=== PATIENT | male | born 1975 | race Two or more races ===

== ENCOUNTER 2020-09-14 17:07 | Emergency (ER) | payer MEDICAID, SELFPAY ==
[2020-09-14 17:33] VITALS: BP 128/78; PULSE 101; RESP 18; TEMP 36.1; O2SAT 98; BMI 23.5
--- NOTE | 2020-09-14 17:44 | ED.MEDCLEAR ---
HPI - Medical Clearance General Chief complaint: Medical Clearance Stated complaint: hyperglycemia Time Seen by Provider: 09/14/20 17:44 Source: patient Mode of arrival: ambulatory Limitations: no limitations History of Present Illness HPI Narrative: 45-year-old male with history of substance abuse in the past and insulin-dependent diabetes physical today ambulatory via triage from [facility] where he reports had dinner afterwards checked his sugar her sugar was 450 he administer his sliding scale Humalog 14 units however facility as protocol to send patients to the emergency room for evaluation of their sugar is above a certain point and he was told to come to emergency room. States he tried to reason with the program that his sugar will correct after he took the insulin however they had a procedure that the follow in centimetre. He denies any complaints. He states he is at his usual health has been eating drinking okay. No poly's. no recent illness, chest pain, shortness of breath or URI symptoms. On arrival his POC is 160. complaint: medical clearance requested Onset (ago): hour(s) Traumatic Symptoms: denies traumatic injury Treatments Prior to Arrival: none Related Information Allergies Allergy/AdvReac Type Severity Reaction Status Date / Time fish Allergy Unknown Anaphylaxis Uncoded 09/14/20 17:37 shellfish Allergy Unknown Anaphylaxis Uncoded 09/14/20 17:37 Review of Systems Review of Systems: Constitutional: No Weight loss, No Fever, No Chills, No Night Sweats, No Fatigue, No Malaise ENT/Mouth: No Hearing loss, No Ear Pain, No Nasal Congestion, No Sinus Pain, No Hoarseness, No sore throat, No Rhinorrhea, No Swallowing Difficulty Eyes: No Eye Pain, No Swelling, No Redness, No Foreign Body, No Discharge, No Vision Changes Cardiovascular: No Chest Pain, No SOB, No Dyspnea on Exertion, No Orthopnea, No Edema, No Palpitations Respiratory: No Cough, No Sputum, No Wheezing, No Smoke Exposure, No Dyspnea Gastrointestinal: No Nausea, No Vomiting, No Diarrhea, No Constipation, No abdominal Pain, No Hematochezia, No Melena Genitourinary: no irregular bleeding, No Dysuria, No Urinary Frequency, No Hematuria, No Urinary Incontinence, No Urgency, No Flank Pain, No Urinary Flow Changes, No Hesitancy Musculoskeletal: No joint pain, No Myalgias, No Joint Swelling Skin: No Skin Lesions, No rash Neuro: No Weakness, No Numbness, No Paresthesias, No Loss of Consciousness, No Dizziness, No Headache Psych: No Anxiety/Panic, No Depression, No SI/HI/AH/VH, No Social Issues Heme/Lymph: No Bruising, No Bleeding,No Lymphadenopathy Endocrine: No Polyuria, No Polydipsia, No Temperature Intolerance Yes all other systems are reviewed and are negative [facility] Past Medical History Attestation statement: The following information was validated with the patient. Medical History (Updated 09/14/20 @ 17:56 by Hussein Crawford NP) Diabetes Diabetes Social History Social History Advance Directives: No Advance Directives Information Provided: No Physical Exam Vital Signs: Vital Signs: Vital Signs Temp Pulse Resp BP Pulse Ox 09/14/20 17:33 97.0 F 101 H 18 128/78 98 Body Mass Index 23.5 Reviewed Const: General: cooperative and healthy appearing; No acute distress or intoxicated appearing Nutritional Appearance: average body habitus Orientation/consciousness: patient oriented x3 HENMT: Head: Yes normal to inspection Ears: hearing grossly normal bilaterally Eyes: General: appearance normal, both eyes and all related structures Visual Crain: normal visual crain by confrontation Neck: Neck: Yes normal visual inspection and No tender Thyroid: Thyroid normal Chest: Chest palpation & inspection: normal inspection of the chest Resp: Effort & Inspection: normal respiratory effort Cardio: Jugular venous distension: no JVD GI: Inspection: Yes normal to inspection Percussion: Yes normal to percussion Auscultation: normal bowel sounds : General: Yes no CVA tenderness Back/Spine/Pelvis: Back: no CVA tenderness Skin: General skin exam: no rashes or lesions noted Neuro: General: patient oriented x3 Extrem: General: Yes normal to inspection Course Course Course Narrative: offers no medical complaints. He is actually quite upset that he was sent here knowing that he is diabetic and his sugar with improved after taking his sliding insulin. His POC on arrival is 160 he wants to return back to the sober house. At this time no further indication for lab work or evidence of DKA based on the presentation. Patient will be clear back for long term with continued monitoring his sugar and his meds as prescribed. Discharge Plan Discharge Clinical Impression: Diabetes, Encounter for medical screening examination Patient Disposition: Home, Self-Care Instructions: Type 2 Diabetes Management for Adults (ED), Diabetes and Exercise (ED) Additional Instructions: Continue monitor sugar as you have done so Take medication prescribed Return if any concerns or worsening symptoms Thank you Referrals: Kirsty / SATURNINO,MD Kimberly [Primary Care Provider] - 1 week
[2020-09-14 17:48] LABS: Glucose, Whole Blood 160 mg/dL (60-115)
== END 2020-09-14 18:13 | disposition home or self-care (01) ==
PROVIDERS: Emergency Provider Emergency Medicine; PCP Family Medicine
DX: E11.65 Type 2 diabetes mellitus with hyperglycemia (principal); Z79.4 Long term (current) use of insulin; Z79.899 Other long term (current) drug therapy
CPT/HCPCS: 82947; 99283

== ENCOUNTER 2021-01-06 10:29 | Outpatient (REF) | payer MEDICAID, SELFPAY ==
--- NOTE | ~2021-01-06 | US_ITS ---
EXAMINATION: US COMPLETE ABDOMEN WITH LIVER ELASTOGRAPHY CLINICAL INFORMATION: Chronic viral hepatitis C COMPARISON: CT scan 01/20/2014 TECHNIQUE: Real-time imaging of the abdominal viscera. Noninvasive ultrasound liver fibrosis assessment is performed using Ryan ElastPQ point quantification shear wave elastography (pSWE) with a C5-2 MHz transducer. Multiple elastography samples are obtained. FINDINGS: PANCREAS: Normal. The visualized pancreatic head and body are normal in appearance. The remainder of the pancreas is obscured from visualization by the overlying bowel gas. ABDOMINAL AORTA: The proximal, middle, and distal aortic segments are normal in caliber. INFERIOR VENA CAVA: Visualized portions are normal. LIVER: Normal. The liver demonstrates normal size, contour and echogenicity. No focal lesion or intrahepatic biliary duct dilatation. The right lobe measures 14.2 cm in length. The left lobe measures 10.1 cm in length. Portal flow is hepatopetal. Shear wave liver elastography median stiffness is 2.01 m/s (reference: normal median stiffness is 1.3 m/s or less). IQR/median stiffness to assess sampling precision is 0.12 (reference: good quality data set is IQR/median stiffness of 0.15 or less). GALLBLADDER: Normal. The gallbladder is physiologically distended without evidence of stones, sludge, polyps, wall thickening or pericholecystic fluid. COMMON BILE DUCT: Normal in caliber measuring 0.4 cm in diameter. RIGHT KIDNEY: No hydronephrosis or focal parenchymal lesions seen. There are 2 punctate echogenic foci, a 2 mm focus in the upper pole and a 1 mm focus in the right mid kidney, suggesting tiny calculi. The kidney measures 11.1 cm in maximum dimension. LEFT KIDNEY: Normal. No hydronephrosis. No renal calculi or focal parenchymal lesions. The kidney measures 10.8 cm in maximum dimension. SPLEEN: Normal. The spleen measures 10.6 cm in maximum dimension. FREE FLUID: None. US/US abdomen comp w elastography IMPRESSION: 1. Suspect tiny 1-2 mm nonobstructing right renal calculi. No focal liver lesion. 2. Liver elastography: Measurements are suggestive of compensated advanced chronic liver disease but need further test for confirmation. REFERENCE: Society of Radiologists in Ultrasound Liver Stiffness Thresholds (2020): LIVER STIFFNESS THRESHOLDS: *Liver Stiffness equal or less than 1.3 m/s: High probability of being normal. *Liver Stiffness less than 1.7 m/s: In the absence of other known clinical signs, rules out compensated advanced chronic liver disease. *Liver Stiffness 1.7-2.1 m/s: Suggestive of compensated advanced chronic liver disease but need further test for confirmation. *Liver Stiffness over 2.1 m/s: Rules in compensated advanced chronic liver disease. *Liver Stiffness over 2.4 m/s: Suggestive of clinically significant portal hypertension. QUALITY OF DATA SET: *IQR/Median value equal or less than 0.15 implies a quality data set. *IQR/Median value over 0.15 implies a poor quality data set. SIGNIFICANT CHANGE FROM PRIOR EXAM: Significant change if liver stiffness measurement is 10% or greater from prior exam. OTHER CONSIDERATIONS: The stage of liver fibrosis may be overestimated in the setting of acute hepatitis, liver inflammation, elevated liver function tests, hepatic vascular congestion, obstructive cholestasis, non-fasting state, and infiltrative diseases such as amyloidosis and lymphoma. In some patients with NAFLD, the liver stiffness thresholds for compensated advanced chronic liver disease may be lower. In causes other than viral hepatitis and NAFLD, liver stiffness thresholds are not well established.
== END 2021-01-06 10:30 | disposition home or self-care (01) ==
LOC: HO.US 10:29
PROVIDERS: Visit Provider Family Medicine
DX: B18.2 Chronic viral hepatitis C (principal)
CPT/HCPCS: 76705; 76981

== ENCOUNTER 2021-05-20 07:44 | Emergency (ER) | payer MEDICAID, SELFPAY ==
[2021-05-20 07:49] VITALS: BP 128/79; PULSE 109; RESP 17; TEMP 36.8; O2SAT 99; BMI 18.8
--- NOTE | 2021-05-20 08:05 | PC.NURSE ---
Dr Bales to bedside discussing plan for ABX as pt declines drainage of abscess at this time. Pt aware/agreeable to return to ED for unresolved sx after two days.
--- NOTE | 2021-05-20 08:10 | ED_ITS ---
HPI - Skin/Abscess/Foreign Bdy General Chief complaint: Skin/Abscess/Foreign Body Stated complaint: abscess Time Seen by Provider: 05/20/21 08:09 Source: patient Mode of arrival: ambulatory Limitations: no limitations History of Present Illness HPI narrative: 46-year-old male came in for evaluation of right arm abscesses. This is a 46 years domain with history of IV drug abuse, patient injected to the right AC area 4 days ago, patient stated that his been draining pus from the area and having redness of the skin, with area of fluctuation and draining pus, patient was able to drain pus from the area, no fever, no chills, patient declined there is no broken needle in the area. physical exam showed some fluctuation in the AC area, I recommended to the patient to do I and D in the emergency department but patient adamantly refused it in stated that there is no pus in there because he drained everything, I explained to the patient that because the proximity to the elbow joint 1 of the biggest complication that we concern about is septic arthritis patient is still refusing the I and D but just will take antibiotic prescription. Related Data Previous Rx's Medication Instructions Recorded doxycycline hyclate 100 mg PO BID #20 tab 05/20/21 Allergies Allergy/AdvReac Type Severity Reaction Status Date / Time fish Allergy Unknown Anaphylaxis Uncoded 09/14/20 17:37 shellfish Allergy Unknown Anaphylaxis Uncoded 09/14/20 17:37 Review of Systems Review of Systems: All other systems are reviewed and are negative Constitutional: Reports as per HPI and Reports no additional constitutional complaints Eyes: Reports as per HPI and Reports no additional eye complaints Reports system reviewed and no additional complaints, except as documented Cardiovascular: Reports as per HPI and Reports no additional cardiovascular complaints Respiratory: Reports as per HPI and Reports no additional respiratory complaints Gastrointestinal: Reports as per HPI and Reports no additional gastrointestinal complaints Genitourinary: Reports no additional female genitourinary complaints Musculoskeletal: Reports no additional musculoskeletal complaints Skin/Breast: Reports system reviewed and no additional complaints, except as docu Psychiatric: Reports no additional psychiatric complaints Endocrine: Reports no additional endocrine complaints Hematologic/Lymphatic: Reports no additional hematologic/lymphatic complaints Allergic/Immunologic: Reports no additional allergic/immunologic complaints Reports system reviewed and no additional complaints, except as documented and Reports Abnormal speech present [facility] Past Medical History Medical History Diabetes Diabetes Social History Social History Advance Directives: No Advance Directives Information Provided: No Physical Exam Vital Signs: Vital Signs: Last Vital Signs Temp 98.2 F 05/20/21 07:49 Pulse 109 H 05/20/21 07:49 Resp 17 05/20/21 07:49 BP 128/79 05/20/21 07:49 Pulse Ox 99 05/20/21 07:49 Body Mass Index 18.8 vital signs have been reviewed as appeared to be correct. Blood pressure normal. Heart rate Elevated. Respiration rate normal. Temperature normal. Oxygen saturation normal. Appearance: Alert. Oriented X3. No acute distress. Head: Normal external exam. Normocephalic. Atraumatic. No Ibrahim signs noted. No raccoon eyes noted Eyes: PERRLA. EOMI. Conjunctiva and sclera normal. Eyelids normal. ENT: TM's Normal. Pharynx normal. Uvula midline. Moist mucous membranes. No trismus noted. No drooling noted. No muffled voice noted. Neck: Normal inspection. Neck supple. FROM. No adenopathy. Thyroid Normal. No meningeal signs. No neck mass noted. CVS: Normal heart rate and rhythm. Heart sound normal. No murmurs noted. Pulses normal throughout. Respiratory: No respiratory distress. Painless inspiration. Breath sounds normal. No wheezes/rales/rhonchi noted. Chest nontender. No accessory muscle usage noted or decreased air movement noted. Abdomen: Soft and nontender. Bowel sounds normal in all 4 quadrants. No distention noted. No organomegaly noted. No visible injury noted. Back: No CVA tenderness. Full range of motion noted. Skin: Skin warm and dry. Normal skin color. Normal skin turgor. No rashes/lesions/lacerations noted. Extremities: right arm area of 2 x 2 cm redness, mild fluctuation, no drainage, full range of the right elbow joint with no hotness or redness above the joint. Neuro: Oriented X 3. No motor deficit. No sensory deficit. Reflexes normal. Course Course Course Narrative: assessment and plan. Right arm cellulitis with small abscess, patient mostly did I and D on his own, but patient adamantly refuse that I do I&D in the emergency department, at this point since there is no elbow involvement but patient was advised that this is a potential complication, patient was instructed to return to the ED for recheck on the infection In 2 days, will start the patient on doxycycline. Discharge Plan Discharge Clinical Impression: Cellulitis Qualifiers: Site of cellulitis of extremity: upper extremity Laterality: right Patient Disposition: Home, Self-Care Instructions: Cellulitis (ED) Prescriptions: New doxycycline hyclate 100 mg tablet 100 mg PO BID Qty: 20 RF: 0 Referrals: Kirsty / Kimberly MATAMOROS MD [Primary Care Provider] - 2 days
--- NOTE | 2021-05-20 08:16 | PC.NURSE ---
Stvien from CARE team at bedside speaking with pt at this time
--- NOTE | 2021-05-20 08:35 | MHC.RECOVSUP ---
Recovery Support note: Patient is a 46 year old Kinyarwanda speaking male who presented to [facility] ED due to multiple abscesses. Patient reports that he injects heroin. This writer editor met with patient to discuss his substance use and treatment options. Patient asked if [facility] still had detox services. This writer editor educated patient on [facility] and local treatment facilities. Patient reports he is interested in going to detox tomorrow. This writer editor provided patient with information on ATS facilities. Patient's mother was present and she reported that she cannot drive patient far for treatment. This writer editor discussed [facility] and provided patient with information regarding their transportation service and recovery coaching. Patient reports he is on 20mg of methadone through [facility]. Patient states I can't keep living like this, I need to get into treatment. Discussed harm reduction with patient. Patient reports he has a meeting with someone at [facility]. Patient provided with the contact information for this writer editor in the event that he has additional questions later on. This writer editor contacted [facility] ATS facilities and placed patient on waiting list at patient's request.
== END 2021-05-20 08:37 | disposition home or self-care (01) ==
PROVIDERS: Emergency Provider Emergency Medicine; PCP Family Medicine
DX: L03.113 Cellulitis of right upper limb (principal); E11.9 Type 2 diabetes mellitus without complications
CPT/HCPCS: 99283

== ENCOUNTER 2021-06-06 17:21 | Emergency (ER) | payer MEDICAID, SELFPAY | END 2021-06-06 18:56 | disposition left against medical advice (07) | PROVIDERS: Emergency Provider Emergency Medicine; PCP Family Medicine | DX: L02.91 Cutaneous abscess, unspecified (principal) ==

== ENCOUNTER 2021-06-22 20:30 | Inpatient (IN) | payer MEDICAID, SELFPAY ==
--- NOTE | ~2021-06-22 | CT_ITS ---
EXAMINATION: CT HUMERUS WITHOUT CONTRAST, RIGHT CLINICAL INFORMATION: compartment syndrome right arm status post surgery COMPARISON: None TECHNIQUE: Axial images obtained through the right upper shoulder through elbow. Coronal and sagittal reformatted images are performed at CT scanner This CT examination was performed using dose optimization techniques as appropriate, variously including the following: *Automated exposure control *Adjustment of mA and/or kV according to patient size (this includes techniques or standardized protocols for targeted exams where dose is matched to indication/reason for exam; i.e. extremities or head) *Use of iterative reconstruction technique DLP: 181 mGy-cm FINDINGS: There is subcutaneous edema at the volar side of the distal upper arm. . There is a small hyperdense focus in the subcutaneous tissue at the antecubital fossa, axial image 101/124 series 8. There is a second hyperdense focus of similar size on image 93/124 series 8 at the volar side of the arm just superior to the antecubital fossa. These are probably related to surgery There is subcutaneous edema which extends along the medial side of the upper arm to about the level the axilla. No air seen within the soft tissues. No focal abscess. No swelling of the musculature. There is no osseous abnormality. The glenohumeral joint and the elbow joint are normal. CT/CT humerus RT wo con IMPRESSION: Subcutaneous tissue at the antecubital fossa extending along the medial side of the arm into the region of the axilla. No air collections or abscess however. There are 2 small hyperdense foci in the antecubital fossa subcutaneous tissue probably related to recent surgery. The upper arm is otherwise unremarkable.
[2021-06-22 20:32] VITALS: BP 146/84; PULSE 82; RESP 16; TEMP 36.8; O2SAT 99; BMI 21.9
[2021-06-22 21:32] LABS: Hematocrit 21.6 % (42-52); Mean Corpuscular HGB Conc 31.9 g/dl (31.0-36.0); Mean Corpuscular Hemoglobin 30.4 pg (27.0-33.0); Mean Corpuscular Volume 95.2 fL (80-98); Mean Platelet Volume 9.3 fL (9.4-12.4); Platelet Count 421 X10*3/uL (160-400); Red Blood Count 2.27 X10*6/uL (4.60-5.80); Red Cell Distribution Width 14.4 % (11.0-16.0); White Blood Count 7.7 X10*3/uL (4.8-10.8)
[2021-06-22 21:34] LABS: Hemoglobin 6.9 g/dl (14.0-18.0)
--- NOTE | 2021-06-22 21:39 | ED.SKABFB ---
HPI - Skin/Abscess/Foreign Bdy General Chief complaint: Skin/Abscess/Foreign Body Stated complaint: Abscess Time Seen by Provider: 06/22/21 21:39 Source: patient Mode of arrival: ambulatory Limitations: no limitations History of Present Illness HPI narrative: Patient 46 years old IV drug user was admitted at [facility] last month for compartment syndrome right arm after injecting IVDA right antecubital area patient went to surgery on 06/08 was there till 8/ left AMA not taking any antibiotics comes here for fever chills and increased swelling of the antecubital area patient also got blood transfusion there. Patient denies any vomiting no black stools no abdominal pain Related Data Home Medications Medication Instructions Recorded Confirmed insulin glargine 100 unit/mL (3 55 unit SUBCUT QPM 06/22/21 06/22/21 mL) subcutaneous pen (Lantus Solostar U-100 Insulin) abacavir 600 mg-dolutegravir 50 1 tab PO DAILY 06/23/21 06/23/21 mg-lamivudine 300 mg tablet (Triumeq) gabapentin 300 mg capsule 1 cap PO BID 06/23/21 06/23/21 insulin lispro 100 unit/mL See Rx Instructions .ROUTE .COMPLEX 06/23/21 06/23/21 subcutaneous pen (Humalog KwikPen (U-100) Insulin) quetiapine 50 mg tablet 1 tab PO BEDTIME 06/23/21 06/23/21 Allergies Allergy/AdvReac Type Severity Reaction Status Date / Time fish Allergy Unknown Anaphylaxis Uncoded 06/22/21 20:41 shellfish Allergy Unknown Anaphylaxis Uncoded 06/22/21 20:41 Review of Systems Review of Systems: Constitutional : No Weight loss, No Fever, No Chills ENT/Mouth : No sore throat, No Rhinorrhea Eyes: No Eye Pain, No Swelling Cardiovascular : No Chest Pain, no palpitations Respiratory : No Cough, No Sputum, no shortness of breath Gastrointestinal : no Nausea, No Vomiting, No Diarrhea, No abdominal Pain, no black stools Genitourinary : No Dysuria, No Urinary Frequency Musculoskeletal : No joint pain, No Myalgias, No Joint Swelling Skin : No Skin Lesions, No rash Neuro : No Weakness, No Numbness, No Dizziness, No Headache Psych : No Anxiety/Panic, No Depression Heme/Lymph: No Bruising, No Lymphadenopathy Endocrine : No Polyuria, No Polydipsia All other systems reviewed and are negative [facility] Past Medical History Medical History Diabetes Diabetes Substance abuse Social History Social History Alcohol intake: never Patient Tobacco Use Status: Current everyday Tobacco user Use of substances other than those prescribed or required for medical reasons: No Advance Directives: No Advance Directives Information Provided: No Physical Exam Vital Signs: Vital Signs: Last Vital Signs Temp 98.4 F 06/23/21 02:04 Pulse 53 06/23/21 02:04 Resp 15 06/23/21 02:04 BP 154/86 H 06/23/21 02:04 Pulse Ox 98 06/23/21 00:22 Body Mass Index 21.9 Const: General: comfortable and no acute distress Nutritional Appearance: thin and other (Pallor++) Orientation/consciousness: patient oriented x3 HENMT: Head: Yes normocephalic and Yes atraumatic Face and sinus: Yes normal facial exam Mouth: Normal oral and palatal mucosa present Eyes: Sclerae: sclerae normal Pupils: Equal, round and reactive pupils present Neck: Neck: Yes normal visual inspection and Yes full ROM Resp: Effort & Inspection: normal respiratory effort Auscultation: clear to auscultation bilaterally, no crackles, no rales and no rhonchi Cardio: Palpation: normal PMI Rate: regular rate Rhythm: regular rhythm Heart sounds: S1 normal heart sound present and S2 normal heart sound present Peripheral pulses: Peripheral pulses 2+ throughout GI: Inspection: Yes normal to inspection Palpation (GI): Soft to palpation and nontender Auscultation: normal bowel sounds : General: Yes Bimanual renal exam normal bilaterally and Yes no CVA tenderness Back/Spine/Pelvis: Back: no CVA tenderness Skin: General skin exam: no rashes or lesions noted Neuro: General: patient oriented x3 and no focal motor deficits Cranial nerves: Yes Equal, round and reactive pupils present Extrem: Elbow/forearm/wrist images: 1. hard tender swelling in anticubital area, surgical scar in arm , no pus discharge neurovascular intact good range of movement no signs of compartment syndrome MDM - Skin/Abscess/Foreign Bdy MDM Narrative Medical decision making narrative: Patient with history of recent compartment syndrome after IVDA with? MRSA bacteremia awaiting further records from [facility] comes here with fever chills and recurrence of the swelling of the right arm area CT scan negative for any abscess which showed hyperdensity area in the antecubital fossa. Will admit patient for be history of bacteremia and abscess?. IV vancomycin Zosyn started. Also patient noticed to have severe anemia already got 2 units of blood at [facility] which give him another unit blood he denies any rectal bleeding etiology of anemia is not very clear according to patient was postop. Also has elevated creatinine level likely CKD. From diabetes Lab Data Attestation: I reviewed the patient's lab results. Result diagrams: 06/22/21 21:06/22/21 21:22 Labs: Lab Results 06/22/21 06/22/21 06/22/21 Range/Units 21:21 21: 21:22 WBC 7.7 (4.8-10.8) X10*3/uL RBC 2.27 L (4.60-5.80) X10*6/uL Hgb 6.9 L* (14.0-18.0) g/dl Hct 21.6 L (42-52) % MCV 95.2 (80-98) fL MCH 30.4 (27.0-33.0) pg MCHC 31.9 (31.0-36.0) g/dl RDW 14.4 (11.0-16.0) % Plt Count 421 H (160-400) X10*3/uL MPV 9.3 L (9.4-12.4) fL Absolute Nucleated RBC 0.000 (0.0-0.012) X10*3/uL Nucleated RBC % (auto) 0.0 (0.0-0.2) /100WBC Sodium 142 (135-145) mmol/L Potassium 3.5 (3.3-5.1) mmol/L Chloride 103 (96-108) mmol/L Carbon Dioxide 29 (22-29) mmol/L Anion Gap 14 (12-20) BUN 14 (9-16) mg/dL Creatinine 2.07 H (0.5-1.4) mg/dL Estim Creat Clear Calc 40.9 Estimated GFR 35 Random Glucose 244 H (60-115) mg/dL Lactic Acid 2.6 H* (0.5-2.0) mmol/L Calcium 8.1 L (8.4-10.2) mg/dL Iron 31 L (45-160) mcg/dL TIBC 257 (228-428) mcg/dL % Saturation 12 L (15-50) % Unsat Iron Binding 226 ug/dL Ferritin 341 H (20-250) ng/mL Total Bilirubin 0.2 (0.0-1.0) mg/dL AST 17 (5-37) U/L ALT 12 (0-40) U/L Alkaline Phosphatase 56 (39-117) U/L Total Protein 6.8 (6.5-8.0) g/dL Albumin 3.2 L (3.5-5.0) g/dL Specimen Comment Coronavirus (PCR) (Negative) Influenza Type A (PCR) (Negative) Influenza Type B (PCR) (Negative) RSV RNA Qual (PCR) (Negative) Blood Type Antibody Screen Crossmatch 06/22/21 06/22/21 06/22/21 Range/Units 22:32 23:30 23:47 WBC (4.8-10.8) X10*3/uL RBC (4.60-5.80) X10*6/uL Hgb (14.0-18.0) g/dl Hct (42-52) % MCV (80-98) fL MCH (27.0-33.0) pg MCHC (31.0-36.0) g/dl RDW (11.0-16.0) % Plt Count (160-400) X10*3/uL MPV (9.4-12.4) fL Absolute Nucleated RBC (0.0-0.012) X10*3/uL Nucleated RBC % (auto) (0.0-0.2) /100WBC Sodium (135-145) mmol/L Potassium (3.3-5.1) mmol/L Chloride (96-108) mmol/L Carbon Dioxide (22-29) mmol/L Anion Gap (12-20) BUN (9-16) mg/dL Creatinine (0.5-1.4) mg/dL Estim Creat Clear Calc Estimated GFR Random Glucose (60-115) mg/dL Lactic Acid (0.5-2.0) mmol/L Calcium (8.4-10.2) mg/dL Iron (45-160) mcg/dL TIBC (228-428) mcg/dL % Saturation (15-50) % Unsat Iron Binding ug/dL Ferritin (20-250) ng/mL Total Bilirubin (0.0-1.0) mg/dL AST (5-37) U/L ALT (0-40) U/L Alkaline Phosphatase (39-117) U/L Total Protein (6.5-8.0) g/dL Albumin (3.5-5.0) g/dL Specimen Comment DELAY Coronavirus (PCR) NEGATIVE (Negative) Influenza Type A (PCR) NEGATIVE (Negative) Influenza Type B (PCR) NEGATIVE (Negative) RSV RNA Qual (PCR) NEGATIVE (Negative) Blood Type O Negative Antibody Screen NEGATIVE Crossmatch See Detail Discharge Plan Discharge Clinical Impression: Severe anemia, Active substance abuse Abscess of skin or subcutaneous tissue Qualifiers: Site of cutaneous abscess: extremity Site of cutaneous abscess of extremity: upper extremity Laterality: right Qualified Code(s): L02.413 - Cutaneous abscess of right upper limb Patient Disposition: Admitted As Inpatient
[2021-06-22 21:52] LABS: Lactic Acid 2.6 mmol/L (0.5-2.0)
[2021-06-22 21:54] LABS: Alanine Aminotransferase 12 U/L (0-40); Albumin Level 3.2 g/dL (3.5-5.0); Alkaline Phosphatase 56 U/L (39-117); Anion Gap 14 (12-20); Aspartate Amino Transferase 17 U/L (5-37); Bilirubin Total 0.2 mg/dL (0.0-1.0); Blood Urea Nitrogen 14 mg/dL (9-16); Calcium 8.1 mg/dL (8.4-10.2); Carbon Dioxide 29 mmol/L (22-29); Chloride 103 mmol/L (96-108); Creatinine Clr Calc Pharmacy 40.9; Estimated Glomerular Filt Rate 35; Glucose Random 244 mg/dL (60-115); Potassium 3.5 mmol/L (3.3-5.1); Sodium 142 mmol/L (135-145); Total Protein 6.8 g/dL (6.5-8.0)
[2021-06-22 22:01] VITALS: BP 153/86; PULSE 70; RESP 16; TEMP 37.2; O2SAT 97
[2021-06-22] MEDS: 0.9 % Sodium Chloride 1,000 ML 999 ML IVCONT (22:17)
[2021-06-22] MEDS: vancomycin HCL 1,000 MG in 0.9 % Sodium Chloride 250 ML 270 MG IV (22:58)
[2021-06-22] MEDS: Piperacillin Sodium/Tazobactam 3.375 GM in 0.9 % Sodium Chloride 50 ML IV (22:59)
[2021-06-22 23:28] LABS: Reflex Lactate? Lactic Acid Added
[2021-06-22 23:47] LABS: Delay - Chemistry DELAY
[2021-06-23] VITALS (12 sets, daily range): BP systolic 114–167; BP diastolic 69–91; PULSE 51–78; RESP 13–17; TEMP 36.3–36.9; O2SAT 98–100
--- NOTE | 2021-06-23 00:33 | PM.IMHP ---
History of Present Illness Date of Service: 06/23/21 Chief Complaint: Fever This is a 46-year-old male with past medical history of IV drug use, type 2 diabetes on insulin, most recent right arm abscess, compartment syndrome, status post fasciotomy who presents to the hospital with complaints of fever, increased pain and swelling at the fasciotomy site. Patient reports that he was at [facility] for abscess of his right arm in May, underwent right arm fasciotomy for compartment syndrome of that same location on 06/08, patient also reports that he received blood transfusion due to blood loss during the surgical intervention. He was at [facility] up until 3 days ago and was on antibiotics and was supposed to be on IV antibiotics for 3-4 weeks but was not pleased with the way he was treated and therefore left AMA. He reports that over the next 3 days he developed fever, weakness, nausea, no vomiting, no abdominal pain, no urinary symptoms and no lower extremity edema. He denied chest pain or shortness of breath. He reports that he noticed that there is also swelling at the surgical site with increased drainage. The drainage is clear. He did not notice any increased redness. He has no difficulty with moving his elbow. He reports he had a fever of 102 at home. On arrival to the ED patient's vitals were significant for temp of 97.0?, heart rate of 101, respiratory rate of 18, blood pressure of 128/78, satting 98% on room air For WBC count of 7.7, hemoglobin of 6.9, hematocrit 21.6, creatinine of 2.7 with a baseline of around 1.19, iron level of 31, COVID-[address] noncontrast shows subcutaneous tissue at the antecubital fossa extending along the medial side of the arm into the region of the axilla, no air collection or abscess however there are 2 small hyperdense foci in the enter cubital fossa subcutaneous tissue probably related to recent surgery. Patient will be admitted for further management. At the time of the interview we were still waiting for records from [facility]. Review of Systems Review of Systems: Yes all other systems are reviewed and are negative [facility] Medical History (Updated 06/23/21 @ 06:56 by Ben Vergara MD) Compartment syndrome Diabetes Diabetes Substance abuse Surgical History (Updated 06/23/21 @ 06:54 by Ben Vergara MD) H/O fasciotomy Social History Alcohol intake: never Patient Tobacco Use Status: Current everyday Tobacco user Use of substances other than those prescribed or required for medical reasons: No Advance Directives: No Advance Directives Information Provided: No Meds Allergies Allergy/AdvReac Type Severity Reaction Status Date / Time fish Allergy Unknown Anaphylaxis Uncoded 06/22/21 20:41 shellfish Allergy Unknown Anaphylaxis Uncoded 06/22/21 20:41 Active Medications: Current Medications Generic Name Dose Route Start Last Admin Trade Name Freq PRN Reason Stop Dose Admin Acetaminophen 650 mg 06/23/21 00:22 Acetaminophen 325 Mg Tablet PO Q6H PRN Pain, Mild (Pain Scale 1-3) Dextrose 25 gm 06/23/21 00:22 Dextrose 50 % 25 Gm/50 Ml Vial IVPUSH Q15M PRN per Hypoglycemia Standing Ord. Protocol Docusate Sodium 100 mg 06/23/21 00:22 Docusate Sodium 100 Mg Capsule PO DAILY PRN Constipation Glucose 15 gm 06/23/21 00:22 Glucose Gel 15 Gm Gel..Gram. PO Q15M PRN per Hypoglycemia Standing Ord. Protocol Heparin Sodium (Porcine) 5,000 unit 06/23/21 00:22 06/23/21 00:27 Heparin Sodium,Porcine 5,000 Unit/Ml Vial SUBCUT Not Given Q12H [facility] Vancomycin HCl 1,000 mg/ 270 mls @ 270 mls/hr 06/23/21 00:22 Sodium Chloride IV Q24H [facility] Cefepime HCl 1 gm/ Sodium 50 mls @ 100 mls/hr 06/23/21 00:22 Chloride IV Q12H [facility] Lactated Ringer's 1,000 mls @ 100 mls/hr 06/23/21 00:22 06/23/21 00:26 Lr IVCONT Not Given .Q10H [facility] Insulin Glargine 55 unit 06/23/21 00:22 Insulin Glargine,Hum.Rec.Anlog 100 Unit/Ml 10 Ml Vial SUBCUT QPM [facility] Insulin Human Lispro 0 unit 06/23/21 07:30 Insulin Lispro 100 Unit/Ml 3 Ml Vial SUBCUT QIDACHS [facility] Protocol Ondansetron HCl 4 mg 06/23/21 00:22 Ondansetron Hcl 4 Mg/2 Ml Vial IVPUSH Q8H PRN Nausea and Vomiting Pharmacy Consult 1 each 06/23/21 00:22 Consult Rx Vancomycin Dosing MISCELLANE DAILY PRN Consult order Sodium Chloride 3 ml 06/23/21 08:00 0.9 % Sodium Chloride Flush 3 Ml Syringe IVFLU QSTHE [facility] Home Medications Medication Instructions Recorded Confirmed Last Taken Type insulin glargine 100 unit/mL (3 55 unit SUBCUT QPM 06/22/21 06/22/21 Unknown History mL) subcutaneous pen (Lantus Solostar U-100 Insulin) abacavir 600 mg-dolutegravir 50 1 tab PO DAILY 06/23/21 06/23/21 Unknown History mg-lamivudine 300 mg tablet (Triumeq) gabapentin 300 mg capsule 1 cap PO BID 06/23/21 06/23/21 Unknown History insulin lispro 100 unit/mL See Rx Instructions .ROUTE .COMPLEX 06/23/21 06/23/21 Unknown History subcutaneous pen (Humalog KwikPen (U-100) Insulin) quetiapine 50 mg tablet 1 tab PO BEDTIME 06/23/21 06/23/21 Unknown History Physical Exam Vital Signs and Narrative: Vital Signs: Last Vital Signs Temp 97.5 F 06/23/21 00:22 Pulse 78 06/23/21 00:22 Resp 15 06/23/21 00:22 BP 134/78 06/23/21 00:22 Pulse Ox 98 06/23/21 00:22 Body Mass Index 21.9 Const: General: cooperative and no acute distress Orientation/consciousness: patient oriented x3 Eyes: General: appearance normal, both eyes and all related structures Resp: Effort & Inspection: normal respiratory effort and able to speak in complete sentences Cardio: Rate: regular rate Rhythm: regular rhythm GI: Palpation (GI): Soft to palpation Auscultation: normal bowel sounds Skin: General skin exam: no rashes or lesions noted Neuro: General: patient oriented x3 Cognition (Neuro): normal cognition Extrem: General: Yes normal to inspection and Yes no pedal edema Results Labs CBC and Chem 7: 06/22/21 21:21 06/22/21 21:22 Labs: Laboratory Results - last 24 hr 06/22/21 06/22/21 06/22/21 21:21 21:21 21:22 MCV 95.2 MCH 30.4 MCHC 31.9 RDW 14.4 Plt Count 421 H MPV 9.3 L Absolute Nucleated RBC 0.000 Nucleated RBC % (auto) 0.0 Anion Gap 14 Estim Creat Clear Calc 40.9 Estimated GFR 35 Random Glucose 244 H Lactic Acid 2.6 H* Calcium 8.1 L Total Bilirubin 0.2 AST 17 ALT 12 Alkaline Phosphatase 56 Total Protein 6.8 Albumin 3.2 L Specimen Comment Blood Type Antibody Screen Crossmatch 06/22/21 06/22/21 22:32 23:47 MCV MCH MCHC RDW Plt Count MPV Absolute Nucleated RBC Nucleated RBC % (auto) Anion Gap Estim Creat Clear Calc Estimated GFR Random Glucose Lactic Acid Calcium Total Bilirubin AST ALT Alkaline Phosphatase Total Protein Albumin Specimen Comment DELAY Blood Type O Negative Antibody Screen NEGATIVE Crossmatch See Detail Imaging Radiologist's Impressions: Impressions Humerus CT 06/22/21 21:47 IMPRESSION: Subcutaneous tissue at the antecubital fossa extending along the medial side of the arm into the region of the axilla. No air collections or abscess however. There are 2 small hyperdense foci in the antecubital fossa subcutaneous tissue probably related to recent surgery. The upper arm is otherwise unremarkable. 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 He reports that he was being treated with IV antibiotics and was supposed to be on antibiotics for 3-4 more weeks but left AMA due to his displeasure. Returns today with fever # abscess of subcutaneous tissue - status post I&D and fasciotomy due to compartment syndrome at [facility] - still waiting for result - patient reports that he was supposed to be on IV antibiotics for 3-4 more weeks - will start him on broad-spectrum antibiotic - pending records from [facility] - infectious disease consult - surgical consult # status post fasciotomy - this site has minimal swelling, no erythema, no limited range of motion at the elbow - general surgery consult # diabetes - diabetic diet - low-dose sliding scale insulin - continue home insulin # TOMMY - most likely prerenal - the sermon IV fluids - follow BMP [place] DVT prophylaxis: Heparin subQ Quality Stroke Does the patient have a stroke diagnosis?: No VTE Prior VTE?: No VTE Risk Level:: Medical - moderate - high VTE Device Contraindication: Treatment Not Indicated VTE Drug Contraindication: N/A - Med Ordered
[2021-06-23 00:40] LABS: Iron 31 mcg/dL (45-160); Percent Iron Saturation 12 % (15-50); Total Iron Binding Capacity 257 mcg/dL (228-428); Unsaturated Iron Binding 226 ug/dL
[2021-06-23 00:49] LABS: Influenza A PCR NEGATIVE (Negative); Influenza B PCR NEGATIVE (Negative); Resp Syncy Virus RNA Qual PCR NEGATIVE (Negative); SARS COV2 PCR INHOUSE NEGATIVE (Negative)
[2021-06-23 01:01] LABS: Ferritin 341 ng/mL (20-250)
[2021-06-23 02:30] LABS: Glucose, Whole Blood 123 mg/dL (60-115)
[2021-06-23] MEDS: ondansetron HCL 4 MG/2 ML VIAL IVPUSH (02:57)
[2021-06-23] MEDS: cefEPime HCl 1 GM in 0.9 % Sodium Chloride 50 ML IV ×2 (02:58→13:26)
[2021-06-23 03:51] LABS: ~Lactic Acid-LAB USE ONLY 1.4 mmol/L (0.5-2.0)
[2021-06-23 05:50] LABS: Glucose, Whole Blood 49 mg/dL (60-115)
[2021-06-23 07:07] LABS: Glucose, Whole Blood 60 mg/dL (60-115)
--- NOTE | 2021-06-23 07:32 | PC.NURSE ---
Patient sitting up on side of bed eating breakfast. Pt is alert and oriented. IV site within normal limits.
--- NOTE | 2021-06-23 08:11 | PHA.MEDREC ---
Pharmacy Consult ? Medication Reconciliation Pharmacy has completed the medication reconciliation. Pateint reports suppose to be taking vit B12 and iron but no sure of the dose. Luz Maria Whitaker, PharmD
--- NOTE | 2021-06-23 08:31 | PC.NURSE ---
Report called to MILAGROS Kline. Pt is alert and oriented. Pt will be going to room 377
--- NOTE | 2021-06-23 08:34 | MHC.CM.PN ---
CM ATTEMPTED TO SEE PT WHO IS NOT YET ON THE UNIT CM TO REVISIT
[2021-06-23] MEDS: Lactated Ringers 1,000 ML 100 ML IVCONT (09:18)
[2021-06-23] MEDS: 0.9 % Sodium Chloride Flush 3 ML SYRINGE IVFLUSH (09:24)
[2021-06-23 11:26] LABS: Glucose, Whole Blood 116 mg/dL (60-115)
--- NOTE | 2021-06-23 13:12 | MHC.CM.PN ---
EMR REVIEWED, PT ADMITTED 3 DAYS AFTER LEAVING [facility],PT REPORTS D/T [place] WHILE THERE, PER PT HE LIVES ALONE IN [place], IS INDEPENDENT W/ALL CARE AND NO DME, PT REPORTS HE USES [facility] ON [address] ON [address], PT HAS COUNSELOR THERE HOWEVER DENIES ANY MENTAL HEALTH TX OR MEDS AT THIS TIME, PER PT HIS LAST INPT PSYCH STAY WAS OVER 2YRS AGO, PT PT WOULD LIKE TO SEE SOMEONE FROM [facility], PT IS NOT ENDORSING ANY SI OR SIB AT THIS TIME. CM DID REVIEW POTENTIAL PLAN IF IN FACT PT DOES NEED [facility] ABX, PT AWARE LOCAL OPTIONS OF [facility] OR [facility] AND PT REPORTS HE WILL LOOK THEM UP AND OF NOW HIS PREFERENCE IS [facility], PT OK W/REFERRALS TO BOTH FACILITIES. D/C PLAN: HOME SELF-CARE VS STR FOR IV ABX, TRANSPORT TBD COVID VACCINE: MODERNA 2ND SHOT MARCH/2021 PCP:CARLOS ENRIQUE SHARIF
--- NOTE | 2021-06-23 13:38 | P.CONGS_ITS ---
History of Present Illness Consult details Consult date: 06/23/21 Narrative: 46-year-old male, with long history of IV drug abuse, admitted early this morning because of fever. He actually had undergone what appeared to be a fasciotomy on the right upper arm for an abscess complicated by a compartment syndrome in [facility] last June 08. He has a long incision on the right upper arm. He had against medical advice with 3 days ago. He was supposed to be on IV antibiotics for total of 4 weeks. He came to the ER last night because of fever. He does describe pain on the incision on the right upper arm. He denies any pus but says that he feels that part of the incision is swollen. Review of Systems Constitutional: Constitutional: Denies chills and Reports fever(s) Cardiovascular: Cardiovascular: Denies chest pain, Denies dyspnea and Denies dyspnea on exertion Respiratory: Respiratory: Denies cough, Denies dyspnea and Denies dyspnea on exertion Gastrointestinal: Gastrointestinal: Denies hematochezia and Denies change in bowel habits Genitourinary: Genitourinary: Denies hematuria and Denies difficulty urinating Musculoskeletal: Musculoskeletal: Denies back pain and Denies limited range of motion Neurologic: Denies focal weakness and Denies convulsions Psychiatric: Psychiatric: Denies depression and Denies mood swings PMFSH Past Medical History Medical History (Updated 06/24/21 @ 16:08 by Indira Barnes MD) Compartment syndrome Diabetes Diabetes HIV (human immunodeficiency virus infection) Substance abuse Surgical History Surgical History (Updated 06/25/21 @ 11:07 by Gabe Castillo MD) H/O fasciotomy History of fasciotomy Social History Social History Household Members Other:: self Housing: Apartment Do you presently have visiting nurse or other home services: No Alcohol intake: never Patient Tobacco Use Status: Current everyday Tobacco user Tobacco use type: Cigarette Cigarette Packs Per Day: 1 Cigarettes Per Day: 20.0 Substance Use Type: Heroin service: No Current occupational status: unemployed Meds Allergies Allergy/AdvReac Type Severity Reaction Status Date / Time fish Allergy Unknown Anaphylaxis Uncoded 06/22/21 20:41 shellfish Allergy Unknown Anaphylaxis Uncoded 06/22/21 20:41 Active Medications: Current Medications Generic Name Dose Route Start Last Admin Trade Name Freq PRN Reason Stop Dose Admin Abacavir Sulfate 600 mg 06/23/21 13:14 Abacavir Sulfate 300 Mg Tablet PO DAILY [facility] Acetaminophen 650 mg 06/23/21 00:22 Acetaminophen 325 Mg Tablet PO Q6H PRN Pain, Mild (Pain Scale 1-3) Cyanocobalamin 100 mcg 06/24/21 09:00 Cyanocobalamin (Vitamin B-12) 100 Mcg Tablet PO DAILY [facility] Dextrose 25 gm 06/23/21 00:22 Dextrose 50 % 25 Gm/50 Ml Vial IVPUSH Q15M PRN per Hypoglycemia Standing Ord. Protocol Docusate Sodium 100 mg 06/23/21 00:22 Docusate Sodium 100 Mg Capsule PO DAILY PRN Constipation Dolutegravir Sodium 50 mg 06/23/21 13:14 Dolutegravir Sodium 50 Mg Tablet PO DAILY [facility] Gabapentin 300 mg 06/23/21 21:00 Gabapentin 300 Mg Capsule PO BID [facility] Glucose 15 gm 06/23/21 00:22 Glucose Gel 15 Gm Gel..Gram. PO Q15M PRN per Hypoglycemia Standing Ord. Protocol Heparin Sodium (Porcine) 5,000 unit 06/23/21 01:15 06/23/21 09:26 Heparin Sodium,Porcine 5,000 Unit/Ml Vial SUBCUT Not Given BID [facility] Cefepime HCl 1 gm/ Sodium 50 mls @ 100 mls/hr 06/23/21 02:00 06/23/21 13:26 Chloride IV 100 mls/hr Q12H NIA Administration Lactated Ringer's 1,000 mls @ 100 mls/hr 06/23/21 00:22 06/23/21 09:18 Lr IVCONT 100 mls/hr .Q10H NIA Administration Insulin Glargine 55 unit 06/23/21 00:22 06/23/21 02:57 Insulin Glargine,Hum.Rec.Anlog 100 Unit/Ml 10 Ml Vial SUBCUT Not Given BEDTIME [facility] Insulin Human Lispro 0 unit 06/23/21 07:30 06/23/21 11:38 Insulin Lispro 100 Unit/Ml 3 Ml Vial SUBCUT Not Given QIDACHS [facility] Protocol Lamivudine 300 mg 06/23/21 13:15 Lamivudine 150 Mg Tablet PO DAILY [facility] Methadone HCl 20 mg 06/23/21 10:30 06/23/21 11:37 Methadone Hcl 1 Mg/0.1 Ml Oral.Conc PO 20 mg DAILY NIA Administration Ondansetron HCl 4 mg 06/23/21 00:22 06/23/21 02:57 Ondansetron Hcl 4 Mg/2 Ml Vial IVPUSH 4 mg Q8H PRN Administration Nausea and Vomiting Pharmacy Consult 1 each 06/23/21 00:22 Consult Rx Vancomycin Dosing MISCELLANE DAILY PRN Consult order Pharmacy Consult 1 each 06/23/21 08:07 Consult Rx Perform Med Rec MISCELLANE ONCE PRN Consult order Quetiapine Fumarate 50 mg 06/23/21 21:00 Quetiapine Fumarate 50 Mg Tablet PO BEDTIME NIA Sodium Chloride 3 ml 06/23/21 08:00 06/23/21 09:24 0.9 % Sodium Chloride Flush 3 Ml Syringe IVFLUSH 3 ml QSHIFT NIA Administration Home Medications Medication Instructions Recorded Confirmed Last Taken Type abacavir 600 mg-dolutegravir 50 1 tab PO DAILY 06/23/21 06/23/21 Unknown History mg-lamivudine 300 mg tablet (Triumeq) cyanocobalamin (vitamin B-12) 100 100 mcg PO DAILY 06/23/21 06/23/21 Unknown History mcg tablet ferrous sulfate 324 mg (65 mg 324 mg PO DAILY 06/23/21 06/23/21 Unknown History iron) tablet,delayed release gabapentin 300 mg capsule 1 cap PO BID 06/23/21 06/23/21 Unknown History insulin lispro 100 unit/mL See Rx Instructions .ROUTE .COMPLEX 06/23/21 06/23/21 Unknown History subcutaneous pen (Humalog KwikPen (U-100) Insulin) methadone 5 mg/5 mL oral solution 20 mg PO DAILY 06/23/21 06/23/21 Unknown History quetiapine 50 mg tablet 1 tab PO BEDTIME 06/23/21 06/23/21 Unknown History Physical Exam Vital Signs: Vital Signs: Last Vital Signs Temp 97.3 F 06/23/21 11:11 Pulse 54 06/23/21 11:11 Resp 16 06/23/21 11:11 BP 145/91 H 06/23/21 11:11 Pulse Ox 100 06/23/21 11:11 Body Mass Index 21.9 Const: General: comfortable and no acute distress Orienta tion/consciousness: patient oriented x3 Neck: Neck: Yes no lymphadenopathy Resp: Auscultation: clear to auscultation bilaterally Cardio: Rhythm: regular rhythm GI: Palpation (GI): Soft to palpation, nontender and no guarding Neuro: General: patient oriented x3 Extrem: Other: Long incision upper arm, extending from just distal to the axilla all the way to near the antecubital fossa, sutures intact, no fluctuance, no pus, some induration on the distal aspect of the incision, no surrounding cellulitis Results Labs Result diagrams: 06/24/21 06:02 06/26/21 05:46 Labs: Abnormal lab results 06/22/21 06/22/21 06/22/21 Range/Units 21:21 21:21 21:22 RBC 2.27 L (4.60-5.80) X10*6/uL Hgb 6.9 L* (14.0-18.0) g/dl Hct 21.6 L (42-52) % Plt Count 421 H (160-400) X10*3/uL MPV 9.3 L (9.4-12.4) fL Creatinine 2.07 H (0.5-1.4) mg/dL POC Glucose (60-115) mg/dL Random Glucose 244 H (60-115) mg/dL Lactic Acid 2.6 H* (0.5-2.0) mmol/L Calcium 8.1 L (8.4-10.2) mg/dL Iron 31 L (45-160) mcg/dL % Saturation 12 L (15-50) % Ferritin 341 H (20-250) ng/mL Albumin 3.2 L (3.5-5.0) g/dL Crossmatch 06/22/21 06/23/21 06/23/21 Range/Units 22:32 02:26 05:45 RBC (4.60-5.80) X10*6/uL Hgb (14.0-18.0) g/dl Hct (42-52) % Plt Count (160-400) X10*3/uL MPV (9.4-12.4) fL Creatinine (0.5-1.4) mg/dL POC Glucose 123 H 49 L* (60-115) mg/dL Random Glucose (60-115) mg/dL Lactic Acid (0.5-2.0) mmol/L Calcium (8.4-10.2) mg/dL Iron (45-160) mcg/dL % Saturation (15-50) % Ferritin (20-250) ng/mL Albumin (3.5-5.0) g/dL Crossmatch See Detail 06/23/21 Range/Units 11:12 RBC (4.60-5.80) X10*6/uL Hgb (14.0-18.0) g/dl Hct (42-52) % Plt Count (160-400) X10*3/uL MPV (9.4-12.4) fL Creatinine (0.5-1.4) mg/dL POC Glucose 116 H (60-115) mg/dL Random Glucose (60-115) mg/dL Lactic Acid (0.5-2.0) mmol/L Calcium (8.4-10.2) mg/dL Iron (45-160) mcg/dL % Saturation (15-50) % Ferritin (20-250) ng/mL Albumin (3.5-5.0) g/dL Crossmatch Short CBC 06/22/21 Range/Units 21:21 WBC 7.7 (4.8-10.8) X10*3/uL Hgb 6.9 L* (14.0-18.0) g/dl Hct 21.6 L (42-52) % Plt Count 421 H (160-400) X10*3/uL BMP 06/22/21 21:22 Sodium 142 Potassium 3.5 Chloride 103 Carbon Dioxide 29 BUN 14 Creatinine 2.07 H Calcium 8.1 L Liver Function 06/22/21 Range/Units 21:22 Total Bilirubin 0.2 (0.0-1.0) mg/dL AST 17 (5-37) U/L ALT 12 (0-40) U/L Alkaline Phosphatase 56 (39-117) U/L Albumin 3.2 L (3.5-5.0) g/dL All other labs normal. Assessment and Plan (1) Abscess of skin or subcutaneous tissue: Qualifiers: Laterality: right Site of cutaneous abscess: extremity Site of cutaneous abscess of extremity: upper extremity Qualified Code(s): L02.413 - Cutaneous abscess of right upper limb Status: Acute He had a long incision on the right upper arm for a fasciotomy because of an abscess last June 08. This done in [facility]. He had signed out against medical advice and came last night because of a fever. His incision actually looks like this is healing well. There is some induration on the distal aspect of the incision but there is no fluctuance. There is no drainage as well. I told him that at this time he does not seem to require I&D. He has been started on IV antibiotics. He does not have any fever nor leukocytosis. I will follow along closely while he is here in the hospital. Procedures Date of Service Date of Service: 06/23/21
[2021-06-23 13:59] LABS: Hematocrit 24.6 % (42-52)
[2021-06-23] MEDS: lamiVUDine 150 MG TABLET 300 MG PO (14:07)
[2021-06-23] MEDS: Dolutegravir Sodium 50 MG TABLET PO (14:08)
--- NOTE | 2021-06-23 14:15 | MHC.CLN ---
Addendum entered by Keeley Fermin RD 06/23/21 14:17: DIABETIC 2000 KCAL PROVIDES 31.5 KCAL/KG. Original Note: NUTRITION/DIET DIET CHANGED TO DIABETIC 1800 KCAL TO DIABETIC 200 KCAL. PROVIDES 31.5 KCAL/KG. POC REVIEWED AND RANGE 06/23=49-123.
[2021-06-23 16:17] LABS: Glucose, Whole Blood 181 mg/dL (60-115)
--- NOTE | 2021-06-23 16:34 | W.PM.IDCN ---
History of Present Illness Data of Consult Service Date: 06/23/21 Requesting physician: Indira Barnes Primary Care Provider: Kimberly Lofton MD HPI Reason for consult: right upper extremity abscess He presents with RUE pain for last 3 days He has had fasciotomy/surgical intervention on arm end May and was seen at [facility] He also had lactobacillus acidophilus bacteremia which cleared He had negative TTE and was supposed to complete four weeks Ceftriaxone therapy July 07 He had renal insufficiency He left AMA and returned to using IV drugs in right arm June 20 he returned to [facility] for arm pain and surgery was consulted He had arm abscesses and no positive blood cultures to date No surgical intervention necessary at that time for abscesses He left [facility] AMA on June 23 because he said rooms were too small and needed more pain meds He presents here with arm pain and swelling again on right arm and declines more prolonged IV therapy He has HIV and C4 count preserved and viral load undetectable last month Review of Systems Review of Systems: Yes all other systems are reviewed and are negative PMFSH Past Medical History Medical History (Updated 07/16/21 @ 00:02 by Background Dadion) Active substance abuse Compartment syndrome Diabetes Diabetes Hep C w/o coma, chronic HIV (human immunodeficiency virus infection) HIV (human immunodeficiency virus infection) Opioid use disorder Substance abuse Family History Family history: reviewed and not pertinent Surgical History Surgical History (Updated 07/16/21 @ 00:02 by Background Dadion) H/O fasciotomy History of fasciotomy Social History Social History Household Members: Family Household Members Other:: self Housing: House Do you presently have visiting nurse or other home services: No Unable to assess alcohol history related to: Unknown Alcohol intake: never Patient Tobacco Use Status: Current everyday Tobacco user Tobacco use type: Cigarette Cigarette Packs Per Day: 1 Cigarettes Per Day: 20.0 Substance Use Type: Heroin service: No Current occupational status: unemployed Meds Allergies Allergy/AdvReac Type Severity Reaction Status Date / Time fish Allergy Unknown Anaphylaxis Uncoded 06/22/21 20:41 shellfish Allergy Unknown Anaphylaxis Uncoded 06/22/21 20:41 Active Medications: Current Medications Generic Name Dose Route Start Last Admin Trade Name Freq PRN Reason Stop Dose Admin Abacavir Sulfate 600 mg 06/23/21 13:14 06/23/21 14:08 Abacavir Sulfate 300 Mg Tablet PO 600 mg DAILY NIA Administration Acetaminophen 650 mg 06/23/21 00:22 Acetaminophen 325 Mg Tablet PO Q6H PRN Pain, Mild (Pain Scale 1-3) Cyanocobalamin 100 mcg 06/24/21 09:00 Cyanocobalamin (Vitamin B-12) 100 Mcg Tablet PO DAILY NIA Dextrose 25 gm 06/23/21 00:22 Dextrose 50 % 25 Gm/50 Ml Vial IVPUSH Q15M PRN per Hypoglycemia Standing Ord. Protocol Docusate Sodium 100 mg 06/23/21 00:22 Docusate Sodium 100 Mg Capsule PO DAILY PRN Constipation Dolutegravir Sodium 50 mg 06/23/21 13:14 06/23/21 14:08 Dolutegravir Sodium 50 Mg Tablet PO 50 mg DAILY [facility] Administration Gabapentin 300 mg 06/23/21 21:00 Gabapentin 300 Mg Capsule PO BID NIA Glucose 15 gm 06/23/21 00:22 Glucose Gel 15 Gm Gel..Gram. PO Q15M PRN per Hypoglycemia Standing Ord. Protocol Heparin Sodium (Porcine) 5,000 unit 06/23/21 01:15 06/23/21 09:26 Heparin Sodium,Porcine 5,000 Unit/Ml Vial SUBCUT Not Given BID [facility] Cefepime HCl 1 gm/ Sodium 50 mls @ 100 mls/hr 06/23/21 02:00 06/23/21 14:17 Chloride IV Infused Q12H [facility] Infusion Lactated Ringer's 1,000 mls @ 100 mls/hr 06/23/21 00:22 06/23/21 09:18 Lr IVCONT 100 mls/hr .Q10H [facility] Administration Insulin Glargine 55 unit 06/23/21 00:22 06/23/21 02:57 Insulin Glargine,Hum.Rec.Anlog 100 Unit/Ml 10 Ml Vial SUBCUT Not Given BEDTIME [facility] Insulin Human Lispro 0 unit 06/23/21 07:30 06/23/21 11:38 Insulin Lispro 100 Unit/Ml 3 Ml Vial SUBCUT Not Given QIDACHS [facility] Protocol Lamivudine 300 mg 06/23/21 13:15 06/23/21 14:07 Lamivudine 150 Mg Tablet PO 300 mg DAILY NIA Administration Methadone HCl 20 mg 06/23/21 10:30 06/23/21 11:37 Methadone Hcl 1 Mg/0.1 Ml Oral.Conc PO 20 mg DAILY NIA Administration Ondansetron HCl 4 mg 06/23/21 00:22 06/23/21 02:57 Ondansetron Hcl 4 Mg/2 Ml Vial IVPUSH 4 mg Q8H PRN Administration Nausea and Vomiting Pharmacy Consult 1 each 06/23/21 00:22 Consult Rx Vancomycin Dosing MISCELLANE DAILY PRN Consult order Pharmacy Consult 1 each 06/23/21 08:07 Consult Rx Perform Med Rec MISCELLANE ONCE PRN Consult order Quetiapine Fumarate 50 mg 06/23/21 21:00 Quetiapine Fumarate 50 Mg Tablet PO BEDTIME NIA Sodium Chloride 3 ml 06/23/21 08:00 06/23/21 15:42 0.9 % Sodium Chloride Flush 3 Ml Syringe IVFLUSH Not Given QSHIFT [facility] Home Medications Medication Instructions Recorded Confirmed Last Taken Type abacavir 600 mg-dolutegravir 50 1 tab PO DAILY 06/23/21 07/07/21 Unknown History mg-lamivudine 300 mg tablet (Triumeq) cyanocobalamin (vitamin B-12) 100 100 mcg PO DAILY 06/23/21 06/23/21 Unknown History mcg tablet ferrous sulfate 324 mg (65 mg 324 mg PO DAILY 06/23/21 06/23/21 Unknown History iron) tablet,delayed release gabapentin 300 mg capsule 1 cap PO BID 06/23/21 07/07/21 Unknown History insulin lispro 100 unit/mL See Rx Instructions .ROUTE .COMPLEX 06/23/21 07/07/21 Unknown History subcutaneous pen (Humalog KwikPen (U-100) Insulin) methadone 5 mg/5 mL oral solution 20 mg PO DAILY 06/23/21 06/23/21 Unknown History quetiapine 50 mg tablet 1 tab PO BEDTIME 06/23/21 07/07/21 Unknown History Physical Exam Vital Signs: Vital Signs: Last Vital Signs Temp 97.6 F 06/23/21 15:25 Pulse 53 06/23/21 15:25 Resp 14 06/23/21 15:25 BP 167/85 H 06/23/21 15:25 Pulse Ox 99 06/23/21 15:25 Body Mass Index 21.9 Const: General: cooperative HENMT: Head: Yes normal to inspection Mouth: Normal oral and palatal mucosa present Resp: Effort & Inspection: normal respiratory effort Cardio: Rate: regular rate Rhythm: regular rhythm GI: Palpation (GI): Soft to palpation and nontender Extrem: Other: right arm wrapped,some bleeding Results Labs CBC & Chem 7: 06/24/21 06:02 06/26/21 05:46 Labs: Short CBC 06/22/21 06/23/21 Range/Units 21:21 13:51 WBC 7.7 (4.8-10.8) X10*3/uL Hgb 6.9 L* 8.0 L (14.0-18.0) g/dl Hct 21.6 L 24.6 L (42-52) % Plt Count 421 H (160-400) X10*3/uL BMP 06/22/21 21:22 Sodium 142 Potassium 3.5 Chloride 103 Carbon Dioxide 29 BUN 14 Creatinine 2.07 H Calcium 8.1 L Liver Function 06/22/21 Range/Units 21:22 Total Bilirubin 0.2 (0.0-1.0) mg/dL AST 17 (5-37) U/L ALT 12 (0-40) U/L Alkaline Phosphatase 56 (39-117) U/L Albumin 3.2 L (3.5-5.0) g/dL Assessment and Plan (1) Abscess of skin or subcutaneous tissue: Qualifiers: Laterality: right Site of cutaneous abscess: extremity Site of cutaneous abscess of extremity: upper extremity Qualified Code(s): L02.413 - Cutaneous abscess of right upper limb Status: Resolved There is likely no bacteremia He has had lactobacillus in past There is no sepsis HIV controlled Continue Zosyn for 2-3 days unless bacteremic Po Augmentin for a week if goes AMA (2) Active substance abuse: Status: Inactive
[2021-06-23] MEDS: Insulin Lispro 100 UNIT/ML 3 ML VIAL SUBCUT (16:41)
[2021-06-23 20:22] LABS: Glucose, Whole Blood 119 mg/dL (60-115)
[2021-06-23] MEDS: QUEtiapine Fumarate 50 MG TABLET PO (20:42)
[2021-06-23] MEDS: Gabapentin 300 MG CAPSULE PO (20:42)
[2021-06-23] MEDS: Insulin Glargine,Hum.rec.anlog 100 UNIT/ML 10 ML VIAL 55 UNIT SUBCUT (20:43)
[2021-06-24] MEDS: 0.9 % Sodium Chloride Flush 3 ML SYRINGE IVFLUSH ×2 (01:11→07:49)
[2021-06-24] MEDS: cefEPime HCl 1 GM in 0.9 % Sodium Chloride 50 ML IV ×2 (02:42→13:52)
[2021-06-24 03:34] VITALS: PULSE 54; RESP 16; TEMP 36.3; O2SAT 98
[2021-06-24 06:27] LABS: MANUAL DIFF FLAG NO
[2021-06-24 06:54] LABS: Basophils Absolute Auto 0.1 X10*3/uL (0.0-0.2); Basophils Percent Auto 0.8 % (0-2); Eosinophils Absolute Auto 0.4 X10*3/uL (0.0-0.4); Eosinophils Percent Auto 5.7 % (0-4); Hematocrit 25.7 % (42-52); Hemoglobin 8.2 g/dl (14.0-18.0); Imm Gran Abs Auto 0.02 X10*3/uL (0.00-0.03); Imm Gran Pct Auto 0.3 % (0.0-0.4); Lymphocytes Absolute Auto 3.1 X10*3/uL (1.2-4.9); Lymphocytes Percent Auto 42.7 % (20-40); Mean Corpuscular HGB Conc 31.9 g/dl (31.0-36.0); Mean Corpuscular Hemoglobin 29.5 pg (27.0-33.0); Mean Corpuscular Volume 92.4 fL (80-98); Mean Platelet Volume 9.5 fL (9.4-12.4); Monocytes Absolute Auto 0.6 X10*3/uL (0.1-1.2); Monocytes Percent Auto 7.8 % (2-11); Neutrophils Absolute Auto 3.1 X10*3/uL (2.0-8.3); Neutrophils Percent Auto 42.7 % (45-73); Platelet Count 426 X10*3/uL (160-400); Red Blood Count 2.78 X10*6/uL (4.60-5.80); Red Cell Distribution Width 15.5 % (11.0-16.0); White Blood Count 7.2 X10*3/uL (4.8-10.8)
[2021-06-24 07:25] VITALS: BP 136/75; PULSE 67; RESP 17; TEMP 36.7; O2SAT 97
--- NOTE | 2021-06-24 07:27 | PC.NURSE ---
0720 glucose 40 by lab. Had crackers and juice. POC at 0735 was 100.
[2021-06-24 07:32] LABS: Anion Gap 12 (12-20); Blood Urea Nitrogen 16 mg/dL (9-16); Carbon Dioxide 31 mmol/L (22-29); Chloride 107 mmol/L (96-108); Creatinine Clr Calc Pharmacy 47.8; Estimated Glomerular Filt Rate 42; Glucose Random 40 mg/dL (60-115); Potassium 3.8 mmol/L (3.3-5.1); Sodium 146 mmol/L (135-145)
[2021-06-24 07:44] LABS: Glucose, Whole Blood 100 mg/dL (60-115)
[2021-06-24] MEDS: Gabapentin 300 MG CAPSULE PO ×2 (07:48→20:28)
[2021-06-24] MEDS: Cyanocobalamin (Vitamin B-12) 100 MCG TABLET PO (07:48)
[2021-06-24] MEDS: Dolutegravir Sodium 50 MG TABLET PO (07:49)
[2021-06-24] MEDS: lamiVUDine 150 MG TABLET 300 MG PO (07:49)
[2021-06-24 11:19] VITALS: BP 139/82; PULSE 64; RESP 18; TEMP 36.3; O2SAT 99
--- NOTE | 2021-06-24 11:20 | MHC.CM.PN ---
PER MULTIDISCIPLINARY ROUNDS PT READY FOR D/C TODAY, ASKING FOR VNA, PER [facility] CLIENTS DO NOT NEED TO BE HOMEBOUND, HOWEVER THEIR POLICY IS THEY DO, REFERRALS SENT TO VNA'S UNDER PT'S INSURANCE, PT HAS NO PREFERENCE TO WHICH VNA. CM HAS SPOKEN TO NURSE REGARDING THE NEED FOR EDUCATION AND NEED FOR PT TO BE DISCHARGED W/DRESSING SUPPLIES, CM [employer]PERATOR LOOKING UP LAST PCP VISIT AND WILL MAKE PT AN APPT. PLAN FOR D/C TODAY HOME VS. HOME W/VNA, PT TO ARRANGE TRANSPORT.
[2021-06-24 11:29] LABS: Estimated Average Glucose 258 mg/dL; Hemoglobin A1c % 10.6 %
[2021-06-24 11:58] LABS: Glucose, Whole Blood 59 mg/dL (60-115)
[2021-06-24 11:58] LABS: Glucose, Whole Blood 69 mg/dL (60-115)
--- NOTE | 2021-06-24 13:23 | MHC.CM.PN ---
PER HOSPITALIST PT NOT READY FRO D/C TODAY, CM RECEIVED CALL FROM [facility] [phone] AND THEY ARE WILLING TO ACCEPT PT, MIGUELANGEL IS AWARE PT WILL NOT D/C TODAY HOWEVER ANTICIAPTE D/C TOMORROW 06/25/21.
[2021-06-24] MEDS: Acetaminophen 325 MG TABLET 650 MG PO ×2 (13:52→20:29)
[2021-06-24 15:33] VITALS: BP 147/83; PULSE 60; RESP 16; TEMP 36.3; O2SAT 99
--- NOTE | 2021-06-24 16:00 | HO.PM.IMPN ---
Subjective Subjective Date of Service: 06/24/21 Interval History: Complaining of right arm pain, noted to have low blood sugars, no other acute issues, no nausea no vomiting, no diarrhea. Review of Systems General no headache ,no dizziness, no fever chills. CVS no chest pain, no palpitation. Respiratory no cough, no sob. Gastrointestinal no nausea no vomiting, no abdominal pain Physical Exam Vital Signs: Vital Signs: Last Vital Signs Temp 97.4 F 06/24/21 15:33 Pulse 60 06/24/21 15:33 Resp 16 06/24/21 15:33 BP 147/83 H 06/24/21 15:33 Pulse Ox 99 06/24/21 15:33 Body Mass Index 21.9 General resting comfortably in no acute distress. Neck supple no JVD. CVS regular rate rhythm, Respiratory lungs clear to auscultation, no respiratory distress, no wheeze, no rhonchi. Gastrointestinal abdomen soft, nontender, bowel sounds audible Extremities right upper extremity, well-healed incision, sutures in place, minimal drainage, mild in duration at site of incision, no fluctuation Neuro nonfocal Skin no rash Objective Data Current Medications Generic Name Dose Route Start Last Admin Trade Name Freq PRN Reason Stop Dose Admin Abacavir Sulfate 600 mg 06/23/21 13:14 06/24/21 07:48 Abacavir Sulfate 300 Mg Tablet PO 600 mg DAILY NIA Administration Acetaminophen 650 mg 06/23/21 00:22 06/24/21 13:52 Acetaminophen 325 Mg Tablet PO 650 mg Q6H PRN Administration Pain, Mild (Pain Scale 1-3) Cyanocobalamin 100 mcg 06/24/21 09:00 06/24/21 07:48 Cyanocobalamin (Vitamin B-12) 100 Mcg Tablet PO 100 mcg DAILY NIA Administration Dextrose 25 gm 06/23/21 00:22 Dextrose 50 % 25 Gm/50 Ml Vial IVPUSH Q15M PRN per Hypoglycemia Standing Ord. Protocol Docusate Sodium 100 mg 06/23/21 00:22 Docusate Sodium 100 Mg Capsule PO DAILY PRN Constipation Dolutegravir Sodium 50 mg 06/23/21 13:14 06/24/21 07:49 Dolutegravir Sodium 50 Mg Tablet PO 50 mg DAILY NIA Administration Gabapentin 300 mg 06/23/21 21:00 06/24/21 07:48 Gabapentin 300 Mg Capsule PO 300 mg BID NIA Administration Glucose 15 gm 06/23/21 00:22 Glucose Gel 15 Gm Gel..Gram. PO Q15M PRN per Hypoglycemia Standing Ord. Protocol Heparin Sodium (Porcine) 5,000 unit 06/23/21 01:15 06/24/21 07:55 Heparin Sodium,Porcine 5,000 Unit/Ml Vial SUBCUT Not Given BID [facility] Cefepime HCl 1 gm/ Sodium 50 mls @ 100 mls/hr 06/23/21 02:00 06/24/21 15:04 Chloride IV Infused Q12H NIA Infusion Lactated Ringer's 1,000 mls @ 100 mls/hr 06/23/21 00:22 06/24/21 07:56 Lr IVCONT Not Given .Q10H [facility] Insulin Human Lispro 0 unit 06/23/21 07:30 06/24/21 11:45 Insulin Lispro 100 Unit/Ml 3 Ml Vial SUBCUT Not Given QIDACHS [facility] Protocol Lamivudine 300 mg 06/23/21 13:15 06/24/21 07:49 Lamivudine 150 Mg Tablet PO 300 mg DAILY NIA Administration Methadone HCl 20 mg 06/23/21 10:30 06/24/21 07:48 Methadone Hcl 1 Mg/0.1 Ml Oral.Conc PO 20 mg DAILY NIA Administration Ondansetron HCl 4 mg 06/23/21 00:22 06/23/21 02:57 Ondansetron Hcl 4 Mg/2 Ml Vial IVPUSH 4 mg Q8H PRN Administration Nausea and Vomiting Pharmacy Consult 1 each 06/23/21 00:22 Consult Rx Vancomycin Dosing MISCELLANE DAILY PRN Consult order Pharmacy Consult 1 each 06/23/21 08:07 Consult Rx Perform Med Rec MISCELLANE ONCE PRN Consult order Quetiapine Fumarate 50 mg 06/23/21 21:00 06/23/21 20:42 Quetiapine Fumarate 50 Mg Tablet PO 50 mg BEDTIME NIA Administration Sodium Chloride 3 ml 06/23/21 08:00 06/24/21 07:49 0.9 % Sodium Chloride Flush 3 Ml Syringe IVFLUSH 3 ml QSHIFT NIA Administration Labs CBC & Chem 7: 06/24/21 06:02 06/24/21 06:02 Labs: Laboratory Results - last 24 hr 06/23/21 06/23/21 06/24/21 16:14 20:19 06:02 MCV 92.4 MCH 29.5 MCHC 31.9 RDW 15.5 Plt Count 426 H MPV 9.5 Immature Gran % (Auto) 0.3 Neut % (Auto) 42.7 L Lymph % (Auto) 42.7 H [place] % (Auto) 7.8 Eos % (Auto) 5.7 H Baso % (Auto) 0.8 Lymph # (Auto) 3.1 [place] # (Auto) 0.6 Eos # (Auto) 0.4 Baso # (Auto) 0.1 Abs Immat Gran (auto) 0.02 Absolute Neuts (auto) 3.1 Absolute Nucleated RBC 0.000 Nucleated RBC % (auto) 0.0 Anion Gap Estim Creat Clear Calc Estimated GFR POC Glucose 181 H 119 H Random Glucose Estimat Average Glucose Hemoglobin A1c % Calcium 06/24/21 06/24/21 06/24/21 06:02 06:02 07:22 MCV MCH MCHC RDW Plt Count MPV Immature Gran % (Auto) Neut % (Auto) Lymph % (Auto) [place] % (Auto) Eos % (Auto) Baso % (Auto) Lymph # (Auto) [place] # (Auto) Eos # (Auto) Baso # (Auto) Abs Immat Gran (auto) Absolute Neuts (auto) Absolute Nucleated RBC Nucleated RBC % (auto) Anion Gap 12 Estim Creat Clear Calc 47.8 Estimated GFR 42 POC Glucose 100 Random Glucose 40 L* Estimat Average Glucose 258 Hemoglobin A1c % 10.6 Calcium 8.0 L 06/24/21 06/24/21 11:21 11:42 MCV MCH MCHC RDW Plt Count MPV Immature Gran % (Auto) Neut % (Auto) Lymph % (Auto) [place] % (Auto) Eos % (Auto) Baso % (Auto) Lymph # (Auto) [place] # (Auto) Eos # (Auto) Baso # (Auto) Abs Immat Gran (auto) Absolute Neuts (auto) Absolute Nucleated RBC Nucleated RBC % (auto) Anion Gap Estim Creat Clear Calc Estimated GFR POC Glucose 59 L* 69 Random Glucose Estimat Average Glucose Hemoglobin A1c % Calcium Microbiology Microbiology Results: Microbiology 06/22/21 21:20 Blood Culture - Preliminary Blood - Venous No growth after 24 hours. 06/22/21 21:20 Blood Culture - Preliminary Blood - Venous No growth after 24 hours. Assessment and Plan (1) Severe anemia: Status: Acute (2) Active substance abuse: Status: Acute (3) TOMMY (acute kidney injury): Status: Acute (4) Diabetes: Status: Acute (5) Hypoglycemia: Status: Acute Assessment and Plan: 46-year-old male with history of IV drug use who was recently treated for an abscess as well as compartment syndrome a in May at [facility] patient was at [facility] up until 3 days ago when he left AMA.? He reports that he was being treated with IV antibiotics and was supposed to be on antibiotics for 3-4 more weeks but left AMA due to his displeasure.? Returns today with fever # Fever/chills and right arm swelling and pain - status post I&D and fasciotomy due to compartment syndrome at [facility] 06/08 was recommended 3-4 weeks of IV antibiotic but patient left AMA No further bout of fever chills, patient seen by General surgery, incision well healed does not require drainage Patient seen by ID she recommend it IV antibiotics for 2-3 weeks and discharged on by mouth antibiotics blood cultures x2 negative Continue IV cefepime # diabetes with hypoglycemia - will discontinue Lantus, continue insulin sliding scale and diabetic diet, encourage by mouth intake, Will check hemoglobin A1c # TOMMY - most likely prerenal, continue IV fluids follow renal function and BMP # mild hypernatremia likely due to IV normal saline will change fluid to D5 half normal and follow BMP # HIV continue home medication # history of polysubstance abuse continue methadone DVT prophylaxis:? Heparin subQ Quality Stroke Does the patient have a stroke diagnosis?: No VTE Prior VTE?: No VTE Risk Level:: Medical - moderate - high VTE Device Contraindication: Treatment Not Indicated VTE Drug Contraindication: N/A - Med Ordered
[2021-06-24 16:18] LABS: Glucose, Whole Blood 166 mg/dL (60-115)
--- NOTE | 2021-06-24 17:08 | PM.EVENT ---
Event Note Date of Service: 06/24/21 Event Note: Says he feels much better Dressings had already been changed earlier says he did not want me to take down his dressings again Continue IV antibiotics He seems to be doing well
[2021-06-24] MEDS: Dextrose 5 % and 0.45 % NaCl 1,000 ML 125 ML IVCONT (18:10)
[2021-06-24 19:20] VITALS: BP 156/89; PULSE 64; RESP 14; TEMP 36.6; O2SAT 98
[2021-06-24 20:17] LABS: Glucose, Whole Blood 324 mg/dL (60-115)
[2021-06-24] MEDS: QUEtiapine Fumarate 50 MG TABLET PO (20:28)
[2021-06-24] MEDS: Insulin Lispro 100 UNIT/ML 3 ML VIAL SUBCUT (20:28)
[2021-06-25] MEDS: cefEPime HCl 1 GM in 0.9 % Sodium Chloride 50 ML IV ×2 (02:18→15:10)
[2021-06-25] MEDS: Dextrose 5 % and 0.45 % NaCl 1,000 ML 125 ML IVCONT ×2 (02:50→11:54)
[2021-06-25 04:00] VITALS: BP 136/87; PULSE 65; RESP 18; TEMP 36.7; O2SAT 97
[2021-06-25 06:46] LABS: Anion Gap 11 (12-20); Blood Urea Nitrogen 17 mg/dL (9-16); Calcium 8.1 mg/dL (8.4-10.2); Carbon Dioxide 31 mmol/L (22-29); Chloride 104 mmol/L (96-108); Creatinine Clr Calc Pharmacy 53.2; Estimated Glomerular Filt Rate 48; Glucose Random 128 mg/dL (60-115); Potassium 3.9 mmol/L (3.3-5.1); Sodium 142 mmol/L (135-145)
[2021-06-25 07:31] LABS: Glucose, Whole Blood 138 mg/dL (60-115)
[2021-06-25 08:00] VITALS: BP 131/75; PULSE 59; RESP 19; TEMP 36.8; O2SAT 99
[2021-06-25] MEDS: Gabapentin 300 MG CAPSULE PO ×2 (09:11→20:30)
[2021-06-25] MEDS: Cyanocobalamin (Vitamin B-12) 100 MCG TABLET PO (09:11)
[2021-06-25] MEDS: 0.9 % Sodium Chloride Flush 3 ML SYRINGE IVFLUSH ×2 (09:12→20:34)
[2021-06-25] MEDS: Dolutegravir Sodium 50 MG TABLET PO (09:12)
[2021-06-25] MEDS: lamiVUDine 150 MG TABLET PO (09:12)
[2021-06-25] MEDS: Acetaminophen 325 MG TABLET 650 MG PO (09:12)
--- NOTE | 2021-06-25 11:06 | P.PNGS_ITS ---
Subjective Subjective Date of Service: 06/25/21 Interval history: Says he feels much better Less pain States he thinks he is ready to go home Physical Exam Vital Signs: Vital Signs: Last Vital Signs Temp 98.2 F 06/25/21 08:00 Pulse 59 06/25/21 08:00 Resp 19 06/25/21 08:00 BP 131/75 06/25/21 08:00 Pulse Ox 99 06/25/21 08:00 Body Mass Index 21.9 Const: General: comfortable and no acute distress Cardio: Rate: regular rate GI: Palpation (GI): Soft to palpation and nontender Extrem: Other: Right upper arm incision dry, sutures intact, healing well, no fluctuance, no cellulitis Procedures Date of Service Date of Service: 06/25/21 Progress Note: A&P Assessment and plan (1) History of fasciotomy: Status: Acute Assessment and Plan: Incision is healing well No need for further surgical intervention at this time Dressings changed - arm wrapped in Angy roll Sutures may be ready to be removed next week Okay to [place] home today Fall Risk Details Current Medications: Current Medications Generic Name Dose Route Start Last Admin Trade Name Freq PRN Reason Stop Dose Admin Abacavir Sulfate 600 mg 06/23/21 13:14 06/25/21 09:12 Abacavir Sulfate 300 Mg Tablet PO 600 mg DAILY NIA Administration Acetaminophen 650 mg 06/23/21 00:22 06/25/21 09:12 Acetaminophen 325 Mg Tablet PO 650 mg Q6H PRN Administration Pain, Mild (Pain Scale 1-3) Cyanocobalamin 100 mcg 06/24/21 09:00 06/25/21 09:11 Cyanocobalamin (Vitamin B-12) 100 Mcg Tablet PO 100 mcg DAILY NIA Administration Dextrose 25 gm 06/23/21 00:22 Dextrose 50 % 25 Gm/50 Ml Vial IVPUSH Q15M PRN per Hypoglycemia Standing Ord. Protocol Docusate Sodium 100 mg 06/23/21 00:22 Docusate Sodium 100 Mg Capsule PO DAILY PRN Constipation Dolutegravir Sodium 50 mg 06/23/21 13:14 06/25/21 09:12 Dolutegravir Sodium 50 Mg Tablet PO 50 mg DAILY NIA Administration Gabapentin 300 mg 06/23/21 21:00 06/25/21 09:11 Gabapentin 300 Mg Capsule PO 300 mg BID NIA Administration Glucose 15 gm 06/23/21 00:22 Glucose Gel 15 Gm Gel..Gram. PO Q15M PRN per Hypoglycemia Standing Ord. Protocol Heparin Sodium (Porcine) 5,000 unit 06/23/21 01:15 06/25/21 09:13 Heparin Sodium,Porcine 5,000 Unit/Ml Vial SUBCUT Not Given BID NIA Cefepime HCl 1 gm/ Sodium 50 mls @ 100 mls/hr 06/23/21 02:00 06/25/21 02:48 Chloride IV Infused Q12H NIA Infusion Dextrose/Sodium Chloride 1,000 mls @ 125 mls/hr 06/24/21 16:15 06/25/21 10:52 D51/2ns IVCONT Infused .Q8H NIA Infusion Insulin Human Lispro 0 unit 06/23/21 07:30 06/25/21 08:32 Insulin Lispro 100 Unit/Ml 3 Ml Vial SUBCUT Not Given QIDACHS [facility] Protocol Lamivudine 150 mg 06/25/21 09:00 06/25/21 09:12 Lamivudine 150 Mg Tablet PO 150 mg DAILY NIA Administration Methadone HCl 20 mg 06/23/21 10:30 06/25/21 09:11 Methadone Hcl 1 Mg/0.1 Ml Oral.Conc PO 20 mg DAILY NIA Administration Ondansetron HCl 4 mg 06/23/21 00:22 06/23/21 02:57 Ondansetron Hcl 4 Mg/2 Ml Vial IVPUSH 4 mg Q8H PRN Administration Nausea and Vomiting Pharmacy Consult 1 each 06/23/21 00:22 Consult Rx Vancomycin Dosing MISCELLANE DAILY PRN Consult order Pharmacy Consult 1 each 06/23/21 08:07 Consult Rx Perform Med Rec MISCELLANE ONCE PRN Consult order Quetiapine Fumarate 50 mg 06/23/21 21:00 06/24/21 20:28 Quetiapine Fumarate 50 Mg Tablet PO 50 mg BEDTIME NIA Administration Sodium Chloride 3 ml 06/23/21 08:00 06/25/21 09:12 0.9 % Sodium Chloride Flush 3 Ml Syringe IVFLUSH 3 ml QSHIFT NIA Administration Time Spent With Patient Time: Total time spent is greater than 50% in coordination of care (as docume nted) at patient's floor/unit and/or counseling patient: Time with patient: 15 - 24 minutes Quality Stroke Does the patient have a stroke diagnosis?: No VTE Prior VTE?: No VTE Risk Level:: Medical - moderate - high VTE Device Contraindication: Treatment Not Indicated VTE Drug Contraindication: N/A - Med Ordered
[2021-06-25] MEDS: Insulin Lispro 100 UNIT/ML 3 ML VIAL SUBCUT ×3 (11:54→20:32)
[2021-06-25 12:00] VITALS: BP 122/77; PULSE 71; RESP 18; TEMP 37.2; O2SAT 98
[2021-06-25 12:07] LABS: Glucose, Whole Blood 194 mg/dL (60-115)
--- NOTE | 2021-06-25 12:47 | MHC.RECOVRN ---
T/w met with pt in 377 to offer support for substance use. Pt reports using heroin, IV, 1 bundle daily as well as cocaine. Last use 2 weeks ago. Pt reports being in and out of hospitals due to abscess since last use. Pt currently on methadone, 20 mg daily x 8 months at [facility]. Pt reports methadone stays in his system too long and after 2 days I feel like I have taken 40 mg, after 3 days I feel like I've taken 60. Pt reports going to the [facility] for a couple days in a row and then not going a day or two. Pt has [facility] set up for transportation. Pt engaged in discussion regarding recovery. Pt is interested in linking to a assistant women's basketball coach. Pt given t/w contact information if he would like to discuss recovery options further. Referral for assistant women's basketball coach completed. Case discussed with Stella Haywood APRN.
--- NOTE | 2021-06-25 15:45 | HO.PM.IMPN ---
Subjective Subjective Date of Service: 06/25/21 Interval History: Wants to stop using illicit drugs, and requesting for care team eval, still feel weak and has right arm discomfort, no fever chills no acute issues overnight. Review of Systems General no headache ,no dizziness, no fever chills.? CVS no chest pain, no palpitation.? Respiratory no cough, no sob.? Gastrointestinal no nausea no vomiting, no abdominal pain Physical Exam Vital Signs: Vital Signs: Last Vital Signs Temp 99.0 F 06/25/21 12:00 Pulse 71 06/25/21 12:00 Resp 18 06/25/21 12:00 BP 122/77 06/25/21 12:00 Pulse Ox 98 06/25/21 12:00 Body Mass Index 21.9 General? resting comfortably,no acute distress.? Neck? supple no JVD. CVS? regular rate rhythm, Respiratory lungs clear to auscultation, no respiratory distress, no wheeze, no rhonchi. Gastrointestinal abdomen soft, nontender, bowel sounds audible Extremities right upper extremity, well-healed incision, sutures in place, no drainage, no fluctuation Neuro nonfocal Skin no rash Objective Data Current Medications Generic Name Dose Route Start Last Admin Trade Name Freq PRN Reason Stop Dose Admin Abacavir Sulfate 600 mg 06/23/21 13:14 06/25/21 09:12 Abacavir Sulfate 300 Mg Tablet PO 600 mg DAILY NIA Administration Acetaminophen 650 mg 06/23/21 00:22 06/25/21 09:12 Acetaminophen 325 Mg Tablet PO 650 mg Q6H PRN Administration Pain, Mild (Pain Scale 1-3) Cyanocobalamin 100 mcg 06/24/21 09:00 06/25/21 09:11 Cyanocobalamin (Vitamin B-12) 100 Mcg Tablet PO 100 mcg DAILY NIA Administration Dextrose 25 gm 06/23/21 00:22 Dextrose 50 % 25 Gm/50 Ml Vial IVPUSH Q15M PRN per Hypoglycemia Standing Ord. Protocol Docusate Sodium 100 mg 06/23/21 00:22 Docusate Sodium 100 Mg Capsule PO DAILY PRN Constipation Dolutegravir Sodium 50 mg 06/23/21 13:14 06/25/21 09:12 Dolutegravir Sodium 50 Mg Tablet PO 50 mg DAILY NIA Administration Gabapentin 300 mg 06/23/21 21:00 06/25/21 09:11 Gabapentin 300 Mg Capsule PO 300 mg BID NIA Administration Glucose 15 gm 06/23/21 00:22 Glucose Gel 15 Gm Gel..Gram. PO Q15M PRN per Hypoglycemia Standing Ord. Protocol Heparin Sodium (Porcine) 5,000 unit 06/23/21 01:15 06/25/21 09:13 Heparin Sodium,Porcine 5,000 Unit/Ml Vial SUBCUT Not Given BID NIA Cefepime HCl 1 gm/ Sodium 50 mls @ 100 mls/hr 06/23/21 02:00 06/25/21 15:10 Chloride IV 100 mls/hr Q12H NIA Administration Dextrose/Sodium Chloride 1,000 mls @ 125 mls/hr 06/24/21 16:15 06/25/21 11:54 D51/2ns IVCONT 125 mls/hr .Q8H NIA Administration Insulin Human Lispro 0 unit 06/23/21 07:30 06/25/21 11:54 Insulin Lispro 100 Unit/Ml 3 Ml Vial SUBCUT 2 unit QIDACHS NIA Administration Protocol Lamivudine 150 mg 06/25/21 09:00 06/25/21 09:12 Lamivudine 150 Mg Tablet PO 150 mg DAILY NIA Administration Methadone HCl 20 mg 06/23/21 10:30 06/25/21 09:11 Methadone Hcl 1 Mg/0.1 Ml Oral.Conc PO 20 mg DAILY NIA Administration Ondansetron HCl 4 mg 06/23/21 00:22 06/23/21 02:57 Ondansetron Hcl 4 Mg/2 Ml Vial IVPUSH 4 mg Q8H PRN Administration Nausea and Vomiting Pharmacy Consult 1 each 06/23/21 00:22 Consult Rx Vancomycin Dosing MISCELLANE DAILY PRN Consult order Pharmacy Consult 1 each 06/23/21 08:07 Consult Rx Perform Med Rec MISCELLANE ONCE PRN Consult order Quetiapine Fumarate 50 mg 06/23/21 21:00 06/24/21 20:28 Quetiapine Fumarate 50 Mg Tablet PO 50 mg BEDTIME NIA Administration Sodium Chloride 3 ml 06/23/21 08:00 06/25/21 15:10 0.9 % Sodium Chloride Flush 3 Ml Syringe IVFLUSH Not Given QSHIFT [facility] Labs CBC & Chem 7: 06/24/21 06:02 06/25/21 05:53 Labs: Laboratory Results - last 24 hr 06/24/21 06/24/2121 16:14 20:14 05:53 Anion Gap 11 L Estim Creat Clear Calc 53.2 Estimated GFR 48 POC Glucose 166 H 324 H Random Glucose 128 H D Calcium 8.1 L 06/25/21 06/25/21 07:27 11:50 Anion Gap Estim Creat Clear Calc Estimated GFR POC Glucose 138 H 194 H Random Glucose Calcium Microbiology Microbiology Results: Microbiology 06/22/21 21:20 Blood Culture - Preliminary Blood - Venous No growth after 48 hours. 06/22/21 21:20 Blood Culture - Preliminary Blood - Venous No growth after 48 hours. Assessment and Plan (1) History of fasciotomy: Status: Acute (2) Hypoglycemia: Status: Acute (3) TOMMY (acute kidney injury): Status: Acute (4) Active substance abuse: Status: Acute (5) Severe anemia: Status: Acute (6) Diabetes: Status: Acute Assessment and Plan: 46-year-old male with history of IV drug use who was recently treated for an abscess as well as compartment syndrome a in May at [facility] patient was at [facility] up until 3 days ago when he left AMA.? He reports that he was being treated with IV antibiotics and was supposed to be on antibiotics for 3-4 more weeks but left AMA due to his displeasure.? Returns today with fever # Fever/chills and right arm swelling and pain - status post I&D and fasciotomy due to compartment syndrome at [facility] 06/08 was recommended 3-4 weeks of IV antibiotic but patient left AMA ? No further bout of fever chills, patient seen by General surgery, incision well healed does not require drainage ? Patient seen by ID she recommend IV antibiotics for 2-3 days and discharged on by mouth antibiotics x total 10 days, blood cultures x2 negative ? dc IV cefepime and switched to by mouth Ceftin 500mg bid # diabetes with hypoglycemia - noted to have low blood sugars at a.m., hemoglobin A1c greater than 10, will place on Lantus 10 units at a.m., continue insulin sliding scale and diabetic diet # TOMMY - most likely prerenal, creatinine trending down from 2 to 1.6, DC IV fluid, encourage by mouth fluids, follow BMP # mild hypernatremia likely due to IV normal saline , resolved with IV D5W # HIV continue home medication # history of polysubstance abuse continue methadone , seen by care team outpatient referrals given. DVT prophylaxis:? Heparin subQ Quality Stroke Does the patient have a stroke diagnosis?: No VTE Prior VTE?: No VTE Risk Level:: Medical - moderate - high VTE Device Contraindication: Treatment Not Indicated VTE Drug Contraindication: N/A - Med Ordered
[2021-06-25 16:00] VITALS: BP 163/95; PULSE 58; RESP 18; TEMP 36.8; O2SAT 99
[2021-06-25 16:27] LABS: Glucose, Whole Blood 240 mg/dL (60-115)
[2021-06-25 20:00] VITALS: BP 124/73; PULSE 75; RESP 18; TEMP 37.1; O2SAT 100
[2021-06-25 20:20] LABS: Glucose, Whole Blood 182 mg/dL (60-115)
[2021-06-25] MEDS: QUEtiapine Fumarate 50 MG TABLET PO (20:30)
[2021-06-26] VITALS: BP 131/71; PULSE 69; RESP 16; TEMP 36.6; O2SAT 99
[2021-06-26 07:15] LABS: Anion Gap 12 (12-20); Blood Urea Nitrogen 24 mg/dL (9-16); Calcium 8.6 mg/dL (8.4-10.2); Carbon Dioxide 29 mmol/L (22-29); Chloride 101 mmol/L (96-108); Creatinine Clr Calc Pharmacy 51.3; Estimated Glomerular Filt Rate 46; Glucose Random 436 mg/dL (60-115); Potassium 4.8 mmol/L (3.3-5.1); Sodium 137 mmol/L (135-145)
[2021-06-26 07:26] VITALS: BP 123/69; PULSE 67; RESP 18; TEMP 36.4; O2SAT 98
[2021-06-26 07:39] LABS: Glucose, Whole Blood 428 mg/dL (60-115)
[2021-06-26] MEDS: Insulin Lispro 100 UNIT/ML 3 ML VIAL SUBCUT (07:45)
[2021-06-26] MEDS: 0.9 % Sodium Chloride Flush 3 ML SYRINGE IVFLUSH (07:46)
[2021-06-26] MEDS: Gabapentin 300 MG CAPSULE PO (08:16)
[2021-06-26] MEDS: Cyanocobalamin (Vitamin B-12) 100 MCG TABLET PO (08:16)
[2021-06-26] MEDS: Dolutegravir Sodium 50 MG TABLET PO (08:16)
[2021-06-26] MEDS: Insulin Glargine,Hum.rec.anlog 100 UNIT/ML 10 ML VIAL 10 UNIT SUBCUT (08:16)
[2021-06-26] MEDS: lamiVUDine 150 MG TABLET PO (08:17)
--- NOTE | 2021-06-26 10:55 | PM.DS ---
DS: Providers Provider Date of Service: 06/26/21 Date of admission: 06/23/21 00:14 Primary care physician: Kimberly Lofton MD Consults: 06/23/21 00:22 Consult to General Surgery Routine Consulting Provider: Gabe Castillo Reason for consultation: s/p fasciotomy for compartment syndrome-has new swelling/pain Has provider been notified: No Consult to Infectious Diseases Routine Consulting Provider: Sunshine Rodriguez Reason for consultation: IVDU, Abscess on abx, lkeft AMA from [facility] 06/25/21 11:06 Consult to Care Team Routine Comment: Reason for consultation: illicit drug use Has provider been notified: No DS: Diagnosis Discharge Diagnosis (1) History of fasciotomy: Status: Acute (2) Hypoglycemia: Status: Acute (3) TOMMY (acute kidney injury): Status: Acute (4) Active substance abuse: Status: Acute (5) Severe anemia: Status: Acute (6) Diabetes: Status: Acute DS: Medications Discharge Medications Home Medications: Home Medications Medication Instructions Recorded Confirmed abacavir 600 mg-dolutegravir 50 1 tab PO DAILY 06/23/21 06/23/21 mg-lamivudine 300 mg tablet (Triumeq) cyanocobalamin (vitamin B-12) 100 100 mcg PO DAILY 06/23/21 06/23/21 mcg tablet ferrous sulfate 324 mg (65 mg 324 mg PO DAILY 06/23/21 06/23/21 iron) tablet,delayed release gabapentin 300 mg capsule 1 cap PO BID 06/23/21 06/23/21 insulin lispro 100 unit/mL See Rx Instructions .ROUTE .COMPLEX 06/23/21 06/23/21 subcutaneous pen (Humalog KwikPen (U-100) Insulin) methadone 5 mg/5 mL oral solution 20 mg PO DAILY 06/23/21 06/23/21 quetiapine 50 mg tablet 1 tab PO BEDTIME 06/23/21 06/23/21 Previous Rx's Medication Instructions Recorded cefuroxime axetil 500 mg tablet 500 mg PO Q12H #14 tab 06/25/21 insulin glargine 100 unit/mL (3 30 unit SUBCUT QAM #0 ml 06/26/21 mL) subcutaneous pen (Lantus Solostar U-100 Insulin) DS: Summary Hospital Course Hospital Course: History of presenting illness Chief Complaint: Fever This is a 46-year-old male with past medical history of IV drug use, type 2 diabetes on insulin, most recent right arm abscess, compartment syndrome, status post fasciotomy who presents to the hospital with complaints of fever, increased pain and swelling at the fasciotomy site.? Patient reports that he was at [facility] for abscess of his right arm in May, underwent right arm fasciotomy for compartment syndrome of that same location on 06/08, patient also reports that he received blood transfusion due to blood loss during the surgical intervention.? He was at [facility] up until 3 days ago and was on antibiotics and was supposed to be on IV antibiotics for 3-4 weeks but was not pleased with the way he was treated and therefore left AMA.? He reports that over the next 3 days he developed fever, weakness, nausea, no vomiting, no abdominal pain, no urinary symptoms and no lower extremity edema.? He denied chest pain or shortness of breath.? He reports that he noticed that there is also swelling at the surgical site with increased drainage.? The drainage is clear.? He did not notice any increased redness.? He has no difficulty with moving his elbow. He reports he had a fever of 102 at home. On arrival to the ED patient's vitals were significant for temp of 97.0?, heart rate of 101, respiratory rate of 18, blood pressure of 128/78, satting 98% on room air For WBC count of 7.7, hemoglobin of 6.9, hematocrit 21.6, creatinine of 2.7 with a baseline of around 1.19, iron level of 31, COVID-[address] noncontrast shows subcutaneous tissue at the antecubital fossa extending along the medial side of the arm into the region of the axilla, no air collection or abscess however there are 2 small hyperdense foci in the enter cubital fossa subcutaneous tissue probably related to recent surgery. Patient will be admitted for further management. Hospital course 46-year-old male with history of IV drug use who was recently treated for an abscess as well as compartment syndrome a in May at [facility] patient was at [facility] up until 3 days ago when he left AMA.? He reports that he was being treated with IV antibiotics and was supposed to be on antibiotics for 3-4 more weeks but left AMA due to his displeasure.? # patient admitted with Fever/chills,right arm swelling, and pain, status post I&D and fasciotomy due to compartment syndrome at [facility] 06/08 was recommended 3-4 weeks of IV antibiotic but patient left AMA, patient admitted to medical floor he had no further bout of fever chills, initially placed on IV cefepime, blood cultures x2 came back negative patient seen by Dr. Castillo was noted to have well-healed incision did not require any drainage patient also evaluated by Dr. Rodriguez she recommend Ceftin 500 mg by mouth twice daily for total 10 days, patient need stitches removed in 1 week therefore recommended to have outpatient follow-up with primary care physician and [facility] for removal of sutures , is being discharged home with VNA services for daily dry dressings. # diabetes with hypoglycemia noted to have low blood sugars mostly at a.m., according to patient was eating less,hemoglobin A1c greater than 10, prior to discharge blood sugars improved in a range of 400 therefore recommend Lantus 25 units at a.m., home dose of Lantus is 55, recommend to gradually increase dose of Lantus if noted to have blood sugars above 150 # TOMMY /hypernatremia resolved was mostly pre renal # HIV continue home medication. # history of polysubstance abuse continue methadone , seen by care team outpatient referrals given. Time Spent with Patient Time attestation: Total time spent providing and/or coordinating discharge services: Discharge coordination time: Greater than 30 minutes Quality: Stroke Does the patient have a stroke diagnosis?: No Physical Exam Vital Signs: Vital Signs: Last Vital Signs Temp 97.5 F 06/26/21 07:26 Pulse 67 06/26/21 07:26 Resp 18 06/26/21 07:26 BP 123/69 06/26/21 07:26 Pulse Ox 98 06/26/21 07:26 Body Mass Index 21.9 General? resting comfortably,no acute distress.? Neck? supple no JVD. Mild dry hyperemic area at angle of mouth CVS? regular rate rhythm, Respiratory lungs clear to auscultation, no respiratory distress, no wheeze, no rhonchi. Gastrointestinal abdomen soft, nontender, bowel sounds audible Extremities right upper extremity, well-healed incision, sutures in place, no drainage, no fluctuation Neuro nonfocal Skin no rash DS: Data Data Completed and Pending Labs on day of discharge: Laboratory Results - last 24 hr 06/25/21 06/25/21 06/25/21 11:50 16:10 20:15 Sodium Potassium Chloride Carbon Dioxide Anion Gap BUN Creatinine Estim Creat Clear Calc Estimated GFR POC Glucose 194 H 240 H 182 H Random Glucose Calcium 06/26/21 06/26/21 05:46 07:25 Sodium 137 Potassium 4.8 D Chloride 101 Carbon Dioxide 29 Anion Gap 12 BUN 24 H Creatinine 1.65 H Estim Creat Clear Calc 51.3 Estimated GFR 46 POC Glucose 428 H* Random Glucose 436 H* Calcium 8.6 D Preliminary micro results at discharge 06/22/21 21:20 Blood Culture - Preliminary Blood - Venous No growth after 48 hours. 06/22/21 21:20 Blood Culture - Preliminary Blood - Venous No growth after 48 hours. Discharge Plan Discharge Patient Disposition: Home Health Service Discharge Diagnosis: Acute renal failure Hypoglycemia Mild hypernatremia Right arm infection Polysubstance abuse Referrals: [facility] [Other] - 1 Day (PLEASE CALL [facility] TO ARRANGE TIME FOR FIRST VISIT. ) Kimberly Lofton MD [Primary Care Provider] - 07/08/21 9:00 am (You have a primary care follow up appointment on , July 08 at 9:00 am. Please call your doctor's office if you need to reschedule. ) Discharge Medications: New cefuroxime axetil 500 mg tablet 500 mg PO Q12H Qty: 14 RF: 0 Continued Lantus Solostar U-100 Insulin 100 unit/mL (3 mL) insulin pen 55 unit subcut QPM RF: 0 gabapentin 300 mg capsule 1 cap PO BID RF: 0 insulin lispro [Humalog KwikPen Insulin] 100 unit/mL insulin pen See Rx Instructions .ROUTE .COMPLEX RF: 0 quetiapine 50 mg tablet 1 tab PO BEDTIME RF: 0 Triumeq 600-50-300 mg tablet 1 tab PO DAILY RF: 0 cyanocobalamin (vitamin B-12) 100 mcg Tablet 100 mcg PO DAILY RF: 0 ferrous sulfate 324 mg (65 mg iron) Tablet,Delayed Release (Dr/Ec) 324 mg PO DAILY RF: 0 methadone 5 mg/5 mL Solution 20 mg PO DAILY RF: 0 Changed Lantus Solostar U-100 Insulin 100 unit/mL (3 mL) insulin pen 30 unit subcut QAM Qty: 0 RF: 0 Discharge Orders: Discharge Order (Routine); Ordered 06/26/21 Ordered By: Indira Barnes Diet: diabetic diet Activity on Discharge: As tolerated Stand Alone Forms: Patient Portal Discharge page Care Plan Goals: Right arms abscess status post facial are to be take antibiotics for 7 more days continue daily dressing with VNA services Health Concerns: Diabetes mellitus, substance abuse take all medications as prescribed follow blood sugars and diabetic diet, increase dose of Lantus to home dose if noted to have blood sugars above 150 Plan of Treatment: Outpatient follow-up with primary care physician in 7-10 days, stitches from right arm to be removed in 1 week call for appointment Assessment: as above
--- NOTE | 2021-06-26 11:29 | MHC.CM.PN ---
Addendum entered by Alina Elizondo 06/26/21 11:40: PT WILL DC WITH [facility] FOR SN/METHADONE DELIVERY Original Note: PT CLEARED TO DC HOME TODAY. PTS MOTHER WILL TRANSPORT
--- NOTE | 2021-06-26 12:03 | P.F2F_ITS ---
Service Date Service Date: 06/26/21 Encounter Date of encounter: 06/26/21 Encounter: Right arm facsciotomy, sutures in place, need daily dry Kerlix dressing, intermittent episode of hypoglycemia need close blood sugar monitoring. Reasons for Services Reason for care home: wound care and diabetic teaching MD Overseeing Care: Sunshine Rodriguez Homebound: Leaving the home is medically contraindicated at this time without the asist of a device and/or another person due th the listed conditions above and below. Homebound supporting statement: Weakness due to a recent hospitalization, fluctuating blood sugars and right arm incision. Certification: Based on the above findings, I certify that this patient is confined to the home and needs intermittent care home care, physical therapy and/or speech therapy, or continues to need occupational therapy. The patient is under my care, and I have initiated the establishment of the plan of care. The patient will be followed by a physician who will periodically review the plan of care.
== END 2021-06-26 12:50 | disposition home health service (06) | DRG 383 ==
LOC: HO.ED 23:28 → HO.EDOVER 06-23 00:40 → HO.S3 06-23 06:28
PROVIDERS: Admitting Provider Internal Medicine; Emergency Provider Internal Medicine; PCP Family Medicine; Visit Provider Hospitalist
DX: L02.413 Cutaneous abscess of right upper limb (principal); N17.9 Acute kidney failure, unspecified; E11.22 Type 2 diabetes mellitus with diabetic chronic kidney disease; F11.20 Opioid dependence, uncomplicated; E87.0 Hyperosmolality and hypernatremia; E11.649 Type 2 diabetes mellitus with hypoglycemia without coma; F17.210 Nicotine dependence, cigarettes, uncomplicated; D63.1 Anemia in chronic kidney disease; N18.9 Chronic kidney disease, unspecified; Z20.822 Contact with and (suspected) exposure to COVID-19; Z21 Asymptomatic human immunodeficiency virus [HIV] infection status; Z71.6 Tobacco abuse counseling; Z79.4 Long term (current) use of insulin; Z79.899 Other long term (current) drug therapy
CPT/HCPCS: 0241U; 36415; 36430; 73200; 80048; 80053; 82728; 82947; 83036; 83540; 83605; 85014; 85018; 85025; 85027; 86850; 86900; 86901; 86923; 87040; 96361; 96365; 96375; 99218; 99285; J0692; J2405; J2543; J3370; P9016

== ENCOUNTER 2021-07-04 15:17 | Inpatient (IN) | payer MEDICAID, SELFPAY ==
[2021-07-04] VITALS (9 sets, daily range): BP systolic 112–157; BP diastolic 66–92; PULSE 117–154; RESP 16–37; TEMP 38.2–38.8; O2SAT 96–100; BMI 16.5
--- NOTE | 2021-07-04 | ECG_ITS ---
Test Reason : DKA Blood Pressure : / mmHG Vent. Rate : 146 BPM Atrial Rate : 146 BPM P-R Int : 096 ms QRS Dur : 078 ms QT Int : 332 ms P-R-T Axes : 000 -37 078 degrees QTc Int : 517 ms Sinus tachycardia with short RI Left axis deviation Septal infarct , age undetermined Abnormal ECG No previous ECGs available Referred By: Mahogany Hernandez Electronically Signed By:STEF CRAFT
--- NOTE | ~2021-07-04 | XR_ITS ---
EXAMINATION: XR CHEST CLINICAL INFORMATION: Diabetic ketoacidosis COMPARISON: None TECHNIQUE: Frontal view of the chest was obtained. FINDINGS: No significant abnormality is noted involving the heart, lungs, mediastinum, bony thorax or soft tissues. An endotracheal tube has been placed, terminating at the thoracic inlet. XR/XR chest 1V IMPRESSION: Status post endotracheal intubation. No evidence of active cardiopulmonary disease. Report
--- NOTE | ~2021-07-04 | XR_ITS ---
EXAMINATION: XR chest 1V, XR chest 1V CLINICAL INFORMATION: Chest tube placement COMPARISON: None TECHNIQUE: XR chest 1V, XR chest 1V, 2 chest x-ray one month for 40 7:00 PM, the other is 5:47 PM. Tubes and lines: Endotracheal tube tip properly positioned approximately 4 cm above joseph. There is a central line catheter tip projecting over the SVC/RA junction. Lungs and pleura: Both lungs remain inflated. The chest x-ray acquired after placement of central line has excluded the upper portion of the lungs. No gastric tube found. Heart and mediastinum: The mediastinum is within normal limits.. Bones/soft tissue: Skeletal structures included are normal for patient's age. XR/XR chest 1V IMPRESSION: Endotracheal tube properly positioned with its tip approximately 4 cm from joseph. Central line catheter on the x-ray acquired at 5:47 PM show the tip projecting over the SVC/RA junction properly positioned however the upper part of the lung not included on this chest x-ray to rule out pneumothorax. May consider correlation with follow-up.
--- NOTE | ~2021-07-04 | XR_ITS ---
EXAMINATION: XR chest 1V, XR chest 1V CLINICAL INFORMATION: Chest tube placement COMPARISON: None TECHNIQUE: XR chest 1V, XR chest 1V, 2 chest x-ray one month for 40 7:00 PM, the other is 5:47 PM. Tubes and lines: Endotracheal tube tip properly positioned approximately 4 cm above joseph. There is a central line catheter tip projecting over the SVC/RA junction. Lungs and pleura: Both lungs remain inflated. The chest x-ray acquired after placement of central line has excluded the upper portion of the lungs. No gastric tube found. Heart and mediastinum: The mediastinum is within normal limits.. Bones/soft tissue: Skeletal structures included are normal for patient's age. XR/XR chest 1V IMPRESSION: Endotracheal tube properly positioned with its tip approximately 4 cm from joseph. Central line catheter on the x-ray acquired at 5:47 PM show the tip projecting over the SVC/RA junction properly positioned however the upper part of the lung not included on this chest x-ray to rule out pneumothorax. May consider correlation with follow-up.
[2021-07-04 15:42] LABS: Glucose, Whole Blood > 600 mg/dL (60-115)
--- NOTE | 2021-07-04 15:53 | ED_ITS ---
HPI - General Adult General Chief complaint: General Medical Stated complaint: hyperglycemia Time Seen by Provider: 07/04/21 15:35 Source: EMS Mode of arrival: EMS Limitations: altered mental status History of Present Illness HPI narrative: 46-year-old male was found by family at home presents with what appears to be DKA. Patient has Kussmaul breathing, is tachycardic in the 130s to 140s, is febrile, increased respiration rate, altered mental status. Past medical history IV drug abuser with resulting compartment syndrome with fasciotomy last month, insulin-dependent diabetes, HIV. Related Data Home Medications Medication Instructions Recorded Confirmed abacavir 600 mg-dolutegravir 50 1 tab PO DAILY 06/23/21 06/23/21 mg-lamivudine 300 mg tablet (Triumeq) cyanocobalamin (vitamin B-12) 100 100 mcg PO DAILY 06/23/21 06/23/21 mcg tablet ferrous sulfate 324 mg (65 mg 324 mg PO DAILY 06/23/21 06/23/21 iron) tablet,delayed release gabapentin 300 mg capsule 1 cap PO BID 06/23/21 06/23/21 insulin lispro 100 unit/mL See Rx Instructions .ROUTE .COMPLEX 06/23/21 06/23/21 subcutaneous pen (Humalog KwikPen (U-100) Insulin) methadone 5 mg/5 mL oral solution 20 mg PO DAILY 06/23/21 06/23/21 quetiapine 50 mg tablet 1 tab PO BEDTIME 06/23/21 06/23/21 Previous Rx's Medication Instructions Recorded cefuroxime axetil 500 mg tablet 500 mg PO Q12H #14 tab 06/25/21 insulin glargine 100 unit/mL (3 30 unit SUBCUT QAM #0 ml 06/26/21 mL) subcutaneous pen (Lantus Solostar U-100 Insulin) Allergies Allergy/AdvReac Type Severity Reaction Status Date / Time fish Allergy Unknown Anaphylaxis Uncoded 06/22/21 20:41 shellfish Allergy Unknown Anaphylaxis Uncoded 06/22/21 20:41 Review of Systems Review of Systems: Unable to obtain, patient is unresponsive [facility] Past Medical History Medical History (Updated 07/04/21 @ 18:34 by Vandana Matos MD) Compartment syndrome Diabetes Diabetes HIV (human immunodeficiency virus infection) HIV (human immunodeficiency virus infection) Substance abuse Surgical History H/O fasciotomy History of fasciotomy Social History Social History Household Members Other:: self Housing: Apartment Do you presently have visiting nurse or other home services: No Alcohol intake: never Patient Tobacco Use Status: Current everyday Tobacco user Tobacco use type: Cigarette Cigarette Packs Per Day: 1 Cigarettes Per Day: 20.0 Substance Use Type: Heroin Advance Directives: No Advance Directives Information Provided: No service: No Current occupational status: unemployed Physical Exam Vital Signs: Vital Signs: Last Vital Signs Temp 101.5 F H 07/04/21 19:57 Pulse 142 H 07/04/21 19:57 Resp 20 07/04/21 19:57 BP 119/66 07/04/21 19:57 Pulse Ox 100 07/04/21 19:57 Body Mass Index 16.5 Const: General: acute distress severe and patient obtunded; No alert or awake Nutritional Appearance: cachectic Orientation/consciousness: patient obtunded Limitations: altered mental status HENMT: Head: Yes normal to inspection and Yes normocephalic Eyes: Sclerae: sclerae normal Corneas: corneas normal Pupils: Equal, round and reactive pupils present Neck: Neck: Yes normal visual inspection and Yes trachea midline Resp: Effort & Inspection: abnormal respiratory pattern Kussmaul breathing, labored, respiratory distress, retractions intercostal and supraclavicular, tachypneic, uses accessory muscles and symmetric chest movement Auscultation: clear to auscultation bilaterally, no crackles, no rales, no rhonchi and no wheezes Cardio: Rate: tachycardic Rhythm: regular rhythm Heart sounds: S1 normal heart sound present and S2 normal heart sound present GI: Inspection: Yes normal to inspection Palpation (GI): Soft to palpation, nontender, no guarding and not rigid Skin: Other: Healing incision along right medial aspect of upper arm past antecubital area into proximal forearm There is no redness swelling or warmth, however, sutures are still in place despite patient having surgery on 06/08 Neuro: Other: Unable to obtain neuro exam due to patient altered mental status, patient is obtunded General: patient obtunded Cranial nerves: Yes Equal, round and reactive pupils present Extrem: Other: Patient has pushing away, nausea control, and intact upper extremity and lower extremity pulses Psych: Appearance: disheveled Course Course Course Narrative: 46-year-old insulin-dependent diabetic IV drug abuser presents to the ED with Kussmaul breathing, blood sugar of greater than 600 on fingerstick, obtunded, sinus tachycardia, febrile No history of present illness able to be obtained due to patient's mental status. Patient had fasciotomy for right upper extremity compartment syndrome on June 08. Pt is HIV positive. White blood cell count 15.5, VBG 7.08. Hi S tone, lactate 7.0, Matos COVID negative Patient is agitated and thrashing, decision to intubate so that we can do his workup, Dr. Matos, legal recruiter, will intubate and put in a central line This has him 6.6, patient got an insulin bolus and is now pending an insulin drip. Bicarb less than 5, this is respiratory acidosis with metabolic alkalosis. Creatinine 3.51. Blood glucose 743, lactate 7.2, magnesium 3.0, acetone high. I spoke to patient's mother, who stated patient lost the antibiotics for his cellulitis. Reports he fell asleep last night and did not take his insulin. Drug screen is positive for final benzodiazepines. Medical Decision Making Lab Data Result diagrams: 07/04/21 15:59 07/04/21 15:58 Labs: Lab Results 07/04/21 07/04/21 07/04/21 Range/Units 15:26 15:58 15:58 WBC (4.8-10.8) X10*3/uL RBC (4.60-5.80) X10*6/uL Hgb (14.0-18.0) g/dl Hct (42-52) % MCV (80-98) fL MCH (27.0-33.0) pg MCHC (31.0-36.0) g/dl RDW (11.0-16.0) % Plt Count (160-400) X10*3/uL MPV (9.4-12.4) fL Immature Gran % (Auto) (0.0-0.4) % Neut % (Auto) (45-73) % Lymph % (Auto) (20-40) % [place] % (Auto) (2-11) % Eos % (Auto) (0-4) % Baso % (Auto) (0-2) % Lymph # (Auto) (1.2-4.9) X10*3/uL [place] # (Auto) (0.1-1.2) X10*3/uL Eos # (Auto) (0.0-0.4) X10*3/uL Baso # (Auto) (0.0-0.2) X10*3/uL Abs Immat Gran (auto) (0.00-0.03) X10*3/uL Absolute Neuts (auto) (2.0-8.3) X10*3/uL Absolute Nucleated RBC (0.0-0.012) X10*3/uL Nucleated RBC % (auto) (0.0-0.2) /100WBC VBG pH (7.32-7.43) VBG pCO2 mmHg VBG pO2 mmHg VBG HCO3 (22-26) mmol/L VBG O2 Saturation % VBG Base Excess mmol/L Sodium 134 L (135-145) mmol/L Potassium 6.6 H* D (3.3-5.1) mmol/L Chloride 90 L (96-108) mmol/L Carbon Dioxide < 5 L* D (22-29) mmol/L Anion Gap TNP BUN 54 H D (9-16) mg/dL Creatinine 3.51 H (0.5-1.4) mg/dL Estim Creat Clear Calc 19.9 Estimated GFR 19 POC Glucose > 600 H* (60-115) mg/dL Random Glucose 743 H* (60-115) mg/dL Lactic Acid (0.5-2.0) mmol/L Calcium 10.5 H D (8.4-10.2) mg/dL Magnesium (1.6-2.6) mg/dL Total Bilirubin 0.7 (0.0-1.0) mg/dL AST 34 D (5-37) U/L ALT 33 (0-40) U/L Alkaline Phosphatase 129 H D (39-117) U/L Total Protein 9.6 H D (6.5-8.0) g/dL Albumin 4.8 D (3.5-5.0) g/dL Acetone, Qual Moderate H (Negative) COVID-19 (REY) Negative (Negative) COVID-19 Clin Com See Note 07/04/21 07/04/21 07/04/21 Range/Units 15:58 15:59 15:59 WBC 15.5 H (4.8-10.8) X10*3/uL RBC 3.84 L D (4.60-5.80) X10*6/uL Hgb 11.7 L D (14.0-18.0) g/dl Hct 36.2 L D (42-52) % MCV 94.3 (80-98) fL MCH 30.5 (27.0-33.0) pg MCHC 32.3 (31.0-36.0) g/dl RDW 15.8 (11.0-16.0) % Plt Count 412 H (160-400) X10*3/uL MPV 11.7 (9.4-12.4) fL Immature Gran % (Auto) 1.2 H (0.0-0.4) % Neut % (Auto) 80.9 H (45-73) % Lymph % (Auto) 14.4 L (20-40) % [place] % (Auto) 2.6 (2-11) % Eos % (Auto) 0.1 (0-4) % Baso % (Auto) 0.8 (0-2) % Lymph # (Auto) 2.2 (1.2-4.9) X10*3/uL [place] # (Auto) 0.4 (0.1-1.2) X10*3/uL Eos # (Auto) 0.0 (0.0-0.4) X10*3/uL Baso # (Auto) 0.1 (0.0-0.2) X10*3/uL Abs Immat Gran (auto) 0.19 H (0.00-0.03) X10*3/uL Absolute Neuts (auto) 12.6 H (2.0-8.3) X10*3/uL Absolute Nucleated RBC 0.000 (0.0-0.012) X10*3/uL Nucleated RBC % (auto) 0.0 (0.0-0.2) /100WBC VBG pH (7.32-7.43) VBG pCO2 mmHg VBG pO2 mmHg VBG HCO3 (22-26) mmol/L VBG O2 Saturation % VBG Base Excess mmol/L Sodium (135-145) mmol/L Potassium (3.3-5.1) mmol/L Chloride (96-108) mmol/L Carbon Dioxide (22-29) mmol/L Anion Gap BUN (9-16) mg/dL Creatinine (0.5-1.4) mg/dL Estim Creat Clear Calc Estimated GFR POC Glucose (60-115) mg/dL Random Glucose (60-115) mg/dL Lactic Acid 7.2 H* (0.5-2.0) mmol/L Calcium (8.4-10.2) mg/dL Magnesium 3.0 H (1.6-2.6) mg/dL Total Bilirubin (0.0-1.0) mg/dL AST (5-37) U/L ALT (0-40) U/L Alkaline Phosphatase (39-117) U/L Total Protein (6.5-8.0) g/dL Albumin (3.5-5.0) g/dL Acetone, Qual (Negative) COVID-19 (REY) (Negative) COVID-19 Clin Com 07/04/21 Range/Units 16:04 WBC (4.8-10.8) X10*3/uL RBC (4.60-5.80) X10*6/uL Hgb (14.0-18.0) g/dl Hct (42-52) % MCV (80-98) fL MCH (27.0-33.0) pg MCHC (31.0-36.0) g/dl RDW (11.0-16.0) % Plt Count (160-400) X10*3/uL MPV (9.4-12.4) fL Immature Gran % (Auto) (0.0-0.4) % Neut % (Auto) (45-73) % Lymph % (Auto) (20-40) % [place] % (Auto) (2-11) % Eos % (Auto) (0-4) % Baso % (Auto) (0-2) % Lymph # (Auto) (1.2-4.9) X10*3/uL [place] # (Auto) (0.1-1.2) X10*3/uL Eos # (Auto) (0.0-0.4) X10*3/uL Baso # (Auto) (0.0-0.2) X10*3/uL Abs Immat Gran (auto) (0.00-0.03) X10*3/uL Absolute Neuts (auto) (2.0-8.3) X10*3/uL Absolute Nucleated RBC (0.0-0.012) X10*3/uL Nucleated RBC % (auto) (0.0-0.2) /100WBC VBG pH 7.08 L* (7.32-7.43) VBG pCO2 13 mmHg VBG pO2 54 mmHg VBG HCO3 4 L (22-26) mmol/L VBG O2 Saturation 69.0 % VBG Base Excess -23.1 mmol/L Sodium (135-145) mmol/L Potassium (3.3-5.1) mmol/L Chloride (96-108) mmol/L Carbon Dioxide (22-29) mmol/L Anion Gap BUN (9-16) mg/dL Creatinine (0.5-1.4) mg/dL Estim Creat Clear Calc Estimated GFR POC Glucose (60-115) mg/dL Random Glucose (60-115) mg/dL Lactic Acid (0.5-2.0) mmol/L Calcium (8.4-10.2) mg/dL Magnesium (1.6-2.6) mg/dL Total Bilirubin (0.0-1.0) mg/dL AST (5-37) U/L ALT (0-40) U/L Alkaline Phosphatase (39-117) U/L Total Protein (6.5-8.0) g/dL Albumin (3.5-5.0) g/dL Acetone, Qual (Negative) COVID-19 (REY) (Negative) COVID-19 Clin Com Critical Care Time Critical Care Time Critical Care Time: Yes Total Critical Care Time: 2 (hours) Attestation: Assisted legal recruiter an intubation and central line placement. Patient was severely volume depleted, central line placement was difficult but ultimately successful. Patient had a collapsible IVC on bedside echo. Patient is becoming agitated, colds legal recruiter, who wanted 3 mg Versed, and 40 on propofol drip. Discharge Plan Discharge Clinical Impression: TOMMY (acute kidney injury) DKA (diabetic ketoacidosis) Qualifiers: Diabetes mellitus type: due to underlying condition Diabetes mellitus complication detail: with coma Qualified Code(s): E08.11 - Diabetes mellitus due to underlying condition with ketoacidosis with coma Respiratory failure Qualifiers: Chronicity: acute Respiratory failure complication: unspecified whether with hypoxia or hypercapnia Qualified Code(s): J96.00 - Acute respiratory failure, unspecified whether with hypoxia or hypercapnia Patient Disposition: Admitted As Inpatient
[2021-07-04 16:05] LABS: MANUAL DIFF FLAG NO
[2021-07-04 16:06] LABS: Basophils Absolute Auto 0.1 X10*3/uL (0.0-0.2); Basophils Percent Auto 0.8 % (0-2); Eosinophils Percent Auto 0.1 % (0-4); Hematocrit 36.2 % (42-52); Hemoglobin 11.7 g/dl (14.0-18.0); Imm Gran Abs Auto 0.19 X10*3/uL (0.00-0.03); Imm Gran Pct Auto 1.2 % (0.0-0.4); Lymphocytes Absolute Auto 2.2 X10*3/uL (1.2-4.9); Lymphocytes Percent Auto 14.4 % (20-40); Mean Corpuscular HGB Conc 32.3 g/dl (31.0-36.0); Mean Corpuscular Hemoglobin 30.5 pg (27.0-33.0); Mean Corpuscular Volume 94.3 fL (80-98); Mean Platelet Volume 11.7 fL (9.4-12.4); Monocytes Absolute Auto 0.4 X10*3/uL (0.1-1.2); Monocytes Percent Auto 2.6 % (2-11); Neutrophils Absolute Auto 12.6 X10*3/uL (2.0-8.3); Neutrophils Percent Auto 80.9 % (45-73); Platelet Count 412 X10*3/uL (160-400); Red Blood Count 3.84 X10*6/uL (4.60-5.80); Red Cell Distribution Width 15.8 % (11.0-16.0); White Blood Count 15.5 X10*3/uL (4.8-10.8)
[2021-07-04 16:09] LABS: Venous Blood Gas Refer to POC result
[2021-07-04 16:10] LABS: VBG Base Excess -23.1 mmol/L; VBG HCO3 4 mmol/L (22-26); VBG pCO2 13 mmHg; VBG pH 7.08 (7.32-7.43); VBG pO2 54 mmHg
[2021-07-04 16:21] LABS: COVID-19 Test Negative (Negative)
[2021-07-04 16:32] LABS: Lactic Acid 7.2 mmol/L (0.5-2.0)
[2021-07-04 16:34] LABS: Acetone, serum QL Moderate (Negative)
[2021-07-04 16:58] LABS: Alanine Aminotransferase 33 U/L (0-40); Albumin Level 4.8 g/dL (3.5-5.0); Alkaline Phosphatase 129 U/L (39-117); Aspartate Amino Transferase 34 U/L (5-37); Bilirubin Total 0.7 mg/dL (0.0-1.0); Blood Urea Nitrogen 54 mg/dL (9-16); Calcium 10.5 mg/dL (8.4-10.2); Carbon Dioxide < 5 mmol/L (22-29); Chloride 90 mmol/L (96-108); Creatinine Clr Calc Pharmacy 19.9; Estimated Glomerular Filt Rate 19; Glucose Random 743 mg/dL (60-115); Potassium 6.6 mmol/L (3.3-5.1); Sodium 134 mmol/L (135-145); Total Protein 9.6 g/dL (6.5-8.0)
[2021-07-04 18:04] LABS: Reflex Lactate? Lactic Acid Added
[2021-07-04] MEDS: Acetaminophen Supp 650 MG SUPP.RECT PR (18:04)
[2021-07-04] MEDS: Midazolam HCl/PF 2 MG/2 ML VIAL 4 MG IM (18:04)
[2021-07-04] MEDS: Midazolam HCl/PF 2 MG/2 ML VIAL 4 MG IVPUSH ×2 (18:05→19:49)
[2021-07-04] MEDS: 0.9 % Sodium Chloride 1,000 ML 999 ML IV ×3 (18:06→18:10)
[2021-07-04] MEDS: cefTRIAXone sodium 2 GM in 0.9 % Sodium Chloride 50 ML IV (18:10)
[2021-07-04] MEDS: Insulin Regular, Human 100 UNIT/ML 3 ML VIAL 10 UNIT IVPUSH (18:16)
[2021-07-04 18:26] LABS: ABG Refer to POC result
--- NOTE | 2021-07-04 18:28 | P.HPCC_ITS ---
History of Present Illness Date of Service: 07/04/21 Chief Complaint: Altered mental status 46-year-old IV drug abuser status post recent right upper extremity fasciotomy but did not take antibiotics afterwards and this was caused by an abscess with compartment syndrome from his drug abuse looks to be cachectic known to be HIV positive supposed to be on anti-retroviral therapy but nobody knows if he is taking it reliably he did not take his antibiotics did not take his insulin and he has a type 1 diabetic with apparent diabetic ketoacidosis profound metabolic acidosis and highly agitated delirium Uncontrolled behavior with severe hyper been E a and use of accessory muscles including diaphragmatic expiratory effort requiring IM sedation with midazolam immediate intubation and hyperventilating on the vent and placement of a left- sided internal jugular central venous pressure triple-lumen catheter so we could rapidly administer his IV normal saline and start is insulin drip he was also markedly hyperkalemic with acute on chronic stage IV renal failure Review of Systems Review of Systems: Yes Unobtainable due to mental status PMFSH Past Medical History Medical History (Updated 07/04/21 @ 18:34 by Vandana Matos MD) Compartment syndrome Diabetes Diabetes HIV (human immunodeficiency virus infection) HIV (human immunodeficiency virus infection) Substance abuse Surgical History Surgical History H/O fasciotomy History of fasciotomy Social History Social History Household Members Other:: self Housing: Apartment Do you presently have visiting nurse or other home services: No Alcohol intake: never Patient Tobacco Use Status: Current everyday Tobacco user Tobacco use type: Cigarette Cigarette Packs Per Day: 1 Cigarettes Per Day: 20.0 Substance Use Type: Heroin Advance Directives: No Advance Directives Information Provided: No service: No Current occupational status: unemployed Meds Allergies Allergy/AdvReac Type Severity Reaction Status Date / Time fish Allergy Unknown Anaphylaxis Uncoded 06/22/21 20:41 shellfish Allergy Unknown Anaphylaxis Uncoded 06/22/21 20:41 Active Medications: Current Medications Generic Name Dose Route Start Last Admin Trade Name Freq PRN Reason Stop Dose Admin Insulin Human Regular 100 unit in 100 mls @ 5 mls/hr 07/04/21 18:00 Myxredlin IVCONT .Q20H NIA Protocol 5 UNIT/HR Sodium Chloride 1,000 mls @ 150 mls/hr 07/04/21 18:15 Ns IVCONT .Q6H40M [facility] Propofol 1,000 mg in 100 mls @ 0 mls/hr 07/04/21 18:15 Diprivan IVCONT .Q0M [facility] Protocol Per Protocol Trimethoprim/Sulfamethoxazole 505 mls @ 225 mls/hr 07/04/21 18:24 80 mg/ Dextrose IV 07/04/21 20:38 ONCE ONE Pharmacy Consult 1 each 07/04/21 15:46 Consult Rx Vancomycin Dosing MISCELLANE DAILY PRN Consult order Sodium Chloride 3 ml 07/05/21 00:00 0.9 % Sodium Chloride Flush 3 Ml Syringe IVFLUSH QSHIFT [facility] Home Medications Medication Instructions Recorded Confirmed Last Taken Type abacavir 600 mg-dolutegravir 50 1 tab PO DAILY 06/23/21 06/23/21 Unknown History mg-lamivudine 300 mg tablet (Triumeq) cyanocobalamin (vitamin B-12) 100 100 mcg PO DAILY 06/23/21 06/23/21 Unknown History mcg tablet ferrous sulfate 324 mg (65 mg 324 mg PO DAILY 06/23/21 06/23/21 Unknown History iron) tablet,delayed release gabapentin 300 mg capsule 1 cap PO BID 06/23/21 06/23/21 Unknown History insulin lispro 100 unit/mL See Rx Instructions .ROUTE .COMPLEX 06/23/21 06/23/21 Unknown History subcutaneous pen (Humalog KwikPen (U-100) Insulin) methadone 5 mg/5 mL oral solution 20 mg PO DAILY 06/23/21 06/23/21 Unknown History quetiapine 50 mg tablet 1 tab PO BEDTIME 06/23/21 06/23/21 Unknown History Physical Exam Vital Signs: Vital Signs: Last Vital Signs Temp 101.9 F H 07/04/21 15:26 Pulse 154 H 07/04/21 15:26 Resp 37 H 07/04/21 15:26 BP 157/92 H 07/04/21 15:26 Pulse Ox 98 07/04/21 15:26 Body Mass Index 16.5 Severe agitated delirium but moving all 4 extremities now sedated intubated Bedside echo shows hyperdynamic left ventricle with is 70-80% ejection fraction all chambers look normal no primary valve or pericardial disease that was apparent Diminished bilateral breath sounds of his lungs but he appears to have underlying COPD with good placement of the endotracheal tube and good placement of the triple-lumen catheter in the superior vena cava with no pneumothorax Abdomen is no palpable organomegaly Results Labs CBC and Chem 7: 07/04/21 15:59 07/04/21 15:58 Labs: Laboratory Results - last 24 hr 07/04/21 07/04/21 07/04/21 15:26 15:58 15:58 MCV MCH MCHC RDW Plt Count MPV Immature Gran % (Auto) Neut % (Auto) Lymph % (Auto) [place] % (Auto) Eos % (Auto) Baso % (Auto) Lymph # (Auto) [place] # (Auto) Eos # (Auto) Baso # (Auto) Abs Immat Gran (auto) Absolute Neuts (auto) Absolute Nucleated RBC Nucleated RBC % (auto) VBG pH VBG pCO2 VBG pO2 VBG HCO3 VBG O2 Saturation VBG Base Excess Anion Gap TNP Estim Creat Clear Calc 19.9 Estimated GFR 19 POC Glucose > 600 H* Random Glucose 743 H* Lactic Acid Calcium 10.5 H D Magnesium Total Bilirubin 0.7 AST 34 D ALT 33 Alkaline Phosphatase 129 H D Total Protein 9.6 H D Albumin 4.8 D Acetone, Qual Moderate H COVID-19 (REY) Negative COVID-19 Clin Com See Note 07/04/21 07/04/21 07/04/21 15:58 15:59 15:59 MCV 94.3 MCH 30.5 MCHC 32.3 RDW 15.8 Plt Count 412 H MPV 11.7 Immature Gran % (Auto) 1.2 H Neut % (Auto) 80.9 H Lymph % (Auto) 14.4 L [place] % (Auto) 2.6 Eos % (Auto) 0.1 Baso % (Auto) 0.8 Lymph # (Auto) 2.2 [place] # (Auto) 0.4 Eos # (Auto) 0.0 Baso # (Auto) 0.1 Abs Immat Gran (auto) 0.19 H Absolute Neuts (auto) 12.6 H Absolute Nucleated RBC 0.000 Nucleated RBC % (auto) 0.0 VBG pH VBG pCO2 VBG pO2 VBG HCO3 VBG O2 Saturation VBG Base Excess Anion Gap Estim Creat Clear Calc Estimated GFR POC Glucose Random Glucose Lactic Acid 7.2 H* Calcium Magnesium 3.0 H Total Bilirubin AST ALT Alkaline Phosphatase Total Protein Albumin Acetone, Qual COVID-19 (REY) COVID-19 Clin Com 07/04/21 16:04 MCV MCH MCHC RDW Plt Count MPV Immature Gran % (Auto) Neut % (Auto) Lymph % (Auto) [place] % (Auto) Eos % (Auto) Baso % (Auto) Lymph # (Auto) [place] # (Auto) Eos # (Auto) Baso # (Auto) Abs Immat Gran (auto) Absolute Neuts (auto) Absolute Nucleated RBC Nucleated RBC % (auto) VBG pH 7.08 L* VBG pCO2 13 VBG pO2 54 VBG HCO3 4 L VBG O2 Saturation 69.0 VBG Base Excess -23.1 Anion Gap Estim Creat Clear Calc Estimated GFR POC Glucose Random Glucose Lactic Acid Calcium Magnesium Total Bilirubin AST ALT Alkaline Phosphatase Total Protein Albumin Acetone, Qual COVID-19 (REY) COVID-19 Clin Com Imaging Radiologist's Impressions: Impressions Chest X-Ray 07/04/21 17:45 IMPRESSION: Endotracheal tube properly positioned with its tip approximately 4 cm from joseph. Central line catheter on the x-ray acquired at 5:47 PM show the tip projecting over the SVC/RA junction properly positioned however the upper part of the lung not included on this chest x-ray to rule out pneumothorax. May consider correlation with follow-up. Chest X-Ray 07/04/21 18:02 IMPRESSION: Endotracheal tube properly positioned with its tip approximately 4 cm from joseph. Central line catheter on the x-ray acquired at 5:47 PM show the tip projecting over the SVC/RA junction properly positioned however the upper part of the lung not included on this chest x-ray to rule out pneumothorax. May consider correlation with follow-up. Assessment and Plan (1) DKA (diabetic ketoacidosis): Qualifiers: Diabetes mellitus complication detail: with coma Diabetes mellitus type: due to underlying condition Qualified Code(s): E08.11 - Diabetes mellitus due to underlying condition with ketoacidosis with coma Status: Acute (2) Respiratory failure: Qualifiers: Chronicity: acute Respiratory failure complication: unspecified whether with hypoxia or hypercapnia Qualified Code(s): J96.00 - Acute respiratory failure, unspecified whether with hypoxia or hypercapnia Status: Acute (3) History of fasciotomy: Status: Acute (4) Active substance abuse: Status: Acute (5) TOMMY (acute kidney injury): Status: Acute (6) Sepsis: Status: Acute (7) Encephalopathy acute: Status: Acute (8) HIV (human immunodeficiency virus infection): Status: Acute So we will aggressively replace IV normal saline and frequently recheck potassium and his pH level starting insulin drip as well and he has been completely cultured and the CD4 T lymphocyte counts are pending as well as the HIV viral load and until then 1 dose of vancomycin 1 dose of ceftriaxone and 1 dose of IV Bactrim will be given pending those results and we are also awaiting a urine toxicology screen
[2021-07-04 18:30] LABS: ABG Base Excess -24.7 mmol/L; ABG HCO3 2 mmol/L (22-26); ABG pCO2 7 mmHg (32-45); ABG pCO2 TC 8 mmHg (32-45); ABG pH 7.08 (7.35-7.45); ABG pH TC 7.07 (7.35-7.45); ABG pO2 179 mmHg (83-108); ABG pO2 TC 186 (83-108)
[2021-07-04] MEDS: Midazolam HCl/PF 2 MG/2 ML VIAL 3 MG IVPUSH (18:30)
[2021-07-04] MEDS: 0.9 % Sodium Chloride 1,000 ML 150 ML IVCONT (18:31)
[2021-07-04] MEDS: Insulin Regular/NS 100 UNIT/100 ML PLAST..BAG IVCONT (18:31)
--- NOTE | 2021-07-04 18:36 | W.PM.CCHP ---
Procedures Date of Service Date of Service: 07/04/21 Central Line Placement Left IJ: Central Line Comments: After sterile preparation and draping and using ultrasound guidance and mostly because we had no IV access a triple-lumen central venous pressure catheter was placed without complication Gained entry to the left internal jugular vein easily passing retrograde with Seldinger technique a J tipped guidewire over which triple-lumen 20 cm length catheter was placed with confirmed tip in the superior vena cava by chest x-ray without any complication and that was sterilely sewn and dressed Consent for Procedure: Emergent-no informed consent obtained Time out performed: Yes Sterile Technique Used: Yes Patient placed on monitor/pulse ox: Yes prep: mask, gown and gloves Central line prep: Chlorhexidine scrub Local anesthesia used: lidocaine 1% Ultrasound used for placement: Yes Central line lumen inserted: triple Post procedure: sutured in place, good blood return, all ports aspirated, flushed, capped and sterile dressing applied Post procedure x-ray: tip of catheter in good position and no pneumothorax seen Patient tolerated procedure: well and no complications Complications: none
--- NOTE | 2021-07-04 18:39 | W.PM.CCHP ---
Procedures Date of Service Date of Service: 07/04/21 Intubation Intubation Comments: Patient was severe agitated delirium and respiratory distress impossible to treat the patient needed to be sedated which in return required intubation performed utilizing a 7. Endotracheal tube with glide scope guidance easy visualization of vocal cords excellent end-tidal CO2 response good bilateral breath sounds and chest x-ray corroboration of to the tip at 25 cm extending it at least down below the clavicle but well above the joseph Consent for Procedure: Emergent-no informed consent obtained Time out performed: Yes Sedative: propofol Laryngoscope: fiber optic video scope ET tube size: 7 ET tube uncuffed: No Tube secured location: lips Tube placement confirmation: visualized tube passing through cords, equal breath sounds bilaterally, no breath sounds over epigastrium and confirmation by capnometry Patient tolerated procedure: well and no complications Intubation complications: none
[2021-07-04 18:56] LABS: Glucose Urine UA >=1000 MG/DL (NEG); Leukocyte Esterase Urine NEG (NEG); Nitrite Urine NEG (NEG); Urine Blood 2+ (NEG); Urine Ketones >=80 MG/DL (NEG); Urine Protein TRACE MG/DL (NEG-TRACE)
[2021-07-04 19:04] LABS: Appearance Urine CLEAR; Color Urine YELLOW
[2021-07-04 19:09] LABS: Amphetamine Screen Urine Not Detected (Not Detect); Barbiturates, Urine Not Detected (Not Detect); Benzodiazepines Screen Urine POSITIVE (Not Detect); Cannabinoid Screen Urine Not Detected (Not Detect); Cocaine Screen Urine Not Detected (Not Detect); Fentanyl, urine POSITIVE (Not Detect); Opiate Screen Urine Not Detected (Not Detect); Phencyclidine Screen Urine Not Detected (Not Detect)
[2021-07-04 19:10] LABS: Bacteria Urine TRACE /LPF; Mucus Urine TRACE /LPF; Squamous Epithelial Cell Urine TRACE /LPF; WBC Urine 0-2 /HPF (0-4)
[2021-07-04] MEDS: fentaNYL citrate/PF 100 MCG/2 ML VIAL 50 MCG IVPUSH (19:24)
--- NOTE | 2021-07-04 19:45 | PC.NURSE ---
ASSUMED CARE OF PTLiane MOLINA UP AND RUNNING ON PUMP PREVIOUSLY HUNG BY NURSING. FENTANYL INCREASED BY PA TO 100MCG/HR.
[2021-07-04] MEDS: Piperacillin Sodium/Tazobactam 2.25 GM in 0.9 % Sodium Chloride 50 ML IV (19:51)
--- NOTE | 2021-07-04 19:59 | PC.NURSE ---
FENTANYL DRIP INCREASED TO 125MCG/HR PER AMAURI DEL VALLE.
[2021-07-04 20:00] LABS: Amphetamine Screen Urine Not Detected (Not Detect); Barbiturates, Urine Not Detected (Not Detect); Benzodiazepines Screen Urine POSITIVE (Not Detect); Cannabinoid Screen Urine Not Detected (Not Detect); Cocaine Screen Urine Not Detected (Not Detect); Fentanyl, urine POSITIVE (Not Detect); Opiate Screen Urine Not Detected (Not Detect); Phencyclidine Screen Urine Not Detected (Not Detect)
[2021-07-04] MEDS: fentaNYL citrate/NS 1,000 MCG/100 ML PLAST..BAG 20 MCG IVCONT (20:00)
[2021-07-04] MEDS: Midazolam HCl/NS 50 MG/50 ML PLAST..BAG IVCONT (20:00)
[2021-07-04] MEDS: vancomycin HCL 750 MG in 0.9 % Sodium Chloride 250 ML 265 MG IV (20:02)
--- NOTE | 2021-07-04 20:04 | PC.NURSE ---
AWAITING TO TRANSPORT PT TO ICU. PA AND RESPIRATORY IN ROOM AWAITING TRANSFTER. PT MEDICATED PER EMAR. VANCO UP AND RUNNING ON PUMP AFTER ZOSYN INFUSED. PT REMAINS ON MONITOR WITH HR 140, SCHULER DRAINING CLEAR YELLOW URINE IN SCHULER BAG. SOFT RESTRAINTS IN PLACE.
--- NOTE | 2021-07-04 20:13 | PC.NURSE ---
FENTANYL INCREASED TO 200 MCG/HR.
[2021-07-04 20:15] LABS: ~Lactic Acid-LAB USE ONLY 2.5 mmol/L (0.5-2.0)
--- NOTE | 2021-07-04 20:33 | PC.NURSE ---
STEPHANIEG DRAWN TO LAB.
[2021-07-04 20:45] LABS: VBG HCO3 4 mmol/L (22-26); VBG pCO2 12 mmHg; VBG pH 7.14 (7.32-7.43); VBG pO2 71 mmHg
[2021-07-04 20:49] LABS: Venous Blood Gas Refer to POC result
[2021-07-04 20:56] LABS: Basophils Absolute Auto 0.1 X10*3/uL (0.0-0.2); Basophils Percent Auto 0.3 % (0-2); Hematocrit 31.8 % (42-52); Hemoglobin 10.4 g/dl (14.0-18.0); Imm Gran Abs Auto 0.46 X10*3/uL (0.00-0.03); Imm Gran Pct Auto 1.6 % (0.0-0.4); Lymphocytes Absolute Auto 1.9 X10*3/uL (1.2-4.9); Lymphocytes Percent Auto 6.6 % (20-40); MANUAL DIFF FLAG SCAN; Mean Corpuscular HGB Conc 32.7 g/dl (31.0-36.0); Mean Corpuscular Hemoglobin 30.5 pg (27.0-33.0); Mean Corpuscular Volume 93.3 fL (80-98); Mean Platelet Volume 11.6 fL (9.4-12.4); Monocytes Absolute Auto 2.3 X10*3/uL (0.1-1.2); Monocytes Percent Auto 8.2 % (2-11); Neutrophils Absolute Auto 23.3 X10*3/uL (2.0-8.3); Neutrophils Percent Auto 83.3 % (45-73); Platelet Count 294 X10*3/uL (160-400); Red Blood Count 3.41 X10*6/uL (4.60-5.80); Red Cell Distribution Width 15.7 % (11.0-16.0); SCAN SMEAR FLAG 1; White Blood Count 28.1 X10*3/uL (4.8-10.8)
[2021-07-04] MEDS: propofoL 1,000 MG/100 ML VIAL 15.72 MG IVCONT (21:00)
[2021-07-04] MEDS: Sodium Bicarbonate 8.4% 50 MEQ/50 ML VIAL IVPUSH (21:14)
[2021-07-04 21:24] LABS: SLIDE REVIEW VERIFIED
[2021-07-04 21:26] LABS: Glucose, Whole Blood 542 mg/dL (60-115)
[2021-07-04] MEDS: SULFAMETHOXAZOLE IV (21:29)
[2021-07-04] MEDS: DEXTROSE 5% IV (21:29)
[2021-07-04] MEDS: TRIMETHOPRIM IV (21:29)
[2021-07-04 21:37] LABS: Reflex Lactate? 2 Y
[2021-07-04 21:55] LABS: Alanine Aminotransferase 28 U/L (0-40); Albumin Level 3.9 g/dL (3.5-5.0); Alkaline Phosphatase 102 U/L (39-117); Anion Gap 37 (12-20); Aspartate Amino Transferase 31 U/L (5-37); Bilirubin Total 0.2 mg/dL (0.0-1.0); Blood Urea Nitrogen 61 mg/dL (9-16); Calcium 8.2 mg/dL (8.4-10.2); Carbon Dioxide 5 mmol/L (22-29); Chloride 102 mmol/L (96-108); Creatinine Clr Calc Pharmacy 18.6; Estimated Glomerular Filt Rate 18; Glucose Random 686 mg/dL (60-115); Potassium 6.4 mmol/L (3.3-5.1); Sodium 138 mmol/L (135-145); Total Protein 7.8 g/dL (6.5-8.0)
[2021-07-04 22:10] LABS: Glucose, Whole Blood 539 mg/dL (60-115)
[2021-07-04 22:10] LABS: ~Lactic Acid-LAB USE ONLY 1.8 mmol/L (0.5-2.0)
[2021-07-04 23:03] LABS: Glucose, Whole Blood 513 mg/dL (60-115)
[2021-07-04 23:03] LABS: Glucose, Whole Blood 490 mg/dL (60-115)
[2021-07-05] VITALS (22 sets, daily range): BP systolic 108–159; BP diastolic 67–98; PULSE 87–112; RESP 11–24; TEMP 37.5–38.4; O2SAT 98–100; BMI 17.6
--- NOTE | 2021-07-05 | ECG_ITS ---
Test Reason : QT Blood Pressure : / mmHG Vent. Rate : 096 BPM Atrial Rate : 096 BPM P-R Int : 142 ms QRS Dur : 080 ms QT Int : 336 ms P-R-T Axes : 077 053 078 degrees QTc Int : 424 ms Normal sinus rhythm Nonspecific T wave abnormality Abnormal ECG When compared with ECG of 04-JUL-2021 19:29, Nonspecific T wave abnormality is now Present Heart rate has decreased Referred By: Mahogany Hernandez Electronically Signed By:STEF CRAFT
[2021-07-05 00:26] LABS: MANUAL DIFF FLAG NO
[2021-07-05 00:28] LABS: Basophils Percent Auto 0.2 % (0-2); Hematocrit 25.5 % (42-52); Hemoglobin 8.5 g/dl (14.0-18.0); Imm Gran Abs Auto 0.25 X10*3/uL (0.00-0.03); Imm Gran Pct Auto 1.1 % (0.0-0.4); Lymphocytes Absolute Auto 2.1 X10*3/uL (1.2-4.9); Lymphocytes Percent Auto 9.3 % (20-40); Mean Corpuscular HGB Conc 33.3 g/dl (31.0-36.0); Mean Corpuscular Volume 90.1 fL (80-98); Mean Platelet Volume 10.8 fL (9.4-12.4); Monocytes Absolute Auto 1.2 X10*3/uL (0.1-1.2); Monocytes Percent Auto 5.2 % (2-11); Neutrophils Absolute Auto 18.8 X10*3/uL (2.0-8.3); Neutrophils Percent Auto 84.2 % (45-73); Platelet Count 247 X10*3/uL (160-400); Red Blood Count 2.83 X10*6/uL (4.60-5.80); Red Cell Distribution Width 15.7 % (11.0-16.0); White Blood Count 22.3 X10*3/uL (4.8-10.8)
[2021-07-05] MEDS: Sodium Bicarbonate 8.4% 50 MEQ/50 ML VIAL IVPUSH (00:29)
[2021-07-05] MEDS: 0.9 % Sodium Chloride 1,000 ML 999 ML IVCONT (00:30)
[2021-07-05 00:32] LABS: Venous Blood Gas Refer to POC result
[2021-07-05 00:33] LABS: VBG Base Excess -11.8 mmol/L; VBG HCO3 12 mmol/L (22-26); VBG pCO2 23 mmHg; VBG pH 7.32 (7.32-7.43); VBG pO2 68 mmHg
[2021-07-05 00:47] LABS: Glucose, Whole Blood 401 mg/dL (60-115)
[2021-07-05] MEDS: fentaNYL citrate/NS 1,000 MCG/100 ML PLAST..BAG 12.5 MCG IVCONT ×2 (01:03→07:34)
[2021-07-05 01:10] LABS: Alanine Aminotransferase 24 U/L (0-40); Albumin Level 3.4 g/dL (3.5-5.0); Alkaline Phosphatase 84 U/L (39-117); Anion Gap 26 (12-20); Aspartate Amino Transferase 25 U/L (5-37); Bilirubin Total 0.2 mg/dL (0.0-1.0); Blood Urea Nitrogen 55 mg/dL (9-16); Calcium 8.3 mg/dL (8.4-10.2); Carbon Dioxide 12 mmol/L (22-29); Chloride 106 mmol/L (96-108); Creatinine Clr Calc Pharmacy 21.1; Estimated Glomerular Filt Rate 20; Glucose Random 487 mg/dL (60-115); Magnesium 2.3 mg/dL (1.6-2.6); Phosphorus 1.6 mg/dL (2.7-4.5); Potassium 4.4 mmol/L (3.3-5.1); Sodium 140 mmol/L (135-145); Total Protein 6.8 g/dL (6.5-8.0)
[2021-07-05 01:10] LABS: Glucose, Whole Blood 383 mg/dL (60-115)
[2021-07-05] MEDS: KCl 40 mEq in 5% Dex/0.45% Sod 40 MEQ/1,000 ML IV.SOLN 150 MEQ IVCONT (01:24)
[2021-07-05 02:22] LABS: Glucose, Whole Blood 312 mg/dL (60-115)
[2021-07-05 03:06] LABS: Glucose, Whole Blood 328 mg/dL (60-115)
--- NOTE | 2021-07-05 03:23 | PC.NURSE ---
Pt admitted to ICU at approx 2100. Intubated and CVC placed in ED- ETT #7.0, 25 cm at lip, TLC to L IJ. Initially only tolerated PSV but currently on AC 24/500/5/21%. EtCO2 as low as 13, now trending upward. PA aware of VBGs and critical labs. Total of 100 mEq IVP bicarb given. Difficult to sedate, reaching for lines/tubes- on propofol, fentanyl, and versed gtts per PA, titrating down as tolerated for vent synchrony. Pt responds to noxious stimuli, +C/G, pupils 2mm and reactive. SBP trended down to 60s, 1L NS bolus given with no effect. Levophed ordered and titrated to maintain MAP > 65. Insulin gtt running per protocol. IVF changed per emar. Tmax 102 core. NSR/ST 100-120s. LS clear. Abd bengin. Lazo in place, UOP approx 50 ml/hr. RUE surgical site from recent fasciotomy, sutures intact, CERTIFIED DETENTION DEPUTY. No other skin integrity concerns. Pt's mother called/updated and aware of plan of care.
[2021-07-05] MEDS: Piperacillin Sodium/Tazobactam 2.25 GM in 0.9 % Sodium Chloride 50 ML IV ×3 (04:01→20:13)
[2021-07-05 04:17] LABS: Glucose, Whole Blood 278 mg/dL (60-115)
[2021-07-05 05:24] LABS: Glucose, Whole Blood 280 mg/dL (60-115)
[2021-07-05 05:27] LABS: VBG Base Excess -0.8 mmol/L; VBG HCO3 21 mmol/L (22-26); VBG pCO2 26 mmHg; VBG pH 7.51 (7.32-7.43); VBG pO2 44 mmHg
[2021-07-05] MEDS: propofoL 1,000 MG/100 ML VIAL 9.43 MG IVCONT (05:34)
[2021-07-05] MEDS: Insulin Regular/NS 100 UNIT/100 ML PLAST..BAG 9 UNIT IVCONT (05:35)
[2021-07-05 05:51] LABS: Basophils Absolute Auto 0.1 X10*3/uL (0.0-0.2); Basophils Percent Auto 0.3 % (0-2); Hematocrit 26.9 % (42-52); Hemoglobin 9.4 g/dl (14.0-18.0); Imm Gran Abs Auto 0.13 X10*3/uL (0.00-0.03); Imm Gran Pct Auto 0.6 % (0.0-0.4); Lymphocytes Percent Auto 9.6 % (20-40); MANUAL DIFF FLAG SCAN; Mean Corpuscular HGB Conc 34.9 g/dl (31.0-36.0); Mean Corpuscular Hemoglobin 30.6 pg (27.0-33.0); Mean Corpuscular Volume 87.6 fL (80-98); Mean Platelet Volume 11.5 fL (9.4-12.4); Monocytes Absolute Auto 1.7 X10*3/uL (0.1-1.2); Neutrophils Absolute Auto 17.3 X10*3/uL (2.0-8.3); Neutrophils Percent Auto 81.5 % (45-73); Platelet Count 292 X10*3/uL (160-400); Red Blood Count 3.07 X10*6/uL (4.60-5.80); Red Cell Distribution Width 15.4 % (11.0-16.0); SCAN SMEAR FLAG 1; White Blood Count 21.2 X10*3/uL (4.8-10.8)
[2021-07-05 05:58] LABS: SLIDE REVIEW VERIFIED
[2021-07-05 05:59] LABS: Venous Blood Gas Refer to POC result
[2021-07-05 05:59] LABS: Glucose, Whole Blood 246 mg/dL (60-115)
[2021-07-05 06:17] LABS: Alanine Aminotransferase 24 U/L (0-40); Albumin Level 3.5 g/dL (3.5-5.0); Alkaline Phosphatase 87 U/L (39-117); Anion Gap 14 (12-20); Aspartate Amino Transferase 23 U/L (5-37); Bilirubin Direct 0.2 mg/dL (0.0-0.5); Bilirubin Total 0.3 mg/dL (0.0-1.0); Blood Urea Nitrogen 45 mg/dL (9-16); Calcium 8.5 mg/dL (8.4-10.2); Carbon Dioxide 22 mmol/L (22-29); Chloride 111 mmol/L (96-108); Creatinine Clr Calc Pharmacy 26.4; Estimated Glomerular Filt Rate 25; Glucose Random 289 mg/dL (60-115); Magnesium 2.1 mg/dL (1.6-2.6); Potassium 4.1 mmol/L (3.3-5.1); Sodium 143 mmol/L (135-145); Total Protein 6.9 g/dL (6.5-8.0)
[2021-07-05 06:56] LABS: Glucose, Whole Blood 217 mg/dL (60-115)
[2021-07-05 07:28] LABS: Glucose, Whole Blood 197 mg/dL (60-115)
[2021-07-05] MEDS: KCl 20 mEq in 5% Dex/0.45% Sod 20 MEQ/1,000 ML IV.SOLN 150 MEQ IVCONT (07:58)
[2021-07-05 08:01] LABS: Glucose, Whole Blood 176 mg/dL (60-115)
--- NOTE | 2021-07-05 08:14 | P.CDIC_ITS ---
[facility]I Concurrent Query Service Date: 07/05/21 Documentation Clarification: Please clarify if you are treating a proba ble/suspected/likely or confirmed: Toxic Encephalopathy Metabolic Encephalopathy Septic Encephalopathy Acute Encephalopathy Other, please specify if know or undetermined Provider Response: Other Other Diagnosis: Acute encephalopathy metabolic or septic, or both unclear at this time PLEASE DO NOT DELETE/MODIFY EXISTING CONTENT Additional information is needed in order to code to the highest accuracy and appropriate Severity of Illness (SOI). Please clarify the information noted below in your progress notes and discharge summary. Risk Factors/Clinical Indicators/Treatments Pt active heroin abuse, DKA, agitated, delirium w respiratory distress. PN: Assessment/plan - Encephalopathy Altered mental status, ICU admit. CDS: Sasha Guillen CCS, CDIS Contact Number: [phone] Please Review the information above and exercise your independent professional judgment in responding to the query. If you concur, pleas document in the PROGRESS NOTES and DISCHARGE SUMMARY. If you do not agree with the query, please document in the query above. THIS QUERY IS PART OF THE PERMANENT MEDICAL RECORD
[2021-07-05] MEDS: Potassium Phosphate 30 MMOL in 0.9 % Sodium Chloride 500 ML 85 MMOL IV ×2 (08:18→14:22)
--- NOTE | 2021-07-05 08:21 | P.CDIC_ITS ---
CDI Concurrent Query Service Date: 07/05/21 Documentation Clarification: Please clarify if you are treating a proba ble/suspected/likely or confirmed: Sepsis (treating) Sepsis (rule out) Other, please specify if known or undetermined Provider Response: Other (Sepsis ruled out) Other Diagnosis: Sepsis ruled out PLEASE DO NOT DELETE/MODIFY EXISTING CONTENT Additional information is needed in order to code to the highest accuracy and appropriate Severity of Illness (SOI). Please clarify the information noted below in your progress notes and discharge summary. Risk Factors/Clinical Indicators/Treatments Temp 101.9 101.5 HR 154 142 RR 20 WBC 28.1 Upper right extremity Fasciotomy did not take his antibiotic, mother states he lost it caused abscess w compartment syndrome from drug abuse. Altered mental status, respiratory distress, IV Vancomycin, Piperacillin, oxygen, vent/intubate. Agitated, delirium, tachycardic 130's 140's. CDS: Sasha Guillen CCS, CDIS Contact Number: [phone] Please Review the information above and exercise your independent professional judgment in responding to the query. If you concur, pleas document in the PROGRESS NOTES and DISCHARGE SUMMARY. If you do not agree with the query, please document in the query above. THIS QUERY IS PART OF THE PERMANENT MEDICAL RECORD
[2021-07-05] MEDS: Dextrose 5 % and Lactated Ring 1,000 ML 50 ML IVCONT (08:23)
[2021-07-05] MEDS: Chlorhexidine Gluc Oral Rinse 15 ML MOUTHWASH BUCCAL (08:56)
[2021-07-05 09:14] LABS: Venous Blood Gas Refer to POC result
[2021-07-05 09:15] LABS: VBG Base Excess 0.8 mmol/L; VBG HCO3 23 mmol/L (22-26); VBG pCO2 32 mmHg; VBG pH 7.47 (7.32-7.43); VBG pO2 51 mmHg
[2021-07-05 09:37] LABS: Glucose, Whole Blood 113 mg/dL (60-115)
[2021-07-05 09:42] LABS: Anion Gap 15 (12-20); Blood Urea Nitrogen 41 mg/dL (9-16); Calcium 8.5 mg/dL (8.4-10.2); Carbon Dioxide 21 mmol/L (22-29); Chloride 114 mmol/L (96-108); Creatinine Clr Calc Pharmacy 30.2; Estimated Glomerular Filt Rate 29; Glucose Random 124 mg/dL (60-115); Magnesium 2.1 mg/dL (1.6-2.6); Phosphorus 1.7 mg/dL (2.7-4.5); Potassium 3.7 mmol/L (3.3-5.1); Sodium 146 mmol/L (135-145)
--- NOTE | 2021-07-05 09:49 | MHC.CM.PN ---
Pt admitted to ICU with DKA - intubated for control of aggressive behaviors and airway management. Pt is not able to particpate in CM discussion at this time d/t sedation. Per review of past [facility] admission, pt is active with [facility] Methadone clinic on [facility]. Dosage unknown. [employer] updated with this information
[2021-07-05 10:06] LABS: Glucose, Whole Blood 80 mg/dL (60-115)
[2021-07-05 10:46] LABS: Glucose, Whole Blood 59 mg/dL (60-115)
[2021-07-05 11:08] LABS: Glucose, Whole Blood 174 mg/dL (60-115)
--- NOTE | 2021-07-05 11:27 | P.PNCC_ITS ---
Subjective Subjective Date of Service: 07/05/21 Interval History: 46-year-old gentleman with underlying history of HIV unclear if compliant with HAART, hep C, opioid abuse, in methadone program, recent [facility] admission requiring right upper extremity fasciotomy for ? IVDU infection related compartment syndrome unclear compliant with antibiotics, diabetes mellitus poorly compliant with insulin admitted on 07/04/2021 with diabetic ketoacidosis and acute metabolic encephalopathy requiring high-dose sedation and intubation for airway protection, started on insulin drip, covered with empiric antibiotics, and transferred to intensive care unit. No events overnight. Critical Care Time (minutes): 45 Physical Exam Vital Signs: Vital Signs: Last Vital Signs Temp 99.5 F 07/05/21 11:00 Pulse 100 07/05/21 11:00 Resp 15 07/05/21 11:00 BP 148/93 H 07/05/21 11:00 Pulse Ox 99 07/05/21 11:00 Body Mass Index 17.6 Const: General: no acute distress and other (Sedated on the vent, multiple tattoos) Nutritional Appearance: malnourished Eyes: Sclerae: sclerae normal EOM: EOMs intact bilaterally Neck: Neck: Yes no lymphadenopathy, Yes trachea midline and Yes supple Resp: Effort & Inspection: normal respiratory effort and no respiratory distress Auscultation: clear to auscultation bilaterally Cardio: Rate: regular rate Rhythm: regular rhythm Heart sounds: no gallops, no murmurs and no rubs GI: Palpation (GI): Soft to palpation and Other GI palpation findings present ( Nontender) Auscultation: normal bowel sounds Extrem: General: Yes no pedal edema, No clubbing, No cyanosis and Yes other (RU with fasciotomy scar with stitches looking non infected) Objective Data Labs CBC & Chem 7: 07/05/21 05:15 07/05/21 09:01 Labs: Laboratory Results - last 24 hr 07/04/21 07/04/21 07/04/21 15:26 15:58 15:58 WBC RBC Hgb Hct MCV MCH MCHC RDW Plt Count MPV Immature Gran % (Auto) Neut % (Auto) Lymph % (Auto) [place] % (Auto) Eos % (Auto) Baso % (Auto) Lymph # (Auto) [place] # (Auto) Eos # (Auto) Baso # (Auto) Abs Immat Gran (auto) Absolute Neuts (auto) Absolute Nucleated RBC Nucleated RBC % (auto) Smear Tech's Comments O2 Saturation ABG pH at Pt Temp ABG pH (Temp Correct) ABG pCO2 at Pt Temp ABG pCO2 (Temp Corrct ABG pO2 at Pt Temp ABG pO2 (Temp Correct ABG HCO3 ABG Base Excess (Actual) VBG pH VBG pCO2 VBG pO2 VBG HCO3 VBG O2 Saturation VBG Base Excess Sodium 134 L Potassium 6.6 H* D Chloride 90 L Carbon Dioxide < 5 L* D Anion Gap TNP BUN 54 H D Creatinine 3.51 H Estim Creat Clear Calc 19.9 Estimated GFR 19 POC Glucose > 600 H* Random Glucose 743 H* Lactic Acid Lactic Acid Fup @ 2Hr Lactic Acid Fup @ 4Hr Calcium 10.5 H D Phosphorus Magnesium Total Bilirubin 0.7 Direct Bilirubin AST 34 D ALT 33 Alkaline Phosphatase 129 H D Total Protein 9.6 H D Albumin 4.8 D Urine Color Urine Appearance Urine pH Ur Specific [place] Urine Protein Urine Glucose (UA) Urine Ketones Urine Blood Urine Nitrite Ur Leukocyte Esterase Urine RBC Urine WBC Ur Squamous Epith Cells Urine Bacteria Urine Mucus Urine Opiates Screen Urine Fentanyl Screen Ur Barbiturates Screen Ur Phencyclidine Scrn Ur Amphetamines Screen U Benzodiazepines Scrn Urine Cocaine Screen U Marijuana (THC) Screen Acetone, Qual Moderate H COVID-19 (REY) Negative COVID-19 Clin Com See Note 07/04/21 07/04/21 07/04/21 15:58 15:59 15:59 WBC 15.5 H RBC 3.84 L D Hgb 11.7 L D Hct 36.2 L D MCV 94.3 MCH 30.5 MCHC 32.3 RDW 15.8 Plt Count 412 H MPV 11.7 Immature Gran % (Auto) 1.2 H Neut % (Auto) 80.9 H Lymph % (Auto) 14.4 L [place] % (Auto) 2.6 Eos % (Auto) 0.1 Baso % (Auto) 0.8 Lymph # (Auto) 2.2 [place] # (Auto) 0.4 Eos # (Auto) 0.0 Baso # (Auto) 0.1 Abs Immat Gran (auto) 0.19 H Absolute Neuts (auto) 12.6 H Absolute Nucleated RBC 0.000 Nucleated RBC % (auto) 0.0 Smear Tech's Comments O2 Saturation ABG pH at Pt Temp ABG pH (Temp Correct) ABG pCO2 at Pt Temp ABG pCO2 (Temp Corrct ABG pO2 at Pt Temp ABG pO2 (Temp Correct ABG HCO3 ABG Base Excess (Actual) VBG pH VBG pCO2 VBG pO2 VBG HCO3 VBG O2 Saturation VBG Base Excess Sodium Potassium Chloride Carbon Dioxide Anion Gap BUN Creatinine Estim Creat Clear Calc Estimated GFR POC Glucose Random Glucose Lactic Acid 7.2 H* Lactic Acid Fup @ 2Hr Lactic Acid Fup @ 4Hr Calcium Phosphorus Magnesium 3.0 H Total Bilirubin Direct Bilirubin AST ALT Alkaline Phosphatase Total Protein Albumin Urine Color Urine Appearance Urine pH Ur Specific [place] Urine Protein Urine Glucose (UA) Urine Ketones Urine Blood Urine Nitrite Ur Leukocyte Esterase Urine RBC Urine WBC Ur Squamous Epith Cells Urine Bacteria Urine Mucus Urine Opiates Screen Urine Fentanyl Screen Ur Barbiturates Screen Ur Phencyclidine Scrn Ur Amphetamines Screen U Benzodiazepines Scrn Urine Cocaine Screen U Marijuana (THC) Screen Acetone, Qual COVID-19 (REY) COVID-19 Clin Com 07/04/21 07/04/21 07/04/21 16:04 18:24 18:46 WBC RBC Hgb Hct MCV MCH MCHC RDW Plt Count MPV Immature Gran % (Auto) Neut % (Auto) Lymph % (Auto) [place] % (Auto) Eos % (Auto) Baso % (Auto) Lymph # (Auto) [place] # (Auto) Eos # (Auto) Baso # (Auto) Abs Immat Gran (auto) Absolute Neuts (auto) Absolute Nucleated RBC Nucleated RBC % (auto) Smear Tech's Comments O2 Saturation 97.0 ABG pH at Pt Temp 7.08 L* ABG pH (Temp Correct) 7.07 L* ABG pCO2 at Pt Temp 7 L* ABG pCO2 (Temp Corrct 8 L* ABG pO2 at Pt Temp 179 H ABG pO2 (Temp Correct 186 H ABG HCO3 2 L ABG Base Excess (Actual) -24.7 VBG pH 7.08 L* VBG pCO2 13 VBG pO2 54 VBG HCO3 4 L VBG O2 Saturation 69.0 VBG Base Excess -23.1 Sodium Potassium Chloride Carbon Dioxide Anion Gap BUN Creatinine Estim Creat Clear Calc Estimated GFR POC Glucose Random Glucose Lactic Acid Lactic Acid Fup @ 2Hr Lactic Acid Fup @ 4Hr Calcium Phosphorus Magnesium Total Bilirubin Direct Bilirubin AST ALT Alkaline Phosphatase Total Protein Albumin Urine Color YELLOW Urine Appearance CLEAR Urine pH 6.0 Ur Specific [place] 1.020 Urine Protein TRACE Urine Glucose (UA) >=1000 H Urine Ketones >=80 Urine Blood 2+ H Urine Nitrite NEG Ur Leukocyte Esterase NEG Urine RBC 10-14 H Urine WBC 0-2 Ur Squamous Epith Cells TRACE Urine Bacteria TRACE Urine Mucus TRACE Urine Opiates Screen Urine Fentanyl Screen Ur Barbiturates Screen Ur Phencyclidine Scrn Ur Amphetamines Screen U Benzodiazepines Scrn Urine Cocaine Screen U Marijuana (THC) Screen Acetone, Qual COVID-19 (REY) COVID-19 Clin Com 07/04/21 07/04/21 07/04/21 18:46 19:31 19:34 WBC RBC Hgb Hct MCV MCH MCHC RDW Plt Count MPV Immature Gran % (Auto) Neut % (Auto) Lymph % (Auto) [place] % (Auto) Eos % (Auto) Baso % (Auto) Lymph # (Auto) [place] # (Auto) Eos # (Auto) Baso # (Auto) Abs Immat Gran (auto) Absolute Neuts (auto) Absolute Nucleated RBC Nucleated RBC % (auto) Smear Tech's Comments O2 Saturation ABG pH at Pt Temp ABG pH (Temp Correct) ABG pCO2 at Pt Temp ABG pCO2 (Temp Corrct ABG pO2 at Pt Temp ABG pO2 (Temp Correct ABG HCO3 ABG Base Excess (Actual) VBG pH VBG pCO2 VBG pO2 VBG HCO3 VBG O2 Saturation VBG Base Excess Sodium Potassium Chloride Carbon Dioxide Anion Gap BUN Creatinine Estim Creat Clear Calc Estimated GFR POC Glucose Random Glucose Lactic Acid Lactic Acid Fup @ 2Hr 2.5 H* Lactic Acid Fup @ 4Hr Calcium Phosphorus Magnesium Total Bilirubin Direct Bilirubin AST ALT Alkaline Phosphatase Total Protein Albumin Urine Color Urine Appearance Urine pH Ur Specific [place] Urine Protein Urine Glucose (UA) Urine Ketones Urine Blood Urine Nitrite Ur Leukocyte Esterase Urine RBC Urine WBC Ur Squamous Epith Cells Urine Bacteria Urine Mucus Urine Opiates Screen Not Detected Not Detected Urine Fentanyl Screen POSITIVE H POSITIVE H Ur Barbiturates Screen Not Detected Not Detected Ur Phencyclidine Scrn Not Detected Not Detected Ur Amphetamines Screen Not Detected Not Detected U Benzodiazepines Scrn POSITIVE H POSITIVE H Urine Cocaine Screen Not Detected Not Detected U Marijuana (THC) Screen Not Detected Not Detected Acetone, Qual COVID-19 (REY) COVID-19 Clin Com 07/04/21 07/04/21 07/04/21 20:35 20:49 20:49 WBC 28.1 H RBC 3.41 L Hgb 10.4 L Hct 31.8 L MCV 93.3 MCH 30.5 MCHC 32.7 RDW 15.7 Plt Count 294 D MPV 11.6 Immature Gran % (Auto) 1.6 H Neut % (Auto) 83.3 H Lymph % (Auto) 6.6 L [place] % (Auto) 8.2 Eos % (Auto) 0.0 Baso % (Auto) 0.3 Lymph # (Auto) 1.9 [place] # (Auto) 2.3 H Eos # (Auto) 0.0 Baso # (Auto) 0.1 Abs Immat Gran (auto) 0.46 H Absolute Neuts (auto) 23.3 H Absolute Nucleated RBC 0.000 Nucleated RBC % (auto) 0.0 Smear Tech's Comments VERIFIED O2 Saturation ABG pH at Pt Temp ABG pH (Temp Correct) ABG pCO2 at Pt Temp ABG pCO2 (Temp Corrct ABG pO2 at Pt Temp ABG pO2 (Temp Correct ABG HCO3 ABG Base Excess (Actual) VBG pH 7.14 L* VBG pCO2 12 VBG pO2 71 VBG HCO3 4 L VBG O2 Saturation 87.0 VBG Base Excess -22.0 Sodium 138 Potassium 6.4 H* Chloride 102 Carbon Dioxide 5 L* Anion Gap 37 H BUN 61 H Creatinine 3.74 H Estim Creat Clear Calc 18.6 Estimated GFR 18 POC Glucose Random Glucose 686 H* Lactic Acid Lactic Acid Fup @ 2Hr Lactic Acid Fup @ 4Hr Calcium 8.2 L D Phosphorus Magnesium Total Bilirubin 0.2 Direct Bilirubin AST 31 ALT 28 Alkaline Phosphatase 102 D Total Protein 7.8 Albumin 3.9 Urine Color Urine Appearance Urine pH Ur Specific [place] Urine Protein Urine Glucose (UA) Urine Ketones Urine Blood Urine Nitrite Ur Leukocyte Esterase Urine RBC Urine WBC Ur Squamous Epith Cells Urine Bacteria Urine Mucus Urine Opiates Screen Urine Fentanyl Screen Ur Barbiturates Screen Ur Phencyclidine Scrn Ur Amphetamines Screen U Benzodiazepines Scrn Urine Cocaine Screen U Marijuana (THC) Screen Acetone, Qual COVID-19 (REY) COVID-19 Clin Com 08/07/04/21 07/04/21 21:22 21:44 21:59 WBC RBC Hgb Hct MCV MCH MCHC RDW Plt Count MPV Immature Gran % (Auto) Neut % (Auto) Lymph % (Auto) [place] % (Auto) Eos % (Auto) Baso % (Auto) Lymph # (Auto) [place] # (Auto) Eos # (Auto) Baso # (Auto) Abs Immat Gran (auto) Absolute Neuts (auto) Absolute Nucleated RBC Nucleated RBC % (auto) Smear Tech's Comments O2 Saturation ABG pH at Pt Temp ABG pH (Temp Correct) ABG pCO2 at Pt Temp ABG pCO2 (Temp Corrct ABG pO2 at Pt Temp ABG pO2 (Temp Correct ABG HCO3 ABG Base Excess (Actual) VBG pH VBG pCO2 VBG pO2 VBG HCO3 VBG O2 Saturation VBG Base Excess Sodium Potassium Chloride Carbon Dioxide Anion Gap BUN Creatinine Estim Creat Clear Calc Estimated GFR POC Glucose 542 H* 539 H* Random Glucose Lactic Acid Lactic Acid Fup @ 2Hr Lactic Acid Fup @ 4Hr 1.8 Calcium Phosphorus Magnesium Total Bilirubin Direct Bilirubin AST ALT Alkaline Phosphatase Total Protein Albumin Urine Color Urine Appearance Urine pH Ur Specific [place] Urine Protein Urine Glucose (UA) Urine Ketones Urine Blood Urine Nitrite Ur Leukocyte Esterase Urine RBC Urine WBC Ur Squamous Epith Cells Urine Bacteria Urine Mucus Urine Opiates Screen Urine Fentanyl Screen Ur Barbiturates Screen Ur Phencyclidine Scrn Ur Amphetamines Screen U Benzodiazepines Scrn Urine Cocaine Screen U Marijuana (THC) Screen Acetone, Qual COVID-19 (REY) COVID-19 Clin Com 07/04/21 07/04/21 07/05/21 22:59 23:01 00:17 WBC 22.3 H RBC 2.83 L Hgb 8.5 L Hct 25.5 L MCV 90.1 MCH 30.0 MCHC 33.3 RDW 15.7 Plt Count 247 MPV 10.8 Immature Gran % (Auto) 1.1 H Neut % (Auto) 84.2 H Lymph % (Auto) 9.3 L [place] % (Auto) 5.2 Eos % (Auto) 0.0 Baso % (Auto) 0.2 Lymph # (Auto) 2.1 [place] # (Auto) 1.2 Eos # (Auto) 0.0 Baso # (Auto) 0.0 Abs Immat Gran (auto) 0.25 H Absolute Neuts (auto) 18.8 H Absolute Nucleated RBC 0.000 Nucleated RBC % (auto) 0.0 Smear Tech's Comments O2 Saturation ABG pH at Pt Temp ABG pH (Temp Correct) ABG pCO2 at Pt Temp ABG pCO2 (Temp Corrct ABG pO2 at Pt Temp ABG pO2 (Temp Correct ABG HCO3 ABG Base Excess (Actual) VBG pH VBG pCO2 VBG pO2 VBG HCO3 VBG O2 Saturation VBG Base Excess Sodium Potassium Chloride Carbon Dioxide Anion Gap BUN Creatinine Estim Creat Clear Calc Estimated GFR POC Glucose 490 H* 513 H* Random Glucose Lactic Acid Lactic Acid Fup @ 2Hr Lactic Acid Fup @ 4Hr Calcium Phosphorus Magnesium Total Bilirubin Direct Bilirubin AST ALT Alkaline Phosphatase Total Protein Albumin Urine Color Urine Appearance Urine pH Ur Specific [place] Urine Protein Urine Glucose (UA) Urine Ketones Urine Blood Urine Nitrite Ur Leukocyte Esterase Urine RBC Urine WBC Ur Squamous Epith Cells Urine Bacteria Urine Mucus Urine Opiates Screen Urine Fentanyl Screen Ur Barbiturates Screen Ur Phencyclidine Scrn Ur Amphetamines Screen U Benzodiazepines Scrn Urine Cocaine Screen U Marijuana (THC) Screen Acetone, Qual COVID-19 (REY) COVID-19 Clin Com 07/05/21 07/05/21 07/05/21 00:17 00:27 00:27 WBC RBC Hgb Hct MCV MCH MCHC RDW Plt Count MPV Immature Gran % (Auto) Neut % (Auto) Lymph % (Auto) [place] % (Auto) Eos % (Auto) Baso % (Auto) Lymph # (Auto) [place] # (Auto) Eos # (Auto) Baso # (Auto) Abs Immat Gran (auto) Absolute Neuts (auto) Absolute Nucleated RBC Nucleated RBC % (auto) Smear Tech's Comments O2 Saturation ABG pH at Pt Temp ABG pH (Temp Correct) ABG pCO2 at Pt Temp ABG pCO2 (Temp Corrct ABG pO2 at Pt Temp ABG pO2 (Temp Correct ABG HCO3 ABG Base Excess (Actual) VBG pH 7.32 VBG pCO2 23 VBG pO2 68 VBG HCO3 12 L VBG O2 Saturation 90.0 VBG Base Excess -11.8 Sodium 140 Potassium 4.4 D Chloride 106 Carbon Dioxide 12 L Anion Gap 26 H BUN 55 H Creatinine 3.31 H Estim Creat Clear Calc 21.1 Estimated GFR 20 POC Glucose 401 H* Random Glucose 487 H* Lactic Acid Lactic Acid Fup @ 2Hr Lactic Acid Fup @ 4Hr Calcium 8.3 L Phosphorus 1.6 L Magnesium 2.3 Total Bilirubin 0.2 Direct Bilirubin AST 25 ALT 24 Alkaline Phosphatase 84 Total Protein 6.8 Albumin 3.4 L Urine Color Urine Appearance Urine pH Ur Specific [place] Urine Protein Urine Glucose (UA) Urine Ketones Urine Blood Urine Nitrite Ur Leukocyte Esterase Urine RBC Urine WBC Ur Squamous Epith Cells Urine Bacteria Urine Mucus Urine Opiates Screen Urine Fentanyl Screen Ur Barbiturates Screen Ur Phencyclidine Scrn Ur Amphetamines Screen U Benzodiazepines Scrn Urine Cocaine Screen U Marijuana (THC) Screen Acetone, Qual COVID-19 (REY) COVID-19 [employer] 07/05/21 07/05/21 07/05/21 01:06 02:19 03:01 WBC RBC Hgb Hct MCV MCH MCHC RDW Plt Count MPV Immature Gran % (Auto) Neut % (Auto) Lymph % (Auto) [place] % (Auto) Eos % (Auto) Baso % (Auto) Lymph # (Auto) [place] # (Auto) Eos # (Auto) Baso # (Auto) Abs Immat Gran (auto) Absolute Neuts (auto) Absolute Nucleated RBC Nucleated RBC % (auto) Smear Tech's Comments O2 Saturation ABG pH at Pt Temp ABG pH (Temp Correct) ABG pCO2 at Pt Temp ABG pCO2 (Temp Corrct ABG pO2 at Pt Temp ABG pO2 (Temp Correct ABG HCO3 ABG Base Excess (Actual) VBG pH VBG pCO2 VBG pO2 VBG HCO3 VBG O2 Saturation VBG Base Excess Sodium Potassium Chloride Carbon Dioxide Anion Gap BUN Creatinine Estim Creat Clear Calc Estimated GFR POC Glucose 383 H* 312 H 328 H Random Glucose Lactic Acid Lactic Acid Fup @ 2Hr Lactic Acid Fup @ 4Hr Calcium Phosphorus Magnesium Total Bilirubin Direct Bilirubin AST ALT Alkaline Phosphatase Total Protein Albumin Urine Color Urine Appearance Urine pH Ur Specific [place] Urine Protein Urine Glucose (UA) Urine Ketones Urine Blood Urine Nitrite Ur Leukocyte Esterase Urine RBC Urine WBC Ur Squamous Epith Cells Urine Bacteria Urine Mucus Urine Opiates Screen Urine Fentanyl Screen Ur Barbiturates Screen Ur Phencyclidine Scrn Ur Amphetamines Screen U Benzodiazepines Scrn Urine Cocaine Screen U Marijuana (THC) Screen Acetone, Qual COVID-19 (REY) COVID-19 [employer] Com 07/05/21 07/05/21 07/05/21 04:11 05:15 05:15 WBC 21.2 H RBC 3.07 L Hgb 9.4 L Hct 26.9 L MCV 87.6 MCH 30.6 MCHC 34.9 RDW 15.4 Plt Count 292 MPV 11.5 Immature Gran % (Auto) 0.6 H Neut % (Auto) 81.5 H Lymph % (Auto) 9.6 L [place] % (Auto) 8.0 Eos % (Auto) 0.0 Baso % (Auto) 0.3 Lymph # (Auto) 2.0 [place] # (Auto) 1.7 H Eos # (Auto) 0.0 Baso # (Auto) 0.1 Abs Immat Gran (auto) 0.13 H Absolute Neuts (auto) 17.3 H Absolute Nucleated RBC 0.000 Nucleated RBC % (auto) 0.0 Smear Tech's Comments VERIFIED O2 Saturation ABG pH at Pt Temp ABG pH (Temp Correct) ABG pCO2 at Pt Temp ABG pCO2 (Temp Corrct ABG pO2 at Pt Temp ABG pO2 (Temp Correct ABG HCO3 ABG Base Excess (Actual) VBG pH VBG pCO2 VBG pO2 VBG HCO3 VBG O2 Saturation VBG Base Excess Sodium 143 Potassium 4.1 Chloride 111 H Carbon Dioxide 22 Anion Gap 14 BUN 45 H Creatinine 2.82 H Estim Creat Clear Calc 26.4 Estimated GFR 25 POC Glucose 278 H Random Glucose 289 H D Lactic Acid Lactic Acid Fup @ 2Hr Lactic Acid Fup @ 4Hr Calcium 8.5 Phosphorus 1.0 L* Magnesium 2.1 Total Bilirubin 0.3 Direct Bilirubin 0.2 AST 23 ALT 24 Alkaline Phosphatase 87 Total Protein 6.9 Albumin 3.5 Urine Color Urine Appearance Urine pH Ur Specific [place] Urine Protein Urine Glucose (UA) Urine Ketones Urine Blood Urine Nitrite Ur Leukocyte Esterase Urine RBC Urine WBC Ur Squamous Epith Cells Urine Bacteria Urine Mucus Urine Opiates Screen Urine Fentanyl Screen Ur Barbiturates Screen Ur Phencyclidine Scrn Ur Amphetamines Screen U Benzodiazepines Scrn Urine Cocaine Screen U Marijuana (THC) Screen Acetone, Qual COVID-19 (REY) COVID-19 Clin Com 07/05/21 07/05/21 07/05/21 05:19 05:20 05:55 WBC RBC Hgb Hct MCV MCH MCHC RDW Plt Count MPV Immature Gran % (Auto) Neut % (Auto) Lymph % (Auto) [place] % (Auto) Eos % (Auto) Baso % (Auto) Lymph # (Auto) [place] # (Auto) Eos # (Auto) Baso # (Auto) Abs Immat Gran (auto) Absolute Neuts (auto) Absolute Nucleated RBC Nucleated RBC % (auto) Smear Tech's Comments O2 Saturation ABG pH at Pt Temp ABG pH (Temp Correct) ABG pCO2 at Pt Temp ABG pCO2 (Temp Corrct ABG pO2 at Pt Temp ABG pO2 (Temp Correct ABG HCO3 ABG Base Excess (Actual) VBG pH 7.51 H VBG pCO2 26 VBG pO2 44 VBG HCO3 21 L VBG O2 Saturation 77.0 VBG Base Excess -0.8 Sodium Potassium Chloride Carbon Dioxide Anion Gap BUN Creatinine Estim Creat Clear Calc Estimated GFR POC Glucose 280 H 246 H Random Glucose Lactic Acid Lactic Acid Fup @ 2Hr Lactic Acid Fup @ 4Hr Calcium Phosphorus Magnesium Total Bilirubin Direct Bilirubin AST ALT Alkaline Phosphatase Total Protein Albumin Urine Color Urine Appearance Urine pH Ur Specific [place] Urine Protein Urine Glucose (UA) Urine Ketones Urine Blood Urine Nitrite Ur Leukocyte Esterase Urine RBC Urine WBC Ur Squamous Epith Cells Urine Bacteria Urine Mucus Urine Opiates Screen Urine Fentanyl Screen Ur Barbiturates Screen Ur Phencyclidine Scrn Ur Amphetamines Screen U Benzodiazepines Scrn Urine Cocaine Screen U Marijuana (THC) Screen Acetone, Qual COVID-19 (REY) COVID-19 Clin Com 07/05/21 07/05/21 07/05/21 06:52 07:24 07:58 WBC RBC Hgb Hct MCV MCH MCHC RDW Plt Count MPV Immature Gran % (Auto) Neut % (Auto) Lymph % (Auto) [place] % (Auto) Eos % (Auto) Baso % (Auto) Lymph # (Auto) [place] # (Auto) Eos # (Auto) Baso # (Auto) Abs Immat Gran (auto) Absolute Neuts (auto) Absolute Nucleated RBC Nucleated RBC % (auto) Smear Tech's Comments O2 Saturation ABG pH at Pt Temp ABG pH (Temp Correct) ABG pCO2 at Pt Temp ABG pCO2 (Temp Corrct ABG pO2 at Pt Temp ABG pO2 (Temp Correct ABG HCO3 ABG Base Excess (Actual) VBG pH VBG pCO2 VBG pO2 VBG HCO3 VBG O2 Saturation VBG Base Excess Sodium Potassium Chloride Carbon Dioxide Anion Gap BUN Creatinine Estim Creat Clear Calc Estimated GFR POC Glucose 217 H 197 H 176 H Random Glucose Lactic Acid Lactic Acid Fup @ 2Hr Lactic Acid Fup @ 4Hr Calcium Phosphorus Magnesium Total Bilirubin Direct Bilirubin AST ALT Alkaline Phosphatase Total Protein Albumin Urine Color Urine Appearance Urine pH Ur Specific [place] Urine Protein Urine Glucose (UA) Urine Ketones Urine Blood Urine Nitrite Ur Leukocyte Esterase Urine RBC Urine WBC Ur Squamous Epith Cells Urine Bacteria Urine Mucus Urine Opiates Screen Urine Fentanyl Screen Ur Barbiturates Screen Ur Phencyclidine Scrn Ur Amphetamines Screen U Benzodiazepines Scrn Urine Cocaine Screen U Marijuana (THC) Screen Acetone, Qual COVID-19 (REY) COVID-19 Clin Com 07/05/21 07/05/21 07/05/21 09:01 09:08 09:16 WBC RBC Hgb Hct MCV MCH MCHC RDW Plt Count MPV Immature Gran % (Auto) Neut % (Auto) Lymph % (Auto) [place] % (Auto) Eos % (Auto) Baso % (Auto) Lymph # (Auto) [place] # (Auto) Eos # (Auto) Baso # (Auto) Abs Immat Gran (auto) Absolute Neuts (auto) Absolute Nucleated RBC Nucleated RBC % (auto) Smear Tech's Comments O2 Saturation ABG pH at Pt Temp ABG pH (Temp Correct) ABG pCO2 at Pt Temp ABG pCO2 (Temp Corrct ABG pO2 at Pt Temp ABG pO2 (Temp Correct ABG HCO3 ABG Base Excess (Actual) VBG pH 7.47 H VBG pCO2 32 VBG pO2 51 VBG HCO3 23 VBG O2 Saturation 83.0 VBG Base Excess 0.8 Sodium 146 H Potassium 3.7 Chloride 114 H Carbon Dioxide 21 L Anion Gap 15 BUN 41 H Creatinine 2.46 H Estim Creat Clear Calc 30.2 Estimated GFR 29 POC Glucose 113 Random Glucose 124 H D Lactic Acid Lactic Acid Fup @ 2Hr Lactic Acid Fup @ 4Hr Calcium 8.5 Phosphorus 1.7 L Magnesium 2.1 Total Bilirubin Direct Bilirubin AST ALT Alkaline Phosphatase Total Protein Albumin Urine Color Urine Appearance Urine pH Ur Specific [place] Urine Protein Urine Glucose (UA) Urine Ketones Urine Blood Urine Nitrite Ur Leukocyte Esterase Urine RBC Urine WBC Ur Squamous Epith Cells Urine Bacteria Urine Mucus Urine Opiates Screen Urine Fentanyl Screen Ur Barbiturates Screen Ur Phencyclidine Scrn Ur Amphetamines Screen U Benzodiazepines Scrn Urine Cocaine Screen U Marijuana (THC) Screen Acetone, Qual COVID-19 (REY) COVID-19 [employer] 07/05/21 07/05/21 07/05/21 10:03 10:41 11:05 WBC RBC Hgb Hct MCV MCH MCHC RDW Plt Count MPV Immature Gran % (Auto) Neut % (Auto) Lymph % (Auto) [place] % (Auto) Eos % (Auto) Baso % (Auto) Lymph # (Auto) [place] # (Auto) Eos # (Auto) Baso # (Auto) Abs Immat Gran (auto) Absolute Neuts (auto) Absolute Nucleated RBC Nucleated RBC % (auto) Smear Tech's Comments O2 Saturation ABG pH at Pt Temp ABG pH (Temp Correct) ABG pCO2 at Pt Temp ABG pCO2 (Temp Corrct ABG pO2 at Pt Temp ABG pO2 (Temp Correct ABG HCO3 ABG Base Excess (Actual) VBG pH VBG pCO2 VBG pO2 VBG HCO3 VBG O2 Saturation VBG Base Excess Sodium Potassium Chloride Carbon Dioxide Anion Gap BUN Creatinine Estim Creat Clear Calc Estimated GFR POC Glucose 80 59 L* 174 H Random Glucose Lactic Acid Lactic Acid Fup @ 2Hr Lactic Acid Fup @ 4Hr Calcium Phosphorus Magnesium Total Bilirubin Direct Bilirubin AST ALT Alkaline Phosphatase Total Protein Albumin Urine Color Urine Appearance Urine pH Ur Specific [place] Urine Protein Urine Glucose (UA) Urine Ketones Urine Blood Urine Nitrite Ur Leukocyte Esterase Urine RBC Urine WBC Ur Squamous Epith Cells Urine Bacteria Urine Mucus Urine Opiates Screen Urine Fentanyl Screen Ur Barbiturates Screen Ur Phencyclidine Scrn Ur Amphetamines Screen U Benzodiazepines Scrn Urine Cocaine Screen U Marijuana (THC) Screen Acetone, Qual COVID-19 (REY) COVID-19 [employer] Quality Stroke Does the patient have a stroke diagnosis?: No VTE Prior VTE?: No VTE Risk Level:: Medical - moderate - high VTE Device Contraindication: N/A - Device Ordered VTE Drug Contraindication: Treatment Not Indicated Progress Note: A&P Assessment and plan (1) HIV (human immunodeficiency virus infection): Status: Acute Assessment and Plan: Assessment: 46-year-old gentleman with underlying HIV, hep C, poor compliance with therapy, substance abuse, admitted with acute encephalopathy diabetic ketoacidosis requiring intubation and ventilatory support Plan: Neuro: Acute encephalopathy, likely metabolic, though also can be infectious considering underlying hep C and HIV with unclear compliance with treatment. To reassess with improvement in metabolic status. Improving, continue to titrate off sedative drips. Cardiac: No acute issues. Pulmonary: Acute respiratory failure secondary to high sedation requirements, continue to titrate off ventilatory support as tolerated. Renal: Acute renal failure, likely secondary to diabetic ketoacidosis, improving. Non oliguric. Continue to monitor urine output and renal indices. Endo: Diabetic ketoacidosis, likely secondary to poor compliance with underlying insulin therapy. Continue to titrate off insulin drip as tolerated. GI: No acute issues. ID: No acute issues. Underlying hep C and HIV. Heme/Onc: No acute issues. Psych: No acute issues. Miscellaneous: No acute issues. Underlying history of opioid dependence participating in methadone program. Prophylaxis: Famotidine, heparin Diet: Nothing by mouth Critical care time spent: 45 minutes (2) Encephalopathy acute: Status: Acute (3) DKA (diabetic ketoacidosis): Status: Acute (4) Respiratory failure: Status: Acute (5) TOMMY (acute kidney injury): Status: Acute (6) Active substance abuse: Status: Acute (7) Hep C w/o coma, chronic: Status: Acute
--- NOTE | 2021-07-05 11:29 | MHC.CLN ---
NUTRITION WHEN DIET ADVANCES, RECOMMEND THERAPEUTIC DIET, DIABETIC 1800 KCAL (25 KCAL/KG IBW).
[2021-07-05 12:04] LABS: Glucose, Whole Blood 168 mg/dL (60-115)
--- NOTE | 2021-07-05 12:09 | PC.NURSE ---
Difficulty in managing blood glucose per policy. At 1038 poc was 59. Pt given D50 per PRN order and insulin drip was turned off. Drip remained off until 1200 when poc was stabilized. Per resume drip at 1unit per hour and goal is to keep poc around 200.
--- NOTE | 2021-07-05 12:11 | PC.NURSE ---
Pt weaning off of propofol able to tollerate PSV 5/5 on ventilator which was changed around 0930. Plan to continue to wean and start on precidex drip. Goal is for extubation today.
[2021-07-05] MEDS: Heparin Sodium,Porcine 5,000 UNIT/ML VIAL 5000 UNIT SUBCUT (12:29)
[2021-07-05 13:07] LABS: Glucose, Whole Blood 177 mg/dL (60-115)
--- NOTE | 2021-07-05 13:43 | PC.NURSE ---
At 1315 pt remained resting in bed wit eyes closed. Propofol remained off at that time. Pt switched to psv 5/0 at that time on room air. About 3 minutes later while this RN stepped off of the floor. Pt self extubated. He was restrained at that time and on camera. Prior to this event he had not been wakeful and was showing no signs of purposeful activity. He would rech for tubes/lines only when stimulate. Second RN on the floor and RT responded to patient alarms. PT was suctioned and VS remained stable. 100% on room air with a RR of 17. No obvious trauma to airway. MD aware with no new orders at this time. Precidex ordered if pt should becocme agitated. At this time he is resting in bed with eyes closed, VSS, respods to tactile simuli but is uncooperative with staff. TLC remains in place and pt remains restrained with soft restraints at this time to protect TLC and other necessary devices until pt is able to cooperate with care.
--- NOTE | 2021-07-05 13:52 | PC.NURSE ---
Fentanyl remains runnig at 75mcg/hr per MD to prevent withdrawal until we can veify methadone dosing. Pt unable to tell is at this time.
[2021-07-05 14:05] LABS: Glucose, Whole Blood 166 mg/dL (60-115)
[2021-07-05] MEDS: Insulin Glargine,Hum.rec.anlog 100 UNIT/ML 10 ML VIAL 15 UNIT SUBCUT (14:22)
[2021-07-05 15:11] LABS: Glucose, Whole Blood 176 mg/dL (60-115)
[2021-07-05] MEDS: 0.9 % Sodium Chloride Flush 3 ML SYRINGE IVFLUSH ×2 (15:41→20:20)
[2021-07-05] MEDS: methADONE HCl 20 MG/2 ML ORAL.CONC PO (16:31)
[2021-07-05 16:39] LABS: Glucose, Whole Blood 197 mg/dL (60-115)
[2021-07-05 16:53] LABS: Anion Gap 16 (12-20); Blood Urea Nitrogen 30 mg/dL (9-16); Calcium 8.4 mg/dL (8.4-10.2); Carbon Dioxide 22 mmol/L (22-29); Chloride 111 mmol/L (96-108); Creatinine Clr Calc Pharmacy 36.1; Estimated Glomerular Filt Rate 35; Glucose Random 213 mg/dL (60-115); Potassium 4.2 mmol/L (3.3-5.1); Sodium 145 mmol/L (135-145)
[2021-07-05] MEDS: Insulin Lispro 100 UNIT/ML 3 ML VIAL SUBCUT (17:06)
[2021-07-06 06:23] LABS: Venous Blood Gas Refer to POC result
[2021-07-06 06:25] LABS: VBG Base Excess 2.3 mmol/L; VBG HCO3 26 mmol/L (22-26); VBG pCO2 37 mmHg; VBG pH 7.45 (7.32-7.43); VBG pO2 45 mmHg
[2021-07-06 07:11] LABS: MANUAL DIFF FLAG NO
[2021-07-06 07:16] LABS: Basophils Absolute Auto 0.1 X10*3/uL (0.0-0.2); Basophils Percent Auto 0.3 % (0-2); Eosinophils Percent Auto 0.2 % (0-4); Hemoglobin 9.3 g/dl (14.0-18.0); Imm Gran Abs Auto 0.09 X10*3/uL (0.00-0.03); Imm Gran Pct Auto 0.5 % (0.0-0.4); Lymphocytes Absolute Auto 1.8 X10*3/uL (1.2-4.9); Lymphocytes Percent Auto 10.1 % (20-40); Mean Corpuscular HGB Conc 33.2 g/dl (31.0-36.0); Mean Corpuscular Hemoglobin 30.1 pg (27.0-33.0); Mean Corpuscular Volume 90.6 fL (80-98); Mean Platelet Volume 11.5 fL (9.4-12.4); Neutrophils Absolute Auto 14.4 X10*3/uL (2.0-8.3); Neutrophils Percent Auto 82.9 % (45-73); Platelet Count 196 X10*3/uL (160-400); Red Blood Count 3.09 X10*6/uL (4.60-5.80); White Blood Count 17.4 X10*3/uL (4.8-10.8)
[2021-07-06 07:38] LABS: Glucose, Whole Blood 255 mg/dL (60-115)
[2021-07-06 07:44] LABS: Alanine Aminotransferase 18 U/L (0-40); Albumin Level 3.4 g/dL (3.5-5.0); Alkaline Phosphatase 80 U/L (39-117); Anion Gap 15 (12-20); Aspartate Amino Transferase 25 U/L (5-37); Bilirubin Total 1.1 mg/dL (0.0-1.0); Blood Urea Nitrogen 19 mg/dL (9-16); Calcium 8.4 mg/dL (8.4-10.2); Carbon Dioxide 24 mmol/L (22-29); Chloride 101 mmol/L (96-108); Creatinine Clr Calc Pharmacy 46.5; Estimated Glomerular Filt Rate 47; Glucose Random 249 mg/dL (60-115); Magnesium 1.7 mg/dL (1.6-2.6); Phosphorus 2.9 mg/dL (2.7-4.5); Potassium 4.1 mmol/L (3.3-5.1); Sodium 136 mmol/L (135-145); Total Protein 6.9 g/dL (6.5-8.0)
[2021-07-06 08:00] VITALS: BP 130/87; PULSE 88; RESP 18; TEMP 36.4; O2SAT 97
[2021-07-06] MEDS: Insulin Lispro 100 UNIT/ML 3 ML VIAL SUBCUT ×4 (08:10→21:17)
[2021-07-06] MEDS: methADONE HCl 20 MG/2 ML ORAL.CONC PO (08:11)
[2021-07-06] MEDS: Insulin Glargine,Hum.rec.anlog 100 UNIT/ML 10 ML VIAL 15 UNIT SUBCUT (08:11)
--- NOTE | 2021-07-06 08:53 | P.CDIC_ITS ---
CDI Concurrent Query Service Date: 07/06/21 Documentation Clarification: Please clarify if you are treating a proba ble/suspected/likely or confirmed: Malnutrition, mild, moderate or severe Please specify if known or undetermined Provider Response: Moderate Protein-Calorie Malnutrition PLEASE DO NOT DELETE/MODIFY EXISTING CONTENT Additional information is needed in order to code to the highest accuracy and appropriate Severity of Illness (SOI). Please clarify the information noted below in your progress notes and discharge summary. Risk Factors/Clinical Indicators/Treatments PN: ICU - 07/05 - malnourished, disheveled BMI 16.5 cachectic CDS: Sasha Guillen CCS, CDIS Contact Number: [phone]. [phone] Please Review the information above and exercise your independent professional judgment in responding to the query. If you concur, pleas document in the PROGRESS NOTES and DISCHARGE SUMMARY. If you do not agree with the query, please document in the query above. THIS QUERY IS PART OF THE PERMANENT MEDICAL RECORD
--- NOTE | 2021-07-06 08:58 | P.CDIC_ITS ---
CDI Concurrent Query Service Date: 07/06/21 Documentation Clarification: Please clarify if you are treating a proba ble/suspected/likely or confirmed: Clarity of documentation within the medical record: Diabetic ketoacidosis POA Diabetic ketoacidosis with coma, POA, resolved Other, please specify if known Provider Response: Other Other Diagnosis: Diabetic ketoacidosis with altered mentation, not in coma. PLEASE DO NOT DELETE/MODIFY EXISTING CONTENT Additional information is needed in order to code to the highest accuracy and appropriate Severity of Illness (SOI). Please clarify the information noted below in your progress notes and discharge summary. Risk Factors/Clinical Indicators/Treatments ED: Impression - Diabetes mellitus due to underlying condition w ketoacidosis and coma. Found unresponsive, kussmaul breathing, elevated respiratory rate, obtunded. Became agitated, thrashing requiring IM sedation immediate intubation and vent. ICU admit. CDS: Sasha Guillen CCS, CDIS Contact Number: [phone] Please Review the information above and exercise your independent professional judgment in responding to the query. If you concur, pleas document in the PROGRESS NOTES and DISCHARGE SUMMARY. If you do not agree with the query, please document in the query above. THIS QUERY IS PART OF THE PERMANENT MEDICAL RECORD
[2021-07-06 10:54] VITALS: BP 114/72; PULSE 87; RESP 17; TEMP 36.6; O2SAT 97
[2021-07-06 11:13] LABS: Glucose, Whole Blood 293 mg/dL (60-115)
[2021-07-06 11:18] VITALS: BP 114/72; PULSE 87; O2SAT 97
[2021-07-06 12:07] LABS: Absolute CD3 Count 1426 cells/uL (840-3060); Absolute CD4 Count 739 cells/uL (490-1740); Absolute CD8 Count 655 cells/uL (180-1170); Absolute Lymphocytes 1710 cells/uL (850-3900); CD4 CD8 Ratio 1.13 (0.86-5.00); Percent CD3 Cells 83 % (57-85); Percent CD4 Cells 43 % (30-61); Percent CD8 Cells 38 % (12-42)
--- NOTE | 2021-07-06 12:10 | MHC.CM.PN ---
MALE 46 DX SEPSIS DELIRIUM DKA. PATIENT LIVES ALONE. HX IVDA. Recent surgery left hospital AMA. Patient requires IV ABX for rt arm infection/Abscess. Met with the pt and his mother. Both are poor historians. Information was obtained mostly using EMR. DP [facility] for IV ABX. The referral has been sent. [facility] is reviewing for admission. Pt received Vaccine x2 doses. No HCP on file. Pt and Mother declined assistance to document HCP. CM will follow.
[2021-07-06] MEDS: Heparin Sodium,Porcine 5,000 UNIT/ML VIAL 5000 UNIT SUBCUT ×2 (12:18→21:18)
[2021-07-06 12:26] VITALS: BMI 17.6
--- NOTE | 2021-07-06 12:31 | MHC.RECOVRN ---
46 year old male presented to [facility] [place] [facility] via [place] on 07/04 due to hyperglycemia, POC on arrival to ED >600, pt not responsive to this nurse per wood form builder. Pt presented with?Kussmaul breathing, obtunded, sinus tachycardia, febrile. Pt was agitated and thrashing, leading to intubation and admission to ICU for DKA and respiratory failure.?On 07/05 pt weaned off sedation and self extubated. Pt also removed TLC. Pt transferred to [facility].? T/w verified pts methadone dose with DANA Flores. Last dose received 07/03, 20 mg.? T/w met with pt on 07/06 in 479. Pts mother present and concerned for son. Pt familiar with t/w from past admissions. Pt reports being pissed off and sick. T/w discussed with pt need to obtain new IV site in order to infuse antibiotics. Pt agreeable.? Case discussed with pts RN as well as Stella Haywood APRN.? Will continue to follow.?
--- NOTE | 2021-07-06 13:16 | P.PNIM_ITS ---
Subjective Subjective Date of Service: 07/06/21 Interval History: the patient was seen and evaluated this morning Laying in bed, feels comfortable overall but still lethargic and has no energy Denies any fever, chills or shortness of breath Not sure he ended up in the hospital or what he is doing in here Removed a central line overnight by himself and had to be stitch No reported other overnight events. Systemic review: No fever, chills but reporting weakness No chest pain, palpitation No shortness of breath or coughing No abdominal pain, nausea or vomiting No urinary symptoms Physical Exam Vital Signs: Vital Signs: Last Vital Signs Temp 97.9 F 07/06/21 10:54 Pulse 87 07/06/21 11:18 Resp 17 07/06/21 10:54 BP 114/72 07/06/21 11:18 Pulse Ox 97 07/06/21 11:18 Body Mass Index 17.6 Const: Other: Constitutional : Alert, oriented to time and place, anxious about the reason why he is in the hospital Neck : Normal inspection, Supple Cardiovascular : RRR, S1 S2, no lower extremity edema Respiratory : Good bilateral air entry, no crackles, wheezes or rhonchi Gastrointestinal: soft, lax, Normal bowel sounds, Non tender Skin : Warm, Dry, multiple tattoos Neurological : Alert & oriented x3, No focal deficit Objective Data Current Medications Generic Name Dose Route Start Last Admin Trade Name Freq PRN Reason Stop Dose Admin Dextrose 25 gm 07/04/21 21:41 07/05/21 10:40 Dextrose 50 % 25 Gm/50 Ml Vial IVPUSH 25 gm Q15M PRN Administration per Hypoglycemia Standing Ord. Protocol Heparin Sodium (Porcine) 5,000 unit 07/05/21 12:00 07/06/21 12:18 Heparin Sodium,Porcine 5,000 Unit/Ml Vial SUBCUT 5,000 unit Q8H NIA Administration Piperacillin Sod/Tazobactam 50 mls @ 100 mls/hr 07/06/21 09:00 07/06/21 12:27 Sod 3.75 gm/ Sodium Chloride IV 100 mls/hr Q6H NIA Administration Insulin Glargine 15 unit 07/05/21 14:10 07/06/21 08:11 Insulin Glargine,Hum.Rec.Anlog 100 Unit/Ml 10 Ml Vial SUBCUT 15 unit DAILY NIA Administration Insulin Human Lispro 0 unit 07/05/21 16:30 07/06/21 12:16 Insulin Lispro 100 Unit/Ml 3 Ml Vial SUBCUT 6 unit QIDACHS [facility] Administration Protocol Methadone HCl 20 mg 07/05/21 15:45 07/06/21 08:11 Methadone Hcl 20 Mg/2 Ml Oral.Conc PO 20 mg DAILY NIA Administration Naloxone HCl 0.2 mg 07/04/21 19:12 Naloxone Hcl 0.4 Mg/Ml Vial IVPUSH Q2M PRN Excessive sedation or RR < 8 Sodium Chloride 3 ml 07/05/21 00:00 07/06/21 08:15 0.9 % Sodium Chloride Flush 3 Ml Syringe IVFLUSH Not Given QSHIFT [facility] Labs CBC & Chem 7: 07/06/21 06:16 07/06/21 06:16 Labs: Laboratory Results - last 24 hr 07/04/21 07/05/21 07/05/21 19:31 13:59 15:06 MCV MCH MCHC RDW Plt Count MPV Immature Gran % (Auto) Neut % (Auto) Lymph % (Auto) [place] % (Auto) Eos % (Auto) Baso % (Auto) Lymph # (Auto) [place] # (Auto) Eos # (Auto) Baso # (Auto) Abs Immat Gran (auto) Absolute Neuts (auto) Absolute Nucleated RBC Nucleated RBC % (auto) VBG pH VBG pCO2 VBG pO2 VBG HCO3 VBG O2 Saturation VBG Base Excess Anion Gap Estim Creat Clear Calc Estimated GFR POC Glucose 166 H 176 H Random Glucose Calcium Phosphorus Magnesium Total Bilirubin AST ALT Alkaline Phosphatase Total Protein Albumin Total Lymphocytes 1710 % CD3 Cells 83 Absolute CD3 Count 1426 % CD4 Cells 43 Absolute CD4 Count 739 CD4/CD8 Ratio 1.13 % CD8 Cells 38 Absolute CD8 Count 655 07/05/21 07/05/21 07/06/21 15:51 16:35 06:16 MCV 90.6 MCH 30.1 MCHC 33.2 RDW 16.0 Plt Count 196 D MPV 11.5 Immature Gran % (Auto) 0.5 H Neut % (Auto) 82.9 H Lymph % (Auto) 10.1 L [place] % (Auto) 6.0 Eos % (Auto) 0.2 Baso % (Auto) 0.3 Lymph # (Auto) 1.8 [place] # (Auto) 1.0 Eos # (Auto) 0.0 Baso # (Auto) 0.1 Abs Immat Gran (auto) 0.09 H Absolute Neuts (auto) 14.4 H Absolute Nucleated RBC 0.000 Nucleated RBC % (auto) 0.0 VBG pH VBG pCO2 VBG pO2 VBG HCO3 VBG O2 Saturation VBG Base Excess Anion Gap 16 Estim Creat Clear Calc 36.1 Estimated GFR 35 POC Glucose 197 H Random Glucose 213 H D Calcium 8.4 Phosphorus Magnesium Total Bilirubin AST ALT Alkaline Phosphatase Total Protein Albumin Total Lymphocytes % CD3 Cells Absolute CD3 Count % CD4 Cells Absolute CD4 Count CD4/CD8 Ratio % CD8 Cells Absolute CD8 Count 07/06/21 07/06/21 07/06/21 06:16 06:19 07:12 MCV MCH MCHC RDW Plt Count MPV Immature Gran % (Auto) Neut % (Auto) Lymph % (Auto) [place] % (Auto) Eos % (Auto) Baso % (Auto) Lymph # (Auto) [place] # (Auto) Eos # (Auto) Baso # (Auto) Abs Immat Gran (auto) Absolute Neuts (auto) Absolute Nucleated RBC Nucleated RBC % (auto) VBG pH 7.45 H VBG pCO2 37 VBG pO2 45 VBG HCO3 26 VBG O2 Saturation 73.0 VBG Base Excess 2.3 Anion Gap 15 Estim Creat Clear Calc 46.5 Estimated GFR 47 POC Glucose 255 H Random Glucose 249 H Calcium 8.4 Phosphorus 2.9 Magnesium 1.7 Total Bilirubin 1.1 H AST 25 ALT 18 Alkaline Phosphatase 80 Total Protein 6.9 Albumin 3.4 L Total Lymphocytes % CD3 Cells Absolute CD3 Count % CD4 Cells Absolute CD4 Count CD4/CD8 Ratio % CD8 Cells Absolute CD8 Count 07/06/21 10:51 MCV MCH MCHC RDW Plt Count MPV Immature Gran % (Auto) Neut % (Auto) Lymph % (Auto) [place] % (Auto) Eos % (Auto) Baso % (Auto) Lymph # (Auto) [place] # (Auto) Eos # (Auto) Baso # (Auto) Abs Immat Gran (auto) Absolute Neuts (auto) Absolute Nucleated RBC Nucleated RBC % (auto) VBG pH VBG pCO2 VBG pO2 VBG HCO3 VBG O2 Saturation VBG Base Excess Anion Gap Estim Creat Clear Calc Estimated GFR POC Glucose 293 H Random Glucose Calcium Phosphorus Magnesium Total Bilirubin AST ALT Alkaline Phosphatase Total Protein Albumin Total Lymphocytes % CD3 Cells Absolute CD3 Count % CD4 Cells Absolute CD4 Count CD4/CD8 Ratio % CD8 Cells Absolute CD8 Count Microbiology Microbiology Results: Microbiology 07/04/21 15:58 Blood Culture - Preliminary Blood - Venous No growth after 24 hours. 07/04/21 15:58 Blood Culture - Preliminary Blood - Venous No growth after 24 hours. Assessment and Plan (1) HIV (human immunodeficiency virus infection): Status: Acute Assessment and Plan: A 46-year-old gentleman with underlying HIV, hep C, poor compliance with therapy, substance abuse, admitted with acute encephalopathy diabetic ketoacidosis requiring intubation and ventilatory support Acute metabolic encephalopathy Improving, secondary to medications and DKA Avoid medications that might worsen mental status Acute respiratory failure , resolved Suspected underlying lung infection On Zosyn for possible aspiration Acute renal failure secondary to diabetic ketoacidosis improving Continue to monitor urine output and renal indices. Diabetic ketoacidosis secondary to poor compliance with underlying insulin therapy insulin drip Advanced diet Moderate malnutrition Add supplement History HIV Continue home medications history of opioid dependence Continue methadone To get infection team evaluation DVT PPX Heparin Quality Stroke Does the patient have a stroke diagnosis?: No VTE Prior VTE?: No VTE Risk Level:: Medical - moderate - high VTE Device Contraindication: N/A - Device Ordered VTE Drug Contraindication: Treatment Not Indicated
[2021-07-06 15:14] VITALS: BP 116/75; PULSE 92; RESP 20; TEMP 36.9; O2SAT 95
--- NOTE | 2021-07-06 16:16 | PM.EVENT ---
Event Note Date of Service: 07/06/21 Event Note: Addiction brief note: Patient is a 46 year old male with dx of OUD and DM. Medically admitted with DKA and encephalopathy requiring intubation. On medical floor now. Reports he is feeling dizzy, weird . No c/o of withdrawal, bright affect otherwise. Patient positive rapport with Recovery support RN Plan: -continue methadone as currently prescribed -this fiction and nonfiction prose writer will follow up in AM to reassess patient and determine if dose adjustments are necessary
[2021-07-06 16:32] LABS: Glucose, Whole Blood 354 mg/dL (60-115)
[2021-07-06] MEDS: 0.9 % Sodium Chloride Flush 3 ML SYRINGE IVFLUSH ×2 (16:47→21:18)
[2021-07-06] MEDS: Piperacillin Sodium/Tazobactam 3.375 GM in 0.9 % Sodium Chloride 50 ML IV (18:18)
[2021-07-06 19:06] VITALS: BP 113/73; PULSE 90; RESP 20; TEMP 37.1; O2SAT 97
[2021-07-06 20:11] LABS: Glucose, Whole Blood 376 mg/dL (60-115)
[2021-07-06 23:30] VITALS: BP 110/78; PULSE 82; RESP 18; TEMP 36.4; O2SAT 99
[2021-07-07] VITALS (7 sets, daily range): BP systolic 100–127; BP diastolic 54–79; PULSE 66–87; RESP 16–20; TEMP 36.3–37.2; O2SAT 96–99
[2021-07-07] MEDS: Piperacillin Sodium/Tazobactam 3.375 GM in 0.9 % Sodium Chloride 50 ML IV ×2 (01:16→06:24)
[2021-07-07] MEDS: Heparin Sodium,Porcine 5,000 UNIT/ML VIAL 5000 UNIT SUBCUT ×3 (03:27→20:49)
[2021-07-07 06:39] LABS: Hematocrit 30.1 % (42-52); Hemoglobin 9.8 g/dl (14.0-18.0); Mean Corpuscular HGB Conc 32.6 g/dl (31.0-36.0); Mean Platelet Volume 11.8 fL (9.4-12.4); Platelet Count 171 X10*3/uL (160-400); Red Blood Count 3.27 X10*6/uL (4.60-5.80); Red Cell Distribution Width 15.8 % (11.0-16.0); White Blood Count 8.1 X10*3/uL (4.8-10.8)
[2021-07-07 07:22] LABS: Glucose, Whole Blood 391 mg/dL (60-115)
[2021-07-07 07:37] LABS: Anion Gap 14 (12-20); Blood Urea Nitrogen 24 mg/dL (9-16); Calcium 8.5 mg/dL (8.4-10.2); Carbon Dioxide 26 mmol/L (22-29); Chloride 97 mmol/L (96-108); Creatinine Clr Calc Pharmacy 55.6; Estimated Glomerular Filt Rate 58; Glucose Random 399 mg/dL (60-115); Potassium 5.1 mmol/L (3.3-5.1); Sodium 132 mmol/L (135-145)
[2021-07-07] MEDS: Insulin Glargine,Hum.rec.anlog 100 UNIT/ML 10 ML VIAL 15 UNIT SUBCUT (08:12)
[2021-07-07] MEDS: methADONE HCl 20 MG/2 ML ORAL.CONC PO (08:12)
[2021-07-07] MEDS: 0.9 % Sodium Chloride Flush 3 ML SYRINGE IVFLUSH ×3 (08:13→20:49)
[2021-07-07] MEDS: Insulin Lispro 100 UNIT/ML 3 ML VIAL SUBCUT ×5 (08:13→20:48)
[2021-07-07] MEDS: Insulin Glargine,Hum.rec.anlog 100 UNIT/ML 10 ML VIAL 30 UNIT SUBCUT (09:53)
[2021-07-07 11:18] LABS: Glucose, Whole Blood 471 mg/dL (60-115)
[2021-07-07] MEDS: Insulin Glargine,Hum.rec.anlog 100 UNIT/ML 10 ML VIAL 10 UNIT SUBCUT (11:58)
[2021-07-07 12:00] LABS: Estimated Average Glucose 269 mg/dL
--- NOTE | 2021-07-07 13:10 | MHC.CM.PN ---
Male 46 DX Sepsis delirium DKA Pt planned for discharge tomorrow. Referrals have been sent to [facility] in [place], and [facility] [place]. Both facilities are in review. A HCP has been documented. Copies have been given to the Pt. A HCP was also placed on the chart. A Covid test has been ordered. The goal is to discharge in the morning.
--- NOTE | 2021-07-07 13:29 | MHC.RECOVRN ---
T/w met with pt this morning to follow up regarding dc plan and substance use. Pt reports using heroin, IV, 5 bags daily, as well as IV cocaine. Pt reports 20 mg methadone is the right dose, does not want to adjust. Pt states When I was on 50 I would just vomit. Pt does not recall events that resulted in hospital admission. Pt speaks very slowly, this is not pts baseline. Pt interested in [facility] after hospital dc. Pt made aware that [facility] is not open at this time and pt agrees it would be best to go to [facility]. Pt does not require IV abx, case management attempting [facility] for pt to engage in more PT. Pt feels very weak. Case discussed with CM as well as Stella Haywood APRN. Will continue to follow.
[2021-07-07 14:39] LABS: COVID-19 Test Negative (Negative)
--- NOTE | 2021-07-07 15:33 | P.PNIM_ITS ---
Subjective Subjective Date of Service: 07/07/21 Interval History: the patient was seen and evaluated this morning Laying in bed, feels better overall awake and interactive, mother at the edside Denies any fever, chills or shortness of breath No reported other overnight events. Systemic review: No fever, chills but reporting weakness No chest pain, palpitation No shortness of breath or coughing No abdominal pain, nausea or vomiting No urinary symptoms Physical Exam Vital Signs: Vital Signs: Last Vital Signs Temp 98.9 F 07/07/21 14:55 Pulse 86 07/07/21 14:55 Resp 20 07/07/21 14:55 BP 115/60 07/07/21 14:55 Pulse Ox 99 07/07/21 14:55 Body Mass Index 17.6 Const: Other: Constitutional : Alert, oriented to time and place Neck : Normal inspection, Supple Cardiovascular : RRR, S1 S2, no lower extremity edema Respiratory : Good bilateral air entry, no crackles, wheezes or rhonchi Gastrointestinal: soft, lax, Normal bowel sounds, Non tender Skin : Warm, Dry, multiple tattoos Neurological : Alert & oriented x3, No focal deficit Objective Data Current Medications Generic Name Dose Route Start Last Admin Trade Name Freq PRN Reason Stop Dose Admin Amoxicillin/Clavulanate Potassium 875 mg 07/07/21 21:00 Amoxicillin/Potassium Clav 875 Mg Tablet PO BID NIA Dextrose 25 gm 07/04/21 21:41 07/05/21 10:40 Dextrose 50 % 25 Gm/50 Ml Vial IVPUSH 25 gm Q15M PRN Administration per Hypoglycemia Standing Ord. Protocol Heparin Sodium (Porcine) 5,000 unit 07/05/21 12:00 07/07/21 11:58 Heparin Sodium,Porcine 5,000 Unit/Ml Vial SUBCUT 5,000 unit Q8H INA Administration Insulin Glargine 40 unit 07/08/21 09:00 Insulin Glargine,Hum.Rec.Anlog 100 Unit/Ml 10 Ml Vial SUBCUT DAILY [facility] Insulin Human Lispro 0 unit 07/05/21 16:30 07/07/21 11:59 Insulin Lispro 100 Unit/Ml 3 Ml Vial SUBCUT 10 unit QIDACHS [facility] Administration Protocol Methadone HCl 20 mg 07/05/21 15:45 07/07/21 08:12 Methadone Hcl 20 Mg/2 Ml Oral.Conc PO 20 mg DAILY NIA Administration Naloxone HCl 0.2 mg 07/04/21 19:12 Naloxone Hcl 0.4 Mg/Ml Vial IVPUSH Q2M PRN Excessive sedation or RR < 8 Sodium Chloride 3 ml 07/05/21 00:00 07/07/21 12:00 0.9 % Sodium Chloride Flush 3 Ml Syringe IVFLUSH 3 ml QSHIFT NIA Administration Labs CBC & Chem 7: 07/07/21 05:31 07/07/21 05:31 Labs: Laboratory Results - last 24 hr 07/04/21 07/06/21 07/06/21 19:31 16:06 20:02 MCV MCH MCHC RDW Plt Count MPV Absolute Nucleated RBC Nucleated RBC % (auto) Anion Gap Estim Creat Clear Calc Estimated GFR POC Glucose 354 H* 376 H* Random Glucose Estimat Average Glucose Hemoglobin A1c % Calcium Lymphocyte Subset Cmmnt TNP COVID-19 (REY) COVID-19 [employer] 07/07/21 07/07/21 07/07/21 05:31 05:31 05:31 MCV 92.0 MCH 30.0 MCHC 32.6 RDW 15.8 Plt Count 171 MPV 11.8 Absolute Nucleated RBC 0.000 Nucleated RBC % (auto) 0.0 Anion Gap 14 Estim Creat Clear Calc 55.6 Estimated GFR 58 POC Glucose Random Glucose 399 H* Estimat Average Glucose 269 Hemoglobin A1c % 11.0 Calcium 8.5 Lymphocyte Subset Cmmnt COVID-19 (REY) COVID-19 [employer] 07/07/21 07/07/21 07/07/21 07:07 10:49 14:15 MCV MCH MCHC RDW Plt Count MPV Absolute Nucleated RBC Nucleated RBC % (auto) Anion Gap Estim Creat Clear Calc Estimated GFR POC Glucose 391 H* 471 H* Random Glucose Estimat Average Glucose Hemoglobin A1c % Calcium Lymphocyte Subset Cmmnt COVID-19 (REY) Negative COVID-19 [employer] See Note Microbiology Microbiology Results: Microbiology 07/04/21 15:58 Blood Culture - Preliminary Blood - Venous No growth after 48 hours. 07/04/21 15:58 Blood Culture - Preliminary Blood - Venous No growth after 48 hours. Assessment and Plan (1) Encephalopathy acute: Status: Acute (2) DKA (diabetic ketoacidosis): Status: Acute Assessment and Plan: A 46-year-old gentleman with underlying HIV, hep C, poor compliance with therapy, substance abuse, admitted with acute encephalopathy diabetic ketoacidosis requiring intubation and ventilatory support Acute metabolic encephalopathy Improving, secondary to medications and DKA Avoid medications that might worsen mental status Acute respiratory failure , resolved Suspected underlying lung infection Discontinue Zosyn, start Augmentin Acute renal failure secondary to diabetic ketoacidosis Resolving Continue to monitor urine output and renal indices. Uncontrolled diabetes type 2 secondary to poor compliance with underlying insulin therapy HbA1c of 11 Increase Lantus to 40 units daily SSI Advanced diet Moderate malnutrition Add supplement History HIV Continue home medications history of opioid dependence Continue methadone To get addiction team evaluation DVT PPX Heparin Quality Stroke Does the patient have a stroke diagnosis?: No VTE Prior VTE?: No VTE Risk Level:: Medical - moderate - high VTE Device Contraindication: N/A - Device Ordered VTE Drug Contraindication: Treatment Not Indicated
[2021-07-07 15:53] LABS: Glucose, Whole Blood 287 mg/dL (60-115)
--- NOTE | 2021-07-07 16:26 | HO.ADDICT_ITS ---
History of Present Illness Date of Service: 07/07/2021 Chief Complaint: Sepsis/delirium/DKA Reason for Consult: Opioid use disorder Requesting physician: Cindy Polk Sources of Information: patient interviewed and chart reviewed HPI Narrative: Patient is a 46-year-old male, currently medically admitted with DKA and encephalopathy. Consult requested as patient currently prescribed methadone and also continues to use opiates. Patient seen in room 479, recovery support nurse present during interview. Patient awake, alert, and engaged in interview. Patient with noticeably slowed speech, but oriented. Discussed current methadone dose and continued use with patient. Patient reports that he does not wish to increase his current methadone dose as he feels that it makes him sick when he increases. He reported using approximately 5 bags of heroin daily. Some discussion around benefits of potentially increasing methadone dose even a small amount as patient reports that he uses heroin because he feels very anxious. Patient declined any medication changes. Review of Systems Constitutional: Reports weakness Reports disequilibrium Gastrointestinal: Reports no additional gastrointestinal complaints Musculoskeletal: Reports muscle weakness Reports Abnormal speech present (Very slow), Reports disequilibrium and Reports weakness Diagnostics Vital Signs (24Hr): Vital Signs - 24 hr 07/06/21 19:06 07/06/21 23:30 07/07/21 03:21 Temperature 98.7 F 97.5 F 98.2 F Pulse Rate 90 82 66 Respiratory Rate 20 18 18 Blood Pressure 113/73 110/78 127/79 Pulse Oximetry 97 99 98 07/07/21 07:09 07/07/21 11:33 07/07/21 11:45 Temperature 98.2 F 98.1 F Pulse Rate 69 87 87 Respiratory Rate 20 20 Blood Pressure 113/77 107/54 L 107/54 L Pulse Oximetry 99 96 96 07/07/21 14:55 Temperature 98.9 F Pulse Rate 86 Respiratory Rate 20 Blood Pressure 115/60 Pulse Oximetry 99 Body Mass Index 17.6 Labs Results: 07/07/21 05:31 07/07/21 05:31 Labs: Laboratory Results - last 48 hr 07/04/21 07/05/21 07/05/21 19:31 15:51 16:35 WBC RBC Hgb Hct MCV MCH MCHC RDW Plt Count MPV Immature Gran % (Auto) Neut % (Auto) Lymph % (Auto) [place] % (Auto) Eos % (Auto) Baso % (Auto) Lymph # (Auto) [place] # (Auto) Eos # (Auto) Baso # (Auto) Abs Immat Gran (auto) Absolute Neuts (auto) Absolute Nucleated RBC Nucleated RBC % (auto) VBG pH VBG pCO2 VBG pO2 VBG HCO3 VBG O2 Saturation VBG Base Excess Sodium 145 Potassium 4.2 Chloride 111 H Carbon Dioxide 22 Anion Gap 16 BUN 30 H Creatinine 2.06 H Estim Creat Clear Calc 36.1 Estimated GFR 35 POC Glucose 197 H Random Glucose 213 H D Estimat Average Glucose Hemoglobin A1c % Calcium 8.4 Phosphorus Magnesium Total Bilirubin AST ALT Alkaline Phosphatase Total Protein Albumin Lymphocyte Subset Cmmnt TNP Total Lymphocytes 1710 % CD3 Cells 83 Absolute CD3 Count 1426 % CD4 Cells 43 Absolute CD4 Count 739 CD4/CD8 Ratio 1.13 % CD8 Cells 38 Absolute CD8 Count 655 COVID-19 (REY) COVID-19 Clin [facility] 07/06/21 07/06/21 07/06/21 06:16 06:16 06:19 WBC 17.4 H RBC 3.09 L Hgb 9.3 L Hct 28.0 L MCV 90.6 MCH 30.1 MCHC 33.2 RDW 16.0 Plt Count 196 D MPV 11.5 Immature Gran % (Auto) 0.5 H Neut % (Auto) 82.9 H Lymph % (Auto) 10.1 L [place] % (Auto) 6.0 Eos % (Auto) 0.2 Baso % (Auto) 0.3 Lymph # (Auto) 1.8 [place] # (Auto) 1.0 Eos # (Auto) 0.0 Baso # (Auto) 0.1 Abs Immat Gran (auto) 0.09 H Absolute Neuts (auto) 14.4 H Absolute Nucleated RBC 0.000 Nucleated RBC % (auto) 0.0 VBG pH 7.45 H VBG pCO2 37 VBG pO2 45 VBG HCO3 26 VBG O2 Saturation 73.0 VBG Base Excess 2.3 Sodium 136 Potassium 4.1 Chloride 101 Carbon Dioxide 24 Anion Gap 15 BUN 19 H Creatinine 1.60 H Estim Creat Clear Calc 46.5 Estimated GFR 47 POC Glucose Random Glucose 249 H Estimat Average Glucose Hemoglobin A1c % Calcium 8.4 Phosphorus 2.9 Magnesium 1.7 Total Bilirubin 1.1 H AST 25 ALT 18 Alkaline Phosphatase 80 Total Protein 6.9 Albumin 3.4 L Lymphocyte Subset Cmmnt Total Lymphocytes % CD3 Cells Absolute CD3 Count % CD4 Cells Absolute CD4 Count CD4/CD8 Ratio % CD8 Cells Absolute CD8 Count COVID-19 (REY) COVID-19 [facility] 07/06/21 07/06/21 07/06/21 07:12 10:51 16:06 WBC RBC Hgb Hct MCV MCH MCHC RDW Plt Count MPV Immature Gran % (Auto) Neut % (Auto) Lymph % (Auto) [place] % (Auto) Eos % (Auto) Baso % (Auto) Lymph # (Auto) [place] # (Auto) Eos # (Auto) Baso # (Auto) Abs Immat Gran (auto) Absolute Neuts (auto) Absolute Nucleated RBC Nucleated RBC % (auto) VBG pH VBG pCO2 VBG pO2 VBG HCO3 VBG O2 Saturation VBG Base Excess Sodium Potassium Chloride Carbon Dioxide Anion Gap BUN Creatinine Estim Creat Clear Calc Estimated GFR POC Glucose 255 H 293 H 354 H* Random Glucose Estimat Average Glucose Hemoglobin A1c % Calcium Phosphorus Magnesium Total Bilirubin AST ALT Alkaline Phosphatase Total Protein Albumin Lymphocyte Subset Cmmnt Total Lymphocytes % CD3 Cells Absolute CD3 Count % CD4 Cells Absolute CD4 Count CD4/CD8 Ratio % CD8 Cells Absolute CD8 Count COVID-19 (REY) COVID-19 [place] 07/06/21 07/07/21 07/07/21 20:02 05:31 05:31 WBC 8.1 RBC 3.27 L Hgb 9.8 L Hct 30.1 L MCV 92.0 MCH 30.0 MCHC 32.6 RDW 15.8 Plt Count 171 MPV 11.8 Immature Gran % (Auto) Neut % (Auto) Lymph % (Auto) [place] % (Auto) Eos % (Auto) Baso % (Auto) Lymph # (Auto) [place] # (Auto) Eos # (Auto) Baso # (Auto) Abs Immat Gran (auto) Absolute Neuts (auto) Absolute Nucleated RBC 0.000 Nucleated RBC % (auto) 0.0 VBG pH VBG pCO2 VBG pO2 VBG HCO3 VBG O2 Saturation VBG Base Excess Sodium 132 L Potassium 5.1 D Chloride 97 Carbon Dioxide 26 Anion Gap 14 BUN 24 H Creatinine 1.34 Estim Creat Clear Calc 55.6 Estimated GFR 58 POC Glucose 376 H* Random Glucose 399 H* Estimat Average Glucose Hemoglobin A1c % Calcium 8.5 Phosphorus Magnesium Total Bilirubin AST ALT Alkaline Phosphatase Total Protein Albumin Lymphocyte Subset Cmmnt Total Lymphocytes % CD3 Cells Absolute CD3 Count % CD4 Cells Absolute CD4 Count CD4/CD8 Ratio % CD8 Cells Absolute CD8 Count COVID-19 (REY) COVID-19 [place] 07/07/21 07/07/21 07/07/21 05:31 07:07 10:49 WBC RBC Hgb Hct MCV MCH MCHC RDW Plt Count MPV Immature Gran % (Auto) Neut % (Auto) Lymph % (Auto) [place] % (Auto) Eos % (Auto) Baso % (Auto) Lymph # (Auto) [place] # (Auto) Eos # (Auto) Baso # (Auto) Abs Immat Gran (auto) Absolute Neuts (auto) Absolute Nucleated RBC Nucleated RBC % (auto) VBG pH VBG pCO2 VBG pO2 VBG HCO3 VBG O2 Saturation VBG Base Excess Sodium Potassium Chloride Carbon Dioxide Anion Gap BUN Creatinine Estim Creat Clear Calc Estimated GFR POC Glucose 391 H* 471 H* Random Glucose Estimat Average Glucose 269 Hemoglobin A1c % 11.0 Calcium Phosphorus Magnesium Total Bilirubin AST ALT Alkaline Phosphatase Total Protein Albumin Lymphocyte Subset Cmmnt Total Lymphocytes % CD3 Cells Absolute CD3 Count % CD4 Cells Absolute CD4 Count CD4/CD8 Ratio % CD8 Cells Absolute CD8 Count COVID-19 (REY) COVID-[employer] 07/07/21 07/07/21 14:15 15:39 WBC RBC Hgb Hct MCV MCH MCHC RDW Plt Count MPV Immature Gran % (Auto) Neut % (Auto) Lymph % (Auto) [place] % (Auto) Eos % (Auto) Baso % (Auto) Lymph # (Auto) [place] # (Auto) Eos # (Auto) Baso # (Auto) Abs Immat Gran (auto) Absolute Neuts (auto) Absolute Nucleated RBC Nucleated RBC % (auto) VBG pH VBG pCO2 VBG pO2 VBG HCO3 VBG O2 Saturation VBG Base Excess Sodium Potassium Chloride Carbon Dioxide Anion Gap BUN Creatinine Estim Creat Clear Calc Estimated GFR POC Glucose 287 H Random Glucose Estimat Average Glucose Hemoglobin A1c % Calcium Phosphorus Magnesium Total Bilirubin AST ALT Alkaline Phosphatase Total Protein Albumin Lymphocyte Subset Cmmnt Total Lymphocytes % CD3 Cells Absolute CD3 Count % CD4 Cells Absolute CD4 Count CD4/CD8 Ratio % CD8 Cells Absolute CD8 Count COVID-19 (REY) Negative COVID-19 [place] See Note Imaging Radiology Impressions: ITS Impressions Chest X-Ray 07/04/21 17:45 IMPRESSION: Endotracheal tube properly positioned with its tip approximately 4 cm from joseph. Central line catheter on the x-ray acquired at 5:47 PM show the tip projecting over the SVC/RA junction properly positioned however the upper part of the lung not included on this chest x-ray to rule out pneumothorax. May consider correlation with follow-up. Chest X-Ray 07/04/21 18:02 IMPRESSION: Endotracheal tube properly positioned with its tip approximately 4 cm from joseph. Central line catheter on the x-ray acquired at 5:47 PM show the tip projecting over the SVC/RA junction properly positioned however the upper part of the lung not included on this chest x-ray to rule out pneumothorax. May consider correlation with follow-up. Mental Status Exam Mental Status Exam Patient Appearance: Well Grooomed and Appropriate Patient Orientation: Person, Place, Time and Situation Level of Consciousness: Awake and Appropriate Patient Behavior: Appropriate Mood Description: Appropriate Affect Description: Appropriate Ability to Follow Directions: Excellent Speech Pattern: Difficulty Finding Words (Very slowed) Thought Process: Intact Thought Content: positive for Intact and positive for Goal Oriented Judgement: Fair Medications Medications Current Medications Generic Name Dose Route Start Last Admin Trade Name Freq PRN Reason Stop Dose Admin Amoxicillin/Clavulanate Potassium 875 mg 07/07/21 21:00 Amoxicillin/Potassium Clav 875 Mg Tablet PO BID NIA Dextrose 25 gm 07/04/21 21:41 07/05/21 10:40 Dextrose 50 % 25 Gm/50 Ml Vial IVPUSH 25 gm Q15M PRN Administration per Hypoglycemia Standing Ord. Protocol Heparin Sodium (Porcine) 5,000 unit 07/05/21 12:00 07/07/21 11:58 Heparin Sodium,Porcine 5,000 Unit/Ml Vial SUBCUT 5,000 unit Q8H NIA Administration Insulin Glargine 40 unit 07/08/21 09:00 Insulin Glargine,Hum.Rec.Anlog 100 Unit/Ml 10 Ml Vial SUBCUT DAILY [facility] Insulin Human Lispro 0 unit 07/05/21 16:30 07/07/21 11:59 Insulin Lispro 100 Unit/Ml 3 Ml Vial SUBCUT 10 unit QIDACHS [facility] Administration Protocol Methadone HCl 20 mg 07/05/21 15:45 07/07/21 08:12 Methadone Hcl 20 Mg/2 Ml Oral.Conc PO 20 mg DAILY NIA Administration Naloxone HCl 0.2 mg 07/04/21 19:12 Naloxone Hcl 0.4 Mg/Ml Vial IVPUSH Q2M PRN Excessive sedation or RR < 8 Sodium Chloride 3 ml 07/05/21 00:00 07/07/21 12:00 0.9 % Sodium Chloride Flush 3 Ml Syringe IVFLUSH 3 ml QSHIFT NIA Administration Allergies Allergies Allergy/AdvReac Type Severity Reaction Status Date / Time fish Allergy Unknown Anaphylaxis Uncoded 06/22/21 20:41 shellfish Allergy Unknown Anaphylaxis Uncoded 06/22/21 20:41 Assessment & Plan Assessment & Plan (1) Opioid use disorder: Status: Acute Code(s): F11.99 - Opioid use, unspecified with unspecified opioid-induced disorder Assessment and Plan: * Will continue methadone at current dose per patient request * Discussed patient's presentation with hospitalist has this is not patient's baseline, unclear what is contributing to this-- question of a hypoactive delirium (per hospitalist) * Community providers already in place, will likely be discharging to halfway facility for physical rehab in the next day. 40 minutes with patient and coordinating care. Greater than 50% of the session was spent on counseling and/or coordination of care PMFSH Past Medical History Medical History (Updated 07/07/21 @ 16:42 by Stella Haywood CNP) Active substance abuse Compartment syndrome Diabetes Diabetes HIV (human immunodeficiency virus infection) HIV (human immunodeficiency virus infection) Substance abuse Surgical History Surgical History H/O fasciotomy History of fasciotomy Social History Social History Household Members: Family Household Members Other:: self Housing: House Do you presently have visiting nurse or other home services: No Unable to assess alcohol history related to: Unknown Alcohol intake: never Patient Tobacco Use Status: Current everyday Tobacco user Tobacco use type: Cigarette Cigarette Packs Per Day: 1 Cigarettes Per Day: 20.0 Substance Use Type: Heroin service: No Current occupational status: unemployed
[2021-07-07 18:51] LABS: HIV RNA PCR Qn Copies <20 NOT DETECTED copies/mL (NOT DETECTED); HIV RNA PCR Qn Log Copies <1.30 NOT DETECTED (NOT DETECTED)
[2021-07-07 20:33] LABS: Glucose, Whole Blood 352 mg/dL (60-115)
[2021-07-07] MEDS: Amoxicillin/Potassium Clav 875 MG TABLET PO (20:48)
[2021-07-08] MEDS: Heparin Sodium,Porcine 5,000 UNIT/ML VIAL 5000 UNIT SUBCUT (03:41)
[2021-07-08 03:44] VITALS: BP 110/72; PULSE 72; RESP 16; TEMP 36.5; O2SAT 100
[2021-07-08 07:28] VITALS: BP 101/65; PULSE 80; RESP 16; TEMP 36.6; O2SAT 99
[2021-07-08 07:49] LABS: Glucose, Whole Blood 258 mg/dL (60-115)
[2021-07-08] MEDS: Amoxicillin/Potassium Clav 875 MG TABLET PO (08:56)
[2021-07-08] MEDS: Insulin Lispro 100 UNIT/ML 3 ML VIAL SUBCUT ×2 (08:56→08:57)
[2021-07-08] MEDS: methADONE HCl 20 MG/2 ML ORAL.CONC PO (08:56)
[2021-07-08] MEDS: Insulin Glargine,Hum.rec.anlog 100 UNIT/ML 10 ML VIAL 40 UNIT SUBCUT (08:57)
[2021-07-08] MEDS: 0.9 % Sodium Chloride Flush 3 ML SYRINGE IVFLUSH (08:57)
[2021-07-08 11:08] LABS: Glucose, Whole Blood 131 mg/dL (60-115)
[2021-07-08 11:43] VITALS: BP 100/64; PULSE 80; RESP 18; TEMP 36.1; O2SAT 98
--- NOTE | 2021-07-08 11:47 | P.DS_ITS ---
DS: Providers Provider Date of Service: 07/08/21 Date of admission: 07/04/21 18:19 Primary care physician: Kimberly Lofton / MD SATURNINO Consults: 07/06/21 10:25 Addiction Medicine Routine Consulting Provider: Stella Haywood Reason for consultation: IVDU on methadone DS: Diagnosis Discharge Diagnosis (1) Opioid use disorder: Status: Acute (2) HIV (human immunodeficiency virus infection): Status: Acute (3) Encephalopathy acute: Status: Acute (4) Sepsis: Status: Acute (5) DKA (diabetic ketoacidosis): Status: Acute (6) Respiratory failure: Status: Acute (7) TOMMY (acute kidney injury): Status: Acute DS: Medications Discharge Medications Home Medications: Home Medications Medication Instructions Recorded Confirmed abacavir 600 mg-dolutegravir 50 1 tab PO DAILY 06/23/21 07/07/21 mg-lamivudine 300 mg tablet (Triumeq) cyanocobalamin (vitamin B-12) 100 100 mcg PO DAILY 06/23/21 06/23/21 mcg tablet ferrous sulfate 324 mg (65 mg 324 mg PO DAILY 06/23/21 06/23/21 iron) tablet,delayed release gabapentin 300 mg capsule 1 cap PO BID 06/23/21 07/07/21 insulin lispro 100 unit/mL See Rx Instructions .ROUTE .COMPLEX 06/23/21 07/07/21 subcutaneous pen (Humalog KwikPen (U-100) Insulin) methadone 5 mg/5 mL oral solution 20 mg PO DAILY 06/23/21 06/23/21 quetiapine 50 mg tablet 1 tab PO BEDTIME 06/23/21 07/07/21 Previous Rx's Medication Instructions Recorded amoxicillin 875 mg-potassium 875 mg PO BID 3 Days #6 tab 07/08/21 clavulanate 125 mg tablet insulin glargine 100 unit/mL (3 40 unit SUBCUT QAM #0 ml 07/08/21 mL) subcutaneous pen (Lantus Solostar U-100 Insulin) DS: Summary Hospital Course Hospital Course: Admission note HPI from ICU team A 89 years old male with PMH of TIA, DVT, CKD, BPH, HTN among others who presented to the hospital for an episode of slurred speech and generalized weakness.? The patient was out with his daughter shopping upon coming back around 11 in the morning he was unable to go up few steps E has at his home .? When his daughter as the was going on his answer was not cleared and he was having slurred speech and difficulty.? Reporting generalized weakness as he usually go up stairs.? EMS was called and the patient was brought to the hospital.? In the emergency his speech improved a little. Images in the emergency including CT and MRI of the brain were consistent with a small stroke.? Patient failed swallowing screening. Admitted for further evaluation and treatment. Hospital course The patient was intubated and admitted to ICU for acute metabolic encephalopathy and hypoxic respiratory failure secondary to diabetic ketoacidosis. He was treated with IV fluid, IV insulin with good response as his blood sugar became under better control and he was extubated in 2 days. His Lantus dose was increased to 40 units a day along with SSI. It seems like the patient did not try to get any medications since January according to pharmacy reported but he insisting on taking the medications at home. To be discharged on higher dose of Lantus and SSI and to follow his primary contracting specialist. He was also noted to be septic at time of admission likely from respiratory infection. Treated with IV Zosyn with good response as blood cultures remain negative and he was weaned down to room air. Changed to p.o. Augmentin and to be discharged to finish 1 week of antibiotics. Noticed to have acute kidney injury at time of admission which was treated with IV fluid with good response bringing it back to normal baseline. The patient has a history of HIV. He reports taking his medications at home. Script will be sent by his primary HIV provider to the facility. Evaluated by Addiction Team for history of opioid abuse and using heroin. Patient refused to increase the dose of methadone at this time. Time Spent with Patient Time attestation: Total time spent providing and/or coordinating discharge services: Discharge coordination time: Greater than 30 minutes Quality: Stroke Does the patient have a stroke diagnosis?: No Physical Exam Vital Signs: Vital Signs: Last Vital Signs Temp 97 F 07/08/21 11:43 Pulse 80 07/08/21 11:43 Resp 18 07/08/21 11:43 BP 100/64 07/08/21 11:43 Pulse Ox 98 07/08/21 11:43 Body Mass Index 17.6 Const: Other: Constitutional : Alert, oriented to time and place Neck : Normal inspection, Supple Cardiovascular : RRR, S1 S2, no lower extremity edema Respiratory : Good bilateral air entry, no crackles, wheezes or rhonchi Gastrointestinal: soft, lax, Normal bowel sounds, Non tender Skin : Warm, Dry, multiple tattoos Neurological : Alert & oriented x3, No focal deficit DS: Data Data Completed and Pending Completed studies during hospitalization [Text1]: Procedures Transfusion of Nonautologous Red Blood Cells into Peripheral Vein, Percutaneous Approach (06/23/21) Labs on day of discharge: Laboratory Results - last 24 hr 07/04/21 07/04/21 07/07/21 19:31 19:31 05:31 POC Glucose Estimat Average Glucose 269 Hemoglobin A1c % 11.0 Lymphocyte Subset Cmmnt TNP COVID-19 (REY) COVID-19 Clin Com HIV-1 RNA copies/mL <20 NOT DETECTED HIV-1 RNA logcopies/mL <1.30 NOT DETECTED 07/07/21 07/07/21 07/07/21 14:15 15:39 20:06 POC Glucose 287 H 352 H* Estimat Average Glucose Hemoglobin A1c % Lymphocyte Subset Cmmnt COVID-19 (REY) Negative COVID-19 Clin Com See Note HIV-1 RNA copies/mL HIV-1 RNA logcopies/mL 07/08/21 07/08/21 07:45 10:50 POC Glucose 258 H 131 H Estimat Average Glucose Hemoglobin A1c % Lymphocyte Subset Cmmnt COVID-19 (REY) COVID-19 Clin Com HIV-1 RNA copies/mL HIV-1 RNA logcopies/mL Preliminary micro results at discharge 07/04/21 15:58 Blood Culture - Preliminary Blood - Venous No growth after 48 hours. 07/04/21 15:58 Blood Culture - Preliminary Blood - Venous No growth after 48 hours. Discharge Plan Discharge Patient Disposition: [facility] Discharge Diagnosis: Diabetic ketoacidosis Acute kidney injury Respiratory failure Referrals: Kirsty / Kimberly Coyne MD [Primary Care Provider] - 1 Week Discharge Medications: New amoxicillin-pot clavulanate 875-125 mg Tablet 875 mg PO BID 3 Days Qty: 6 RF: 0 Continued gabapentin 300 mg capsule 1 cap PO BID RF: 0 insulin lispro [Humalog KwikPen Insulin] 100 unit/mL insulin pen See Rx Instructions .ROUTE .COMPLEX RF: 0 quetiapine 50 mg tablet 1 tab PO BEDTIME RF: 0 Triumeq 600-50-300 mg tablet 1 tab PO DAILY RF: 0 cyanocobalamin (vitamin B-12) 100 mcg Tablet 100 mcg PO DAILY RF: 0 ferrous sulfate 324 mg (65 mg iron) Tablet,Delayed Release (Dr/Ec) 324 mg PO DAILY RF: 0 methadone 5 mg/5 mL Solution 20 mg PO DAILY RF: 0 Changed Lantus Solostar U-100 Insulin 100 unit/mL (3 mL) insulin pen 40 unit subcut QAM Qty: 0 RF: 0 Discontinued cefuroxime axetil 500 mg tablet 500 mg PO Q12H Qty: 14 RF: 0 Discharge Orders: Discharge Order (Routine); Ordered 07/08/21 Ordered By: Cindy Polk Diet: advance to usual diet Activity on Discharge: As tolerated Stand Alone Forms: Patient Portal Discharge page Care Plan Goals: Read below Health Concerns: Read below Plan of Treatment: You were admitted to the hospital for altered mentation and low oxygen level as a result of having diabetic ketoacidosis. Intubated in the emergency and admitted to the ICU unit. Treated with IV insulin with fair response. You were treated with IV antibiotics for possible pneumonia. Your blood sugar became under control and you were evaluated by physical therapy team who recommended short-term rehab. Assessment: Continue Augmentin for 3 more days Start physical therapy Insulin Lantus dose increased to 40 units, you will need to follow-up with your contracting specialist for further adjustments.
--- NOTE | 2021-07-08 13:49 | MHC.RECOVRN ---
T/w met with pt to check in regarding d/c. Pt will d/c to [facility] today, pt looking forward to having more time to gain strength. Pt provided with t/w contact information if needed. Discussed with Stella Haywood APRN.
--- NOTE | 2021-07-08 14:18 | MHC.CM.PN ---
Male 46 DX DKA Delirium Sepsis is discharged today to [facility]. He will transport via BLS. Skill is STR as well as Methadone therapy. His HIV medication has been obtained by Pts mother. She will deliver the medication either prior to discharge or to [facility].
[2021-07-12 08:28] LABS: Glucose, Whole Blood 552 mg/dL (60-115)
== END 2021-07-08 16:02 | disposition skilled nursing facility (03) | DRG 420 ==
LOC: HO.ED 18:10 → HO.EDOVER 18:29 → HO.ICU 18:29 → HO.IMC 07-05 17:37
PROVIDERS: Internal Medicine Pulmonary Disease; Nurse Practitioner Acute Care; Physician Assistant; Admitting Provider Internal Medicine Cardiovascular Disease; Emergency Provider Emergency Medicine; PCP Family Medicine; Visit Provider Student in an Organized Health Care Education/Training Program
DX: E11.10 Type 2 diabetes mellitus with ketoacidosis without coma (principal); J96.00 Acute respiratory failure, unspecified whether with hypoxia or hypercapnia; G93.41 Metabolic encephalopathy; E87.4 Mixed disorder of acid-base balance; J18.9 Pneumonia, unspecified organism; E44.0 Moderate protein-calorie malnutrition; N17.9 Acute kidney failure, unspecified; F17.210 Nicotine dependence, cigarettes, uncomplicated; Z20.822 Contact with and (suspected) exposure to COVID-19; Z68.1 Body mass index [BMI] 19.9 or less, adult; B18.2 Chronic viral hepatitis C; Z91.14 Patient's other noncompliance with medication regimen; F11.20 Opioid dependence, uncomplicated; Z71.6 Tobacco abuse counseling; Z79.4 Long term (current) use of insulin; Z79.899 Other long term (current) drug therapy
CPT/HCPCS: 36415; 71045; 80048; 80053; 80307; 81001; 81003; 82009; 82248; 82803; 82947; 83036; 83605; 83735; 84100; 85025; 85027; 86359; 86360; 87040; 87536; 87635; 93005; 94002; 94003; 96361; 96365; 96367; 96372; 96375; 96376; 97116; 97161; 99285; 99291; 99292; C1758; J0696; J2250; J2543; J3010; J3370

== ENCOUNTER 2022-02-26 13:53 | Emergency (ER) | payer MEDICAID, SELFPAY ==
[2022-02-26 14:45] VITALS: BP 142/80; PULSE 80; RESP 18; TEMP 36.9; O2SAT 98; BMI 21.9
[2022-02-26 15:01] LABS: Glucose, Whole Blood > 600 mg/dL (60-115)
[2022-02-26 15:26] VITALS: BP 132/76; PULSE 63; RESP 16; TEMP 37.3; O2SAT 96
--- NOTE | 2022-02-26 15:49 | PC.NURSE ---
PCT ATTEMPTED TO HAVE PT STAY FOR TREATMENT. HE STATED HE WAS LEAVING. PT WAS AWARE OF HIS POC.
[2022-03-01 07:22] LABS: Glucose, Whole Blood > 600 mg/dL (60-115)
== END 2022-02-26 15:50 | disposition left against medical advice (07) ==
PROVIDERS: Emergency Medicine Emergency Medical Services; Emergency Provider Emergency Medicine; PCP Family Medicine
DX: M79.89 Other specified soft tissue disorders (principal); R73.9 Hyperglycemia, unspecified
CPT/HCPCS: 82947; 99283

== ENCOUNTER 2022-03-28 18:08 | Emergency (ER) | payer MEDICAID, SELFPAY | END 2022-03-28 20:31 | disposition left against medical advice (07) | LOC: HO.ED 20:08 | PROVIDERS: Emergency Provider Emergency Medicine | DX: M79.671 Pain in right foot (principal) ==

== ENCOUNTER 2022-09-19 16:34 | Emergency (ER) | payer MEDICAID, SELFPAY ==
[2022-09-19 17:31] VITALS: BP 129/88; PULSE 120; RESP 18; TEMP 36.7; O2SAT 99; BMI 23.5
[2022-09-19 21:18] VITALS: BP 107/64; PULSE 72; RESP 11; TEMP 36.7; O2SAT 96
--- NOTE | 2022-09-19 22:24 | ED.GENADULT ---
HPI - General Adult General Chief complaint: General Medical Stated complaint: itching,bites Time Seen by Provider: 09/19/22 22:23 Source: patient Mode of arrival: ambulatory Limitations: no limitations History of Present Illness HPI narrative: Patient diabetic, HIV comes here with multiple skin lesions for long time most of them are dried small lesion on the chest wall no fever no chills, having multiple complaints Related Data Home Medications Medication Instructions Recorded Confirmed abacavir 600 mg-dolutegravir 50 1 tab PO DAILY 06/23/21 07/07/21 mg-lamivudine 300 mg tablet (Triumeq) cyanocobalamin (vitamin B-12) 100 100 mcg PO DAILY 06/23/21 06/23/21 mcg tablet ferrous sulfate 324 mg (65 mg 324 mg PO DAILY 06/23/21 06/23/21 iron) tablet,delayed release gabapentin 300 mg capsule 1 cap PO BID 06/23/21 07/07/21 insulin lispro 100 unit/mL See Rx Instructions .Route .COMPLEX 06/23/21 07/07/21 subcutaneous pen (Humalog KwikPen (U-100) Insulin) methadone 5 mg/5 mL oral solution 20 mg PO DAILY 06/23/21 06/23/21 quetiapine 50 mg tablet 1 tab PO BEDTIME 06/23/21 07/07/21 Previous Rx's Medication Instructions Recorded amoxicillin 875 mg-potassium 875 mg PO BID 3 days #6 tabs 07/08/21 clavulanate 125 mg tablet insulin glargine 100 unit/mL (3 40 unit (0.4 mL) subcut QAM #0 mL 07/08/21 mL) subcutaneous pen (Lantus Solostar U-100 Insulin) doxycycline hyclate 100 mg tablet 100 mg PO BID #20 tabs 09/19/22 Allergies Allergy/AdvReac Type Severity Reaction Status Date / Time fish Allergy Unknown Anaphylaxis Uncoded 06/22/21 20:41 shellfish Allergy Unknown Anaphylaxis Uncoded 06/22/21 20:41 Review of Systems Review of Systems: Yes all other systems are reviewed and are negative PMFSH Past Medical History Medical History Active substance abuse Compartment syndrome Diabetes Diabetes Hep C w/o coma, chronic HIV (human immunodeficiency virus infection) HIV (human immunodeficiency virus infection) Opioid use disorder Substance abuse Surgical History H/O fasciotomy History of fasciotomy Social History Social History Household Members: Family Household Members Other:: self Housing: House Do you presently have visiting nurse or other home services: No Unable to assess alcohol history related to: Unknown Alcohol intake: never Patient Tobacco Use Status: Current everyday Tobacco user Tobacco use type: Cigarette Cigarette Packs Per Day: 1 Cigarettes Per Day: 20.0 Substance Use Type: Heroin Advance Directives: No Advance Directives Information Provided: No service: No Current occupational status: unemployed Physical Exam ED Vital Signs: Vital Signs - 24 hr 09/19/22 17:31 09/19/22 21:18 Temperature 98.1 F 98.0 F Pulse Rate 120 H 72 Respiratory Rate 18 11 L Blood Pressure 129/88 107/64 Pulse Oximetry 99 96 Oxygen Delivery Method Room Air Room Air BMI result Body Mass Index 23.5 Appearance: Alert. Oriented X3. No acute distress. ENT: Pharynx normal. Oral Mucosa moist Neck: Normal inspection. Neck supple. CVS: Normal heart rate and rhythm. Pulses normal. Respiratory: No respiratory distress. Equal air entry bilateral, Abdomen: Soft and nontender. Bowel sounds are present, Skin: Skin warm and dry. Normal skin color. Normal skin turgor. Multiple dried lesions 2 small lesions on the chest wall with herr colored scab likely staph no pus discharge Extremities: No lower extremity edema. No calf tenderness Neuro: Oriented X 3. Discharge Plan Discharge Clinical Impression: Infection, skin, staph Patient Disposition: Home, Self-Care Instructions: MRSA (Methicillin-Resistant Staphylococcus Aureus) (ED) Additional Instructions: Take antibiotic as prescribed Follow-up with the PCP if not better Prescriptions: New doxycycline hyclate 100 mg tablet 100 mg PO BID Qty: 20 0RF No Action gabapentin 300 mg capsule 1 cap PO BID insulin lispro [Humalog KwikPen Insulin] 100 unit/mL insulin pen See Rx Instructions .ROUTE .COMPLEX Rx Instructions: Sliding scale quetiapine 50 mg tablet 1 tab PO BEDTIME Triumeq 600-50-300 mg tablet 1 tab PO DAILY Label Comments: not filled at pharmacy since january cyanocobalamin (vitamin B-12) 100 mcg Tablet 100 mcg PO DAILY ferrous sulfate 324 mg (65 mg iron) Tablet,Delayed Release (Dr/Ec) 324 mg PO DAILY methadone 5 mg/5 mL Solution 20 mg PO DAILY amoxicillin-pot clavulanate 875-125 mg Tablet 875 mg PO BID 3 Days Qty: 6 0RF Lantus Solostar U-100 Insulin 100 unit/mL (3 mL) insulin pen 40 unit subcut QAM Qty: 0 0RF
== END 2022-09-19 23:26 | disposition home or self-care (01) ==
PROVIDERS: Emergency Provider Internal Medicine
DX: L08.89 Other specified local infections of the skin and subcutaneous tissue (principal); B95.8 Unspecified staphylococcus as the cause of diseases classified elsewhere; B20 Human immunodeficiency virus [HIV] disease; E11.9 Type 2 diabetes mellitus without complications; F11.20 Opioid dependence, uncomplicated; F19.10 Other psychoactive substance abuse, uncomplicated; F17.210 Nicotine dependence, cigarettes, uncomplicated; Z79.4 Long term (current) use of insulin; Z79.899 Other long term (current) drug therapy
CPT/HCPCS: 99282; 99283

== ENCOUNTER 2023-03-08 11:51 | Emergency (ER) | payer MEDICAID, SELFPAY ==
--- NOTE | ~2023-03-08 | US_ITS ---
EXAMINATION: US SOFT TISSUE NECK CLINICAL INFORMATION: Soft tissue mass. History of IV drug use. COMPARISON: None available. TECHNIQUE: Ultrasound of the neck soft tissues is performed with high- frequency cote-scale imaging and color Doppler. FINDINGS: There is a heterogeneous complex fluid collection in the left neck in or just superficial to the left sternocleidomastoid muscle. This measures 2.4 x 0.8 x 2 cm. This demonstrates peripheral vascularity. This probably represents an abscess. This has 2 focal echogenic areas. Correlation with x-ray to exclude foreign body recommended. US/US soft tiss head and/or neck IMPRESSION: 2.4 x 0.8 x 2 cm complex fluid collection in the left neck suggestive of an abscess. This has 2 small echogenic foci. Neck x-ray to exclude foreign body recommended.
--- NOTE | ~2023-03-08 | XR_ITS ---
EXAMINATION: XR SOFT TISSUE NECK CLINICAL INDICATION: Concern for foreign body. Pain. COMPARISON: Compared to the ultrasound images of the neck from today TECHNIQUE: 2 views of the soft tissue neck were obtained. FINDINGS: There is a linear superficial foreign body most consistent with a needle fragment along the lateral aspect of the left neck. More inferiorly in the lateral left neck there is a small amount of soft tissue gas likely representing the region of abscess that was suggested on the ultrasound. Visualized airways grossly unremarkable lung apices unremarkable XR/XR soft tissue neck IMPRESSION: Linear foreign body along the lateral aspect of the left neck most consistent with a needle fragment. Tiny bubble of soft tissue gas in the lateral left neck likely related to the previously suggested abscess
[2023-03-08 12:00] VITALS: BP 124/84; PULSE 89; RESP 18; TEMP 36.4; O2SAT 98; BMI 21.9
--- NOTE | 2023-03-08 12:01 | ED.GENADULT ---
HPI - General Adult General Chief complaint: Wound/Laceration <IVON Rivas Last Filed: 03/08/23 12:04> Stated complaint: knot on left side of neck <IVON Rivas Last Filed: 03/08/23 12:04> Time Seen by Provider: 03/08/23 13:28 <IVON Rivas Last Filed: 03/08/23 12:04> Source: patient <IVON Palumbo Last Filed: 03/08/23 18:24> Mode of arrival: ambulatory <IVON Palumbo Last Filed: 03/08/23 18:24> Limitations: no limitations <IVON Palumbo Last Filed: 03/08/23 18:24> History of Present Illness HPI narrative: Patient is a 47 year old assigned male at with a history of IVDU presenting to the emergency department today with a mass on the left side of his neck. Patient states that he injected drugs into the left side of his neck 5 days ago and now there is this growth near by. Patient states that he poked it open a few times and pus came out but he can't get enough of it out. Patient denies any dizziness, lightheadedness, abdominal pain, nausea, vomiting, fever, chills, blurry vision, double vision, loss of vision, chest pain, difficulty breathing, shortness of breath, back pain, night sweats, pain with urination, increased urinary frequency, increased urinary urgency, blood in his urine or stool, syncope or a near syncopal episode, recent trauma or falls, bowel incontinence, bladder incontinence, bowel retention, bladder retention, or any other complaints at this time. <IVON Palumbo Last Filed: 03/08/23 18:24> Onset (ago): day(s) (5) <IVON Palumbo Last Filed: 03/08/23 18:24> Location: neck and left <IVON Palumbo Last Filed: 03/08/23 18:24> Radiation: non-radiation <IVON Palumbo Last Filed: 03/08/23 18:24> Relieving factors: none <IVON Palumbo Last Filed: 03/08/23 18:24> Exacerbating factors: none <IVON Palumbo - Last Filed: 03/08/23 18:24> Associated symptoms: denies other symptoms <IVON Palumbo - Last Filed: 03/08/23 18:24> Treatments prior to arrival: none <IVON Palumbo - Last Filed: 03/08/23 18:24> Related Data Home medications: Home Medications Medication Instructions Recorded Confirmed abacavir 600 mg-dolutegravir 50 1 tab PO DAILY 06/23/21 07/07/21 mg-lamivudine 300 mg tablet (Triumeq) cyanocobalamin (vitamin B-12) 100 100 mcg PO DAILY 06/23/21 06/23/21 mcg tablet ferrous sulfate 324 mg (65 mg 324 mg PO DAILY 06/23/21 06/23/21 iron) tablet,delayed release gabapentin 300 mg capsule 1 cap PO BID 06/23/21 07/07/21 insulin lispro 100 unit/mL See Rx Instructions .Route .COMPLEX 06/23/21 07/07/21 subcutaneous pen (Humalog KwikPen (U-100) Insulin) methadone 5 mg/5 mL oral solution 20 mg PO DAILY 06/23/21 06/23/21 quetiapine 50 mg tablet 1 tab PO BEDTIME 06/23/21 07/07/21 Previous Rx's Medication Instructions Recorded amoxicillin 875 mg-potassium 875 mg PO BID 3 days #6 tabs 07/08/21 clavulanate 125 mg tablet insulin glargine 100 unit/mL (3 40 unit (0.4 mL) subcut QAM #0 mL 07/08/21 mL) subcutaneous pen (Lantus Solostar U-100 Insulin) doxycycline hyclate 100 mg tablet 100 mg PO BID #20 tabs 09/19/22 <IVON Rivas - Last Filed: 03/08/23 12:04> Allergies/adverse reactions: Allergies Allergy/AdvReac Type Severity Reaction Status Date / Time fish Allergy Unknown Anaphylaxis Uncoded 06/22/21 20:41 shellfish Allergy Unknown Anaphylaxis Uncoded 06/22/21 20:41 <IVON Rivas - Last Filed: 03/08/23 12:04> Review of Systems Constitutional: Constitutional: Reports no additional constitutional complaints, Denies chills, Denies fever(s) and Denies night sweats <IVON Palumbo - Last Filed: 03/08/23 18:24> Eyes: Eyes: Reports no additional eye complaints, Denies blurry vision, Denies change in vision, Denies diplopia, Denies eye discharge, Denies loss of vision and Denies eye pain <IVON Palumbo - Last Filed: 03/08/23 18:24> ENT: Denies dizziness and Reports neck mass <IVON Palumbo - Last Filed: 03/08/23 18:24> Cardiovascular: Cardiovascular: Reports no additional cardiovascular complaints, Denies chest pain, Denies lightheadedness, Denies Loss of Consciousness and Denies dyspnea <IVON Palumbo - Last Filed: 03/08/23 18:24> Respiratory: Respiratory: Reports no additional respiratory complaints and Denies dyspnea <IVON Palumbo - Last Filed: 03/08/23 18:24> Gastrointestinal: Gastrointestinal: Reports no additional gastrointestinal complaints, Denies abdominal pain, Denies melena, Denies hematochezia, Denies change in bowel habits and Denies change in stool character <IVON Palumbo - Last Filed: 03/08/23 18:24> Genitourinary: Genitourinary: Reports no additional male genitourinary complaints, Denies hematuria, Denies oliguria, Denies difficulty urinating, Denies dysuria, Denies urinary frequency, Denies urinary hesitancy, Denies urinary incontinence and Denies urinary urgency <IVON Palumbo - Last Filed: 03/08/23 18:24> Musculoskeletal: Musculoskeletal: Reports no additional musculoskeletal complaints, Denies numbness and Denies tingling <IVON Palumbo - Last Filed: 03/08/23 18:24> Neurologic: Denies dizziness, Denies loss of vision, Denies numbness and Denies tingling <IVON Palumbo Last Filed: 03/08/23 18:24> Psychiatric: Psychiatric: Reports no additional psychiatric complaints <IVON Palumbo - Last Filed: 03/08/23 18:24> Endocrine: Endocrine: Reports no additional endocrine complaints <IVON Palumbo - Last Filed: 03/08/23 18:24> Hematologic/Lymphatic: Hematologic/Lymphatic: Reports no additional hematologic/lymphatic complaints <IVON Palumbo - Last Filed: 03/08/23 18:24> Allergic/Immunologic: Allergic/Immunologic: Reports no additional allergic/immunologic complaints <IVON Palumbo - Last Filed: 03/08/23 18:24> PMFSH Past Medical History Attestation statement: The following information was validated with the patient. <IVON Palumbo - Last Filed: 03/08/23 18:24> Source: old records reviewed and nursing notes reviewed <IVON Palumbo - Last Filed: 03/08/23 18:24> Medical History: Medical History Active substance abuse Compartment syndrome Diabetes Diabetes Hep C w/o coma, chronic HIV (human immunodeficiency virus infection) HIV (human immunodeficiency virus infection) Opioid use disorder Substance abuse <IVON Rivas - Last Filed: 03/08/23 12:04> Surgical History: Surgical History H/O fasciotomy History of fasciotomy <IVON Rivas - Last Filed: 03/08/23 12:04> Social History Social History: Social History Household Members: Family Household Members Other:: self Housing: House Do you presently have visiting nurse or other home services: No Unable to assess alcohol history related to: Unknown Alcohol intake: never Patient Tobacco Use Status: Current everyday Tobacco user Tobacco use type: Cigarette Cigarette Packs Per Day: 1 Cigarettes Per Day: 20.0 Substance Use Type: Heroin Advance Directives: Yes Advance Directives on File: Yes Advance Directives Date on File: 07/09/21 service: No Current occupational status: unemployed <IVON Rivas - Last Filed: 03/08/23 12:04> Physical Exam ED Vital Signs: Vital Signs - 24 hr 03/08/23 12:00 Temperature 97.6 F Pulse Rate 89 Respiratory Rate 18 Blood Pressure 124/84 Pulse Oximetry 98 Oxygen Delivery Method Room Air BMI result Body Mass Index 21.9 <IVON Rivas - Last Filed: 03/08/23 12:04> Vital Signs - 24 hr 03/08/23 12:00 Temperature 97.6 F Pulse Rate 89 Respiratory Rate 18 Blood Pressure 124/84 Pulse Oximetry 98 Oxygen Delivery Method Room Air BMI result Body Mass Index 21.9 <IVON Palumbo Last Filed: 03/08/23 18:24> Const General: cooperative, no acute distress, alert and awake <IVON Palumbo - Last Filed: 03/08/23 18:24> Nutritional Appearance: well nourished <IVON Palumbo Last Filed: 03/08/23 18:24> Orientation/consciousness: patient oriented x3 <IVON Palumbo - Last Filed: 03/08/23 18:24> Limitations: no limitations <IVON Palumbo - Last Filed: 03/08/23 18:24> HENMT Head: Yes normal to inspection and Yes atraumatic <IVON Palumbo - Last Filed: 03/08/23 18:24> Ears: hearing grossly normal bilaterally and external ears normal <IVON Palumbo - Last Filed: 03/08/23 18:24> General nose exam: Normal external nose present, no nasal discharge noted and no epistaxis <IVON Palumbo - Last Filed: 03/08/23 18:24> Face and sinus: Yes normal facial exam, No abrasion and No laceration <IVON Palumbo Last Filed: 03/08/23 18:24> Mouth: Normal oral and palatal mucosa present, no drooling and no muffled voice <IVON Palumbo - Last Filed: 03/08/23 18:24> Eyes General: appearance normal, both eyes and all related structures <IVON Palumbo - Last Filed: 03/08/23 18:24> Periorbital: periorbital findings normal <IVON Palumbo - Last Filed: 03/08/23 18:24> Eyelids: Yes eyelids normal <IVON Palumbo - Last Filed: 03/08/23 18:24> Conjunctivae: conjunctivae normal <IVON Palumbo - Last Filed: 03/08/23 18:24> Pupils: Equal, round and reactive pupils present <Gissell Villalba PA - Last Filed: 03/08/23 18:24> EOM: EOMs intact bilaterally <Gissell Villalba PA - Last Filed: 03/08/23 18:24> Neck Other: <Gissell Villalba PA - Last Filed: 03/08/23 18:24> Neck: Yes full ROM <Gissell Villalba PA - Last Filed: 03/08/23 18:24> Chest Chest palpation & inspection: normal inspection of the chest <Gissell Villalba PA - Last Filed: 03/08/23 18:24> Resp Effort & Inspection: normal respiratory effort and able to speak in complete sentences <Gissell Villalba PA - Last Filed: 03/08/23 18:24> GI Inspection: Yes normal to inspection <Gissell Villalba PA - Last Filed: 03/08/23 18:24> Neuro General: patient oriented x3 and moves all extremities <Gissell Villalba PA - Last Filed: 03/08/23 18:24> Cranial nerves: Yes Equal, round and reactive pupils present <Gissell Villalba PA - Last Filed: 03/08/23 18:24> Cognition (Neuro): normal cognition <Gissell Villalba PA - Last Filed: 03/08/23 18:24> Motor exam (neuro): 5/5 motor strength present throughout <Gissell Villalba PA - Last Filed: 03/08/23 18:24> Sensory Exam: Normal double simultaneous stimulation for sensation <Gissell Villalba PA - Last Filed: 03/08/23 18:24> Coordination: [id number] test normal <Gissell Villalba PA - Last Filed: 03/08/23 18:24> Extrem General: Yes normal to inspection, Yes full ROM and Yes capillary refill normal <Gissell Villalba PA - Last Filed: 03/08/23 18:24> Psych Appearance: grossly normal <Gissell Villalba PA - Last Filed: 03/08/23 18:24> Mental Status: mental status grossly normal <Gissell Villalba PA - Last Filed: 03/08/23 18:24> Affect: normal affect <Gissell Villalba PA - Last Filed: 03/08/23 18:24> Attitude: cooperative <IVON Palumbo - Last Filed: 03/08/23 18:24> Thought process: Normal thought process present <IVON Palumbo - Last Filed: 03/08/23 18:24> Thought content: Normal thought content present <IVON Palumbo - Last Filed: 03/08/23 18:24> Insight: Good insight present (Psych) <IVON Palumbo - Last Filed: 03/08/23 18:24> Course Course Course Narrative: This is an RME: Additional HPI, ROS, PE not included below will be deferred to primary provider. This is a 47-year-old history of hep C, HIV IV drug abuser presenting with complaints of abscess forming to the left side of neck status post injecting heroin and cocaine to the left side of his neck. This has been progressively worsening. Patient tells me there has been a moderate amount of pus has, from the affected area. Patient denies fevers and chills. On exam there is a large abscess to the left side of neck. Plan at this time patient to got to the waiting room. <IVON Rivas - Last Filed: 03/08/23 12:04> Medications Administered Discontinued Medications Generic Name Dose Route Start Last Admin Trade Name Freq PRN Reason Stop Dose Admin Diphtheria/Tetanus/Acell Pertussis 0.5 ml 03/08/23 12:03 03/08/23 13:31 Diphth,Pertus(Acell),Tet Adult 0.5 Ml Syringe IM 03/08/23 12:04 0.5 ml .ONCE ONE Administration Lidocaine HCl 5 ml 03/08/23 12:03 03/08/23 13:33 Lidocaine Hcl 2 % Mpf 5 Ml Vial SUBCUT 03/08/23 12:04 5 ml ONCE ONE Administration <IVON Rivas - Last Filed: 03/08/23 12:04> Medications Administered Discontinued Medications Generic Name Dose Route Start Last Admin Trade Name Freq PRN Reason Stop Dose Admin Diphtheria/Tetanus/Acell Pertussis 0.5 ml 03/08/23 12:03 03/08/23 13:31 Diphth,Pertus(Acell),Tet Adult 0.5 Ml Syringe IM 03/08/23 12:04 0.5 ml .ONCE ONE Administration Lidocaine HCl 5 ml 03/08/23 12:03 03/08/23 13:33 Lidocaine Hcl 2 % Mpf 5 Ml Vial SUBCUT 03/08/23 12:04 5 ml ONCE ONE Administration <IVON Palumbo - Last Filed: 03/08/23 18:24> Medical Decision Making Medical Decision Making [facility] Narrative: Patient is a 47 year old assigned male at with a history of IVDU presenting to the emergency department today with a left sided neck mass. Patient's physical exam was as documented in the physical exam portion of this chart. Patient's neck US showed an abscess with peripheral vasculature present and the rad recommended a plain film to rule out FB. Patient's neck XR showed a linear foreign body along the lateral aspect of the left neck most consistent with a needle fragment (superior to the abscessed area) and a tiny bubble of soft tissue gas in the lateral neck related to the previously described on US abscess. I spoke to the general surgery team here who recommended the patient be seen by ENT. I called and spoke to [facility] ED, Dr. Ortiz, who agreed to an ED to ED transfer of the patient. Patient will be transferred to [facility] by POV. I explained my physical exam findings as well as all test results to the patient and the patient's mother. I answered all questions asked by the patient and the patient's mother. Patient and the patient's mother verbalized agreement and understanding with this treatment plan and transfer. <IVON Palumbo - Last Filed: 03/08/23 18:24> Differential Diagnosis Differential Diagnoses: The differential diagnosis associated with the presentation includes <IVON Palumbo - Last Filed: 03/08/23 18:24> left sided neck abscess <IVON Palumbo - Last Filed: 03/08/23 18:24> Consult Healthcare Provider Management of the patient was discussed with: [employer] (Spoke to Dr. Ortiz at [facility] ED and the general surgery team as documented in the MDM portion of this chart) <IVON Palumbo - Last Filed: 03/08/23 18:24> Independent Interpretation I performed an independent interpretation of an: Plain X-Ray and Ultrasound <IVON Palumbo Last Filed: 03/08/23 18:24> Interpretation: My interpretation is in agreement with the radiologist's impression of these imaging studies. EXAMINATION: US SOFT TISSUE NECK CLINICAL INFORMATION: Soft tissue mass. History of IV drug use. COMPARISON: None available. TECHNIQUE: Ultrasound of the neck soft tissues is performed with high- frequency cote-scale imaging and color Doppler. FINDINGS: There is a heterogeneous complex fluid collection in the left neck in or just superficial to the left sternocleidomastoid muscle. This measures 2.4 x 0.8 x 2 cm. This demonstrates peripheral vascularity. This probably represents an abscess. This has 2 focal echogenic areas. Correlation with x-ray to exclude foreign body recommended. US/US soft tiss head and/or neck IMPRESSION: 2.4 x 0.8 x 2 cm complex fluid collection in the left neck suggestive of an abscess. This has 2 small echogenic foci. Neck x-ray to exclude foreign body recommended. Dictated By: Dana Encinas MD Signed By: Electronically signed by Dana Encinas MD 03/08/23 1646 EXAMINATION: XR SOFT TISSUE NECK CLINICAL INDICATION: Concern for foreign body. Pain. COMPARISON: Compared to the ultrasound images of the neck from today TECHNIQUE: 2 views of the soft tissue neck were obtained.? FINDINGS: There is a linear superficial foreign body most consistent with a needle fragment along the lateral aspect of the left neck. More inferiorly in the lateral left neck there is a small amount of soft tissue gas likely representing the region of abscess that was suggested on the ultrasound. Visualized airways grossly unremarkable lung apices unremarkable XR/XR soft tissue neck IMPRESSION: Linear foreign body along the lateral aspect of the left neck most consistent with a needle fragment. Tiny bubble of soft tissue gas in the lateral left neck likely related to the previously suggested abscess Dictated By: Javier Dawson MD Signed By: Electronically signed by Javier Dawson MD 03/08/231813 <IVON Palumbo - Last Filed: 03/08/23 18:24> Independent Historian Clinical information obtained from an independent historian. History obtained from or confirmed by: Parent (patient's mother) <IVON Palumbo - Last Filed: 03/08/23 18:24> Critical Care Time Critical Care Time Critical Care Time: Yes <IVON Palumbo - Last Filed: 03/08/23 18:24> Total Critical Care Time: 45 <IVON Palumbo - Last Filed: 03/08/23 18:24> Attestation: I spent 45 minutes of Critical Care Time with this patient. This does not include time spent on separately reported billable procedures. <IVON Palumbo - Last Filed: 03/08/23 18:24> Discharge Plan Discharge Clinical Impression: Abscess, neck <IVON Rivas Last Filed: 03/08/23 12:04> Patient Disposition: [facility] <IVON Rivas Last Filed: 03/08/23 12:04> Transfer Details: Transfer to [facility] ED for ENT to I&D the abscess <IVON Rivas Last Filed: 03/08/23 12:04> Transfer to [facility] ED for ENT to I&D the abscess <IVON Palumbo Last Filed: 03/08/23 18:24> Prescriptions: No Action gabapentin 300 mg capsule 1 cap PO BID insulin lispro [Humalog KwikPen Insulin] 100 unit/mL insulin pen See Rx Instructions .ROUTE .COMPLEX Rx Instructions: Sliding scale quetiapine 50 mg tablet 1 tab PO BEDTIME Triumeq 600-50-300 mg tablet 1 tab PO DAILY Patient Comments: not filled at pharmacy since january cyanocobalamin (vitamin B-12) 100 mcg Tablet 100 mcg PO DAILY ferrous sulfate 324 mg (65 mg iron) Tablet,Delayed Release (Dr/Ec) 324 mg PO DAILY methadone 5 mg/5 mL Solution 20 mg PO DAILY amoxicillin-pot clavulanate 875-125 mg Tablet 875 mg PO BID 3 Days Qty: 6 0RF Lantus Solostar U-100 Insulin 100 unit/mL (3 mL) insulin pen 40 unit subcut QAM Qty: 0 0RF doxycycline hyclate 100 mg tablet 100 mg PO BID Qty: 20 0RF <IVON Rivas - Last Filed: 03/08/23 12:04> Interventions: Acute Care Transfer Worksheet (ED) Last Done: 03/08/23 18:00 <IVON Rivas - Last Filed: 03/08/23 12:04> Discharge Date/Time: 03/08/23 18:01 <IVON Rivas - Last Filed: 03/08/23 12:04>
[2023-03-08] MEDS: Diphth,Pertus(ACell),Tet Adult 0.5 ML SYRINGE IM (13:31)
[2023-03-08] MEDS: Lidocaine HCl 2 % MPF 5 ML VIAL SUBCUT (13:33)
--- NOTE | 2023-03-08 17:56 | PC.NURSE ---
report called to [facility] RENETTA Madera RN
== END 2023-03-08 18:01 | disposition short-term general hospital (02) ==
PROVIDERS: Emergency Provider Emergency Medicine
DX: S10.91XA Abrasion of unspecified part of neck, initial encounter (principal); L02.11 Cutaneous abscess of neck; F17.210 Nicotine dependence, cigarettes, uncomplicated; F11.10 Opioid abuse, uncomplicated; M54.2 Cervicalgia; Y28.9XXA Contact with unspecified sharp object, undetermined intent, initial encounter; Y93.9 Activity, unspecified; Y92.9 Unspecified place or not applicable; Y99.9 Unspecified external cause status; Z71.6 Tobacco abuse counseling; Z79.899 Other long term (current) drug therapy; Z23 Encounter for immunization
CPT/HCPCS: 70360; 76536; 90471; 90715; 99285

== ENCOUNTER 2023-05-21 09:10 | Emergency (ER) | payer MEDICAID, SELFPAY ==
[2023-05-21 09:26] VITALS: BP 118/79; PULSE 79; RESP 18; TEMP 36.1; O2SAT 100; BMI 23.5
--- NOTE | 2023-05-21 12:16 | ED_ITS ---
HPI - Skin/Abscess/Foreign Bdy General Chief complaint: Skin/Abscess/Foreign Body Stated complaint: Abscess on left arm Time Seen by Provider: 05/21/23 11:52 Source: patient and RN notes reviewed Mode of arrival: ambulatory Limitations: no limitations History of Present Illness HPI narrative: This is a 48-year-old male, with a past medical history of IV drug abuse, HIV, encephalopathy, diabetes, presenting to the emergency department for evaluation of swelling/redness on his left arm. Patient admits that he has had this problem for the last 3 days and has been increasing in swelling and redness. He states he injects IV drugs into this arm. He denies any fevers or chills. No other complaints or concerns at this time. MD complaint: abscess/boil Tetanus up to date: yes Location: LUE Pain Consistency: constant Relieving factors: none Exacerbating factors: none Context: none Associated symptoms: denies other symptoms Treatments prior to arrival: none Related Data Home Medications Medication Instructions Recorded Confirmed abacavir 600 mg-dolutegravir 50 1 tab PO DAILY 06/23/21 07/07/21 mg-lamivudine 300 mg tablet (Triumeq) cyanocobalamin (vitamin B-12) 100 100 mcg PO DAILY 06/23/21 06/23/21 mcg tablet ferrous sulfate 324 mg (65 mg 324 mg PO DAILY 06/23/21 06/23/21 iron) tablet,delayed release gabapentin 300 mg capsule 1 cap PO BID 06/23/21 07/07/21 insulin lispro 100 unit/mL See Rx Instructions .Route .COMPLEX 06/23/21 07/07/21 subcutaneous pen (Humalog KwikPen (U-100) Insulin) methadone 5 mg/5 mL oral solution 20 mg PO DAILY 06/23/21 06/23/21 quetiapine 50 mg tablet 1 tab PO BEDTIME 06/23/21 07/07/21 Previous Rx's Medication Instructions Recorded amoxicillin 875 mg-potassium 875 mg PO BID 3 days #6 tabs 07/08/21 clavulanate 125 mg tablet insulin glargine 100 unit/mL (3 40 unit (0.4 mL) subcut QAM #0 mL 07/08/21 mL) subcutaneous pen (Lantus Solostar U-100 Insulin) doxycycline hyclate 100 mg tablet 100 mg PO BID #20 tabs 09/19/22 cephalexin 500 mg capsule 500 mg PO QID 7 days #28 caps 05/21/23 doxycycline hyclate 100 mg capsule 100 mg PO BID 7 days #14 caps 05/21/23 Allergies Allergy/AdvReac Type Severity Reaction Status Date / Time fish Allergy Unknown Anaphylaxis Uncoded 06/22/21 20:41 shellfish Allergy Unknown Anaphylaxis Uncoded 06/22/21 20:41 Review of Systems Review of Systems: Yes all other systems are reviewed and are negative Constitutional: Constitutional: Reports as per [facility] Past Medical History Medical History Active substance abuse Compartment syndrome Diabetes Diabetes Hep C w/o coma, chronic HIV (human immunodeficiency virus infection) HIV (human immunodeficiency virus infection) Opioid use disorder Substance abuse Surgical History H/O fasciotomy History of fasciotomy Social History Social History Household Members: Family Household Members Other:: self Housing: House Do you presently have visiting nurse or other home services: No Unable to assess alcohol history related to: Unknown Alcohol intake: current Alcohol intake frequency: a few times a week Patient Tobacco Use Status: Current everyday Tobacco user Tobacco use type: Cigarette Cigarette Packs Per Day: 1 Cigarettes Per Day: 20.0 Smoked in Last 30 Days: Yes Use of substances other than those prescribed or required for medical reasons: Yes Substance Use Type: Crack/Cocaine Substance Use Frequency: Daily Last Used Substance: Just Prior to Admission Advance Directives: Yes Advance Directives on File: Yes Advance Directives Date on File: 07/09/21 service: No Current occupational status: unemployed Physical Exam Vital Signs: Vital Signs: Last Vital Signs Temp 97 F 05/21/23 09:26 Pulse 115 H 05/21/23 12:31 Resp 18 05/21/23 12:31 BP 108/83 05/21/23 12:31 Pulse Ox 97 05/21/23 12:31 O2 Del Method Room Air 05/21/23 12:31 BMI result Body Mass Index 23.5 Const: General: cooperative, comfortable and no acute distress Orientation/consciousness: patient oriented x3 Limitations: no limitations HEENT: Head: Yes normal to inspection, Yes normocephalic and Yes atraumatic Ears: hearing grossly normal bilaterally General nose exam: Normal external nose present Face and sinus: Yes normal facial exam Mouth: Normal oral and palatal mucosa present, oropharynx normal and moist mucous membranes Throat: Yes posterior oropharynx normal Eyes: General: appearance normal, both eyes and all related structures Eyelids: Yes eyelids normal Conjunctivae: conjunctivae normal Sclerae: sclerae normal Pupils: Equal, round and reactive pupils present EOM: EOMs intact bilaterally Neck: Neck: Yes normal visual inspection, Yes full ROM and Yes no lymph adenopathy Lymphatic: no lymphadenopathy noted Chest: Chest palpation & inspection: normal inspection of the chest Resp: Effort & Inspection: normal respiratory effort and able to speak in complete sentences Auscultation: clear to auscultation bilaterally, no crackles, no rales, no rhonchi and no wheezes Cardio: Rate: regular rate Rhythm: regular rhythm Heart sounds: S1 normal heart sound present and S2 normal heart sound present GI: Inspection: Yes normal to inspection Skin: Other: Left arm medial epicondyle there is a 2 cm indurated, red, warm region with center pustule noted, no fluctuance. No surrounding erythema, or streaking. General skin exam: no rashes or lesions noted Trauma: no lacerations or abrasions Wounds: no wounds Neuro: General: patient oriented x3 and moves all extremities Cranial nerves: Yes Equal, round and reactive pupils present Extrem: General: Yes normal to inspection Right upper extremity: normal to inspection Left upper extremity: normal to inspection Right lower extremity: normal to inspection Left lower extremity: normal to inspection Medical Decision Making Medical Decision Making MDM Narrative: 48-year-old male, history of diabetes, presenting to the emergency department for evaluation left arm cellulitis. Pt has full ROM of the left elbow, less concerning for septic joint or joint involvement. Ultrasound at bedside performed with only cobblestoning noted without any fluid collection, indicative of cellulitis. There is no fluid collection that can be incised today. Pt has full ROM of left elbow, therefore septic joint is less likely. VSS, pt is afebrile. Will treat with doxycyline and keflex. Advised to apply warm compresses to area and watch for any worsening symptoms. Given strict return precautions. Advised to stop using drugs, offered recovery resources, pt declines wanting any at this time. Pt understands and agrees with plan. Differential Diagnosis Differential Diagnoses: The differential diagnosis associated with the presentation includes Cellulitis, abcess, septic joint Admission/Observation Consideration of admission/observation: Escalation of care including admission/observation considered Patient would have been admitted to the hospital had his work up had any findings where hospital admission was appropriate and his clinical presentation warranted hospital admission. Discharge Plan Discharge Clinical Impression: Cellulitis Patient Disposition: Home, Self-Care Instructions: Cellulitis (ED), Warm Compress or Soak (ED) Additional Instructions: You have a skin infection on your left arm. Stop using drugs as this is the cause of you to have these infections. The ultrasound your arm and your abscess is not ready to be drained yet. Please apply warm compresses 5-6 times per day. Please take prescribed antibiotic as directed, complete the entire course. Watch for any new or worsening symptoms including but not limited to fevers, chills, worsening redness, pain, drainage, chest pain, shortness of breath, or any other concerning symptoms. Prescriptions: New cephalexin 500 mg capsule 500 mg PO QID 7 Days Qty: 28 0RF doxycycline hyclate 100 mg capsule 100 mg PO BID 7 Days Qty: 14 0RF No Action gabapentin 300 mg capsule 1 cap PO BID insulin lispro [Humalog KwikPen Insulin] 100 unit/mL insulin pen See Rx Instructions .ROUTE .COMPLEX Rx Instructions: Sliding scale quetiapine 50 mg tablet 1 tab PO BEDTIME Triumeq 600-50-300 mg tablet 1 tab PO DAILY Patient Comments: not filled at pharmacy since january cyanocobalamin (vitamin B-12) 100 mcg Tablet 100 mcg PO DAILY ferrous sulfate 324 mg (65 mg iron) Tablet,Delayed Release (Dr/Ec) 324 mg PO DAILY methadone 5 mg/5 mL Solution 20 mg PO DAILY amoxicillin-pot clavulanate 875-125 mg Tablet 875 mg PO BID 3 Days Qty: 6 0RF Lantus Solostar U-100 Insulin 100 unit/mL (3 mL) insulin pen 40 unit subcut QAM Qty: 0 0RF doxycycline hyclate 100 mg tablet 100 mg PO BID Qty: 20 0RF Interventions: ED Discharge Assessment Last Done: 05/21/23 12:39 Discharge Date/Time: 05/21/23 12:40
[2023-05-21 12:31] VITALS: BP 108/83; PULSE 115; RESP 18; O2SAT 97
== END 2023-05-21 12:40 | disposition home or self-care (01) ==
PROVIDERS: Emergency Provider Emergency Medicine
DX: L02.414 Cutaneous abscess of left upper limb (principal); L03.114 Cellulitis of left upper limb; F14.10 Cocaine abuse, uncomplicated; F17.210 Nicotine dependence, cigarettes, uncomplicated; Z71.6 Tobacco abuse counseling; Z79.899 Other long term (current) drug therapy
CPT/HCPCS: 99283; 99284

== ENCOUNTER 2023-08-09 10:20 | Outpatient (REF) | payer MEDICAID, SELFPAY ==
[2023-08-09 11:23] LABS: MANUAL DIFF FLAG NO
[2023-08-09 11:40] LABS: Basophils Percent Auto 0.3 % (0-2); Eosinophils Absolute Auto 0.1 X10*3/uL (0.0-0.4); Eosinophils Percent Auto 0.6 % (0-4); Hematocrit 31.6 % (42.0-52.0); Hemoglobin 10.1 g/dl (14.0-18.0); Imm Gran Abs Auto 0.04 X10*3/uL (0.00-0.03); Imm Gran Pct Auto 0.5 % (0.0-0.4); Lymphocytes Absolute Auto 1.7 X10*3/uL (1.2-4.9); Lymphocytes Percent Auto 19.7 % (20-40); Mean Corpuscular Hemoglobin 30.7 pg (27.0-33.0); Mean Platelet Volume 10.5 fL (9.4-12.4); Monocytes Absolute Auto 0.6 X10*3/uL (0.1-1.2); Monocytes Percent Auto 6.8 % (2-11); Neutrophils Absolute Auto 6.3 x10*3/uL (2.0-8.3); Neutrophils Percent Auto 72.1 % (45-73); Platelet Count 259 X10*3/uL (160-400); Red Blood Count 3.29 X10*6/uL (4.60-5.80); Red Cell Distribution Width 14.8 % (11.0-16.0); White Blood Count 8.7 X10*3/uL (4.8-10.8)
[2023-08-09 12:15] LABS: Alanine Aminotransferase 9 U/L (0-40); Alkaline Phosphatase 140 U/L (39-117); Anion Gap 14 (12-20); Aspartate Amino Transferase 13 U/L (5-37); Bilirubin Total 0.2 mg/dL (0.0-1.0); Blood Urea Nitrogen 20 mg/dL (9-16); Calcium 9.4 mg/dL (8.4-10.2); Carbon Dioxide 31 mmol/L (22-29); Chloride 98 mmol/L (96-108); Estimated Glomerular Filt Rate > 60; Glucose Random 205 mg/dL (60-115); Potassium 3.5 mmol/L (3.3-5.1); Sodium 139 mmol/L (135-145); Total Protein 7.7 g/dL (6.5-8.0)
[2023-08-10 11:48] LABS: Absolute CD3 Count 1522 cells/uL (840-3060); Absolute CD4 Count 723 cells/uL (490-1740); Absolute CD8 Count 737 cells/uL (180-1170); Absolute Lymphocytes 1863 cells/uL (850-3900); CD4 CD8 Ratio 0.98 (0.86-5.00); Percent CD3 Cells 82 % (57-85); Percent CD4 Cells 39 % (30-61); Percent CD8 Cells 40 % (12-42)
[2023-08-10 14:49] LABS: HCV Log PCR <1.18 NOT DETECTED Log IU/mL (NOT DETECTED); HepC Viral Load <15 NOT DETECTED IU/mL (NOT DETECTED)
[2023-08-10 15:43] LABS: HIV RNA PCR Qn Copies <20 DETECTED copies/mL (NOT DETECTED); HIV RNA PCR Qn Log Copies <1.30 DETECTED (NOT DETECTED)
== END 2023-08-09 10:21 | disposition home or self-care (01) ==
LOC: HO.HHCL 10:20
PROVIDERS: Visit Provider Student in an Organized Health Care Education/Training Program
DX: B20 Human immunodeficiency virus [HIV] disease (principal)
CPT/HCPCS: 36415; 80053; 85025; 86359; 86360; 87522; 87536

== ENCOUNTER 2023-10-31 10:42 | Emergency (ER) | payer MEDICAID, SELFPAY ==
[2023-10-31 10:56] VITALS: BP 117/78; PULSE 100; O2SAT 100; BMI 23.0
--- NOTE | 2023-10-31 10:58 | PC.NURSE ---
bellongings secure in decon. pt refusing vitals at this time
--- OUTSIDE RECORDS SUMMARY | 2023-10-31 11:06 | XMS_ITS | Patient Health Record ---
Author Name Unknown Organization [facility] Address [address], [place] [id number] Care Team Providers Care Operational Assistant Name Role Phone [facility] Primary Care Provider Chayito Ashlee Shoemaker Unavailable [phone] ALLERGIES Allergen (clinical drug ingredient) Drug/Non Drug Allergy documented on EMR Reaction Allergy Type Onset Date Status penicillin (uncoded) Unknown Allergy Active REASON FOR REFERRAL No Information MEDICATIONS Medication SIG (Take, Route, Frequency, Duration) Notes Start Date End Date Status Vistaril pamoate 50 mg 1 cap(s) orally 4 times a day 11/13/2022 11/13/2022 Active Nicoderm C-Q 21 mg/24 hr 1 PATCH transde rmally once a day for 30 day(s) 02/28/2011 11/13/2022 Active IMMUNIZATIONS Vaccine Route Administration Date Status Comme nts PPD planted ID Intradermal 02/28/2011 Administered SOCIAL HISTORY Sex Assigned At : Social History Observation Description Sex Assigned At Unknown PROBLEMS Problem Type ICD Code Onset Dates Problem Status W/U Status Risk SNOMED Code Notes Problem MENTAL DISOR NOS OTH DIS (294.9) Active confirmed Mental disorder (52139515) Problem Tobacco use disorder (305.1) Active confirmed Tobacco use (369233714) PLAN OF TREATMENT No Information Insurance Providers Payer Name Payer Address Payer Phone Subscriber Number Group Number Insured Name Patient Relationship to Insured Coverage Start Date Coverage End Date [place] Medicaid C3 [address] [place], [place] [id number] [phone] [id number] Kelechi Chinchilla Self - patient is the insured 0 MEDICAL (GENERAL) HISTORY Medical History History ICD Code anxiety depression addiction
[2023-10-31 11:34] LABS: Glucose, Whole Blood 366 mg/dL (60-115)
[2023-10-31] MEDS: Insulin Lispro 100 UNIT/ML 3 ML VIAL 10 UNIT SUBCUT (11:34)
[2023-10-31 11:38] VITALS: PULSE 82; RESP 18; O2SAT 100
--- NOTE | 2023-10-31 11:40 | PC.NURSE ---
pt refusing BP and temp. allowed staff to ptake his POC and administer his insulin. pt reported that he needs to leave. informed pt he would be signing out AMA. pt continues to refuse further vitals, assessments, urine and tox screen. pt denies SI/SHB.
--- NOTE | 2023-10-31 11:41 | ED_ITS ---
HPI - Overdose General Chief Complaint: Overdose Stated Complaint: OD, GIVEN NARCAN Time Seen by Provider: 10/31/23 11:11 Source: EMS and police Mode of arrival: EMS Limitations: no limitations History of Present Illness HPI Narrative: Patient found OD in the bathroom at [facility]. Denies that he wants to kill himself. Patient refusing blood draw or other care MD complaint: accidental overdose Onset (ago): hour(s) Timing confirmed by: other (police and EMS) Related Data Home Medications Medication Instructions Recorded Confirmed abacavir 600 mg-dolutegravir 50 1 tab PO DAILY 06/23/21 07/07/21 mg-lamivudine 300 mg tablet (Triumeq) cyanocobalamin (vitamin B-12) 100 100 mcg PO DAILY 06/23/21 06/23/21 mcg tablet ferrous sulfate 324 mg (65 mg 324 mg PO DAILY 06/23/21 06/23/21 iron) tablet,delayed release gabapentin 300 mg capsule 1 cap PO BID 06/23/21 07/07/21 insulin lispro 100 unit/mL See Rx Instructions .Route .COMPLEX 06/23/21 07/07/21 subcutaneous pen (Humalog KwikPen (U-100) Insulin) methadone 5 mg/5 mL oral solution 20 mg PO DAILY 06/23/21 06/23/21 quetiapine 50 mg tablet 1 tab PO BEDTIME 06/23/21 07/07/21 Previous Rx's Medication Instructions Recorded amoxicillin 875 mg-potassium 875 mg PO BID 3 days #6 tabs 07/08/21 clavulanate 125 mg tablet insulin glargine 100 unit/mL (3 40 unit (0.4 mL) subcut QAM #0 mL 07/08/21 mL) subcutaneous pen (Lantus Solostar U-100 Insulin) doxycycline hyclate 100 mg tablet 100 mg PO BID #20 tabs 09/19/22 cephalexin 500 mg capsule 500 mg PO QID 7 days #28 caps 05/21/23 doxycycline hyclate 100 mg capsule 100 mg PO BID 7 days #14 caps 05/21/23 naloxone 4 mg/actuation nasal 4 mg intranasal Q2M #2 ea 10/31/23 spray (Narcan) Allergies Allergy/AdvReac Type Severity Reaction Status Date / Time fish Allergy Unknown Anaphylaxis Uncoded 06/22/21 20:41 shellfish Allergy Unknown Anaphylaxis Uncoded 06/22/21 20:41 Review of Systems Review of Systems: Yes Other (unable to obtain due to the fact that the patient does not want to give mor) Neurologic: Denies Sensory deficit (Neuro) [facility] Past Medical History Medical History Opioid use disorder Hep C w/o coma, chronic HIV (human immunodeficiency virus infection) HIV (human immunodeficiency virus infection) Compartment syndrome Active substance abuse Substance abuse Diabetes Diabetes Surgical History History of fasciotomy H/O fasciotomy Social History Social History Household Members: Family Household Members Other:: self Housing: House Do you presently have visiting nurse or other home services: No Unable to assess alcohol history related to: Unknown Alcohol intake: current Alcohol intake frequency: a few times a week Comment: pt refuses bed alarm Patient Tobacco Use Status: Current everyday Tobacco user Tobacco use type: Cigarette Cigarette Packs Per Day: 1 Cigarettes Per Day: 20.0 Smoked in Last 30 Days: Yes Use of substances other than those prescribed or required for medical reasons: Yes Substance Use Type: Heroin and Marijuana Advance Directives: Yes Advance Directives on File: Yes Advance Directives Date on File: 07/09/21 service: No Current occupational status: unemployed Physical Exam Vital Signs: Vital Signs: Last Vital Signs Pulse 82 10/31/23 11:38 Resp 18 10/31/23 11:38 Pulse Ox 100 10/31/23 11:38 O2 Del Method Room Air 10/31/23 11:38 BMI result Body Mass Index 23.0 Const: Other: very cachectic male looking much older than stated age Orientation/consciousness: oriented to person and patient oriented x3 Limitations: no limitations HEENT: Head: Yes normal to inspection Ears: external ears normal General nose exam: Normal external nose present Mouth: Normal oral and palatal mucosa present and oropharynx normal Throat: Yes posterior oropharynx normal Eyes: General: appearance normal, both eyes and all related structures Neck: Other: supple Neck: Yes normal visual inspection Chest: Chest palpation & inspection: normal inspection of the chest Resp: Auscultation: clear to auscultation bilaterally Cardio: Jugular venous distension: no JVD Rate: regular rate Rhythm: regular rhythm Heart sounds: S1 normal heart sound present and S2 normal heart sound present GI: Inspection: Yes normal to inspection Palpation (GI): Soft to palpation, nontender and No hepatosplenomegaly present Auscultation: normal bowel sounds : General: Yes no CVA tenderness Back/Spine/Pelvis: Back: no CVA tenderness Skin: General skin exam: no rashes or lesions noted Neuro: General: oriented to person and patient oriented x3 Cranial nerves: Yes CN's II-XII intact bilaterally Motor exam (neuro): 5/5 motor strength present throughout Sensory Exam: No Sensory deficit (Neuro) Extrem: General: Yes normal to inspection Psych: Appearance: grossly normal Course Reevaluation(s) Reevaluation #1: patient allowed us to check his sugar and give him insulin but refusing everything else. I will sign him out AMA Time: 11:46 Reevaluation #2: patient really needs further medical work up which he is adamantly refusing Time: 11:49 Medications Administered Discontinued Medications Generic Name Dose Route Start Last Admin Trade Name Marifer PRN Reason Stop Dose Admin Insulin Human Lispro 10 unit 10/31/23 11:20 10/31/23 11:34 Insulin Lispro 100 Unit/Ml 3 Ml Vial SUBCUT 10/31/23 11:21 10 unit ONCE ONE Administration Medical Decision Making Differential Diagnosis Differential Diagnoses: The differential diagnosis associated with the presentation includes (opiate od, diabetes, DKA) Admission/Observation Consideration of admission/observation: Escalation of care including admission/observation considered (upon arrival patient considered for admission) Lab Data Labs: Lab Results 10/31/23 Range/Units 11:30 POC Glucose 366 H* (60-115) mg/dL Independent Historian Clinical information obtained from an independent historian. History obtained from or confirmed by: EMS and Other (police) Tests considered The following testing was considered but not selected: patient needs an iv and blood work but he is refusing at this time Discharge Plan Discharge Clinical Impression: Drug overdose, Acute hyperglycemia Patient Disposition: Left Against Medical Advice Instructions: Diabetic Hyperglycemia (ED), Adult Overdose (ED) Prescriptions: New naloxone [Narcan] 4 mg/actuation spray,non-aerosol 4 mg intranasal Q2M Qty: 2 0RF Rx Instructions: spray 1 dose into ONE nostril; alternate nostrils w each dose until help arrives No Action gabapentin 300 mg capsule 1 cap PO BID insulin lispro [Humalog KwikPen Insulin] 100 unit/mL insulin pen See Rx Instructions .ROUTE .COMPLEX Rx Instructions: Sliding scale quetiapine 50 mg tablet 1 tab PO BEDTIME Triumeq 600-50-300 mg tablet 1 tab PO DAILY Patient Comments: not filled at pharmacy since january cyanocobalamin (vitamin B-12) 100 mcg Tablet 100 mcg PO DAILY ferrous sulfate 324 mg (65 mg iron) Tablet,Delayed Release (Dr/Ec) 324 mg PO DAILY methadone 5 mg/5 mL Solution 20 mg PO DAILY amoxicillin-pot clavulanate 875-125 mg Tablet 875 mg PO BID 3 Days Qty: 6 0RF Lantus Solostar U-100 Insulin 100 unit/mL (3 mL) insulin pen 40 unit subcut QAM Qty: 0 0RF doxycycline hyclate 100 mg tablet 100 mg PO BID Qty: 20 0RF cephalexin 500 mg capsule 500 mg PO QID 7 Days Qty: 28 0RF doxycycline hyclate 100 mg capsule 100 mg PO BID 7 Days Qty: 14 0RF Referrals: Stella Dupree MD [Primary Care Provider] - 1 day Stand Alone Forms: Against Medical Advice, Substance Abuse Outpt Detox
[2023-10-31] MEDS: Naloxone HCl Nasal TAKE HOME 4 MG SPRAY 8 MG NOSTRILALT (12:09)
== END 2023-10-31 12:11 | disposition left against medical advice (07) ==
PROVIDERS: Emergency Provider Emergency Medicine; PCP Student in an Organized Health Care Education/Training Program
DX: T50.901A Poisoning by unspecified drugs, medicaments and biological substances, accidental (unintentional), initial encounter (principal); Y92.511 Restaurant or cafe as the place of occurrence of the external cause; F19.10 Other psychoactive substance abuse, uncomplicated; E11.9 Type 2 diabetes mellitus without complications; F17.210 Nicotine dependence, cigarettes, uncomplicated; B20 Human immunodeficiency virus [HIV] disease; Z79.4 Long term (current) use of insulin; Z79.899 Other long term (current) drug therapy
CPT/HCPCS: 82947; 99284

== ENCOUNTER 2024-04-19 14:59 | Outpatient (REF) | payer MEDICAID, SELFPAY ==
[2024-04-19 16:04] LABS: MANUAL DIFF FLAG NO
[2024-04-19 16:11] LABS: Basophils Percent Auto 0.6 % (0-2); Eosinophils Percent Auto 0.5 % (0-4); Hematocrit 32.4 % (42.0-52.0); Hemoglobin 10.7 g/dl (14.0-18.0); Imm Gran Abs Auto 0.02 X10*3/uL (0.00-0.03); Imm Gran Pct Auto 0.3 % (0.0-0.4); Lymphocytes Absolute Auto 2.6 X10*3/uL (1.2-4.9); Lymphocytes Percent Auto 40.3 % (20-40); Mean Corpuscular Hemoglobin 31.9 pg (27.0-33.0); Mean Corpuscular Volume 96.7 fL (80.0-98.0); Mean Platelet Volume 10.1 fL (9.4-12.4); Monocytes Absolute Auto 0.4 X10*3/uL (0.1-1.2); Monocytes Percent Auto 6.6 % (2-11); Neutrophils Absolute Auto 3.3 x10*3/uL (2.0-8.3); Neutrophils Percent Auto 51.7 % (45-73); Platelet Count 312 X10*3/uL (160-400); Red Blood Count 3.35 X10*6/uL (4.60-5.80); Red Cell Distribution Width 15.5 % (11.0-16.0); White Blood Count 6.5 X10*3/uL (4.8-10.8)
[2024-04-19 16:27] LABS: Alanine Aminotransferase 24 U/L (0-40); Albumin Level 3.8 g/dL (3.5-5.0); Alkaline Phosphatase 112 U/L (39-117); Anion Gap 14 (12-20); Aspartate Amino Transferase 27 U/L (5-37); Bilirubin Total 0.4 mg/dL (0.0-1.0); Blood Urea Nitrogen 37 mg/dL (9-16); Calcium 9.7 mg/dL (8.4-10.2); Carbon Dioxide 29 mmol/L (22-29); Chloride 99 mmol/L (96-108); Estimated Glomerular Filt Rate > 60; Glucose Random 228 mg/dL (60-115); Potassium 4.5 mmol/L (3.3-5.1); Sodium 137 mmol/L (135-145); Total Protein 8.2 g/dL (6.5-8.0)
[2024-04-20 03:30] LABS: Syphilis Screen Nonreactive (Nonreactive)
[2024-04-22 00:43] LABS: TS Negative Control Passed; TS Panel A 0; TS Panel B 0; TS Positive Control Passed; TSpotTB Negative (Negative)
[2024-04-22 08:59] LABS: Absolute CD3 Count 2557 cells/uL (840-3060); Absolute CD4 Count 1286 cells/uL (490-1740); Absolute CD8 Count 1200 cells/uL (180-1170); Absolute Lymphocytes 3022 cells/uL (850-3900); CD4 CD8 Ratio 1.07 (0.86-5.00); Percent CD3 Cells 85 % (57-85); Percent CD4 Cells 43 % (30-61); Percent CD8 Cells 40 % (12-42)
[2024-04-23 12:13] LABS: HIV RNA PCR Qn Copies NOT DETECTED copies/mL (NOT DETECTED); HIV RNA PCR Qn Log Copies NOT DETECTED (NOT DETECTED)
[2024-04-24 08:33] LABS: HCV Log PCR 1.58 Log IU/mL (NOT DETECTED); HepC Viral Load 38 IU/mL (NOT DETECTED)
== END 2024-04-19 15:00 | disposition home or self-care (01) ==
LOC: HO.HHCL 14:59
PROVIDERS: Visit Provider Internal Medicine
DX: B20 Human immunodeficiency virus [HIV] disease (principal)
CPT/HCPCS: 36415; 80053; 85025; 86359; 86360; 86481; 86780; 87522; 87536

== ENCOUNTER 2024-07-29 14:57 | Emergency (ER) | payer MEDICAID, SELFPAY ==
[2024-07-29 15:04] VITALS: BP 121/83; BP 128/70; PULSE 121; PULSE 128; RESP 16; TEMP 37; O2SAT 95; O2SAT 97; BMI 23.5
--- NOTE | 2024-07-29 15:16 | ED_ITS ---
HPI - General Adult General Stated complaint: FOUND PASSED OUT IN [facility] @ [facility] ISSUE Time Seen by Provider: 07/29/24 15:00 Source: patient and EMS Mode of arrival: EMS Limitations: no limitations History of Present Illness ED Provider: AURELIA EATON narrative: 49 yo male with PMH of IDDM, recent R arm wound s/p fasciotomy and I suspect he had concern for either necrotizing infection or compartment syndrome. He states he was just discharged 3 days ago from [facility] he hasn't picked up his antibiotics. He was found in [place]'s bathroom passed out on toilet with insulin syringe. He states he gave himself 20 units of insulin it was not fentanyl. He denies SI. He was never given narcan. The glucometer read hi. On arrival here he is awake alert and oriented. I offered labs, IVF, help with his antibiotics, insulin but he wants to leave AMA. He states he has narcan. complaint: hyperglycemia Onset (ago): hour(s) (few) Radiation: non-radiation Severity: moderate Relieving factors: none Exacerbating factors: none Associated symptoms: other (healing R arm wound he states it looks much better) Treatments prior to arrival: other Related Data Home Medications ?Medication ?Instructions ?Recorded ?Confirmed abacavir 600 mg-dolutegravir 50 1 tab PO DAILY 06/23/21 07/07/21 mg-lamivudine 300 mg tablet (Triumeq) cyanocobalamin (vitamin B-12) 100 100 mcg PO DAILY 06/23/21 06/23/21 mcg tablet ferrous sulfate 324 mg (65 mg 324 mg PO DAILY 06/23/21 06/23/21 iron) tablet,delayed release gabapentin 300 mg capsule 1 cap PO BID 06/23/21 07/07/21 insulin lispro 100 unit/mL See Rx Instructions .Route .COMPLEX 06/23/21 07/07/21 subcutaneous pen (Humalog KwikPen (U-100) Insulin) methadone 5 mg/5 mL oral solution 20 mg PO DAILY 06/23/21 06/23/21 quetiapine 50 mg tablet 1 tab PO BEDTIME 06/23/21 07/07/21 Previous Rx's ?Medication ?Instructions ?Recorded amoxicillin 875 mg-potassium 875 mg PO BID 3 days #6 tabs 07/08/21 clavulanate 125 mg tablet insulin glargine 100 unit/mL (3 40 unit (0.4 mL) subcut QAM #0 mL 07/08/21 mL) subcutaneous pen (Lantus Solostar U-100 Insulin) doxycycline hyclate 100 mg tablet 100 mg PO BID #20 tabs 09/19/22 cephalexin 500 mg capsule 500 mg PO QID 7 days #28 caps 05/21/23 doxycycline hyclate 100 mg capsule 100 mg PO BID 7 days #14 caps 05/21/23 naloxone 4 mg/actuation nasal 4 mg intranasal Q2M #2 ea 10/31/23 spray (Narcan) Allergies Allergy/AdvReac Type Severity Reaction Status Date / Time fish Allergy Unknown Anaphylaxis Uncoded 07/29/24 15:11 shellfish Allergy Unknown Anaphylaxis Uncoded 07/29/24 15:11 Review of Systems Review of Systems: Constitutional : No Fever, No Chills, No Fatigue ENT/Mouth : No sore throat, No Rhinorrhea Eyes: No Eye Pain, No Swelling, No Redness Cardiovascular : No Chest Pain, No SOB, No Dyspnea on Exertion Respiratory : No Cough, No Sputum Gastrointestinal : No Nausea, No Vomiting, No Diarrhea, No abdominal Pain Genitourinary : No Dysuria, No Urinary Frequency, No Hematuria, Musculoskeletal : No joint pain, No Myalgias, No Joint Swelling Skin : pos Skin Lesion, pos rash Neuro : No Weakness, No Numbness, No Dizziness, no Headache Psych : No Anxiety/Panic, No Depression All other systems reviewed and are negative PMFSH Past Medical History Attestation statement: The following information was validated with the patient. Source: old records reviewed Medical History Opioid use disorder Hep C w/o coma, chronic HIV (human immunodeficiency virus infection) HIV (human immunodeficiency virus infection) Compartment syndrome Active substance abuse Substance abuse Diabetes Diabetes Surgical History History of fasciotomy H/O fasciotomy Social History Social History Household Members: Family Household Members Other:: self Housing: House Do you presently have visiting nurse or other home services: No Unable to assess alcohol history related to: Unknown Alcohol intake: current Alcohol intake frequency: a few times a week Comment: pt refuses bed alarm Patient Tobacco Use Status: Current everyday Tobacco user Tobacco use type: Cigarette Cigarette Packs Per Day: 1 Cigarettes Per Day: 20.0 Substance Use Type: Heroin and Marijuana Advance Directives Date on File: 07/09/21 service: No Current occupational status: unemployed Physical Exam ED Appearance: Alert. Oriented X3. No acute distress. Eyes: Pupils equal, round and reactive to light. ENT: Pharynx normal. atraumatic Neck: Normal inspection. Neck supple. CVS: Normal heart rate and rhythm. Pulses normal. Respiratory: No respiratory distress. Breath sounds normal. Abdomen: Soft and nontender. Skin: Skin warm and dry. Normal skin color. Normal skin turgor. Extremities: No lower extremity edema. R arm can move fingers pulse in place SILT intact, R arm > [address] from wrist down to elbow no drainage, mild swelling, mild erythema but no overt extending cellulitis Neuro: Oriented X 3. No motor deficit. No sensory deficit. Medical Decision Making Medical Decision Making [facility] Narrative: 49 yo male with PMH of IDDM, recent R arm wound s/p surgical debridement now here with hyperglycemia and adamantly denies SI or IVDA today. The glucometer is reading HI we offered him labs, IVF, IV insulin and help with his antibiotics. He declines wants to leave AMA. He is awake and alert oriented x 3. States he can follow up on his own. He is acting appropriate and answering questions appropriately. Differential Diagnosis Differential Diagnoses: The differential diagnosis associated with the presentation includes hyperglycemia, DKA, infection Admission/Observation Consideration of admission/observation: Escalation of care including admission/observation considered refuses left AMA Lab Data [facility] Lab Attestation statement: I reviewed the patient's lab results. Independent Historian Clinical information obtained from an independent historian. History obtained from or confirmed by: EMS External Record Review External record reviewed: Outpatient record Discharge Plan Discharge Clinical Impression: Acute hyperglycemia Patient Disposition: Home, Self-Care Instructions: Against Medical Advice (ED), Diabetic Hyperglycemia (ED) Additional Instructions: return for worsening symptoms or concerns you were offered labs, IVF and IV insulin you refused you can come back at any time Prescriptions: No Action gabapentin 300 mg capsule 1 cap PO BID insulin lispro [Humalog KwikPen Insulin] 100 unit/mL insulin pen See Rx Instructions .ROUTE .COMPLEX Rx Instructions: Sliding scale quetiapine 50 mg tablet 1 tab PO BEDTIME Triumeq 600-50-300 mg tablet 1 tab PO DAILY Patient Comments: not filled at pharmacy since january cyanocobalamin (vitamin B-12) 100 mcg Tablet 100 mcg PO DAILY ferrous sulfate 324 mg (65 mg iron) Tablet,Delayed Release (Dr/Ec) 324 mg PO DAILY methadone 5 mg/5 mL Solution 20 mg PO DAILY amoxicillin-pot clavulanate 875-125 mg Tablet 875 mg PO BID 3 Days Qty: 6 0RF Lantus Solostar U-100 Insulin 100 unit/mL (3 mL) insulin pen 40 unit subcut QAM Qty: 0 0RF doxycycline hyclate 100 mg tablet 100 mg PO BID Qty: 20 0RF cephalexin 500 mg capsule 500 mg PO QID 7 Days Qty: 28 0RF doxycycline hyclate 100 mg capsule 100 mg PO BID 7 Days Qty: 14 0RF naloxone [Narcan] 4 mg/actuation spray,non-aerosol 4 mg intranasal Q2M Qty: 2 0RF Rx Instructions: spray 1 dose into ONE nostril; alternate nostrils w each dose until help arrives Stand Alone Forms: Against Medical Advice Print Language: [place]
--- NOTE | 2024-07-29 15:18 | PC.NURSE ---
patient signing himself out ama. first glucose reading hi, qc completed but patient declined second glucose check and labs.
[2024-07-29 15:33] VITALS: BP 121/83; PULSE 128; RESP 16; TEMP 37; O2SAT 95
[2024-07-29 15:37] LABS: Glucose, Whole Blood > 600 mg/dL (60-115)
== END 2024-07-29 15:35 | disposition home or self-care (01) ==
LOC: HO.ED 15:28
PROVIDERS: Emergency Provider Emergency Medicine
DX: E11.65 Type 2 diabetes mellitus with hyperglycemia (principal); M79.601 Pain in right arm; F17.210 Nicotine dependence, cigarettes, uncomplicated; Z79.4 Long term (current) use of insulin; Z79.899 Other long term (current) drug therapy
CPT/HCPCS: 82947; 99282

== ENCOUNTER 2024-08-18 16:05 | Inpatient (IN) | payer MEDICAID, SELFPAY ==
[2024-08-18 16:19] VITALS: BP 110/62; PULSE 79; PULSE 97; RESP 16; TEMP 36.6; O2SAT 100; O2SAT 98; BMI 16.3
--- NOTE | 2024-08-18 16:41 | ED.GENADULT ---
HPI - General Adult General Chief complaint: General Medical Stated complaint: N/V/D x2day , no PO x2days, hx of diabete Time Seen by Provider: 08/18/24 16:37 Source: patient Limitations: no limitations History of Present Illness ED Provider: Marina Elizondo PA-C HPI narrative: 49-year-old male with a history of polysubstance abuse, IV drug abuse, diabetes presents with nausea vomiting diarrhea x2 days. Denies abdominal pain. History limited as patient is not cooperative, not wanting to engage in conversation so as to obtain detailed history. Per EMS, his blood sugar was over 600. Related Data Home Medications ?Medication ?Instructions ?Recorded ?Confirmed abacavir 600 mg-dolutegravir 50 1 tab PO DAILY 06/23/21 07/07/21 mg-lamivudine 300 mg tablet (Triumeq) cyanocobalamin (vitamin B-12) 100 100 mcg PO DAILY 06/23/21 06/23/21 mcg tablet ferrous sulfate 324 mg (65 mg 324 mg PO DAILY 06/23/21 06/23/21 iron) tablet,delayed release gabapentin 300 mg capsule 1 cap PO BID 06/23/21 07/07/21 insulin lispro 100 unit/mL See Rx Instructions .Route .COMPLEX 06/23/21 07/07/21 subcutaneous pen (Humalog KwikPen (U-100) Insulin) methadone 5 mg/5 mL oral solution 20 mg PO DAILY 06/23/21 06/23/21 quetiapine 50 mg tablet 1 tab PO BEDTIME 06/23/21 07/07/21 Previous Rx's ?Medication ?Instructions ?Recorded amoxicillin 875 mg-potassium 875 mg PO BID 3 days #6 tabs 07/08/21 clavulanate 125 mg tablet insulin glargine 100 unit/mL (3 40 unit (0.4 mL) subcut QAM #0 mL 07/08/21 mL) subcutaneous pen (Lantus Solostar U-100 Insulin) doxycycline hyclate 100 mg tablet 100 mg PO BID #20 tabs 09/19/22 cephalexin 500 mg capsule 500 mg PO QID 7 days #28 caps 05/21/23 doxycycline hyclate 100 mg capsule 100 mg PO BID 7 days #14 caps 05/21/23 naloxone 4 mg/actuation nasal 4 mg intranasal Q2M #2 ea 10/31/23 spray (Narcan) Allergies Allergy/AdvReac Type Severity Reaction Status Date / Time fish Allergy Unknown Anaphylaxis Uncoded 08/18/24 16:22 shellfish Allergy Unknown Anaphylaxis Uncoded 08/18/24 16:22 Review of Systems Review of Systems: Unable to obtain as patient does not want to talk Yes all other systems are reviewed and are negative Constitutional: Constitutional: Denies fever(s) Gastrointestinal: Gastrointestinal: Denies abdominal pain, Reports diarrhea, Reports nausea and Reports vomiting PMFSH Past Medical History Attestation statement: The following information was validated with the patient. Medical History Opioid use disorder Hep C w/o coma, chronic HIV (human immunodeficiency virus infection) HIV (human immunodeficiency virus infection) Compartment syndrome Active substance abuse Substance abuse Diabetes Diabetes Surgical History History of fasciotomy H/O fasciotomy Social History Social History Household Members: Family Household Members Other:: self Housing: House Do you presently have visiting nurse or other home services: No Unable to assess alcohol history related to: Unknown Alcohol intake: current Alcohol intake frequency: a few times a week Comment: pt refuses bed alarm Patient Tobacco Use Status: Current everyday Tobacco user Tobacco use type: Cigarette Cigarette Packs Per Day: 1 Cigarettes Per Day: 20.0 Smoked in Last 30 Days: No Substance Use Type: Heroin and Marijuana Advance Directives: Yes Advance Directives on File: Yes Advance Directives Date on File: 07/09/21 Do you have a plan to hurt others: No Plan service: No Current occupational status: unemployed Physical Exam ED Vital Signs: Vital Signs - 24 hr 08/18/24 16:19 08/18/24 19:14 Temperature 97.9 F 98.4 F Pulse Rate 79 74 Respiratory Rate 16 20 Blood Pressure 124/71 Pulse Oximetry 100 100 Oxygen Delivery Method Room Air Room Air BMI result Body Mass Index 16.3 Const Other: Lethargic, awake, opens eyes to verbal stimuli, appears older than stated age Orientation/consciousness: patient oriented x3 HENMT Other: Dry oral mucosa Resp Effort & Inspection: normal respiratory effort Cardio Other: Normal peripheral perfusion GI Other: Abdomen is soft, nondistended, nontender to palpation, no guard Skin Other: Warm dry no rash Neuro General: patient oriented x3, no focal motor deficits and CN's II-XI intact bilaterally Psych Other: Hostile belligerent Course Reevaluation(s) Reevaluation #1: Chemistries returning, the patient is mildly hypokalemic, we will give calcium gluconate 2 g, 5 units of insulin, further IV fluid resuscitation we do not have an ICU bed, I will continue to repeat chemistries in between treatment, Reevaluation #2: Gap continues to close, potassium now 4, beta hydroxy decreased, we will give additional fluid, give another 5 units of insulin, we will repeat chemistries when treatment is complete I am also starting 40 mEq of IV potassium as the additional insulin we will drop his potassium Reevaluation #3: Gap further closed, his potassium is 5.1, his beta hydroxy is under 5, I am going to try to admit to the hospital. Medications Administered Discontinued Medications Generic Name Dose Route Start Last Admin Trade Name Freq PRN Reason Stop Dose Admin Droperidol 2.5 mg 08/18/24 19:11 08/18/24 19:36 Droperidol 5 Mg/2 Ml Vial IVPUSH 08/18/24 19:12 2.5 mg ONCE ONE Administration Sodium Chloride 1,000 mls @ 999 mls/hr 08/18/24 16:45 08/18/24 18:11 Ns IV 08/18/24 17:45 Infused .Q1H1M NIA Infusion Sodium Chloride 1,000 mls @ 999 mls/hr 08/18/24 16:45 08/18/24 19:13 Ns IV 08/18/24 17:45 Infused .Q1H1M NIA Infusion Calcium Gluconate 2 gm in 100 mls @ 50 mls/hr 08/18/24 17:57 08/18/24 20:30 Calcium Gluconate IV 08/18/24 19:56 Infused ONCE ONE Infusion Sodium Chloride 1,000 mls @ 999 mls/hr 08/18/24 18:00 08/18/24 19:13 Ns IV 08/18/24 19:00 Infused .Q1H1M NIA Infusion Sodium Chloride 1,000 mls @ 999 mls/hr 08/18/24 20:00 08/18/24 20:26 Ns IV 08/18/24 21:00 999 mls/hr .Q1H1M NIA Administration Potassium Chloride 10 meq in 100 mls @ 100 mls/hr 08/18/24 20:00 08/19/24 00:25 Potassium Chloride/H20 IV 08/18/24 23:59 100 mls/hr Q1H NIA Administration Sodium Chloride 1,000 mls @ 999 mls/hr 08/18/24 22:00 08/18/24 21:48 Ns IV 08/18/24 23:00 999 mls/hr .Q1H1M NIA Administration Insulin Glargine 10 unit 08/19/24 00:46 08/19/24 01:14 Insulin Glargine,Hum.Rec.Anlog 100 Unit/Ml 10 Ml Vial SUBCUT 08/19/24 00:47 10 unit ONCE ONE Administration Insulin Human Regular 5 unit 08/18/24 17:57 08/18/24 18:09 Insulin Regular, Human 100 Unit/Ml 10 Ml Vial IVPUSH 08/18/24 17:58 5 unit ONCE ONE Administration Insulin Human Regular 5 unit 08/18/24 19:53 08/18/24 20:22 Insulin Regular, Human 100 Unit/Ml 10 Ml Vial IVPUSH 08/18/24 19:54 5 unit ONCE ONE Administration Ondansetron HCl 4 mg 08/18/24 16:38 08/18/24 16:57 Ondansetron Hcl 4 Mg/2 Ml Vial IVPUSH 08/18/24 16:39 4 mg ONCE ONE Administration Procedures Procedure Narrative Procedure Narrative: 18 gauge 3/4 inch ultrasound guided IV placed in the right upper extremity. Adequate blood return, flushes well, secured with Tegaderm Medical Decision Making Medical Decision Making [facility] Narrative: 49-year-old male with a history of polysubstance abuse, IV drug abuse, diabetes presents with nausea vomiting diarrhea x2 days. Denies abdominal pain. History limited as patient is not cooperative, not wanting to engage in conversation so as to obtain detailed history. Per EMS, his blood sugar was over 600. Problem: Diabetes and substance abuse History: Per patient which is limited I have considered the following differential diagnoses: Viral syndrome, acute intra-abdominal pathology, DKA, HHS Plan: In regard to the nausea vomiting and diarrhea, I am considering underlying viral gastroenteritis, such illness has been prevalent within the community. His abdominal exam is benign, I do not think he has an acute intra-abdominal infection, imaging is not warranted at this time. In regard to his elevated blood sugars, I am concerned for DKA, the patient does not care for himself, we will be screening basic labs, beta hydroxy, starting aggressive IV fluid. Obtaining an EKG, he may have associated electrolyte abnormalities. We will obtain a viral Panel as well. I have independently reviewed the following tests: Labs: Leukocytosis, left shift, not anemic, pink in his dry, his potassium was 5.4, he has a gap of 27, his creatinine is 1.43, sugars over 600, 1st beta hydroxy 8.75 Repeat chemistry 1.: Potassium 4, gap LEs is now 23, creatinine 1.19, blood sugar 459, beta hydroxy 5.94 Repeat chemistry 2.: Potassium 5.1, sugars just under 400, beta hydroxy under 5, gap continues to ? EKG: Sinus bradycardia, rate of 58, no ischemic changes no ectopy, QT 410, peaked T-waves noted Lab Data 08/18/24 17:28 08/18/24 22:59 Labs: Lab Results 08/18/24 08/18/24 08/18/24 Range/Units 17:28 19:06 19:14 WBC 13.3 H (4.8-10.8) X10*3/uL RBC 3.78 L (4.60-5.80) X10*6/uL Hgb 11.9 L (14.0-18.0) g/dl Hct 36.0 L (42.0-52.0) % MCV 95.2 (80.0-98.0) fL MCH 31.5 (27.0-33.0) pg MCHC 33.1 (31.0-36.0) g/dl RDW 14.1 (11.0-16.0) % Plt Count 279 (160-400) X10*3/uL MPV 10.5 (9.4-12.4) fL Immature Gran % (Auto) 0.5 H (0.0-0.4) % Neut % (Auto) 84.9 H (45-73) % Lymph % (Auto) 12.3 L (20-40) % [place] % (Auto) 2.1 (2-11) % Eos % (Auto) 0.0 (0-4) % Baso % (Auto) 0.2 (0-2) % Lymph # (Auto) 1.6 (1.2-4.9) X10*3/uL [place] # (Auto) 0.3 (0.1-1.2) X10*3/uL Eos # (Auto) 0.0 (0.0-0.4) X10*3/uL Baso # (Auto) 0.0 (0.0-0.2) X10*3/uL Abs Immat Gran (auto) 0.06 H (0.00-0.03) X10*3/uL Absolute Neuts (auto) 11.3 H (2.0-8.3) x10*3/uL Absolute Nucleated RBC 0.000 (0.0-0.012) X10*3/uL Nucleated RBC % (auto) 0.0 (0.0-0.2) /100WBC Sodium 127 L 132 L (135-145) mmol/L Potassium 5.4 H 4.0 D (3.3-5.1) mmol/L Chloride 91 L 100 (96-108) mmol/L Carbon Dioxide 14 L 13 L (22-29) mmol/L Anion Gap 27 H 23 H (12-20) BUN 29 H 26 H (9-16) mg/dL Creatinine 1.43 H 1.19 (0.5-1.4) mg/dL Estim Creat Clear Calc 46.5 55.8 Estimated GFR 53 > 60 POC Glucose 415 H* (60-115) mg/dL Random Glucose 630 H* 459 H* (60-115) mg/dL Calcium 8.6 D 8.0 L D (8.4-10.2) mg/dL Magnesium 2.2 1.9 (1.6-2.6) mg/dL Total Bilirubin 0.8 0.5 (0.0-1.0) mg/dL AST 58 H 49 H (5-37) U/L ALT 52 H 46 H (0-40) U/L Alkaline Phosphatase 117 100 (39-117) U/L Total Protein 9.1 H 7.9 (6.5-8.0) g/dL Albumin 3.6 3.1 L (3.5-5.0) g/dL Lipase 9 (8-78) U/L Beta-Hydroxybutyrate 8.75 H 5.94 H (0.02-0.27) mmol/L Influenza Type A (PCR) NEGATIVE (Negative) Influenza Type B (PCR) NEGATIVE (Negative) RSV RNA Qual (PCR) NEGATIVE (Negative) SARS-CoV-2 RNA (RT-PCR) NEGATIVE (Negative) 08/18/24 08/18/24 08/18/24 Range/Units 20:15 21:25 22:59 WBC (4.8-10.8) X10*3/uL RBC (4.60-5.80) X10*6/uL Hgb (14.0-18.0) g/dl Hct (42.0-52.0) % MCV (80.0-98.0) fL MCH (27.0-33.0) pg MCHC (31.0-36.0) g/dl RDW (11.0-16.0) % Plt Count (160-400) X10*3/uL MPV (9.4-12.4) fL Immature Gran % (Auto) (0.0-0.4) % Neut % (Auto) (45-73) % Lymph % (Auto) (20-40) % [place] % (Auto) (2-11) % Eos % (Auto) (0-4) % Baso % (Auto) (0-2) % Lymph # (Auto) (1.2-4.9) X10*3/uL [place] # (Auto) (0.1-1.2) X10*3/uL Eos # (Auto) (0.0-0.4) X10*3/uL Baso # (Auto) (0.0-0.2) X10*3/uL Abs Immat Gran (auto) (0.00-0.03) X10*3/uL Absolute Neuts (auto) (2.0-8.3) x10*3/uL Absolute Nucleated RBC (0.0-0.012) X10*3/uL Nucleated RBC % (auto) (0.0-0.2) /100WBC Sodium 131 L (135-145) mmol/L Potassium 5.1 D (3.3-5.1) mmol/L Chloride 101 (96-108) mmol/L Carbon Dioxide 16 L (22-29) mmol/L Anion Gap 19 (12-20) BUN 24 H (9-16) mg/dL Creatinine 1.04 (0.5-1.4) mg/dL Estim Creat Clear Calc 63.9 Estimated GFR > 60 POC Glucose 449 H* 341 H (60-115) mg/dL Random Glucose 393 H* (60-115) mg/dL Calcium 7.8 L (8.4-10.2) mg/dL Magnesium 1.7 (1.6-2.6) mg/dL Total Bilirubin 0.5 (0.0-1.0) mg/dL AST 41 H (5-37) U/L ALT 39 (0-40) U/L Alkaline Phosphatase 90 (39-117) U/L Total Protein 7.1 (6.5-8.0) g/dL Albumin 2.8 L (3.5-5.0) g/dL Lipase (8-78) U/L Beta-Hydroxybutyrate 4.64 H (0.02-0.27) mmol/L Influenza Type A (PCR) (Negative) Influenza Type B (PCR) (Negative) RSV RNA Qual (PCR) (Negative) SARS-CoV-2 RNA (RT-PCR) (Negative) 08/18/24 08/19/24 Range/Units 23:11 01:02 WBC (4.8-10.8) X10*3/uL RBC (4.60-5.80) X10*6/uL Hgb (14.0-18.0) g/dl Hct (42.0-52.0) % MCV (80.0-98.0) fL MCH (27.0-33.0) pg MCHC (31.0-36.0) g/dl RDW (11.0-16.0) % Plt Count (160-400) X10*3/uL MPV (9.4-12.4) fL Immature Gran % (Auto) (0.0-0.4) % Neut % (Auto) (45-73) % Lymph % (Auto) (20-40) % [place] % (Auto) (2-11) % Eos % (Auto) (0-4) % Baso % (Auto) (0-2) % Lymph # (Auto) (1.2-4.9) X10*3/uL [place] # (Auto) (0.1-1.2) X10*3/uL Eos # (Auto) (0.0-0.4) X10*3/uL Baso # (Auto) (0.0-0.2) X10*3/uL Abs Immat Gran (auto) (0.00-0.03) X10*3/uL Absolute Neuts (auto) (2.0-8.3) x10*3/uL Absolute Nucleated RBC (0.0-0.012) X10*3/uL Nucleated RBC % (auto) (0.0-0.2) /100WBC Sodium (135-145) mmol/L Potassium (3.3-5.1) mmol/L Chloride (96-108) mmol/L Carbon Dioxide (22-29) mmol/L Anion Gap (12-20) BUN (9-16) mg/dL Creatinine (0.5-1.4) mg/dL Estim Creat Clear Calc Estimated GFR POC Glucose 384 H* 403 H* (60-115) mg/dL Random Glucose (60-115) mg/dL Calcium (8.4-10.2) mg/dL Magnesium (1.6-2.6) mg/dL Total Bilirubin (0.0-1.0) mg/dL AST (5-37) U/L ALT (0-40) U/L Alkaline Phosphatase (39-117) U/L Total Protein (6.5-8.0) g/dL Albumin (3.5-5.0) g/dL Lipase (8-78) U/L Beta-Hydroxybutyrate (0.02-0.27) mmol/L Influenza Type A (PCR) (Negative) Influenza Type B (PCR) (Negative) RSV RNA Qual (PCR) (Negative) SARS-CoV-2 RNA (RT-PCR) (Negative) Critical Care Time Critical Care Time Critical Care Time: Yes Total Critical Care Time: 45 Attestation: The patient was critically ill with a high probability of imminent or life-threatening deterioration. I spent greater than 30 minutes of discontinuous time evaluating the patient, delivering critical care at the bedside, discussing evaluating data with consultants. Critical care time does not include time spent performing separately billable procedures or teaching. Time spent performing critical care with 45 minutes. Discharge Plan Discharge Clinical Impression: DKA (diabetic ketoacidosis) Patient Disposition: Admitted As Inpatient
--- NOTE | 2024-08-18 16:42 | ECG_ITS ---
Test Reason : AARHYTHMIA Blood Pressure : / mmHG Vent. Rate : 058 BPM Atrial Rate : 058 BPM P-R Int : 146 ms QRS Dur : 096 ms QT Int : 418 ms P-R-T Axes : 066 074 059 degrees QTc Int : 410 ms Sinus bradycardia with sinus arrhythmia Otherwise normal ECG When compared with ECG of 05-JUL-2021 00:54, Vent. rate has decreased BY 38 BPM Nonspecific T wave abnormality no longer evident in Lateral leads Referred By: Marina Elizondo Electronically Signed By:STEF CRAFT
[2024-08-18] MEDS: 0.9 % Sodium Chloride 1,000 ML 999 ML IV ×5 (16:45→21:48)
[2024-08-18] MEDS: ondansetron HCL 4 MG/2 ML VIAL IVPUSH (16:57)
--- NOTE | 2024-08-18 17:10 | PC.NURSE ---
This RN and NBA Mon attempting to obtain labs/IV. 22g IV placed to left forearm, infiltrated. NBA Mon attempted ultrasound IV, pt became resistant to care stating he wants to warm up first. Pt given warm blankets/hot packs. Pt in agreement for tech to try and obtain labs. Call salas within reach, all needs met at this time.
--- NOTE | 2024-08-18 17:12 | PC.NURSE ---
Pt biba, was found on the side of the road lethargic. Pt found to be hyperglycemic enroute, POC 590s. Our POC machine reading >600. Pt a/ox4, lethargic, nodding off during assessment, mumbled speech, no increased wob/sob noted, s1 and s2 heard, placed on quality assurance monitor body for safety, NSR HR-60s, abdomen tender on palpation. Pt endorsing nausea/vomiting x2 days. Pt states he hasn't eaten in 2 days. Tech attempting to obtain labs, pt resistant to care d/t unable to get IV. 22g IV placed in right forearm, infiltrated during ultrasound guided attempt. Fluids paused at this time, START UP SPECIALIST Yaa aware. EKG obtained, call salas within reach, all needs met at this time.
[2024-08-18 17:32] LABS: MANUAL DIFF FLAG NO
[2024-08-18 17:47] LABS: Lipase 9 U/L (8-78)
[2024-08-18 17:53] LABS: Alanine Aminotransferase 52 U/L (0-40); Albumin Level 3.6 g/dL (3.5-5.0); Alkaline Phosphatase 117 U/L (39-117); Anion Gap 27 (12-20); Aspartate Amino Transferase 58 U/L (5-37); Bilirubin Total 0.8 mg/dL (0.0-1.0); Blood Urea Nitrogen 29 mg/dL (9-16); Calcium 8.6 mg/dL (8.4-10.2); Carbon Dioxide 14 mmol/L (22-29); Chloride 91 mmol/L (96-108); Creatinine Clr Calc Pharmacy 46.5; Estimated Glomerular Filt Rate 53; Glucose Random 630 mg/dL (60-115); Magnesium 2.2 mg/dL (1.6-2.6); Potassium 5.4 mmol/L (3.3-5.1); Sodium 127 mmol/L (135-145); Total Protein 9.1 g/dL (6.5-8.0)
[2024-08-18 17:56] LABS: Basophils Percent Auto 0.2 % (0-2); Hemoglobin 11.9 g/dl (14.0-18.0); Imm Gran Abs Auto 0.06 X10*3/uL (0.00-0.03); Imm Gran Pct Auto 0.5 % (0.0-0.4); Lymphocytes Absolute Auto 1.6 X10*3/uL (1.2-4.9); Lymphocytes Percent Auto 12.3 % (20-40); Mean Corpuscular HGB Conc 33.1 g/dl (31.0-36.0); Mean Corpuscular Hemoglobin 31.5 pg (27.0-33.0); Mean Corpuscular Volume 95.2 fL (80.0-98.0); Mean Platelet Volume 10.5 fL (9.4-12.4); Monocytes Absolute Auto 0.3 X10*3/uL (0.1-1.2); Monocytes Percent Auto 2.1 % (2-11); Neutrophils Absolute Auto 11.3 x10*3/uL (2.0-8.3); Neutrophils Percent Auto 84.9 % (45-73); Platelet Count 279 X10*3/uL (160-400); Red Blood Count 3.78 X10*6/uL (4.60-5.80); Red Cell Distribution Width 14.1 % (11.0-16.0); White Blood Count 13.3 X10*3/uL (4.8-10.8)
[2024-08-18] MEDS: Calcium Gluconate/NaCl,Iso-Osm 2 GM/100 ML PLAST..BAG IV (18:07)
[2024-08-18] MEDS: Insulin Regular, Human 100 UNIT/ML 10 ML VIAL IVPUSH ×2 (18:09→20:22)
[2024-08-18 18:10] LABS: Influenza A PCR NEGATIVE (Negative); Influenza B PCR NEGATIVE (Negative); Resp Syncy Virus RNA Qual PCR NEGATIVE (Negative); SARS COV2 PCR INHOUSE NEGATIVE (Negative)
[2024-08-18 18:15] LABS: Beta-Hydroxybutyrate 8.75 mmol/L (0.02-0.27)
--- NOTE | 2024-08-18 18:17 | PC.NURSE ---
Per IVON Mon, start q1 hr POC checks at 1800.
--- NOTE | 2024-08-18 18:41 | PC.NURSE ---
Per IVON Mon, start Q1hr POC checks at 1900
[2024-08-18 19:14] VITALS: BP 124/71; PULSE 74; RESP 20; TEMP 36.9; O2SAT 100
[2024-08-18 19:24] LABS: Glucose, Whole Blood 415 mg/dL (60-115)
[2024-08-18] MEDS: droPERidol 5 MG/2 ML VIAL 2.5 MG IVPUSH (19:36)
[2024-08-18 19:47] LABS: Alanine Aminotransferase 46 U/L (0-40); Albumin Level 3.1 g/dL (3.5-5.0); Alkaline Phosphatase 100 U/L (39-117); Anion Gap 23 (12-20); Aspartate Amino Transferase 49 U/L (5-37); Beta-Hydroxybutyrate 5.94 mmol/L (0.02-0.27); Bilirubin Total 0.5 mg/dL (0.0-1.0); Blood Urea Nitrogen 26 mg/dL (9-16); Carbon Dioxide 13 mmol/L (22-29); Chloride 100 mmol/L (96-108); Creatinine Clr Calc Pharmacy 55.8; Estimated Glomerular Filt Rate > 60; Glucose Random 459 mg/dL (60-115); Magnesium 1.9 mg/dL (1.6-2.6); Sodium 132 mmol/L (135-145); Total Protein 7.9 g/dL (6.5-8.0)
[2024-08-18 20:19] LABS: Glucose, Whole Blood 449 mg/dL (60-115)
[2024-08-18] MEDS: Potassium Chloride/H20 10 MEQ/100 ML PIGGYBACK 100 MEQ IV ×3 (20:21→22:58)
[2024-08-18 21:29] LABS: Glucose, Whole Blood 341 mg/dL (60-115)
[2024-08-18 23:00] VITALS: BP 123/75; PULSE 81; RESP 18; O2SAT 95
[2024-08-18 23:15] LABS: Glucose, Whole Blood 384 mg/dL (60-115)
[2024-08-18 23:24] LABS: Alanine Aminotransferase 39 U/L (0-40); Albumin Level 2.8 g/dL (3.5-5.0); Alkaline Phosphatase 90 U/L (39-117); Anion Gap 19 (12-20); Aspartate Amino Transferase 41 U/L (5-37); Beta-Hydroxybutyrate 4.64 mmol/L (0.02-0.27); Bilirubin Total 0.5 mg/dL (0.0-1.0); Blood Urea Nitrogen 24 mg/dL (9-16); Calcium 7.8 mg/dL (8.4-10.2); Carbon Dioxide 16 mmol/L (22-29); Chloride 101 mmol/L (96-108); Creatinine Clr Calc Pharmacy 63.9; Estimated Glomerular Filt Rate > 60; Glucose Random 393 mg/dL (60-115); Magnesium 1.7 mg/dL (1.6-2.6); Potassium 5.1 mmol/L (3.3-5.1); Sodium 131 mmol/L (135-145); Total Protein 7.1 g/dL (6.5-8.0)
[2024-08-19] VITALS (10 sets, daily range): BP systolic 92–142; BP diastolic 25–82; PULSE 73–89; RESP 16–20; TEMP 36.3–37.6; O2SAT 98–100
[2024-08-19] MEDS: Potassium Chloride/H20 10 MEQ/100 ML PIGGYBACK 100 MEQ IV (00:25)
[2024-08-19 01:06] LABS: Glucose, Whole Blood 403 mg/dL (60-115)
[2024-08-19] MEDS: Insulin Glargine,Hum.rec.anlog 100 UNIT/ML 10 ML VIAL 10 UNIT SUBCUT (01:14)
--- NOTE | 2024-08-19 02:02 | P.HPHOSP_ITS ---
History of Present Illness Date of Service: 08/19/24 Attending physician on admission: Susan Hu Chief Complaint: Abdominal pain Kelechi Rodriguez is a 49 years old man with past medical history significant for ongoing IV drug use on methadone, HIV and type diabetes mellitus presents to the emergency department complaining of right forearm pain, abdominal pain, nausea and diarrhea over the last couple of days. He had a surgical intervention in the right forearms for necrosis at [facility] recently (the wound still have the karina). He stated that he has a means his insulin. HPI was quite difficult to obtain as the patient seems not very interested in the interview and constantly asking for Dilaudid. In the ED, he was found to have normal vital signs. Blood workup showed leukocytosis of 13.3, hemoglobin is 11.9 and platelets are normal. Initial glucose POC was > 600, bicarb was initially 13 (most recent 16), anion gap was 23 and has been normalized. Creatinine is 1.04. Transaminases are mildly elevated. Alk-phos, bilirubin are lipase are normal. Viral testing is negative for COVID-19, influenza and RSV. ED tx: He was treated with insulin R IV pushes, IV fluids and antiemetic. According to ED provider, patient received a total of 5 L of normal saline. Review of Systems 2 Review of Systems: All 12 systems were reviewed and normal except as noted in HPI. [facility] Medical History Opioid use disorder Hep C w/o coma, chronic HIV (human immunodeficiency virus infection) HIV (human immunodeficiency virus infection) Compartment syndrome Active substance abuse Substance abuse Diabetes Diabetes Surgical History History of fasciotomy H/O fasciotomy Social History Household Members: Family Household Members Other:: self Housing: House Do you presently have visiting nurse or other home services: No Unable to assess alcohol history related to: Unknown Alcohol intake: current Alcohol intake frequency: a few times a week Comment: pt refuses bed alarm Patient Tobacco Use Status: Current everyday Tobacco user Tobacco use type: Cigarette Cigarette Packs Per Day: 1 Cigarettes Per Day: 20.0 Smoked in Last 30 Days: No Substance Use Type: Heroin and Marijuana Advance Directives: Yes Advance Directives on File: Yes Advance Directives Date on File: 07/09/21 Do you have a plan to hurt others: No Plan service: No Current occupational status: unemployed Meds Allergies Allergy/AdvReac Type Severity Reaction Status Date / Time fish Allergy Unknown Anaphylaxis Uncoded 08/18/24 16:22 shellfish Allergy Unknown Anaphylaxis Uncoded 08/18/24 16:22 Active Medications: Current Medications Acetaminophen (Acetaminophen 325 Mg Tablet) 975 mg PO Q6H PRN PRN Reason: Pain, Mild (Pain Scale 1-3), fever or headache Enoxaparin Sodium (Enoxaparin Sodium 40 Mg/0.4 Ml Syringe) 40 mg SUBCUT Q24H NIA Glucose (Glucose Gel 15 Gm Gel..Gram.) 15 gm PO Q15M PRN; Protocol PRN Reason: per Hypoglycemia Standing Ord. Hydromorphone HCl (Hydromorphone Hcl 1 Mg/Ml Syringe) 1 mg IVPUSH Q4H PRN; Protocol PRN Reason: Pain, Severe (Pain Scale 7-10) Sodium Chloride (Ns) 500 mls @ 500 mls/hr IV .Q1H STA Stop: 08/19/24 02:57 Sodium Chloride (Ns) 1,000 mls @ 200 mls/hr IVCONT .Q5H NIA Stop: 08/19/24 06:59 Dextrose (D10) 250 mls @ 750 mls/hr IV Q15M PRN; Protocol PRN Reason: per Hypoglycemia Standing Ord. Insulin Glargine (Insulin Glargine,Hum.Rec.Anlog 100 Unit/Ml 10 Ml Vial) 40 unit SUBCUT BEDTIME [facility] Insulin Human Lispro (Insulin Lispro 100 Unit/Ml 3 Ml Vial) 0 unit SUBCUT QIDACHS [facility]; Protocol Sodium Chloride (0.9 % Sodium Chloride Flush 3 Ml Syringe) 3 ml IVFLUSH QSHIFT [facility] Home Medications ?Medication ?Instructions ?Recorded ?Confirmed ?Last Taken ?Type abacavir 600 mg-dolutegravir 50 1 tab PO DAILY 06/23/21 07/07/21 Unknown History mg-lamivudine 300 mg tablet (Triumeq) cyanocobalamin (vitamin B-12) 100 100 mcg PO DAILY 06/23/21 06/23/21 Unknown History mcg tablet ferrous sulfate 324 mg (65 mg 324 mg PO DAILY 06/23/21 06/23/21 Unknown History iron) tablet,delayed release gabapentin 300 mg capsule 1 cap PO BID 06/23/21 07/07/21 Unknown History insulin lispro 100 unit/mL See Rx Instructions .Route .COMPLEX 06/23/21 07/07/21 Unknown History subcutaneous pen (Humalog KwikPen (U-100) Insulin) methadone 5 mg/5 mL oral solution 20 mg PO DAILY 06/23/21 06/23/21 Unknown History quetiapine 50 mg tablet 1 tab PO BEDTIME 06/23/21 07/07/21 Unknown History Physical Exam 2 Vital Signs and Narrative: Vital Signs: Last Vital Signs Temp 98.4 F 08/18/24 19:14 Pulse 74 08/18/24 19:14 Resp 20 08/18/24 19:14 BP 124/71 08/18/24 19:14 Pulse Ox 100 08/18/24 19:14 O2 Del Method Room Air 08/18/24 19:14 BMI result Body Mass Index 16.3 Constitutional - Awake and Alert. Constantly asking for Dilaudid. Cachectic. HEENT - PERRL, EOMI. Dry oral mucosa. Heart - S1S2, RRR, No no murmur. Lungs - Normal lung expansion, Normal respiratory effort, No respiratory distress, CTA bilaterally Abdomen - NT / ND; +BS; No rebound or guarding Extremities - Right forearm: Large surgical glue with karina along the volar aspect of the forearm. No discharges or erythema noted. Musculoskeletal - Normal inspection, normal ROM Skin - Warm/Dry Neurological - Alert & oriented x3. Psychological - Appropriate affect Results Labs 08/18/24 17:28 08/18/24 22:59 Labs: Laboratory Results - last 24 hr 08/18/24 08/18/24 08/18/24 17:28 19:06 19:14 MCV 95.2 MCH 31.5 MCHC 33.1 RDW 14.1 Plt Count 279 MPV 10.5 Immature Gran % (Auto) 0.5 H Neut % (Auto) 84.9 H Lymph % (Auto) 12.3 L [place] % (Auto) 2.1 Eos % (Auto) 0.0 Baso % (Auto) 0.2 Lymph # (Auto) 1.6 [place] # (Auto) 0.3 Eos # (Auto) 0.0 Baso # (Auto) 0.0 Abs Immat Gran (auto) 0.06 H Absolute Neuts (auto) 11.3 H Absolute Nucleated RBC 0.000 Nucleated RBC % (auto) 0.0 Anion Gap 27 H 23 H Estim Creat Clear Calc 46.5 55.8 Estimated GFR 53 > 60 POC Glucose 415 H* Random Glucose 630 H* 459 H* Calcium 8.6 D 8.0 L D Magnesium 2.2 1.9 Total Bilirubin 0.8 0.5 AST 58 H 49 H ALT 52 H 46 H Alkaline Phosphatase 117 100 Total Protein 9.1 H 7.9 Albumin 3.6 3.1 L Lipase 9 Beta-Hydroxybutyrate 8.75 H 5.94 H Influenza Type A (PCR) NEGATIVE Influenza Type B (PCR) NEGATIVE RSV RNA Qual (PCR) NEGATIVE SARS-CoV-2 RNA (RT-PCR) NEGATIVE 08/18/24 08/18/24 08/18/24 20:15 21:25 22:59 MCV MCH MCHC RDW Plt Count MPV Immature Gran % (Auto) Neut % (Auto) Lymph % (Auto) [place] % (Auto) Eos % (Auto) Baso % (Auto) Lymph # (Auto) [place] # (Auto) Eos # (Auto) Baso # (Auto) Abs Immat Gran (auto) Absolute Neuts (auto) Absolute Nucleated RBC Nucleated RBC % (auto) Anion Gap 19 Estim Creat Clear Calc 63.9 Estimated GFR > 60 POC Glucose 449 H* 341 H Random Glucose 393 H* Calcium 7.8 L Magnesium 1.7 Total Bilirubin 0.5 AST 41 H ALT 39 Alkaline Phosphatase 90 Total Protein 7.1 Albumin 2.8 L Lipase Beta-Hydroxybutyrate 4.64 H Influenza Type A (PCR) Influenza Type B (PCR) RSV RNA Qual (PCR) SARS-CoV-2 RNA (RT-PCR) 08/18/24 08/19/24 23:11 01:02 MCV MCH MCHC RDW Plt Count MPV Immature Gran % (Auto) Neut % (Auto) Lymph % (Auto) [place] % (Auto) Eos % (Auto) Baso % (Auto) Lymph # (Auto) [place] # (Auto) Eos # (Auto) Baso # (Auto) Abs Immat Gran (auto) Absolute Neuts (auto) Absolute Nucleated RBC Nucleated RBC % (auto) Anion Gap Estim Creat Clear Calc Estimated GFR POC Glucose 384 H* 403 H* Random Glucose Calcium Magnesium Total Bilirubin AST ALT Alkaline Phosphatase Total Protein Albumin Lipase Beta-Hydroxybutyrate Influenza Type A (PCR) Influenza Type B (PCR) RSV RNA Qual (PCR) SARS-CoV-2 RNA (RT-PCR) Assessment and Plan (1) DKA (diabetic ketoacidosis): Qualifiers: Diabetes mellitus type: type 1 Diabetes mellitus complication detail: w ithout coma Qualified Code(s): E10.10 - Type 1 diabetes mellitus with ketoacidosis without coma Status: Acute (2) Protein calorie malnutrition: Qualifiers: Protein-calorie malnutrition severity: severe Qualified Code(s): E43 - Unspecified severe protein-calorie malnutrition Status: Acute Plan Kelechi Rodriguez is a 49 y/o man admitted with: * s/p DKA, persists with uncontrolled blood glucose and metabolic acidosis: Most recent 403 (1 am). Check BMP, magnesium and venous pH now and 6 am. Continue IV fluids, Lantus 40 units subQ bedtime (ED gave 10 units, will order 30 units more now), insulin sliding scale and lispro 5 units subQ with meals. * Abdominal pain, nausea, vomiting and diarrhea. Likely secondary to above. Improving. Continue IV analgesia, IV fluids and antiemetics. * HIV. Continue Triumeq. * Ongoing IV drug use (heroin). On methadone. COWS. Addiction medicine consult. * Protein calorie malnutrition. BMI 16.3 kg/m2. Dietary consult. * Recent left forearm surgery. Compartment syndrome/fasciotomy? DVT prophylaxis: Lovenox Code status: Full Patient will need hospitalization for at least 2 midnights for s/p DKA/uncontrolled diabetes treatment with IV fluids, continuous monitoring of glucose and insulin. Quality Stroke Does the patient have a stroke diagnosis?: No VTE Prior VTE?: No VTE Risk Level:: Medical - moderate - high VTE Device Contraindication: Treatment Not Indicated VTE Drug Contraindication: N/A - Med Ordered
[2024-08-19] MEDS: HYDROmorphone HCl 1 MG/ML SYRINGE IVPUSH ×4 (02:27→20:41)
[2024-08-19] MEDS: Insulin Lispro 100 UNIT/ML 3 ML VIAL 10 UNIT SUBCUT (02:28)
[2024-08-19] MEDS: 0.9 % Sodium Chloride 500 ML IV (02:29)
[2024-08-19 02:30] LABS: Venous Blood Gas Refer to POC result
[2024-08-19] MEDS: 0.9 % Sodium Chloride 1,000 ML 200 ML IVCONT (02:36)
[2024-08-19 02:37] LABS: VBG Base Excess -8.9 mmol/L; VBG HCO3 13 mmol/L (22-26); VBG pCO2 22 mmHg; VBG pH 7.39 (7.32-7.43); VBG pO2 126 mmHg
[2024-08-19 02:56] LABS: Anion Gap 21 (12-20); Blood Urea Nitrogen 27 mg/dL (9-16); Calcium 8.3 mg/dL (8.4-10.2); Carbon Dioxide 13 mmol/L (22-29); Chloride 98 mmol/L (96-108); Creatinine Clr Calc Pharmacy 54.5; Estimated Glomerular Filt Rate > 60; Glucose Random 516 mg/dL (60-115); Magnesium 1.6 mg/dL (1.6-2.6); Sodium 126 mmol/L (135-145)
[2024-08-19 03:12] LABS: Amphetamine Screen Urine Not Detected (Not Detect); Barbiturates, Urine Not Detected (Not Detect); Benzodiazepines Screen Urine Not Detected (Not Detect); Buprenorphine Scr Not Detected (Not Detect); Cannabinoid Screen Urine Not Detected (Not Detect); Cocaine Screen Urine POSITIVE (Not Detect); Fentanyl, urine POSITIVE (Not Detect); Methadone Screen, Urine Not Detected (Not Detect); Opiate Screen Urine POSITIVE (Not Detect); Oxycodone Screen Urine Not Detected (Not Detect); Phencyclidine Screen Urine Not Detected (Not Detect)
--- NOTE | 2024-08-19 03:28 | PC.NURSE ---
Inpatient MD states not to check poc until [id number]
[2024-08-19] MEDS: Insulin Glargine,Hum.rec.anlog 100 UNIT/ML 10 ML VIAL 30 UNIT SUBCUT (03:39)
[2024-08-19] MEDS: Insulin Regular, Human 100 UNIT/ML 10 ML VIAL 10 UNIT IVPUSH (03:40)
[2024-08-19] MEDS: Sodium Bicarbonate 8.4% 50 MEQ/50 ML SYRINGE IVPUSH (03:41)
[2024-08-19 05:10] LABS: Glucose, Whole Blood 271 mg/dL (60-115)
[2024-08-19 05:11] LABS: Hematocrit 29.8 % (42.0-52.0); Hemoglobin 10.1 g/dl (14.0-18.0); Mean Corpuscular HGB Conc 33.9 g/dl (31.0-36.0); Mean Corpuscular Hemoglobin 31.3 pg (27.0-33.0); Mean Corpuscular Volume 92.3 fL (80.0-98.0); Mean Platelet Volume 10.5 fL (9.4-12.4); Platelet Count 254 X10*3/uL (160-400); Red Blood Count 3.23 X10*6/uL (4.60-5.80); White Blood Count 15.3 X10*3/uL (4.8-10.8)
[2024-08-19 05:27] LABS: Alanine Aminotransferase 38 U/L (0-40); Albumin Level 2.7 g/dL (3.5-5.0); Alkaline Phosphatase 83 U/L (39-117); Anion Gap 16 (12-20); Aspartate Amino Transferase 40 U/L (5-37); Bilirubin Total 0.4 mg/dL (0.0-1.0); Blood Urea Nitrogen 24 mg/dL (9-16); Carbon Dioxide 18 mmol/L (22-29); Chloride 103 mmol/L (96-108); Estimated Glomerular Filt Rate > 60; Glucose Random 322 mg/dL (60-115); Potassium 3.7 mmol/L (3.3-5.1); Sodium 133 mmol/L (135-145); Total Protein 6.8 g/dL (6.5-8.0)
[2024-08-19] MEDS: Insulin Lispro 100 UNIT/ML 3 ML VIAL SUBCUT ×2 (05:50→17:03)
[2024-08-19 07:33] LABS: Estimated Average Glucose 303 mg/dL; Hemoglobin A1C 292.6488 umol/L; Hemoglobin A1c % 12.2 % (<6.0); Total Hemoglobin (HGBA1C) 2676.6297 umol/L
[2024-08-19 07:45] LABS: Glucose, Whole Blood 149 mg/dL (60-115)
--- NOTE | 2024-08-19 08:17 | PC.NURSE ---
This RN assumed care at 7am. Pt has been found laying on floor x 2 since. IV remains patents (U/S guided #18 right upper arm). pt repeatedly asking for second breakfast try and dilaudid. Is aware that additional carbs are not recommended.
--- NOTE | 2024-08-19 08:18 | PC.NURSE ---
reporting pain at surgical/wound site right arm. no s/sx od infection
--- NOTE | 2024-08-19 08:35 | PC.NURSE ---
patient moved to sleep on the floor for the 3rd time this am. This RN placed matress on floor as a compromise. Is refusing VS and tele monitor. Dr Melendrez present. Pt is not answering questions with ease.
[2024-08-19] MEDS: 0.9 % Sodium Chloride Flush 3 ML SYRINGE IVFLUSH ×2 (08:46→23:59)
--- NOTE | 2024-08-19 08:48 | PC.NURSE ---
pt stating that his lack of insulin use is a result of depression and SI. allowed for tele monitor placement (NSR) redressing o fwound (No s/sx infection) right arm and VS. fluids continue. Dr Melendrez to order a sitter, CARE TEAM and change insulin orders. Pt was slightly more willing to answer questions.
[2024-08-19 09:06] LABS: Anion Gap 10 (12-20); Blood Urea Nitrogen 22 mg/dL (9-16); Calcium 8.3 mg/dL (8.4-10.2); Carbon Dioxide 24 mmol/L (22-29); Chloride 103 mmol/L (96-108); Creatinine Clr Calc Pharmacy 73.9; Estimated Glomerular Filt Rate > 60; Glucose Random 114 mg/dL (60-115); Magnesium 1.7 mg/dL (1.6-2.6); Potassium 3.9 mmol/L (3.3-5.1); Sodium 133 mmol/L (135-145)
[2024-08-19 09:20] LABS: Glucose, Whole Blood 584 mg/dL (60-115)
[2024-08-19] MEDS: Enoxaparin Sodium 30 MG/0.3 ML SYRINGE SUBCUT (09:55)
[2024-08-19] MEDS: Insulin Glargine,Hum.rec.anlog 100 UNIT/ML 10 ML VIAL 20 UNIT SUBCUT (09:56)
--- NOTE | 2024-08-19 10:06 | PC.NURSE ---
moved to ignacio bed. cooperative with private branch exchange repairer with security. ambulatry w/o assist. no active N/V , moist mm. denies dizziness. currently has sitter assigned. awaits admission. was redirected with regards to how to address staff and voice needs.
[2024-08-19] MEDS: 0.9 % Sodium Chloride 1,000 ML 150 ML IVCONT (10:08)
[2024-08-19] MEDS: Albumin Human 25 % 100 ML IV ×3 (10:23→22:45)
--- NOTE | 2024-08-19 10:24 | PHA.MEDREC ---
Addendum entered by Therese Mason RPh 08/19/24 11:12: med rec reviewed by tone Original Note: Pharmacy Consult ? Medication Reconciliation Pharmacy has completed the medication reconciliation. Went to speak with patient and he was sleepy but woke up when I went to bedside and asked if he was taking any prescription medications or OTC and patient nodded no and then I asked if he was taking any Insulin injections still and patient shook his head no and started nodding off I looked in claims and it looks like nothing has been filled since May for the patient.
--- NOTE | 2024-08-19 11:41 | MHC.RECOVRN ---
Briefly met with pt in ED7 after consult placed to Addiction Medicine for IV substance use. Pt had presented to the ED after being found on the side of the road lethargic, hypertensive, POC >600, reporting n/v. Upon evaluation, pt admitted for DKA. Pt laying on mattress on the ground, difficult to engage in conversation. Pt restless during interview, rhinorrhea present. Pt reports heroin/fentanyl use, 2-3 bundles daily, IV, as well as cocaine, $40 daily, IV, last use yesterday. Pt would like to utilize methadone to address withdrawal symptoms. Denies other questions or concerns for t/w at this time. Discussed with Stella Haywood APRN. Plan to administer 30 mg methadone.
[2024-08-19] MEDS: methADONE HCl 20 MG/2 ML ORAL.CONC 30 MG PO (11:42)
--- NOTE | 2024-08-19 11:59 | PM.EVENT ---
Event Note Date of Service: 08/19/24 Event Note: This patient is seen and examined by hospitalist service this morning. Lab reviewed Physical exam and assessment and plan Agree with the plan in addition: s/p dka-resolved, Hbac1 12.2 continue ivf ,adjusted insulin lantus (d/w pharmacy he last lantus fill in may-unsure if he is using insulin, he was suppsed to be on 40-50 units lantus). he also expressed depression/SI-added psych eval ,sitter ,he will need bhn clearence before discharge. Time Spent With Patient Time: Total time managing care of this patient today ____ minutes.
[2024-08-19 12:33] LABS: Glucose, Whole Blood 109 mg/dL (60-115)
--- NOTE | 2024-08-19 13:42 | PC.NURSE ---
Pt sleeping and not willing to participate in admission assessment.
--- NOTE | 2024-08-19 15:59 | MHC.CM.PN ---
CM met with patient at bedside for CM assessment. Patient minimally engaged. Mostly answering questions by shaking head yes or no. Patient lives in an apartment alone. Functionally independent. Denies use of DME or services. Methadone @ [facility]. PCP Fartun Pascual [facility] HCP on file and verified. DP: Goal is home self care. Will likely need Lyft. CM will continue to follow.
[2024-08-19 16:51] LABS: Glucose, Whole Blood 128 mg/dL (60-115)
[2024-08-19] MEDS: Magnesium Oxide 400 MG TABLET PO (17:03)
[2024-08-19 20:35] LABS: Glucose, Whole Blood 76 mg/dL (60-115)
[2024-08-19 21:23] LABS: Glucose, Whole Blood 96 mg/dL (60-115)
[2024-08-20] MEDS: HYDROmorphone HCl 1 MG/ML SYRINGE IVPUSH ×2 (00:58→05:37)
[2024-08-20 03:19] VITALS: BP 129/77; PULSE 66; RESP 18; TEMP 36.9; O2SAT 98
[2024-08-20] MEDS: Albumin Human 25 % 100 ML IV (04:22)
[2024-08-20 05:46] LABS: Anion Gap 10 (12-20); Blood Urea Nitrogen 14 mg/dL (9-16); Calcium 8.3 mg/dL (8.4-10.2); Carbon Dioxide 27 mmol/L (22-29); Chloride 101 mmol/L (96-108); Creatinine Clr Calc Pharmacy 93.6; Estimated Glomerular Filt Rate > 60; Glucose Random 89 mg/dL (60-115); Potassium 3.4 mmol/L (3.3-5.1); Sodium 135 mmol/L (135-145)
[2024-08-20 06:20] LABS: Hemoglobin 9.4 g/dl (14.0-18.0); Mean Corpuscular HGB Conc 33.6 g/dl (31.0-36.0); Mean Corpuscular Hemoglobin 31.3 pg (27.0-33.0); Mean Corpuscular Volume 93.3 fL (80.0-98.0); Mean Platelet Volume 10.1 fL (9.4-12.4); Platelet Count 206 X10*3/uL (160-400); Red Cell Distribution Width 14.2 % (11.0-16.0); White Blood Count 7.5 X10*3/uL (4.8-10.8)
[2024-08-20 07:35] VITALS: BP 138/79; PULSE 69; RESP 18; O2SAT 97
[2024-08-20 07:39] LABS: Glucose, Whole Blood 108 mg/dL (60-115)
[2024-08-20 08:07] LABS: Appearance Urine Clear; Color Urine Yellow; Glucose Urine UA Negative (Negative); Leukocyte Esterase Urine Negative (Negative); Nitrite Urine Negative (Negative); Specific Gravity - Urine 1.015 (1.005-1.025); Urine Blood Negative (Negative); Urine Ketones Negative (Negative); Urine Protein Negative (Neg-Trace)
[2024-08-20] MEDS: Magnesium Oxide 400 MG TABLET PO (08:18)
[2024-08-20] MEDS: methADONE HCl 20 MG/2 ML ORAL.CONC 40 MG PO (08:19)
[2024-08-20] MEDS: 0.9 % Sodium Chloride Flush 3 ML SYRINGE IVFLUSH (08:19)
--- NOTE | 2024-08-20 09:10 | P.DS_ITS ---
DS: Providers Provider Date of Service: 08/20/24 Date of admission: 08/19/24 01:55 Primary care physician: Fatrun Pascual Consults: 08/19/24 02:22 Addiction Medicine Routine Consulting Provider: Addiction Covering Reason for consultation: IVDU Has provider been notified: No 08/19/24 11:57 Consult to Psychiatry Routine Consulting Provider: Psych Covering Reason for consultation: severe depression ,si Has provider been notified: No 08/20/24 08:17 Consult to Care Team Routine Comment: Reason for consultation: Ready for discharge DS: Diagnosis Discharge Diagnosis (1) DKA (diabetic ketoacidosis): Status: Acute (2) Protein calorie malnutrition: Status: Acute DS: Summary Hospital Course Hospital Course: Attending physician on admission: Susan Hu Chief Complaint: Abdominal pain Kelechi Rodriguez is a 49 years old man with past medical history significant for ongoing IV drug use on methadone, HIV and type diabetes mellitus presents to the emergency department complaining of right forearm pain, abdominal pain, nausea and diarrhea over the last couple of days. He had a surgical intervention in the right forearms for necrosis at [facility] recently (the wound still have the karina). He stated that he has a means his insulin. HPI was quite difficult to obtain as the patient seems not very interested in the inter view and constantly asking for Dilaudid. In the ED, he was found to have normal vital signs. Blood workup showed leukocytosis of 13.3, hemoglobin is 11.9 and platelets are normal. Initial glucose POC was > 600, bicarb was initially 13 (most recent 16), anion gap was 23 and has been normalized. Creatinine is 1.04. Transaminases are mildly elevated. Alk-phos, bilirubin are lipase are normal. Viral testing is negative for COVID-19, influenza and RSV. ED tx: He was treated with insulin R IV pushes, IV fluids and antiemetic. According to ED provider, patient received a total of 5 L of normal saline. Hospital course: Patient has history of diabetes, HiV and drug. He is not compliant with meds and has not taken meds or insulin in months. Patient was noted to have hyperglycemia and DKA and was treated with isulin and IVF with resolution Time Attestation Discharge Coordination Time (in mins): 45 Quality: Safe Use of Opioids Does Pt have an Active Cancer Diagnosis on the Problem List?: No Quality: Stroke Does the patient have a stroke diagnosis?: No Physical Exam Vital Signs: Vital Signs: Last Vital Signs Temp 98.5 F 08/20/24 03:19 Pulse 69 08/20/24 07:35 Resp 18 08/20/24 07:35 BP 138/79 08/20/24 07:35 Pulse Ox 97 08/20/24 07:35 O2 Del Method Room Air 08/20/24 07:35 BMI result Body Mass Index 16.3 DS: Data Data Completed and Pending Completed studies during hospitalization [Text1]: Procedures Insertion of Endotracheal Airway into Trachea, Via Natural or Artificial Opening Endoscopic (07/04/21) Insertion of Infusion Device into Superior Vena Cava, Percutaneous Approach (07/04/21) Respiratory Ventilation, Less than 24 Consecutive Hours (07/04/21) Transfusion of Nonautologous Red Blood Cells into Peripheral Vein, Percutaneous Approach (06/23/21) Labs on day of discharge: Laboratory Results - last 24 hr 08/18/24 08/19/24 08/19/24 16:23 12:30 16:45 WBC RBC Hgb Hct MCV MCH MCHC RDW Plt Count MPV Absolute Nucleated RBC Nucleated RBC % (auto) Sodium Potassium Chloride Carbon Dioxide Anion Gap BUN Creatinine Estim Creat Clear Calc Estimated GFR POC Glucose 584 H* 109 128 H Random Glucose Calcium Urine Color Urine Appearance Urine pH Ur Specific [place] Urine Protein Urine Glucose (UA) Urine Ketones Urine Blood Urine Nitrite Ur Leukocyte Esterase 08/19/24 08/19/24 08/20/24 20:31 21:20 05:21 WBC 7.5 RBC 3.00 L Hgb 9.4 L Hct 28.0 L MCV 93.3 MCH 31.3 MCHC 33.6 RDW 14.2 Plt Count 206 MPV 10.1 Absolute Nucleated RBC 0.000 Nucleated RBC % (auto) 0.0 Sodium 135 Potassium 3.4 Chloride 101 Carbon Dioxide 27 Anion Gap 10 L BUN 14 Creatinine 0.71 Estim Creat Clear Calc 93.6 Estimated GFR > 60 POC Glucose 76 96 Random Glucose 89 Calcium 8.3 L Urine Color Urine Appearance Urine pH Ur Specific [place] Urine Protein Urine Glucose (UA) Urine Ketones Urine Blood Urine Nitrite Ur Leukocyte Esterase 08/20/24 08/20/24 07:34 07:54 WBC RBC Hgb Hct MCV MCH MCHC RDW Plt Count MPV Absolute Nucleated RBC Nucleated RBC % (auto) Sodium Potassium Chloride Carbon Dioxide Anion Gap BUN Creatinine Estim Creat Clear Calc Estimated GFR POC Glucose 108 Random Glucose Calcium Urine Color Yellow Urine Appearance Clear Urine pH 8.0 Ur Specific [place] 1.015 Urine Protein Negative Urine Glucose (UA) Negative Urine Ketones Negative Urine Blood Negative Urine Nitrite Negative Ur Leukocyte Esterase Negative Discharge Plan Discharge Anticipated Discharge Date/Time: 08/20/24 09:20 Patient Disposition: Home, Self-Care Discharge Diagnosis: DKA, opioid use disorder Referrals: Fartun Pascual [Primary Care Provider] - 1 Week [facility] [Physician] - 1 Week Discharge Medications: New insulin lispro [Humalog KwikPen Insulin] 100 unit/mL insulin pen 0 sliding scale dose SUBCUT QIDACHS Qty: 15 0RF Rx Instructions: Blood Sugar: <150 - 0 units 151-200 - 2 units 201-250 - 4 units 251-300 - 6 units 301-350 - 8 units >350 - 10 units insulin glargine [Lantus Solostar U-100 Insulin] 100 unit/mL (3 mL) Insulin Pen 30 unit SUBCUT QAM Qty: 15 0RF Discharge Orders: Discharge Order (Routine); Ordered 08/20/24 Ordered By: Ulices Murphy Diet: Advance to usual diet Activity on Discharge: As tolerated Stand Alone Forms: Patient Portal Discharge page Print Language: Yakut Care Plan Goals: recovery from dka and opioid use disorder Health Concerns: dka opioid use disorder Plan of Treatment: take lantus and humalog as directed follow diabetic diet participate in opioid detox program Follow up with [facility] to be reassess for HIV medication Assessment: see above Discharge Date/Time: 08/20/24 16:54
--- NOTE | 2024-08-20 09:42 | HO.PM.IMPN ---
Subjective Subjective Date of Service: 08/20/24 Interval History: f/u on dka dka resolved, no new issues Physical Exam Vital Signs: Vital Signs: Last Vital Signs Temp 98.5 F 08/20/24 03:19 Pulse 69 08/20/24 07:35 Resp 18 08/20/24 07:35 BP 138/79 08/20/24 07:35 Pulse Ox 97 08/20/24 07:35 O2 Del Method Room Air 08/20/24 07:35 BMI result Body Mass Index 16.3 General: AO X 3, no acute distress Resp: CTA bilateral CVS: S1,S2,RRR GI: +BS, NT, no distention Skin: No rash Neuro: motor grossly intact Psych: appropriate affect Objective Data Active Medications Acetaminophen (Acetaminophen 325 Mg Tablet) 975 mg PO Q6H PRN PRN Reason: Pain, Mild (Pain Scale 1-3), fever or headache Enoxaparin Sodium (Enoxaparin Sodium 30 Mg/0.3 Ml Syringe) 30 mg SUBCUT Q24H [facility] Last Admin: 08/20/24 08:20 Dose: Not Given Documented By: JASON Non-Admin Reason: Patient Refused Glucose (Glucose Gel 15 Gm Gel..Gram.) 15 gm PO Q15M PRN; Protocol PRN Reason: per Hypoglycemia Standing Ord. Dextrose (D10) 250 mls @ 750 mls/hr IV Q15M PRN; Protocol PRN Reason: per Hypoglycemia Standing Ord. Insulin Glargine (Insulin Glargine,Hum.Rec.Anlog 100 Unit/Ml 10 Ml Vial) 20 unit SUBCUT DAILY [facility] Insulin Human Lispro (Insulin Lispro 100 Unit/Ml 3 Ml Vial) 0 unit SUBCUT QIDACHS [facility]; Protocol Last Admin: 08/20/24 07:37 Dose: Not Given Documented By: JASON Non-Admin Reason: No Insulin Coverage Magnesium Oxide (Magnesium Oxide 400 Mg Tablet) 400 mg PO BIDPC [facility] Last Admin: 08/20/24 08:18 Dose: 400 mg Documented By: JAOSN Methadone HCl (Methadone Hcl 20 Mg/2 Ml Oral.Conc) 40 mg PO DAILY@0800 [facility] Last Admin: 08/20/24 08:19 Dose: 40 mg Documented By: JASON Co-signed By: REINAARTAna Sodium Chloride (0.9 % Sodium Chloride Flush 3 Ml Syringe) 3 ml IVFLUSH QSHIFT NIA Last Admin: 08/20/24 08:19 Dose: 3 ml Documented By: JASON Labs 08/20/24 05:21 08/20/24 05:21 Labs: Laboratory Results - last 24 hr 08/19/24 08/19/24 08/19/24 12:30 16:45 20:31 MCV MCH MCHC RDW Plt Count MPV Absolute Nucleated RBC Nucleated RBC % (auto) Anion Gap Estim Creat Clear Calc Estimated GFR POC Glucose 109 128 H 76 Random Glucose Calcium Urine Color Urine Appearance Urine pH Ur Specific [place] Urine Protein Urine Glucose (UA) Urine Ketones Urine Blood Urine Nitrite Ur Leukocyte Esterase 08/19/24 08/20/24 08/20/24 21:20 05:21 07:34 MCV 93.3 MCH 31.3 MCHC 33.6 RDW 14.2 Plt Count 206 MPV 10.1 Absolute Nucleated RBC 0.000 Nucleated RBC % (auto) 0.0 Anion Gap 10 L Estim Creat Clear Calc 93.6 Estimated GFR > 60 POC Glucose 96 108 Random Glucose 89 Calcium 8.3 L Urine Color Urine Appearance Urine pH Ur Specific [place] Urine Protein Urine Glucose (UA) Urine Ketones Urine Blood Urine Nitrite Ur Leukocyte Esterase 08/20/24 07:54 MCV MCH MCHC RDW Plt Count MPV Absolute Nucleated RBC Nucleated RBC % (auto) Anion Gap Estim Creat Clear Calc Estimated GFR POC Glucose Random Glucose Calcium Urine Color Yellow Urine Appearance Clear Urine pH 8.0 Ur Specific [place] 1.015 Urine Protein Negative Urine Glucose (UA) Negative Urine Ketones Negative Urine Blood Negative Urine Nitrite Negative Ur Leukocyte Esterase Negative Assessment and Plan (1) Protein calorie malnutrition: Status: Acute (2) DKA (diabetic ketoacidosis): Status: Acute Plan 49/m with HIV, DM non-compliant s/p DKA -resolved after IVF and Insulin -start Lantus 20 units in am and SSI Abdominal pain, nausea, vomiting and diarrhea--d/t above, resolved HIV. Continue Triumeq. Ongoing IV drug use (heroin). On methadone. Addiction med working on Detxo placement Protein calorie malnutrition. BMI 16.3 kg/m2. Supplement Recent left forearm surgery. Compartment syndrome/fasciotomy DVT: Lovenox full code Quality Stroke Does the patient have a stroke diagnosis?: No VTE Prior VTE?: No VTE Risk Level:: Medical - moderate - high VTE Device Contraindication: Treatment Not Indicated VTE Drug Contraindication: N/A - Med Ordered
[2024-08-20] MEDS: Insulin Glargine,Hum.rec.anlog 100 UNIT/ML 10 ML VIAL 20 UNIT SUBCUT (09:48)
--- NOTE | 2024-08-20 10:26 | MHC.RECOVRN ---
Met with pt in 345, along with gymnastics coach [place], after cleared by CARE Team. Pt laying in bed, awake, alert, difficult to engage in conversation. Pt reports he is interested in ATS, would like to go to [facility] but is willing to go anywhere. Denies other questions or concerns. Bedsearch will be conducted, provider aware.
[2024-08-20 11:44] LABS: Glucose, Whole Blood 219 mg/dL (60-115)
[2024-08-20 11:46] VITALS: BMI 16.3
[2024-08-20] MEDS: Insulin Lispro 100 UNIT/ML 3 ML VIAL SUBCUT (11:49)
--- NOTE | 2024-08-20 11:50 | MHC.CLN ---
RE; CONSULT PT IS SEVERELY MALNOURISHED PT WITH MODERATELY DEPLETED SUBCUTANEOUS FAT AND MUSCLE MASS WITH BMI 16.3 AND 24% SIGNIFICANT WT LOSS X 1 YEAR WITH ACTIVE IVDA AND HIV DIET RX 1800DM-APPROPRIATE RECOMMEND ADDING ENSURE MAX BID TO INCREASE KCALS SUPP PROVIDES 300KCALS, 60G PROTEIN MONITOR PO INTAKE AND ENCOURAGE SUPPLEMENTS SEE ALSO FULL CLINICAL NUTRITION ASSESSMENT
--- NOTE | 2024-08-20 14:45 | MHC.RECOVRN ---
Pt has a bed at [facility] for 8PM. Pt reports mother will transport. Provider and RN aware.
--- NOTE | 2024-08-20 15:35 | PC.NURSE ---
Pt not willing to stay for d/c paperwork. Will fax paper work
--- NOTE | 2024-08-20 15:44 | PC.NURSE ---
Pt did not want to wait for d/c paper work, will fax to [facility] in [facility]. IV Removed, Education about DMII and medications, pt states understanding.
--- NOTE | 2024-08-20 16:48 | PC.NURSE ---
DC Paperwork faxed to [facility] at this time.
--- NOTE | 2024-08-20 16:54 | PC.NURSE ---
Fax Confirmation received from [facility].
== END 2024-08-20 16:54 | disposition home or self-care (01) | DRG 420 ==
LOC: HO.ED 23:33 → HO.EDOVER 08-19 02:04 → HO.S3 08-19 11:12
PROVIDERS: Internal Medicine; Physician Assistant Medical; Admitting Provider Internal Medicine; Emergency Provider Internal Medicine; PCP Nurse Practitioner Family; Visit Provider Internal Medicine
DX: E10.10 Type 1 diabetes mellitus with ketoacidosis without coma (principal); E46 Unspecified protein-calorie malnutrition; F11.20 Opioid dependence, uncomplicated; Z21 Asymptomatic human immunodeficiency virus [HIV] infection status; F17.210 Nicotine dependence, cigarettes, uncomplicated; Z71.6 Tobacco abuse counseling; Z20.822 Contact with and (suspected) exposure to COVID-19; Z68.1 Body mass index [BMI] 19.9 or less, adult
CPT/HCPCS: 0241U; 36415; 80048; 80053; 80307; 81003; 82010; 82803; 82947; 83036; 83690; 83735; 85025; 85027; 93005; 99285; J0613; J1171; J1650; J1790; J2405; J3480; P9047; S9485

== ENCOUNTER → 2024-08-19 01:55 | Outpatient (BNV) | payer MEDICAID, SELFPAY | PROVIDERS: Admitting Provider Internal Medicine; Emergency Provider Internal Medicine; Visit Provider Internal Medicine | DX: E10.10 Type 1 diabetes mellitus with ketoacidosis without coma (principal); E43 Unspecified severe protein-calorie malnutrition | CPT/HCPCS: 99222; 99239; 99499 ==

== ENCOUNTER 2024-12-10 17:28 | Emergency (ER) | payer MEDICAID, SELFPAY ==
[2024-12-10 17:36] VITALS: BP 126/74; PULSE 80; O2SAT 100
--- NOTE | 2024-12-10 17:39 | PC.NURSE ---
Pt. arrives to ED stating that he's going to shit himself . Arrives uncooperative
--- NOTE | 2024-12-10 17:42 | PC.NURSE ---
Pt. changed over per security. Pair of scissors and a bag of heroin confiscated by security officers x2
[2024-12-10 18:10] VITALS: BMI 20.4
--- NOTE | 2024-12-10 18:11 | PC.NURSE ---
Pt. denies SI/HI
--- NOTE | 2024-12-10 19:18 | ED_ITS ---
HPI - Overdose General Chief Complaint: Overdose Stated Complaint: UNRESPONSIVE EPISODE AT CLINIC Time Seen by Provider: 12/10/24 18:05 Source: patient and EMS Mode of arrival: EMS Limitations: no limitations History of Present Illness ED Provider: Dr. Janet Vasques HPI Narrative: Patient comes to the emergency room via ambulance after accidentally overdosing. Patient states that he went to the [facility] to pick pack worker his usual medications such as albuterol. Patient states that he went to the bathroom at the [facility], open a bag of heroin and injected it IV. EMS reports that he was given 8 mg of intranasal Narcan by the [facility] staff. Patient awake, alert, states that this was accident, his adamant that this was not a suicide attempt. Related Data Previous Rx's ?Medication ?Instructions ?Recorded insulin glargine 100 unit/mL (3 30 unit (0.3 mL) subcut QAM #15 mL 08/20/24 mL) subcutaneous pen (Lantus Solostar U-100 Insulin) insulin lispro 100 unit/mL 0 sliding scale dose subcut 08/20/24 subcutaneous pen (Humalog KwikPen QIDACHS #15 mL (U-100) Insulin) Allergies Allergy/AdvReac Type Severity Reaction Status Date / Time fish Allergy Unknown Anaphylaxis Uncoded 12/10/24 18:11 shellfish Allergy Unknown Anaphylaxis Uncoded 12/10/24 18:11 Review of Systems Review of Systems: Constitutional : No Weight loss, No Fever, No Chills, No Night Sweats, No F atigue, No Malaise ENT/Mouth : No Hearing loss, No Ear Pain, No Nasal Congestion, No Sinus Pain, No Hoarseness, No sore throat, No Rhinorrhea, No Swallowing Difficulty Eyes: No Eye Pain, No Swelling, No Redness, No Foreign Body, No Discharge, No Vision Changes Cardiovascular : No Chest Pain, No SOB, No Dyspnea on Exertion, No Orthopnea, No Edema, No Palpitations Respiratory : No Cough, No Sputum, No Wheezing, No Smoke Exposure, No Dyspnea Gastrointestinal : No Nausea, No Vomiting, No Diarrhea, No Constipation, No abdominal Pain, No Hematochezia, No Melena Genitourinary : no irregular bleeding, No Dysuria, No Urinary Frequency, No Hematuria, No Urinary Incontinence, No Urgency, No Flank Pain, No Urinary Flow Changes, No Hesitancy Musculoskeletal : No joint pain, No Myalgias, No Joint Swelling Skin : No Skin Lesions, No rash Neuro : No Weakness, No Numbness, No Paresthesias, No Loss of Consciousness, No Dizziness, No Headache Psych : No Anxiety/Panic, No Depression, No SI/HI/AH/VH, admits to using heroin IV Heme/Lymph: No Bruising, No Bleeding,No Lymphadenopathy Endocrine : No Polyuria, No Polydipsia, No Temperature Intolerance [facility] Past Medical History Medical History Protein calorie malnutrition Opioid use disorder Hep C w/o coma, chronic HIV (human immunodeficiency virus infection) HIV (human immunodeficiency virus infection) Compartment syndrome Active substance abuse Substance abuse Diabetes Diabetes Surgical History History of fasciotomy H/O fasciotomy Social History Social History Household Members: None Household Members Other:: self Housing: House Do you presently have visiting nurse or other home services: No Unable to assess alcohol history related to: Unknown Alcohol intake: current Alcohol intake frequency: a few times a week Comment: 1:1 sitter Patient Tobacco Use Status: Current everyday Tobacco user Tobacco use type: Cigarette Cigarette Packs Per Day: 1 Cigarettes Per Day: 10 Years Smoked: 20 Substance Use Type: Crack/Cocaine and Opiates Advance Directives: Yes Advance Directives on File: Yes Advance Directives Date on File: 07/09/21 Do you have a plan to hurt others: No Plan service: No Current occupational status: unemployed Physical Exam Vital Signs: Vital Signs: BMI result Body Mass Index 20.4 Const: Other: Appearance: Alert. Oriented X3. No acute distress. Disheveled Eyes: Pupils equal, round and reactive to light. ENT: Pharynx normal. Neck: Normal inspection. Neck supple. No lymph nodes noted. No crepitus CVS: Normal heart rate and rhythm. Pulses normal. Normal S1 and S2 Respiratory: No respiratory distress. Breath sounds normal. No Wheezing. No rales Abdomen: Soft and nontender. No rigidity. No distention. Skin: Skin warm and dry. Normal skin color. Normal skin turgor. Extremities: No lower extremity edema. No Lacerations. No Rash Neuro: Oriented X 3. No motor deficit. No sensory deficit. Moving all extremities. No slurred speech. CN 2 through 12 grossly intact Psych: calm, cooperative, normal affect Course Course Course Narrative: Patient has been almost 2 hours in the emergency room, awake, alert and oriented x3, ambulating by himself with normal gait. O2 within normal limits. Patient was given food per his request. Patient was given intranasal Narcan for home. Critical Care Time Critical Care Time Critical Care Time: Yes Total Critical Care Time: 40 Attestation: I have personally provided critical care time. Time includes review of lab data, radiology results, discussion with consultants, and monitoring for potential decompensation. Intervention performed as documented. Discharge Plan Discharge Clinical Impression: Drug overdose Patient Disposition: Home, Self-Care Instructions: Adult Overdose (ED) Additional Instructions: Overdose You were seen in our Emergency Department for an overdose today. You received narcan in order to reverse the effects of overdose. Narcan only lasts about 45 min to 1 hour in the system. You may have been given narcan to take home with you today, please keep it near you if you are going to use again, so others can use it if needed.? The number one risk for fatal overdose is using alone? [facility] is a 05/06 hotline where you can be on the phone with someone while you use, and they can call for help if they suspect an overdose: [phone] Things to look out for when you leave include severe vomiting or diarrhea, headaches, muscle cramps, fever, coughing, chest pain, or if you feel so short of breath you cannot walk to the bathroom. Please seek care and return any time for worsening symptoms.? You may have been provided with safer injection?items, please take time to take care of YOU and your health. Use new supplies whenever possible to lessen the chances of infections and other illnesses.? If you need more supplies, please go [facility],? [address], [place] you can call or text to coordinate delivery of safer supplies. If you decide you want to stop or cut down on how much you?re using, please call the numbers on the list provided to you or you can come to our outpatient Addiction Treatment office [facility] (M-F 9am-5p) [address] [place] [address], [address] [place], [place]. [phone] Prescriptions: No Action insulin lispro [Humalog KwikPen Insulin] 100 unit/mL insulin pen 0 sliding scale dose SUBCUT QIDACHS Qty: 15 0RF Rx Instructions: Blood Sugar: <150 - 0 units 151-200 - 2 units 201-250 - 4 units 251-300 - 6 units 301-350 - 8 units >350 - 10 units insulin glargine [Lantus Solostar U-100 Insulin] 100 unit/mL (3 mL) Insulin Pen 30 unit SUBCUT QAM Qty: 15 0RF Print Language: Macedonian
[2024-12-10 19:24] VITALS: BP 119/79; PULSE 81; RESP 16; TEMP 36.7; O2SAT 97
--- NOTE | 2024-12-10 19:25 | MHC.EDTECH ---
Patient had supper ate 100 % of meal drank 360 ml fluids .
[2024-12-10 19:30] VITALS: BP 119/79; PULSE 81; RESP 16; TEMP 36.7; O2SAT 97
[2024-12-10] MEDS: Naloxone HCl Nasal TAKE HOME 4 MG SPRAY 8 MG NOSTRILALT (19:30)
--- NOTE | 2024-12-12 11:12 | MHC.RECOVRN ---
Attempted to reach pt to follow up after overdose, number listed is not in service.
== END 2024-12-10 19:32 | disposition home or self-care (01) ==
PROVIDERS: Emergency Provider Emergency Medicine; PCP Nurse Practitioner Family
DX: T40.1X1A Poisoning by heroin, accidental (unintentional), initial encounter (principal); R40.4 Transient alteration of awareness; Y92.238 Other place in hospital as the place of occurrence of the external cause; F19.10 Other psychoactive substance abuse, uncomplicated; B20 Human immunodeficiency virus [HIV] disease; E11.9 Type 2 diabetes mellitus without complications; F17.210 Nicotine dependence, cigarettes, uncomplicated
CPT/HCPCS: 99283

== ENCOUNTER 2024-12-27 13:34 | Outpatient (REF) | payer MEDICAID, SELFPAY ==
[2024-12-27 16:21] LABS: MANUAL DIFF FLAG NO
[2024-12-27 16:38] LABS: Alanine Aminotransferase 6 U/L (0-40); Albumin Level 3.2 g/dL (3.5-5.0); Alkaline Phosphatase 103 U/L (39-117); Anion Gap 12 (12-20); Aspartate Amino Transferase 23 U/L (5-37); Bilirubin Total 0.3 mg/dL (0.0-1.0); Blood Urea Nitrogen 19 mg/dL (9-16); Calcium 8.9 mg/dL (8.4-10.2); Carbon Dioxide 27 mmol/L (22-29); Chloride 102 mmol/L (96-108); Cholesterol 120 mg/dL (<200); Estimated Glomerular Filt Rate > 60; Glucose Random 64 mg/dL (60-115); HDL Cholesterol 46 mg/dL (>40); LDL Cholesterol Calculated 54 mg/dL (<100); Sodium 137 mmol/L (135-145); Triglycerides 100 mg/dL (<150)
[2024-12-27 16:50] LABS: Basophils Absolute Auto 0.1 X10*3/uL (0.0-0.2); Basophils Percent Auto 0.7 % (0-2); Eosinophils Percent Auto 0.4 % (0-4); Hematocrit 23.8 % (42.0-52.0); Hemoglobin 7.5 g/dl (14.0-18.0); Imm Gran Abs Auto 0.03 X10*3/uL (0.00-0.03); Imm Gran Pct Auto 0.4 % (0.0-0.4); Lymphocytes Absolute Auto 1.6 X10*3/uL (1.2-4.9); Lymphocytes Percent Auto 21.8 % (20-40); Mean Corpuscular HGB Conc 31.5 g/dl (31.0-36.0); Mean Corpuscular Hemoglobin 29.4 pg (27.0-33.0); Mean Corpuscular Volume 93.3 fL (80.0-98.0); Mean Platelet Volume 9.9 fL (9.4-12.4); Monocytes Absolute Auto 0.4 X10*3/uL (0.1-1.2); Monocytes Percent Auto 5.3 % (2-11); Neutrophils Absolute Auto 5.1 x10*3/uL (2.0-8.3); Neutrophils Percent Auto 71.4 % (45-73); Platelet Count 317 X10*3/uL (160-400); Red Blood Count 2.55 X10*6/uL (4.60-5.80); Red Cell Distribution Width 14.8 % (11.0-16.0); White Blood Count 7.2 X10*3/uL (4.8-10.8)
[2024-12-27 16:59] LABS: Creatinine Urine 217.86 mg/dL; Microalbum/Creatinine Ratio Ur 5.5 ug/mg cr (<30)
[2024-12-27 17:21] LABS: Reflex LDLD? No
[2024-12-28 03:30] LABS: Syphilis Screen Nonreactive (Nonreactive)
[2024-12-30 08:29] LABS: TS Negative Control Passed; TS Panel A 0; TS Panel B 0; TS Positive Control Passed; TSpotTB Negative (Negative)
[2024-12-30 17:23] LABS: HCV Log PCR 3.59 Log IU/mL (NOT DETECTED); HepC Viral Load 3890 IU/mL (NOT DETECTED)
[2024-12-30 17:29] LABS: HIV RNA PCR Qn Copies NOT DETECTED copies/mL (NOT DETECTED); HIV RNA PCR Qn Log Copies NOT DETECTED (NOT DETECTED)
[2024-12-31 18:19] LABS: Absolute CD3 Count 1268 cells/uL (840-3060); Absolute CD4 Count 663 cells/uL (490-1740); Absolute CD8 Count 600 cells/uL (180-1170); Absolute Lymphocytes 1446 cells/uL (850-3900); Percent CD3 Cells 88 % (57-85); Percent CD4 Cells 46 % (30-61); Percent CD8 Cells 42 % (12-42)
== END 2024-12-27 13:35 | disposition home or self-care (01) ==
LOC: HO.HHCL 13:34
PROVIDERS: General Practice; Registered Nurse; Visit Provider Internal Medicine
DX: Z21 Asymptomatic human immunodeficiency virus [HIV] infection status (principal); E10.65 Type 1 diabetes mellitus with hyperglycemia; B18.2 Chronic viral hepatitis C
CPT/HCPCS: 36415; 80053; 80061; 82043; 82570; 85025; 86359; 86360; 86481; 86780; 87522; 87536

== ENCOUNTER 2025-01-01 17:01 | Emergency (ER) | payer MEDICAID, SELFPAY ==
[2025-01-01 17:19] VITALS: BP 121/67; PULSE 89; RESP 18; TEMP 36.6; O2SAT 98; BMI 20.3
--- NOTE | 2025-01-01 17:22 | ED_ITS ---
HPI - General Adult General Chief complaint: Recheck/Abnormal Lab/Rx Stated complaint: low hemoglobin Related Data Previous Rx's ?Medication ?Instructions ?Recorded insulin glargine 100 unit/mL (3 30 unit (0.3 mL) subcut QAM #15 mL 08/20/24 mL) subcutaneous pen (Lantus Solostar U-100 Insulin) insulin lispro 100 unit/mL 0 sliding scale dose subcut 08/20/24 subcutaneous pen (Humalog KwikPen QIDACHS #15 mL (U-100) Insulin) Allergies Allergy/AdvReac Type Severity Reaction Status Date / Time fish Allergy Unknown Anaphylaxis Uncoded 01/13/25 16:16 shellfish Allergy Unknown Anaphylaxis Uncoded 01/13/25 16:16 [facility] Past Medical History Medical History Protein calorie malnutrition Opioid use disorder Hep C w/o coma, chronic HIV (human immunodeficiency virus infection) HIV (human immunodeficiency virus infection) Compartment syndrome Active substance abuse Substance abuse Diabetes Diabetes Surgical History History of fasciotomy H/O fasciotomy Social History Social History Household Members: None Household Members Other:: self Housing: House Do you presently have visiting nurse or other home services: No Unable to assess alcohol history related to: Unknown Alcohol intake: current Alcohol intake frequency: a few times a week Comment: 1:1 sitter Patient Tobacco Use Status: Current everyday Tobacco user Tobacco use type: Cigarette Cigarette Packs Per Day: 1 Cigarettes Per Day: 10 Years Smoked: 20 Substance Use Type: Crack/Cocaine and Opiates Advance Directives: No Advance Directives Information Provided: No Advance Directives Date on File: 07/09/21 service: No Current occupational status: unemployed Physical Exam ED Vital Signs: BMI result Body Mass Index 20.3 Course Course Course Narrative: RME, this is a rapid medical exam performed by Moustapha Melgoza please refer to primary provider for complete H&P- 49-year-old male presents for evaluation of low blood counts. He had labs done on 12/27/2024 at [facility] and his hemoglobin was 7.5. The patient denies any complaints. He does have a history of diabetes and hepatitis-C. He denies any known history of cirrhosis. Denies pain, black or bloody stool. Plan for repeat labs and type and screen Medical Decision Making Lab Data 01/01/25 18:39 01/01/25 18:39 Labs: Lab Results 01/01/25 Range/Units 18:39 WBC 6.4 (4.8-10.8) X10*3/uL RBC 2.84 L (4.60-5.80) X10*6/uL Hgb 8.5 L (14.0-18.0) g/dl Hct 26.0 L (42.0-52.0) % MCV 91.5 (80.0-98.0) fL MCH 29.9 (27.0-33.0) pg MCHC 32.7 (31.0-36.0) g/dl RDW 14.8 (11.0-16.0) % Plt Count 235 D (160-400) X10*3/uL MPV 9.9 (9.4-12.4) fL Immature Gran % (Auto) 0.3 (0.0-0.4) % Neut % (Auto) 66.2 (45-73) % Lymph % (Auto) 25.8 (20-40) % [place] % (Auto) 6.8 (2-11) % Eos % (Auto) 0.3 (0-4) % Baso % (Auto) 0.6 (0-2) % Lymph # (Auto) 1.6 (1.2-4.9) X10*3/uL [place] # (Auto) 0.4 (0.1-1.2) X10*3/uL Eos # (Auto) 0.0 (0.0-0.4) X10*3/uL Baso # (Auto) 0.0 (0.0-0.2) X10*3/uL Abs Immat Gran (auto) 0.02 (0.00-0.03) X10*3/uL Absolute Neuts (auto) 4.2 (2.0-8.3) x10*3/uL Absolute Nucleated RBC 0.000 (0.0-0.012) X10*3/uL Nucleated RBC % (auto) 0.0 (0.0-0.2) /100WBC PT 11.3 (10.9-12.4) SEC INR 1.0 (0.9-1.1) Sodium 136 (135-145) mmol/L Potassium 4.3 (3.3-5.1) mmol/L Chloride 101 (96-108) mmol/L Carbon Dioxide 26 (22-29) mmol/L Anion Gap 13 (12-20) BUN 23 H (9-16) mg/dL Creatinine 1.31 (0.5-1.4) mg/dL Estim Creat Clear Calc 57.9 Estimated GFR 59 Random Glucose 243 H (60-115) mg/dL Calcium 8.9 (8.4-10.2) mg/dL Total Bilirubin 0.3 (0.0-1.0) mg/dL AST 27 (5-37) U/L ALT 11 (0-40) U/L Alkaline Phosphatase 110 (39-117) U/L Total Protein 8.7 H (6.5-8.0) g/dL Albumin 3.5 (3.5-5.0) g/dL Lipase 5 L (8-78) U/L Urine Color Yellow Urine Appearance Clear Urine pH 5.5 (5.0-9.0) Ur Specific Dexter >= 1.030 H (1.005-1.025) Urine Protein 30 (1+) H (Neg-Trace) mg/dL Urine Glucose (UA) >=1000 H (Negative) mg/dL Urine Ketones Trace (Negative) mg/dL Urine Blood Negative (Negative) Urine Nitrite Negative (Negative) Ur Leukocyte Esterase Negative (Negative) Urine RBC 0-2 (0-2) /HPF Urine WBC 0-5 (0-5) /HPF Ur Squamous Epith Cells 0-2 (0-2) /HPF Urine Bacteria None Seen (None Seen) Hyaline Casts 0-2 (0-2) /LPF Blood Type O Negative Antibody Screen NEGATIVE Discharge Plan Discharge Clinical Impression: Anemia Patient Disposition: Left W/O Completing Treatment Prescriptions: No Action insulin lispro [Humalog KwikPen Insulin] 100 unit/mL insulin pen 0 sliding scale dose SUBCUT QIDACHS Qty: 15 0RF Rx Instructions: Blood Sugar: <150 - 0 units 151-200 - 2 units 201-250 - 4 units 251-300 - 6 units 301-350 - 8 units >350 - 10 units insulin glargine [Lantus Solostar U-100 Insulin] 100 unit/mL (3 mL) Insulin Pen 30 unit SUBCUT QAM Qty: 15 0RF Discharge Date/Time: 01/01/25 22:27
--- NOTE | 2025-01-01 17:22 | ECG_ITS ---
Test Reason : weakness Blood Pressure : */* mmHG Vent. Rate : 72 BPM Atrial Rate : 72 BPM P-R Int : 150 ms QRS Dur : 84 ms QT Int : 398 ms P-R-T Axes : 78 36 58 degrees QTcB Int : 435 ms Normal sinus rhythm Normal ECG When compared with ECG of 18-Aug-2024 16:55, No significant change was found Referred By: Sharath Melgoza Electronically Signed By: VIC KOEHLER
[2025-01-01 18:56] LABS: MANUAL DIFF FLAG NO
[2025-01-01 18:58] LABS: Basophils Percent Auto 0.6 % (0-2); Eosinophils Percent Auto 0.3 % (0-4); Hemoglobin 8.5 g/dl (14.0-18.0); Imm Gran Abs Auto 0.02 X10*3/uL (0.00-0.03); Imm Gran Pct Auto 0.3 % (0.0-0.4); Lymphocytes Absolute Auto 1.6 X10*3/uL (1.2-4.9); Lymphocytes Percent Auto 25.8 % (20-40); Mean Corpuscular HGB Conc 32.7 g/dl (31.0-36.0); Mean Corpuscular Hemoglobin 29.9 pg (27.0-33.0); Mean Corpuscular Volume 91.5 fL (80.0-98.0); Mean Platelet Volume 9.9 fL (9.4-12.4); Monocytes Absolute Auto 0.4 X10*3/uL (0.1-1.2); Monocytes Percent Auto 6.8 % (2-11); Neutrophils Absolute Auto 4.2 x10*3/uL (2.0-8.3); Neutrophils Percent Auto 66.2 % (45-73); Platelet Count 235 X10*3/uL (160-400); Red Blood Count 2.84 X10*6/uL (4.60-5.80); Red Cell Distribution Width 14.8 % (11.0-16.0); White Blood Count 6.4 X10*3/uL (4.8-10.8)
[2025-01-01 18:59] LABS: Appearance Urine Clear; Color Urine Yellow; Glucose Urine UA >=1000 mg/dL (Negative); Leukocyte Esterase Urine Negative (Negative); Nitrite Urine Negative (Negative); PH 5.5 (5.0-9.0); Specific Gravity - Urine >= 1.030 (1.005-1.025); UMIC TRIGGER UACC YES; Urine Blood Negative (Negative); Urine Ketones Trace mg/dL (Negative); Urine Protein 30 (1+) mg/dL (Neg-Trace)
[2025-01-01 19:04] LABS: Bacteria Urine None Seen (None Seen); Hyaline Casts Urine 0-2 /LPF (0-2); RBC Urine 0-2 /HPF (0-2); Squamous Epithelial Cell Urine 0-2 /HPF (0-2); WBC Urine 0-5 /HPF (0-5)
[2025-01-01 19:14] LABS: Alanine Aminotransferase 11 U/L (0-40); Albumin Level 3.5 g/dL (3.5-5.0); Alkaline Phosphatase 110 U/L (39-117); Anion Gap 13 (12-20); Aspartate Amino Transferase 27 U/L (5-37); Bilirubin Total 0.3 mg/dL (0.0-1.0); Blood Urea Nitrogen 23 mg/dL (9-16); Calcium 8.9 mg/dL (8.4-10.2); Carbon Dioxide 26 mmol/L (22-29); Chloride 101 mmol/L (96-108); Creatinine Clr Calc Pharmacy 57.9; Estimated Glomerular Filt Rate 59; Glucose Random 243 mg/dL (60-115); Lipase 5 U/L (8-78); Potassium 4.3 mmol/L (3.3-5.1); Sodium 136 mmol/L (135-145); Total Protein 8.7 g/dL (6.5-8.0)
[2025-01-01 19:15] LABS: Prothrombin Time 11.3 SEC (10.9-12.4)
--- NOTE | 2025-01-01 22:18 | PC.NURSE ---
no answer from waiting room x 2 at 22:15
== END 2025-01-01 22:27 | disposition left against medical advice (07) ==
PROVIDERS: Physician Assistant; Emergency Provider Emergency Medicine; PCP General Practice
DX: D64.9 Anemia, unspecified (principal); B20 Human immunodeficiency virus [HIV] disease; B19.20 Unspecified viral hepatitis C without hepatic coma; E11.9 Type 2 diabetes mellitus without complications; F19.10 Other psychoactive substance abuse, uncomplicated; F17.210 Nicotine dependence, cigarettes, uncomplicated
CPT/HCPCS: 36415; 80053; 81001; 83690; 85025; 85610; 86850; 86900; 86901; 93005; 99283

== ENCOUNTER → 2025-01-01 17:22 | Outpatient (BNV) | payer MEDICAID, SELFPAY | PROVIDERS: Emergency Provider Emergency Medicine; PCP General Practice; Visit Provider Internal Medicine | DX: R53.1 Weakness (principal) | CPT/HCPCS: 93010 ==

== ENCOUNTER 2025-01-09 16:33 | Outpatient (REF) | payer MEDICAID, SELFPAY | END 2025-01-09 16:34 | disposition home or self-care (01) | LOC: HO.HHCLNP 16:33 | PROVIDERS: Visit Provider Internal Medicine | DX: Z21 Asymptomatic human immunodeficiency virus [HIV] infection status (principal) | CPT/HCPCS: 87491; 87591 ==

== ENCOUNTER 2025-01-09 17:06 | Outpatient (REF) | payer MEDICAID, SELFPAY ==
[2025-01-10 10:57] LABS: CT PCR NOT DETECTED (Not Detect.); NG PCR NOT DETECTED (Not Detect.)
[2025-01-13 04:39] LABS: C. Trachomatis RNA TMA, Throat NOT DETECTED; N. gonorrhoeae RNA TMA, Throat NOT DETECTED
== END 2025-01-09 17:07 | disposition home or self-care (01) ==
LOC: HO.LNP 17:06
PROVIDERS: Visit Provider Internal Medicine
DX: Z21 Asymptomatic human immunodeficiency virus [HIV] infection status (principal)
CPT/HCPCS: 87491; 87591

== ENCOUNTER 2025-01-13 15:16 | Emergency (ER) | payer MEDICAID, SELFPAY ==
--- NOTE | ~2025-01-13 | XR_ITS ---
CLINICAL HISTORY: pain, injury 4 view left knee Comparison: None Findings: No fractures or dislocations. No significant loss of joint space, osteophytes, or erosions. There is a small to moderate knee effusion. No radiopaque foreign body. There are vascular calcifications. IMPRESSION: 1. There is a small to moderate knee effusion. 2. No acute bony abnormality. This document has been electronically signed by: Marilu Anand MD on 01/13/2025 17:04:19
--- NOTE | 2025-01-13 16:13 | ED.GENADULT ---
HPI - General Adult General Chief complaint: General Medical Stated complaint: torn mis? & blood transfusion Related Data Previous Rx's ?Medication ?Instructions ?Recorded insulin glargine 100 unit/mL (3 30 unit (0.3 mL) subcut QAM #15 mL 08/20/24 mL) subcutaneous pen (Lantus Solostar U-100 Insulin) insulin lispro 100 unit/mL 0 sliding scale dose subcut 08/20/24 subcutaneous pen (Humalog KwikPen QIDACHS #15 mL (U-100) Insulin) Allergies Allergy/AdvReac Type Severity Reaction Status Date / Time fish Allergy Unknown Anaphylaxis Uncoded 01/13/25 16:16 shellfish Allergy Unknown Anaphylaxis Uncoded 01/13/25 16:16 [facility] Past Medical History Medical History Protein calorie malnutrition Opioid use disorder Hep C w/o coma, chronic HIV (human immunodeficiency virus infection) HIV (human immunodeficiency virus infection) Compartment syndrome Active substance abuse Substance abuse Diabetes Diabetes Surgical History History of fasciotomy H/O fasciotomy Social History Social History Household Members: None Household Members Other:: self Housing: House Do you presently have visiting nurse or other home services: No Unable to assess alcohol history related to: Unknown Alcohol intake: current Alcohol intake frequency: a few times a week Comment: 1:1 sitter Patient Tobacco Use Status: Current everyday Tobacco user Tobacco use type: Cigarette Cigarette Packs Per Day: 1 Cigarettes Per Day: 10 Years Smoked: 20 Substance Use Type: Crack/Cocaine and Opiates Advance Directives: No Advance Directives Information Provided: No Advance Directives Date on File: 07/09/21 service: No Current occupational status: unemployed Physical Exam ED Vital Signs: BMI result Body Mass Index 21.8 Course Course Course Narrative: RME performed by Gissell Villalba PA-C. Patient is a 49 year old assigned male at presenting to the emergency department with left knee pain and low blood counts Patient states that his slipped and fell, injuring his left knee multiple times over the last few days. Patient states that he was seen in the [facility] and told that his hemoglobin is 6.4. Patient's limited physical exam performed in triage showed minimal swelling present to the left knee but was otherwise unremarkable. Detailed physical exam and review of systems are deferred to the primary education professor. Labs and imaging ordered. Patient placed back in the waiting room pending room availability and results. Gissell Villalba PA-C ---> Patient left the department without completing treatment. Patient left the department before myself or any of the other emergency department clinicians could explain to or review with the patient; physical exam findings, test results, need or lack there of for additional testing, need or lack there of for a procedure to be performed, need or lack there of for hospital admission / transfer, need or lack there of for prescription medication, treatment options, or a treatment plan. Medical Decision Making Lab Data 01/13/25 16:36 01/13/25 16:36 Labs: Lab Results 01/13/25 Range/Units 16:36 WBC 9.2 (4.8-10.8) X10*3/uL RBC 2.71 L (4.60-5.80) X10*6/uL Hgb 7.9 L (14.0-18.0) g/dl Hct 24.0 L (42.0-52.0) % MCV 88.6 (80.0-98.0) fL MCH 29.2 (27.0-33.0) pg MCHC 32.9 (31.0-36.0) g/dl RDW 14.7 (11.0-16.0) % Plt Count 364 D (160-400) X10*3/uL MPV 9.5 (9.4-12.4) fL Immature Gran % (Auto) 0.3 (0.0-0.4) % Neut % (Auto) 65.2 (45-73) % Lymph % (Auto) 24.9 (20-40) % [place] % (Auto) 8.7 (2-11) % Eos % (Auto) 0.7 (0-4) % Baso % (Auto) 0.2 (0-2) % Lymph # (Auto) 2.3 (1.2-4.9) X10*3/uL [place] # (Auto) 0.8 (0.1-1.2) X10*3/uL Eos # (Auto) 0.1 (0.0-0.4) X10*3/uL Baso # (Auto) 0.0 (0.0-0.2) X10*3/uL Abs Immat Gran (auto) 0.03 (0.00-0.03) X10*3/uL Absolute Neuts (auto) 6.0 (2.0-8.3) x10*3/uL Absolute Nucleated RBC 0.000 (0.0-0.012) X10*3/uL Nucleated RBC % (auto) 0.0 (0.0-0.2) /100WBC PT 11.4 (10.9-12.4) SEC INR 1.0 (0.9-1.1) APTT 33.6 (26.0-36.8) SEC Sodium 139 (135-145) mmol/L Potassium 3.9 (3.3-5.1) mmol/L Chloride 102 (96-108) mmol/L Carbon Dioxide 27 (22-29) mmol/L Anion Gap 14 (12-20) BUN 36 H (9-16) mg/dL Creatinine 1.22 (0.5-1.4) mg/dL Estim Creat Clear Calc 66.7 Estimated GFR > 60 Random Glucose 91 (60-115) mg/dL Calcium 9.0 (8.4-10.2) mg/dL Magnesium 1.9 (1.6-2.6) mg/dL Total Bilirubin 0.3 (0.0-1.0) mg/dL AST 21 (5-37) U/L ALT 13 (0-40) U/L Alkaline Phosphatase 109 (39-117) U/L Total Protein 8.4 H (6.5-8.0) g/dL Albumin 3.2 L (3.5-5.0) g/dL Discharge Plan Discharge Clinical Impression: Knee pain, left Patient Disposition: Left W/O Completing Treatment Prescriptions: No Action insulin lispro [Humalog KwikPen Insulin] 100 unit/mL insulin pen 0 sliding scale dose SUBCUT QIDACHS Qty: 15 0RF Rx Instructions: Blood Sugar: <150 - 0 units 151-200 - 2 units 201-250 - 4 units 251-300 - 6 units 301-350 - 8 units >350 - 10 units insulin glargine [Lantus Solostar U-100 Insulin] 100 unit/mL (3 mL) Insulin Pen 30 unit SUBCUT QAM Qty: 15 0RF Discharge Date/Time: 01/14/25 00:10
[2025-01-13 16:14] VITALS: BP 129/73; PULSE 96; RESP 18; TEMP 36.6; O2SAT 99; BMI 21.8
[2025-01-13 16:53] LABS: MANUAL DIFF FLAG NO
[2025-01-13 17:00] LABS: Basophils Percent Auto 0.2 % (0-2); Eosinophils Absolute Auto 0.1 X10*3/uL (0.0-0.4); Eosinophils Percent Auto 0.7 % (0-4); Hemoglobin 7.9 g/dl (14.0-18.0); Imm Gran Abs Auto 0.03 X10*3/uL (0.00-0.03); Imm Gran Pct Auto 0.3 % (0.0-0.4); Lymphocytes Absolute Auto 2.3 X10*3/uL (1.2-4.9); Lymphocytes Percent Auto 24.9 % (20-40); Mean Corpuscular HGB Conc 32.9 g/dl (31.0-36.0); Mean Corpuscular Hemoglobin 29.2 pg (27.0-33.0); Mean Corpuscular Volume 88.6 fL (80.0-98.0); Mean Platelet Volume 9.5 fL (9.4-12.4); Monocytes Absolute Auto 0.8 X10*3/uL (0.1-1.2); Monocytes Percent Auto 8.7 % (2-11); Neutrophils Percent Auto 65.2 % (45-73); Platelet Count 364 X10*3/uL (160-400); Red Blood Count 2.71 X10*6/uL (4.60-5.80); Red Cell Distribution Width 14.7 % (11.0-16.0); White Blood Count 9.2 X10*3/uL (4.8-10.8)
[2025-01-13 17:08] LABS: Alanine Aminotransferase 13 U/L (0-40); Albumin Level 3.2 g/dL (3.5-5.0); Alkaline Phosphatase 109 U/L (39-117); Anion Gap 14 (12-20); Aspartate Amino Transferase 21 U/L (5-37); Bilirubin Total 0.3 mg/dL (0.0-1.0); Blood Urea Nitrogen 36 mg/dL (9-16); Carbon Dioxide 27 mmol/L (22-29); Chloride 102 mmol/L (96-108); Creatinine Clr Calc Pharmacy 66.7; Estimated Glomerular Filt Rate > 60; Glucose Random 91 mg/dL (60-115); Magnesium 1.9 mg/dL (1.6-2.6); Potassium 3.9 mmol/L (3.3-5.1); Sodium 139 mmol/L (135-145); Total Protein 8.4 g/dL (6.5-8.0)
[2025-01-13 17:22] LABS: Prothrombin Time 11.4 SEC (10.9-12.4)
[2025-01-13 17:25] LABS: Partial Thromboplastin Time 33.6 SEC (26.0-36.8)
== END 2025-01-14 00:10 | disposition left against medical advice (07) ==
LOC: HO.ED 01-14 00:08
PROVIDERS: Physician Assistant Medical; Emergency Provider Emergency Medicine; PCP General Practice
DX: M25.562 Pain in left knee (principal); Z79.899 Other long term (current) drug therapy
CPT/HCPCS: 36415; 73562; 80053; 83735; 85025; 85610; 85730; 99281; 99283

== ENCOUNTER → 2025-01-13 16:15 | Outpatient (BNV) | payer MEDICAID, SELFPAY | PROVIDERS: PCP General Practice; Visit Provider Radiology Diagnostic Radiology | DX: M25.562 Pain in left knee (principal) | CPT/HCPCS: 73562 ==

== ENCOUNTER 2025-01-22 11:05 | Outpatient (REF) | payer MEDICAID, SELFPAY ==
[2025-01-22 13:48] LABS: MANUAL DIFF FLAG NO
[2025-01-22 13:57] LABS: Basophils Absolute Auto 0.1 X10*3/uL (0.0-0.2); Basophils Percent Auto 0.6 % (0-2); Eosinophils Absolute Auto 0.1 X10*3/uL (0.0-0.4); Eosinophils Percent Auto 1.3 % (0-4); Hematocrit 24.3 % (42.0-52.0); Hemoglobin 7.5 g/dl (14.0-18.0); Imm Gran Abs Auto 0.03 X10*3/uL (0.00-0.03); Imm Gran Pct Auto 0.4 % (0.0-0.4); Immature Retic Fraction 25.6 % (2.3-13.4); Lymphocytes Absolute Auto 1.8 X10*3/uL (1.2-4.9); Lymphocytes Percent Auto 20.8 % (20-40); Mean Corpuscular HGB Conc 30.9 g/dl (31.0-36.0); Mean Corpuscular Hemoglobin 27.8 pg (27.0-33.0); Mean Platelet Volume 9.7 fL (9.4-12.4); Monocytes Absolute Auto 0.5 X10*3/uL (0.1-1.2); Neutrophils Absolute Auto 6.1 x10*3/uL (2.0-8.3); Neutrophils Percent Auto 70.9 % (45-73); Platelet Count 394 X10*3/uL (160-400); Red Cell Distribution Width 14.6 % (11.0-16.0); Retic HGB Equivalent 28.7 pg (30.0-35.0); Reticulocyte Percent 1.8 % (0.5-1.8); Reticulocytes Absolute 0.049 X10*6/uL (0.026-0.095); White Blood Count 8.6 X10*3/uL (4.8-10.8)
[2025-01-22 14:46] LABS: Alanine Aminotransferase < 6 U/L (0-40); Albumin Level 2.9 g/dL (3.5-5.0); Alkaline Phosphatase 89 U/L (39-117); Anion Gap 10 (12-20); Aspartate Amino Transferase 15 U/L (5-37); Bilirubin Total 0.2 mg/dL (0.0-1.0); Blood Urea Nitrogen 12 mg/dL (9-16); C Reactive Protein 7.58 mg/dL (< or = 0.50); Calcium 8.7 mg/dL (8.4-10.2); Carbon Dioxide 28 mmol/L (22-29); Chloride 103 mmol/L (96-108); Estimated Glomerular Filt Rate > 60; Glucose Random 372 mg/dL (60-115); Iron 12 mcg/dL (45-160); Percent Iron Saturation 6 % (15-50); Potassium 4.8 mmol/L (3.3-5.1); Sodium 136 mmol/L (135-145); Total Iron Binding Capacity 210 mcg/dL (228-428); Total Protein 7.8 g/dL (6.5-8.0); Unsaturated Iron Binding 198 ug/dL
[2025-01-22 14:53] LABS: Ferritin 165 ng/mL (20-250)
[2025-01-22 15:01] LABS: Erythrocyte Sedimentation Rate 117 MM/HR (0-15)
== END 2025-01-22 11:06 | disposition home or self-care (01) ==
LOC: HO.HHCL 11:05
PROVIDERS: Visit Provider General Practice
DX: D64.9 Anemia, unspecified (principal)
CPT/HCPCS: 80053; 82728; 83540; 85025; 85045; 85652; 86140

== ENCOUNTER 2025-01-29 14:58 | Outpatient (REF) | payer MEDICAID, SELFPAY ==
--- NOTE | ~2025-01-29 | MR_ITS ---
EXAMINATION: MRI LEFT KNEE WITHOUT CONTRAST HISTORY: PAIN, EFFUSION COMPARISON: Correlation is made to plain films of the left knee dated 01/13/2025. TECHNIQUE: Coronal T1 and fat-suppressed proton density, sagittal proton density and fat-suppressed proton density, and axial fat suppressed T2 weighted MR images of the left knee were obtained. FINDINGS: Bone marrow: Marrow signal intensity is diffusely heterogeneous. However, no focal bone marrow abnormality is identified. Joint effusion: There is a large joint effusion. Hdz's cyst: There is no Hdz's cyst. Articular cartilage: Intact Muscles/soft tissues: There is diffuse marked subcutaneous soft tissue edema. All of the visualized muscles demonstrate mildly increased signal intensity which could indicate myositis or muscle strain. Anterior cruciate ligament: Intact Posterior cruciate ligament: Intact Medial collateral ligament: Intact Lateral collateral ligament: Intact Medial meniscus: Intact Lateral meniscus: Intact Flexor mechanism: The popliteus, gastrocnemius, and hamstring tendons are intact. Quadriceps tendon: Intact Patellar tendon: Intact Patellar retinacula: Intact MR/MR knee LT wo con IMPRESSION: 1. Large joint effusion. Diffuse marked subcutaneous soft tissue edema. 2. Diffuse increased signal intensity of all the visualized muscles which may indicate myositis or muscle strain. No evidence of internal derangement. Electronically signed by: Christiano Mtz MD 01/29/2025 03:49 PM EDT
--- OUTSIDE RECORDS SUMMARY | 2025-01-29 17:07 | XMS_ITS | Data Portability ---
Author Organization [facility], Main Office Address [address] [facility] [facility], [address] [place] [address] Care Team Providers Care Heel Layer Name Role Phone [facility] ([facility]) OTHER Assessment Encounter Date Assessment Date Assessment LastModified by Organization Details LastModified Time 08/04/2021 08/04/202107/27 bun 15, creat 1.0, na 139, k 4.7, wbc 6.37, hgb 9.8, hct 29.9 [email or web address] Not available 08/04/2021 13:44:49 08/09/2021 08/09/202107/27 bun 15, creat 1.0, na 139, k 4.7, wbc 6.37, hgb 9.8, hct 29.9 [email or web address] Not available 08/09/2021 11:23:56 08/10/2021 08/10/202107/27 bun 15, creat 1.0, na 139, k 4.7, wbc 6.37, hgb 9.8, hct 29.9 Not available 08/10/2021 14:34:10 Plan of Treatment Reminders Order Date Submit Date Provider Last Modified By Organization Details Last Modified Time Details Appointments None record ed. Lab None record ed. Referral None record ed. Procedures None record ed. Surgeries None record ed. Imaging None record ed. Medication Orders None record ed. Patient TargetsNo targets recorded. Patient Instructions Encounter Date Encounter Id Patient Instructions Last Modified By Organization Details Last Modified Time 08/17/2021 [id number] Immunizations reconciled [email or web address] Not available 08/17/2021 20:44:21 08/23/2021 [id number] Total time spent with pt 45 minutes, >50% in [id number] counseling and coordination of care [email or web address] Not available 08/23/2021 14:43:12 Reason for Referral None Reported. Problems Name Problem SNOMED Code Status Onset Date Resolution Date Notes Provider Name and Address Organization Details Recorded Time Polysubst ance abuse 502753744 Active 2020 BRIDGER Moore [address] [facility], [address], [place], [address], [employer] 10:49:37 Human immunodef iciency virus infection 53035680 Active 2020 BRIDGER Moore [address] [facility], [address], [place], [address], [employer] [facility] 10:49:45 Diabetic ketoacido sis 848314976 Active 2020 BRIDGER Moore [address] [facility], [address], [place], [address], [employer] [facility] 10:49:51 Acute nontrauma tic kidney injury 471410241865 103 Active 2020 BRIDGER Moore [address] [facility], [address], [place], [address], [employer] [facility] 10:50:00 Fasciotom y upper arm Completed 202007/09/2021 BRIDGER Moore [address] [facility], [address], [place], [address], [employer] [facility] 11:22:08 Type 2 diabetes mellitus without complicat ion 010053613 Active 2020 BRIDGER Moore [address] [facility], [address], [place], [address], [employer] [facility] 11:06:26 Compartme nt syndrome 282187315 Active 2020 BRIDGER Moore [address] [facility], [address], [place], [address], [employer] [facility] 11:22:17 Acute respirato ry infection s 347017497 Active 2020 BRIDGER Moore [address] [facility], [address], [place], [address], [employer] [facility] 1 11:30:23 Problem Notes None recorded. Medical Equipment None Reported. Allergies Allergen ID Allergen Name Allergen Category Reaction Reaction Severity Criticality Documentation Date Start Date Code Code System Note Provider Name and Address Organization Details Recorded Time 04617 shellfish derived food,medi cation Not available Not available Not available 07/09/2021 41136 UNK Not Available Not Available Not Available Medications Not known to be on any medication Vitals Date Recorded Heart rate Respiratory rate Body temperature Oxygen saturation Oxygen saturation in Arterial blood by Pulse oximetry Systolic blood pressure Diastolic blood pressure Provider Name and Address Organization Details Last Updated DateTime 1 68 /min 18 /min 97.5 [degF] 95 % 95 % 118 mm[Hg] 70 mm[Hg] BRIDGER Moore [address] [facility], [address], [place], [address], [employer] [facility] 1 11:20:36 Date Recorded Heart rate Respiratory rate Body temperature Oxygen saturation Oxygen saturation in Arterial blood by Pulse oximetry Provider Name and Address Organization Details Last Updated DateTime 1 70 /min 18 /min 97.2 [degF] 100 % 100 % BRIDGER Moore [address] [facility], [address], [place], [address], [employer] 1 14:31:28 Date Recorded Respiratory rate Body temperature Heart rate Oxygen saturation Oxygen saturation in Arterial blood by Pulse oximetry Body height Systolic blood pressure Diastolic blood pressure Provider Name and Address Organization Details Last Updated DateTime 1 18 /min 97.2 [degF] 68 /min 97 % 97 % 177.8 cm 118 mm[Hg] 70 mm[Hg] DENILSON ARIAS PA-C [address] [facility], [address], [place], [address], [employer] [facility] 1 13:07:41 Date Recorded Body height Heart rate Respiratory rate Body temperature Oxygen saturation Oxygen saturation in Arterial blood by Pulse oximetry Systolic blood pressure Diastolic blood pressure Provider Name and Address Organization Details Last Updated DateTime 1 177.8 cm 68 /min 18 /min 97.3 [degF] 95 % 95 % 118 mm[Hg] 70 mm[Hg] DENILSON ARIAS PA-C [address] [facility], [address], [place], [address], [facility] [employer] 14:17:18 Date Recorded Systolic blood pressure Diastolic blood pressure Provider Name and Address Organization Details Last Updated DateTime 08/04/2021 118 mm[Hg] 70 mm[Hg] Lorin Nj [facility] 08/04/2021 13:22:57 Social History Question Answer Notes LastModified by Organizat ion Details LastModified Time Tobacco Smoking Status Current Every Day Smoker BRIDGER Moore [address] [facility], [address], [place], [address], [facility] [employer] 07/09/2021 10:47:36 Do You Have An Advance Directive? No [email or web address] Information not available 07/09/2021 What Is Your Level Of Alcohol Consumption? None [email or web address] Information not available 07/09/2021 Legal Guardian? No [email or web address] Information not available 07/09/2021 How Much Tobacco Do You Smoke? 0.25 PPD [email or web address] Information not available 07/09/2021 Has Tobacco Cessation Counseling Been Provided? Yes Pt Refuses Cessation, Says He Wants To Continue To Smoke [email or web address] Information not available 07/09/2021 On What Date Was Tobacco Cessation Counseling Provided? 07/09/2021 Information not available 07/09/2021 Do You Or Have You Ever Used Any Other Forms Of Tobacco Or Nicotine? No Information not available 07/09/2021 Sex: Unknown Functional Status None recorded. Mental Status None recorded. Family History Nothing Reported Notes:n/c Medical History No medical history recorded. Immunizations Vaccine Type Date Status Note Provider Nam e and Address Organization Details Recorded Time COVID-19, mRNA, LNP-S, PF, 30 mcg/0.3 mL dose 12/18/2020 completed DENILSON ARIAS PA-C [address] [facility], [address], [place], [address], [facility] [employer] 08/17/2021 13:09:09 COVID-19, mRNA, LNP-S, PF, 30 mcg/0.3 mL dose 01/15/2021 completed DENILSON ARIAS PA-C [address] [facility], [address], [place], [address], [facility] 08/17/2021 13:09:16 Past Encounters Encounter ID Performer Location Encounter Start Date Encounter Closed Date Diagnosis/Indication Diagnosis SNOMED-CT Code Diagnosis ICD10 Code Diagnosis Note [id number] BRIDGER Moore [facility] on [address] [place] [address] 07/09/2021 10:38:05 07/16/2021 13:30:34 Diabetic ketoacidosis 698662235 E13.10 see hpiresolve dlantus 40 units sq qdhumalog sliding scalemonit or accuchecks and adjust insulin prn Type 2 jimmie betes mellitus without complication 994776645 E11.9 meds as abovemonit or and adjust insulin Polysubstance abuse 4452 64791 F19.10 pt has already been found to have 2 empty heroin bags in his effects todaymetha done clinic notes that he can be very sneaky about getting and using whatever substances he can. also told staff that he won't increase his methadone more than likely due to the fact that he is still using and increasing the dose could be fatal. staff already completely searched his room, can't actually search his personmoni tor closelyon methadone 20 mg qd Human immunodeficiency virus infection 53021644 B20 triumeq 1 qdf/u with pcp on discharge Acute nont raumatic kidney injury 2285591595 39628 N17.9 resolved with IV fluidsavoi d nephrotoxi c meds as ablemonito r renal function weekly Compartment syndrome 111 433642 T79.A11D see hpimonitor right arm fasciotomy site, dressing as ordered Acute resp iratory infections 233744842 J22 finish augmentin 875/125 mg 1 bid till 07/11monito r resp status [id number] BRIDGER Moore [facility] on [address] [place] [address] 07/12/2021 14:08:42 07/16/2021 13:31:43 Type 2 diabetes mellitus without complication 982596129 E11.9 add lantus 10 units sq qhscontinu e lantus 40 units sq q ammonitor and adjust insulin [id number] Rebeca Marcano MD [facility] on [address] [place] [address] 07/14/2021 06:00:10 07/16/2021 13:46:34 Compartment syndrome 079215168 T79.A11D s/p right arm abscess; s/p fasciotomy for compartmen t syndromeAP AP 650 mg q6h prngabapen tin 300 mg bidwill monitorPT/ OTfu surgery, I.D. Human immunodeficiency virus infection 16918152 B20 Triumeq 600-50-300 : one tablet dailyfu I.D.Carlo fenton has been seen at [facility] in past and requests fu appointmen t to be madewill monitor Polysubstance abuse 4452 40515 F19.10 methadone 20 mg dailyfu methadone clinic Mixed anxi ety and depressive disorder 380243475 F41.8 quetiapine 50 mg at hsgabapent in 300 mg bidwill monitor Chronic hepatitis C 1283 32113 B18.2 fu I.D. 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 5296793042 34040 E11.65 Lantus 40U daily in morning and 10U in eveningHum alog per sliding scalewill monitor [id number] [facility] [address] [place] [address] 07/26/2021 10:56:31 07/28/2021 11:36:26 Type 2 diabetes mellitus without complication 437618467 E11.9 increase HS lantus to 15 units, continue am lantus 40 unitshumal og sliding scalemonit or and adjust insulin Polysubstance abuse 4452 31755 F19.10 pt was found to have 2 empty heroin bags in his effects on 07/09methad one clinic notes that he can be very sneaky about getting and using whatever substances he can. also told staff that he won't increase his methadone more than likely due to the fact that he is still using and increasing the dose could be fatal.kimberly tor closelyon methadone 20 mg qd Human immunodeficiency virus infection 80648098 B20 triumeq 1 qdf/u with pcp on discharge Acute nont raumatic kidney injury 8433722936 77823 N17.9 labs ordered for tomorrow cbc. cmp and a1c on 07/27resolv ed with IV fluidsavoi d nephrotoxi c meds as ablemonito r renal function weekly Compartment syndrome 111 818644 T79.A11D monitor right arm fasciotomy site, dressing as ordered Acute resp iratory infections 417564727 J22 finished augmentin 875/125 mg 1 bid on 07/11monito r resp status [id number] Lorin Nj [facility] on [address] [place] [address] 08/04/2021 12:59:01 08/06/2021 13:59:36 Type 2 diabetes mellitus without complication 087591045 E11.9 Blood sugars improved however remain >200 oftenLantu s 40 units QAM, 15 units QHShumalog sliding scale-incr ease sliding scale coveragemo nitor and adjust insulin Polysubstance abuse 4452 84175 F19.10 on methadone 20 mg qd Human immunodeficiency virus infection 55622320 B20 triumeq 1 qdf/u with pcp on discharge Acute nont raumatic kidney injury 7126603144 66178 N17.9 resolved with IV fluidsavoi d nephrotoxi c meds as ablemonito r renal function weekly Compartment syndrome 111 573912 T79.A11D monitor right arm fasciotomy site, dressing as ordered [id number] BRIDGER Moore [facility] on [address] [place] [address] 08/09/2021 11:19:37 08/11/2021 11:54:34 Type 2 diabetes mellitus without complication 383613276 E11.9 will change sliding scale to start at 200continu e Lantus 40 units QAM, 15 units QHShumalog sliding scalemonit or and adjust insulin Polysubstance abuse 4452 94370 F19.10 continue methadone 20 mg qdf/u with clinic Human immunodeficiency virus infection 86952050 B20 triumeq 1 qdf/u with pcp on discharge Acute nont raumatic kidney injury 3317848151 44597 N17.9 resolved with IV fluidsavoi d nephrotoxi c meds as ablemonito r renal function weekly Compartment syndrome 111 731028 T79.A11D monitor right arm fasciotomy site, dressing as orderedmon itor site [id number] BRIDGER Moore [facility] on [address] [place] [address] 08/10/2021 14:28:18 08/12/2021 12:08:30 Type 2 diabetes mellitus without complication 716886399 E11.9 will change sliding scale to start at 200 for breakfast only, will use sliding scale to start at 150 for lunch and dinnercont inue Lantus 40 units QAM, 15 units QHShumalog sliding scalemonit or and adjust insulin based on BSf/u later this week to reassess [id number] DENILSON ARIAS PA-C [facility] on [address] [place] [address] 08/17/2021 13:06:51 08/18/2021 14:24:56 Infection of tooth 652157108 K04.7 Amox 1 g po x 1 then 500 mg po tiid x 3 daysProbio tic bid x 6 daysDental consultCon tinue prn OrjelMonit or and f/u prn Uncontroll ed type 1 diabetes mellitus 873004298 E10.65 Hx DKAadd hs fingerstic k but do not cover with correction al Humalogtra nscription error in correction al insulin resolved-s hould be 9 ux for 351-400d/c order to repeat sugar in 90 minutes if >400On ARB for renal protection Monitor sugars and adjust meds prn [id number] DENILSON ARIAS PA-C [facility] on [address] [place] [address] 08/23/2021 14:16:07 08/25/2021 10:02:21 Infection of tooth 070474528 K04.7 Improved with AmoxDental f/u tomorrow as scheduledf /u prn Uncontroll ed type 1 diabetes mellitus 044169831 E10.65 Consider fingerstic k blood sugar at 0200 but do not cover with sliding scale-pt did not want to do this as he does not want his sleep disruptedL engthy discussion with pt:-Contin ue Lantus 30 ux SQ q am and 20 ux SQ qhs-Contin ue fingerstic k blood sugars tidac and qhs-no correction al insulin for breakfast or hs-adjust correction al insulin back to 12/17/6/8 for lunch and dinnerRefe r back to [facility] (has been there before) for considerat ion of insulin pumpOn ARB for renal protection Monitor sugars and adjust meds prn Health Concerns Section Related Observation LastModified by Organization Detai ls LastModified Time None Recorded Concern Status LastModified by Organization Details LastModified Time None Recorded Advance Directives Directive N: Payers Encounter Date Sequence Insurance Name Policy Number Policy Gonzaels Covered Member ID Gonzales Member ID Guarantor Name 08/04/2021 1 [place] Kelechi Tatumrra [id number] Kelechi Chinchilla Jennifer 08/09/2021 1 [place] Kelechi Chinchilla Jennifer [id number] Kelechi Chinchilla Jennifer 08/10/2021 1 [place] Kelechi Chinchilla Jennifer [id number] Kelechi Chinchilla Jennifer 08/17/2021 1 [place] Kelechi Chinchilla Jennifer [id number] Kelechi Chinchilla Jennifer 08/23/2021 1 [place] Kelechi Tatumrra [id number] Kelechi Chinchilla Jennifer Notes Date Note Type Note Provider Name and Address Organization Details Recorded Time 08/04/2021 text/html 46 yo male seen for 30 day routine rounding visit. Patient with hx IV drug use, DM, recent right arm abscess, compartment syndrome, s/p fasciotomy. Patient admitted to this facility following hospitalization for fever and increased pain and swelling at fasciotomy site. Patient had been at [facility] for abscess of right arm in May 2021 and underwent right arm fasciotomy for compartment syndrome on 06/08/21. Patient had left [facility] AMA. He was supposed to be on IV antibiotics for 3-4 weeks. Over 3 days at home he developed fever weakness, nausea, and increased swelling at surgical site with increased drainage. Also with DKA and required intubation-treated with IVF and IV insulin with good response. Lorin jimenez [place] - [facility] 08/04/2021 13:45:52 08/09/2021 text/html pt seen today fo r acute rounding visit. Patient with hx IV drug use, DM, recent right arm abscess, compartment syndrome, s/p fasciotomy. Patient admitted to this facility following hospitalization for fever and increased pain and swelling at fasciotomy site. Patient had been at [facility] for abscess of right arm in May 2021 and underwent right arm fasciotomy for compartment syndrome on 06/08/21. Patient had left [facility] AMA. He was supposed to be on IV antibiotics for 3-4 weeks. Over 3 days at home he developed fever weakness, nausea, and increased swelling at surgical site with increased drainage. Also with DKA and required intubation-treated with IVF and IV insulin with good response. today pt is stating that he will not take insulin for BS lower than 200. says he has had a few lows after that and it scares him. most BS 200s with occasional 100s or 300s. no concerns per nursing. BRIDGER Moore [address] [facility], [address], [place], [address], [facility] [employer] 08/09/2021 11:25:33 08/10/2021 text/html pt seen today fo r acute rounding visit. Patient with hx IV drug use, DM, recent right arm abscess, compartment syndrome, s/p fasciotomy. Patient admitted to this facility following hospitalization for fever and increased pain and swelling at fasciotomy site. Patient had been at [facility] for abscess of right arm in May 2021 and underwent right arm fasciotomy for compartment syndrome on 06/08/21. Patient had left [facility] AMA. He was supposed to be on IV antibiotics for 3-4 weeks. Over 3 days at home he developed fever weakness, nausea, and increased swelling at surgical site with increased drainage. Also with DKA and required intubation-treated with IVF and IV insulin with good response. pt seen today to discuss BS and insulin coverage. he states what works best for him is using the sliding scale to start at BS 200 for breakfast and then use the sliding scale to start at 150 BS with lunch and dinner. since his scale was changed yesterday to start at 200 TID his BS has been high 300s. pt has unstable blood sugars that are requiring close titration at this point. BRIDGER Moore [address] [facility], [address], [place], [address], [employer] 08/10/2021 14:35:09 08/17/2021 text/html Pt seen for acut e rounding visit today for dental pain and episodes of hypoglycemia. Asked to see pt for the above. Orajel added last evening with some effect. Demanding to be seen by dentist. No dysphagia/odynophagia . No f/c/s. Nurse reports ongoing adjustments to insulin regimen but seems to respond with hypoglycemia to correctional insulin. PMHx: HIV disease (undetectable viral load 07/07/21); Hx acute respiratory failure 06/2021 with sepsis secondary to PNA requiring ETT; DM1 with hx DKA, last A1c 11 on 07/07/21; Opiate use d/o; Tobacco use d/o; Dental caries; Hx TOMMY; B12 def; Fe def; Hx blood transfusion; Hx RUE abscess with compartment syndrome s/p fasciotomy 05/2021; Hx hyperkalemia; Chronic Hep C; Hx cocaine use d/o Meds:B12 100 mcg po q amFeSO4 324 mg po q amLantus 30 ux SQ q am and 20 ux SQ qhs (last adjusted 08/11/21)Methadone 20 mg po dailySeroquel 50 mg po qhsTriumeq 600-50-300 mg po q amGabapentin 300 mg po bidCorrectional Humalog (adjusted 08/11/21)-150-200 1 ux-201-250 3-251-300 5-301-350 7-351-400 11>400 11 and repeat 90 minutesAPAP prnHouse bowel protocolNarcan prn DENILSON ARIAS PA-C [address] [facility], [address], [place], [address], [employer] 08/17/2021 20:45:43 08/23/2021 text/html Pt seen today fo r acute rounding visit for DM and dental infection. Pt seen last week for acute dental infection at which time Amox was Rx. Pt says it was very helpful. Saw dentist and was supposed to have another dental appointment today for extraction; however, this was rescheduled to tomorrow due to episode of vomiting this am. Asked to review pt's blood sugars as they have been quite erratic. PMHx relevant for DM1 with hx DKA. Pt states he thinks he's a Type 2 and was diagnosed around age 32. Has been on Lantus doses as high as 70 ux. Says he's very sensitive to insulin. When he was incarcerated, he had a different sliding scale depending on the time of day and because he does not eat much in the morning. He would prefer his coverage start at 201 for morning sugars and continue the 151 for rest of times. Has managed his own diabetes in the community and is comfortable with managing insulin. Says his sugars drop overnight Meds reviewed and include:Lantus 30 ux SQ q am and 20 ux SQ qhsCorrectional Humalog starting at 150 Lantus last adjusted on 08/11/21 at which time morning dose decreased and hs dose increased Was on Lantus 40 ux SQ q am when he was admitted on June.07/12/21: Lantus 10 ux qhs added; 40 ux q am egfbhxhaf72/13/21: HS Lantus increased to 15 ux; 40 ux am ewbmeqsxr63/22/21: Sliding scale zveszktz00/27/21: Order given to start coverage at 201 rather than 8988508/10/21: Order given for 2 ux coverage if sugar 150-200 at lunch and dinner only and to continue starting coverage at 201 for uvwlinvkh55/29/21: Scale adjusted to 11/15///07/24 ux from 12/17///08/24 ux; Morning Lantus decreased from 40 to 30 ux and hs dose increased 15 to 20 ux No polyuria/poydipsia. DENILSON ARIAS PA-C [address] [place] [address], [address], [place], [address], [facility] - [employer] 08/23/2021 14:48:00
== END 2025-01-29 14:59 | disposition home or self-care (01) ==
LOC: HO.MRI 14:58
PROVIDERS: PCP General Practice; Visit Provider General Practice
DX: M25.562 Pain in left knee (principal); M25.462 Effusion, left knee
CPT/HCPCS: 73721

== ENCOUNTER → 2025-01-29 14:58 | Outpatient (BNV) | payer MEDICAID, SELFPAY | PROVIDERS: PCP General Practice; Visit Provider Radiology Diagnostic Radiology | DX: M25.562 Pain in left knee (principal); M25.462 Effusion, left knee | CPT/HCPCS: 73721 ==

== ENCOUNTER 2025-02-09 10:27 | Inpatient (IN) | payer MEDICAID, SELFPAY ==
[2025-02-09] VITALS (29 sets, daily range): BP systolic 75–123; BP diastolic 45–84; PULSE 71–94; RESP 11–25; TEMP 36.2–36.4; O2SAT 61–99; BMI 22.1
--- NOTE | ~2025-02-09 | CT_ITS ---
CLINICAL HISTORY: hypoxia multifocal pneumonia cavity CT CHEST WITHOUT CONTRAST Comparison: CR - XR CHEST 1V - 02/09/25 11:24 EDT Findings: Small pericardial effusion. Thoracic aorta appears normal caliber. Trachea and major bronchi are grossly patent. Multiple small likely reactive mediastinal lymph nodes. Extensive confluent airspace opacities bilaterally Small right pleural effusion. Biapical blebs. No pneumothorax. Questionable trace perihepatic ascites. No acute fractures. Multiple intravascular gas foci most likely related to recent venous access. IMPRESSION: 1. Extensive bilateral pulmonary opacities secondary to infection, hemorrhage, edema or ARDS. 2. Small pericardial and right pleural effusions. This document has been electronically signed by: Libby Cortez DO on 02/09/2025 16:59:39
--- NOTE | ~2025-02-09 | XR_ITS ---
CLINICAL HISTORY: knee pain 5 view left knee Comparison: MR/UT/SR - MR KNEE LT WO CON - 01/29/25 15:05 EDT CR - XR KNEE LT 3V - 01/13/25 16:57 EST Findings: Bones intact. No dislocations. Tricompartmental periarticular osteophyte formation, indicating osteoarthritis. No joint effusion. Curvilinear calcific densities project over the anterolateral soft tissues. IMPRESSION: 1. No acute findings. 2. Indeterminate curvilinear calcific densities within the soft tissues, As before. This document has been electronically signed by: Olga Serna MD on 02/15/2025 14:28:46
--- NOTE | ~2025-02-09 | CT_ITS ---
CLINICAL HISTORY: fall CT HEAD WITHOUT CONTRAST Comparison: None Findings: No acute intracranial hemorrhage, extra-axial fluid collection, hydrocephalus or midline shift. Generalized parenchymal atrophy appears advanced for age. There are mild periventricular and subcortical white matter hypodensities which are nonspecific but most likely related to microangiopathic gliosis. There is no sinus or mastoid fluid. Visualized orbits: No acute abnormalities. There is no acute fracture. IMPRESSION: 1. No acute intracranial process. This document has been electronically signed by: Libby Cortez DO on 02/09/2025 17:00:20
--- NOTE | ~2025-02-09 | XR_ITS ---
CLINICAL HISTORY: sob 1 view chest x-ray. Comparison: None Findings: The lungs are adequately expanded. There is patchy bilateral ground-glass densities. No effusion or pneumothorax. Cardiac and mediastinal contours are within normal limits. No acute osseous abnormality Impression: Patchy bilateral ground-glass densities. Correlation for pneumonia. Given the normal cardiac size, edema is considered less likely. This document has been electronically signed by: Guy Riley MD on 02/09/2025 11:52:45
--- NOTE | 2025-02-09 10:35 | ED_ITS ---
HPI - SOB/Dyspnea General Chief Complaint: Dyspnea Stated Complaint: WHEEZING, 95% ON DUONEB, LOW BP, FALL PER EMS Time Seen by Provider: 02/09/25 10:34 Source: patient Mode of arrival: ambulatory Limitations: no limitations History of Present Illness ED Provider: HPI Narrative: patient's history of HIV protein calorie malnutrition chronic anemia, diabetes, IV drug user on methadone with undetectable viral load Related Data Home Medications ?Medication ?Instructions ?Recorded ?Confirmed abacavir 600 mg-dolutegravir 50 1 tab PO DAILY 02/09/25 mg-lamivudine 300 mg tablet (Triumeq) acetaminophen 500 mg tablet 500 mg PO Q6H PRN mild pain 02/09/25 albuterol sulfate 90 mcg/actuation 2 puff inhalation Q6H PRN wheezing 02/09/25 aerosol inhaler (Ventolin HFA) clonidine HCl 0.1 mg tablet 0.1 mg PO BID 02/09/25 doxycycline hyclate 100 mg tablet 100 mg PO BID 02/09/25 ferrous gluconate 324 mg (38 mg 324 mg PO QAM 02/09/25 iron) tablet fluticasone propionate 50 1 spray intranasal DAILY 02/09/25 mcg/actuation nasal spray,suspension gabapentin 300 mg capsule 300 mg PO TID 02/09/25 hydroxyzine pamoate 25 mg capsule 25 mg PO Q12H PRN itch 02/09/25 insulin glargine 100 unit/mL (3 22 unit subcut QAM 02/09/25 mL) subcutaneous pen (Lantus Solostar U-100 Insulin) insulin lispro 100 unit/mL 4 - 20 sliding scale dose subcut 02/09/25 subcutaneous pen (Humalog KwikPen QIDACHS (U-100) Insulin) omeprazole 20 mg capsule,delayed 20 mg PO BID 02/09/25 release quetiapine 100 mg tablet 100 mg PO BEDTIME 02/09/25 Allergies Allergy/AdvReac Type Severity Reaction Status Date / Time fish Allergy Unknown Anaphylaxis Uncoded 02/09/25 10:38 shellfish Allergy Unknown Anaphylaxis Uncoded 02/09/25 10:38 [facility] Past Medical History Medical History Protein calorie malnutrition Opioid use disorder Hep C w/o coma, chronic HIV (human immunodeficiency virus infection) HIV (human immunodeficiency virus infection) Compartment syndrome Active substance abuse Substance abuse Diabetes Diabetes Surgical History History of fasciotomy H/O fasciotomy Social History Social History Household Members: None Household Members Other:: self Housing: House Do you presently have visiting nurse or other home services: No Unable to assess alcohol history related to: Unknown Alcohol intake: current Alcohol intake frequency: a few times a week Comment: 1:1 sitter Patient Tobacco Use Status: Current everyday Tobacco user Tobacco use type: Cigarette Cigarette Packs Per Day: 1 Cigarettes Per Day: 10 Years Smoked: 20 Smoked in Last 30 Days: No Use of substances other than those prescribed or required for medical reasons: Yes Substance Use Type: Heroin Substance Use Type Other:: fentanyl Advance Directives: Yes Advance Directives on File: Yes Advance Directives Date on File: 07/09/21 Do you have a plan to hurt others: No Plan service: No Current occupational status: unemployed Physical Exam 2 Vital Signs: Vital Signs: Last Vital Signs Temp 97.6 F 02/09/25 14:55 Pulse 78 02/09/25 15:03 Resp 15 02/09/25 15:03 BP 95/64 02/09/25 15:03 Pulse Ox 97 02/09/25 15:03 O2 Del Method High Flow Nasal C annula 02/09/25 15:03 O2 Flow Rate 50 02/09/25 15:03 BMI result Body Mass Index 22.1 Appearance: Alert. Oriented X3. No acute distress. Eyes: PERRLA, No Nystagmus ENT: Pharynx normal. Oral Mucosa moist Neck: Normal inspection. Neck supple. CVS: Normal heart rate and rhythm. Pulses normal. Respiratory: No respiratory distress. Equal air entry bilateral, no wheezing/rales/rhonchi Abdomen: Soft and nontender. Bowel sounds are present, no mass palpable, no CVA tenderness Skin: Skin warm and dry. Normal skin color. Normal skin turgor. Extremities: No lower extremity edema. No calf tenderness Neuro: Oriented X 3. No motor deficit. No sensory deficit.No cerebellar signs , cranial nerves II-XII intact Medications Administered Generic Name Dose Route Start Last Admin Trade Name Freq PRN Reason Stop Dose Admin Enoxaparin Sodium 40 mg 02/09/25 16:00 02/09/25 16:05 Enoxaparin Sodium 40 Mg/0.4 Ml Syringe SUBCUT 40 mg Q24H NIA Administration Norepinephrine Bitartrate 8 mg in 250 mls @ 0 mls/hr 02/09/25 13:30 02/09/25 14:02 Levophed IVCONT 0.05 mcg/kg/min .Q0M NIA 5.99 mls/hr Administration Protocol Per Protocol Discontinued Medications Generic Name Dose Route Start Last Admin Trade Name Freq PRN Reason Stop Dose Admin Hydrocortisone Sodium Succinate 100 mg 02/09/25 13:49 02/09/25 14:34 Hydrocortisone Sod Succ/Pf 100 Mg Vial IVPUSH 02/09/25 13:50 100 mg ONCE ONE Administration Sodium Chloride 1,000 mls @ 999 mls/hr 02/09/25 10:41 02/09/25 12:29 Ns IV 02/09/25 11:41 Infused .Q1H1M ONE Infusion Piperacillin Sod/Tazobactam 50 mls @ 100 mls/hr 02/09/25 10:54 02/09/25 11:58 Sod 3.375 gm/ Sodium Chloride IV 02/09/25 11:23 Infused ONCE ONE Infusion Vancomycin HCl 1,500 mg/ 500 mls @ 333.333 mls/hr 02/09/25 10:57 02/09/25 13:19 Sodium Chloride IV 02/09/25 12:26 Infused ONCE ONE Infusion Sodium Chloride 1,000 mls @ 999 mls/hr 02/09/25 11:11 02/09/25 12:30 Ns IV 02/09/25 12:11 Infused .Q1H1M ONE Infusion Lactated Ringer's 500 mls @ 999 mls/hr 02/09/25 11:40 02/09/25 12:25 Lr IVCONT 02/09/25 12:10 Infused .Q31M STA Infusion Insulin Glargine 30 unit 02/09/25 15:20 02/09/25 16:05 Insulin Glargine,Hum.Rec.Anlog 100 Unit/Ml 10 Ml Vial SUBCUT 02/09/25 15:21 30 unit ONCE ONE Administration Insulin Human Lispro 14 unit 02/09/25 11:10 02/09/25 11:28 Insulin Lispro 100 Unit/Ml 3 Ml Vial SUBCUT 02/09/25 11:11 14 unit ONCE ONE Administration Insulin Human Regular 12 unit 02/09/25 12:19 02/09/25 12:48 Insulin Regular, Human 100 Unit/Ml 10 Ml Vial IVPUSH 02/09/25 12:20 12 unit ONCE ONE Administration Medical Decision Making Medical Decision Making 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 Lab Attestation statement: I reviewed the patient's lab results. 02/09/25 10:47 02/09/25 10:47 Labs: Lab Results 02/09/25 02/09/25 02/09/25 Range/Units 10:34 10:47 10:48 WBC 7.2 (4.8-10.8) X10*3/uL RBC 2.48 L (4.60-5.80) X10*6/uL Hgb 6.7 L* (14.0-18.0) g/dl Hct 20.4 L* (42.0-52.0) % MCV 82.3 (80.0-98.0) fL MCH 27.0 (27.0-33.0) pg MCHC 32.8 (31.0-36.0) g/dl RDW 15.8 (11.0-16.0) % Plt Count 199 D (160-400) X10*3/uL MPV 10.1 (9.4-12.4) fL Immature Gran % (Auto) 0.4 (0.0-0.4) % Neut % (Auto) 73.7 H (45-73) % Lymph % (Auto) 21.0 (20-40) % [place] % (Auto) 3.9 (2-11) % Eos % (Auto) 0.7 (0-4) % Baso % (Auto) 0.3 (0-2) % Lymph # (Auto) 1.5 (1.2-4.9) X10*3/uL [place] # (Auto) 0.3 (0.1-1.2) X10*3/uL Eos # (Auto) 0.1 (0.0-0.4) X10*3/uL Baso # (Auto) 0.0 (0.0-0.2) X10*3/uL Abs Immat Gran (auto) 0.03 (0.00-0.03) X10*3/uL Absolute Neuts (auto) 5.3 (2.0-8.3) x10*3/uL Absolute Nucleated RBC 0.000 (0.0-0.012) X10*3/uL Nucleated RBC % (auto) 0.0 (0.0-0.2) /100WBC PT 13.7 H D (10.9-12.4) SEC INR 1.2 H (0.9-1.1) VBG pH (7.32-7.43) VBG pCO2 mmHg VBG pO2 mmHg VBG HCO3 (22-26) mmol/L VBG O2 Saturation VBG Base Excess mmol/L Sodium 133 L (135-145) mmol/L Potassium 3.9 (3.3-5.1) mmol/L Chloride 102 (96-108) mmol/L Carbon Dioxide 21 L (22-29) mmol/L Anion Gap 14 (12-20) BUN 31 H (9-16) mg/dL Creatinine 1.95 H (0.5-1.4) mg/dL Estim Creat Clear Calc 42.3 Estimated GFR 37 POC Glucose 414 H* (60-115) mg/dL Random Glucose 501 H* (60-115) mg/dL Lactic Acid 4.6 H* (0.5-2.0) mmol/L Lactic Acid F/U @ 2Hr (0.5-2.0) mmol/L Calcium 8.1 L D (8.4-10.2) mg/dL Magnesium 1.7 (1.6-2.6) mg/dL Total Bilirubin 0.3 (0.0-1.0) mg/dL AST 27 (5-37) U/L ALT < 6 (0-40) U/L Alkaline Phosphatase 145 H (39-117) U/L Troponin I High Sens 95.3 H (<3.5-35.0) ng/L B-Natriuretic Peptide 739 H (<100) pg/mL Total Protein 6.7 (6.5-8.0) g/dL Albumin 2.5 L (3.5-5.0) g/dL Influenza Type A (PCR) NEGATIVE (Negative) Influenza Type B (PCR) NEGATIVE (Negative) RSV RNA Qual (PCR) NEGATIVE (Negative) SARS-CoV-2 RNA (RT-PCR) NEGATIVE (Negative) Blood Type Antibody Screen Crossmatch 02/09/25 02/09/25 02/09/25 Range/Units 10:53 11:10 12:20 WBC (4.8-10.8) X10*3/uL RBC (4.60-5.80) X10*6/uL Hgb (14.0-18.0) g/dl Hct (42.0-52.0) % MCV (80.0-98.0) fL MCH (27.0-33.0) pg MCHC (31.0-36.0) g/dl RDW (11.0-16.0) % Plt Count (160-400) X10*3/uL MPV (9.4-12.4) fL Immature Gran % (Auto) (0.0-0.4) % Neut % (Auto) (45-73) % Lymph % (Auto) (20-40) % [place] % (Auto) (2-11) % Eos % (Auto) (0-4) % Baso % (Auto) (0-2) % Lymph # (Auto) (1.2-4.9) X10*3/uL [place] # (Auto) (0.1-1.2) X10*3/uL Eos # (Auto) (0.0-0.4) X10*3/uL Baso # (Auto) (0.0-0.2) X10*3/uL Abs Immat Gran (auto) (0.00-0.03) X10*3/uL Absolute Neuts (auto) (2.0-8.3) x10*3/uL Absolute Nucleated RBC (0.0-0.012) X10*3/uL Nucleated RBC % (auto) (0.0-0.2) /100WBC PT (10.9-12.4) SEC INR (0.9-1.1) VBG pH 7.40 (7.32-7.43) VBG pCO2 36 mmHg VBG pO2 42 mmHg VBG HCO3 23 (22-26) mmol/L VBG O2 Saturation TNP VBG Base Excess -1.3 mmol/L Sodium (135-145) mmol/L Potassium (3.3-5.1) mmol/L Chloride (96-108) mmol/L Carbon Dioxide (22-29) mmol/L Anion Gap (12-20) BUN (9-16) mg/dL Creatinine (0.5-1.4) mg/dL Estim Creat Clear Calc Estimated GFR POC Glucose 403 H* (60-115) mg/dL Random Glucose (60-115) mg/dL Lactic Acid (0.5-2.0) mmol/L Lactic Acid F/U @ 2Hr (0.5-2.0) mmol/L Calcium (8.4-10.2) mg/dL Magnesium (1.6-2.6) mg/dL Total Bilirubin (0.0-1.0) mg/dL AST (5-37) U/L ALT (0-40) U/L Alkaline Phosphatase (39-117) U/L Troponin I High Sens (<3.5-35.0) ng/L B-Natriuretic Peptide (<100) pg/mL Total Protein (6.5-8.0) g/dL Albumin (3.5-5.0) g/dL Influenza Type A (PCR) (Negative) Influenza Type B (PCR) (Negative) RSV RNA Qual (PCR) (Negative) SARS-CoV-2 RNA (RT-PCR) (Negative) Blood Type O Negative Antibody Screen NEGATIVE Crossmatch See Detail 02/09/25 02/09/25 Range/Units 13:26 13:52 WBC (4.8-10.8) X10*3/uL RBC (4.60-5.80) X10*6/uL Hgb (14.0-18.0) g/dl Hct (42.0-52.0) % MCV (80.0-98.0) fL MCH (27.0-33.0) pg MCHC (31.0-36.0) g/dl RDW (11.0-16.0) % Plt Count (160-400) X10*3/uL MPV (9.4-12.4) fL Immature Gran % (Auto) (0.0-0.4) % Neut % (Auto) (45-73) % Lymph % (Auto) (20-40) % [place] % (Auto) (2-11) % Eos % (Auto) (0-4) % Baso % (Auto) (0-2) % Lymph # (Auto) (1.2-4.9) X10*3/uL [place] # (Auto) (0.1-1.2) X10*3/uL Eos # (Auto) (0.0-0.4) X10*3/uL Baso # (Auto) (0.0-0.2) X10*3/uL Abs Immat Gran (auto) (0.00-0.03) X10*3/uL Absolute Neuts (auto) (2.0-8.3) x10*3/uL Absolute Nucleated RBC (0.0-0.012) X10*3/uL Nucleated RBC % (auto) (0.0-0.2) /100WBC PT (10.9-12.4) SEC INR (0.9-1.1) VBG pH (7.32-7.43) VBG pCO2 mmHg VBG pO2 mmHg VBG HCO3 (22-26) mmol/L VBG O2 Saturation VBG Base Excess mmol/L Sodium (135-145) mmol/L Potassium (3.3-5.1) mmol/L Chloride (96-108) mmol/L Carbon Dioxide (22-29) mmol/L Anion Gap (12-20) BUN (9-16) mg/dL Creatinine (0.5-1.4) mg/dL Estim Creat Clear Calc Estimated GFR POC Glucose 203 H (60-115) mg/dL Random Glucose (60-115) mg/dL Lactic Acid (0.5-2.0) mmol/L Lactic Acid F/U @ 2Hr 3.6 H* (0.5-2.0) mmol/L Calcium (8.4-10.2) mg/dL Magnesium (1.6-2.6) mg/dL Total Bilirubin (0.0-1.0) mg/dL AST (5-37) U/L ALT (0-40) U/L Alkaline Phosphatase (39-117) U/L Troponin I High Sens (<3.5-35.0) ng/L B-Natriuretic Peptide (<100) pg/mL Total Protein (6.5-8.0) g/dL Albumin (3.5-5.0) g/dL Influenza Type A (PCR) (Negative) Influenza Type B (PCR) (Negative) RSV RNA Qual (PCR) (Negative) SARS-CoV-2 RNA (RT-PCR) (Negative) Blood Type Antibody Screen Crossmatch Independent Interpretation I performed an independent interpretation of an: EKG Interpretation: normal sinus rhythm heart rate 83 beats per minute normal interval normal axis no acute ST-T changes no acute ischemia Radiology Impression Discussion of test interpretation with radiology: I have reviewed the radiologist's reading. Radiologist Impression: Findings: The lungs are adequately expanded. There is patchy bilateral ground-glass densities. No effusion or pneumothorax. Cardiac and mediastinal contours are within normal limits. No acute osseous abnormality Impression: Patchy bilateral ground-glass densities. Correlation for pneumonia. Given the normal cardiac size, edema is considered less likely. This document has been electronically signed by: Guy Riley MD on 02/09/2025 11:52:45 Critical Care Time Critical Care Time Critical Care Time: Yes Total Critical Care Time: 70 Attestation: The patient was critically ill with a high probability of imminent or life threatening deterioration. I spent greater than 75 minutes of discontinuous time evaluating the patient,delivering critical care at the bedside, discussing and evaluating pertinent data with consultants. Critical care time does not include time spent performing separately billable procedures or teaching. Total time spent performing critical care was 70 minutes. Discharge Plan Discharge Clinical Impression: Acute hypoxemic respiratory failure, Hyperglycemia, Septic shock, Severe anemia Protein calorie malnutrition Qualifiers: Protein-calorie malnutrition severity: severe Qualified Code(s): E43 - Unspecified severe protein-calorie malnutrition Patient Disposition: Admitted As Inpatient
--- NOTE | 2025-02-09 10:41 | ECG_ITS ---
Test Reason : SOB Blood Pressure : */* mmHG Vent. Rate : 83 BPM Atrial Rate : 83 BPM P-R Int : 152 ms QRS Dur : 84 ms QT Int : 430 ms P-R-T Axes : 83 90 -26 degrees QTcB Int : 505 ms Normal sinus rhythm Rightward axis Possible Anterior infarct , age undetermined Abnormal ECG When compared with ECG of 01-Jan-2025 18:46, Nonspecific T wave abnormality now evident in Inferior leads T wave inversion now evident in Anterior leads QT has lengthened Referred By: Ian Goddard Electronically Signed By: VIC KOEHLER
[2025-02-09 10:54] LABS: MANUAL DIFF FLAG NO
[2025-02-09 10:58] LABS: Basophils Percent Auto 0.3 % (0-2); Eosinophils Absolute Auto 0.1 X10*3/uL (0.0-0.4); Eosinophils Percent Auto 0.7 % (0-4); Imm Gran Abs Auto 0.03 X10*3/uL (0.00-0.03); Imm Gran Pct Auto 0.4 % (0.0-0.4); Lymphocytes Absolute Auto 1.5 X10*3/uL (1.2-4.9); Mean Corpuscular HGB Conc 32.8 g/dl (31.0-36.0); Mean Corpuscular Volume 82.3 fL (80.0-98.0); Mean Platelet Volume 10.1 fL (9.4-12.4); Monocytes Absolute Auto 0.3 X10*3/uL (0.1-1.2); Monocytes Percent Auto 3.9 % (2-11); Neutrophils Absolute Auto 5.3 x10*3/uL (2.0-8.3); Neutrophils Percent Auto 73.7 % (45-73); Platelet Count 199 X10*3/uL (160-400); Red Blood Count 2.48 X10*6/uL (4.60-5.80); Red Cell Distribution Width 15.8 % (11.0-16.0); White Blood Count 7.2 X10*3/uL (4.8-10.8)
[2025-02-09 10:59] LABS: Glucose, Whole Blood 414 mg/dL (60-115)
[2025-02-09 10:59] LABS: VBG Base Excess -1.3 mmol/L; VBG HCO3 23 mmol/L (22-26); VBG pCO2 36 mmHg; VBG pO2 42 mmHg
[2025-02-09 11:00] LABS: Venous Blood Gas Refer to POC result
[2025-02-09 11:03] LABS: Hematocrit 20.4 % (42.0-52.0); Hemoglobin 6.7 g/dl (14.0-18.0)
[2025-02-09 11:05] LABS: INTERNATIONAL NORM RATIO 1.2 (0.9-1.1); Prothrombin Time 13.7 SEC (10.9-12.4)
[2025-02-09 11:18] LABS: Alanine Aminotransferase < 6 U/L (0-40); Albumin Level 2.5 g/dL (3.5-5.0); Alkaline Phosphatase 145 U/L (39-117); Anion Gap 14 (12-20); Aspartate Amino Transferase 27 U/L (5-37); Bilirubin Total 0.3 mg/dL (0.0-1.0); Blood Urea Nitrogen 31 mg/dL (9-16); Calcium 8.1 mg/dL (8.4-10.2); Carbon Dioxide 21 mmol/L (22-29); Chloride 102 mmol/L (96-108); Creatinine Clr Calc Pharmacy 42.3; Estimated Glomerular Filt Rate 37; Glucose Random 501 mg/dL (60-115); Lactic Acid 4.6 mmol/L (0.5-2.0); Magnesium 1.7 mg/dL (1.6-2.6); Potassium 3.9 mmol/L (3.3-5.1); Sodium 133 mmol/L (135-145); Total Protein 6.7 g/dL (6.5-8.0)
[2025-02-09 11:20] LABS: B Type Natriuretic Peptide 739 pg/mL (<100)
[2025-02-09 11:21] LABS: Troponin-I High Sensitivity 95.3 ng/L (<3.5-35.0)
[2025-02-09] MEDS: Insulin Lispro 100 UNIT/ML 3 ML VIAL 14 UNIT SUBCUT (11:28)
[2025-02-09] MEDS: 0.9 % Sodium Chloride 1,000 ML 999 ML IV ×2 (11:28→11:29)
[2025-02-09] MEDS: Piperacillin Sodium/Tazobactam 3.375 GM in 0.9 % Sodium Chloride 50 ML IV (11:28)
--- NOTE | 2025-02-09 11:32 | PC.NURSE ---
Patient presents from the methadone clinic after having a syncopal episode prior to receiving his dose. C-collar intact upon arrival and patient removed collar and cleared cervical spine. Patient with an extensive opiate use disorder, HIV, and DM. potline monitor applied and NSR noted. Patient noted to be hypotensive and hypoxic. Respiratory at the bedside and patient placed on an oxymask at 9L. Lactic elevated and 2 liters of fluid initiated. H/H low, type 2 screen obtained and PRBC's ordered. Blood sugar 501 and insulin given as ordered.
[2025-02-09 11:34] LABS: Influenza A PCR NEGATIVE (Negative); Influenza B PCR NEGATIVE (Negative); Resp Syncy Virus RNA Qual PCR NEGATIVE (Negative); SARS COV2 PCR INHOUSE NEGATIVE (Negative)
[2025-02-09] MEDS: vancomycin HCL 1,500 MG in 0.9 % Sodium Chloride 500 ML 333.33 MG IV (11:48)
[2025-02-09] MEDS: Lactated Ringers 500 ML 999 ML IVCONT (11:54)
[2025-02-09] MEDS: Insulin Regular, Human 100 UNIT/ML 10 ML VIAL 12 UNIT IVPUSH (12:48)
[2025-02-09 12:53] LABS: Reflex Lactate? Lactic Acid Added
[2025-02-09 12:59] LABS: Glucose, Whole Blood 403 mg/dL (60-115)
--- NOTE | 2025-02-09 13:00 | PC.NURSE ---
Patient noted to desaturate into the high 70's and low 80's at rest. Provider notified and respiratory consulted. Oxymask increased to 13L. Pending affect. Will continue to monitor.
[2025-02-09 13:52] LABS: ~Lactic Acid-LAB USE ONLY 3.6 mmol/L (0.5-2.0)
[2025-02-09] MEDS: Norepinephrine Bitartrate/D5W 8 MG/250 ML PLAST..BAG 5.99 MG IVCONT (14:02)
--- NOTE | 2025-02-09 14:07 | PC.NURSE ---
Patient remains hypotensive. Levophed initiated at 0.05mcg/kg/min. Preparing for the insertion of a central line.
[2025-02-09] MEDS: Hydrocortisone Sod Succ/PF 100 MG VIAL IVPUSH (14:34)
--- NOTE | 2025-02-09 14:44 | PC.NURSE ---
Patient noted to desaturate into the 70's while eating. Admitting provider at the bedside and decision made to d/c levophed and possibly initiate high flow.
--- NOTE | 2025-02-09 15:06 | PC.NURSE ---
O2 therapy changed from oxymask to high flow. Will continue to monitor.
[2025-02-09 15:09] LABS: Glucose, Whole Blood 203 mg/dL (60-115)
--- NOTE | 2025-02-09 15:10 | P.HPCC_ITS ---
History of Present Illness Date of Service: 02/09/25 Chief Complaint: Shortness of breaths Patient is a poor historian and difficult to engage in a meaningful conversation 49-year-old male with past medical history of HIV, IV drug abuse and diabetes mellitus presented to the ED with complaints of shortness of breath and fall at home. He complaints of shortness of breath on exertion for the past few days, minimal cough, nonproductive, worsens on exertion, relieved on rest. He denies any fever or any other complaints. Review of Systems 2 Constitutional: Constitutional: Denies daytime sleepiness and Denies difficulty sleeping Eyes: Eyes: Denies decreased night vision and Denies diplopia ENT: Denies Normal hearing present and Denies bleeding gums Cardiovascular: Cardiovascular: Denies Abdominal Cramping after Meds, Denies Abdominal Distension and Reports dyspnea Respiratory: Respiratory: Reports chest congestion, Reports cough and Reports dyspnea Genitourinary: Genitourinary: Denies change in libido, Denies hematuria and Denies oliguria Musculoskeletal: Musculoskeletal: Denies myalgias and Denies atrophy Integumentary/Breasts: Skin/Breast: Denies bleeding lesions and Denies breast swelling Neurologic: Denies Normal hearing present, Denies Neuro-related abnormal movements and Denies behavioral changes Psychiatric: Psychiatric: Denies behavioral changes, Denies change in appetite and Denies change in libido Endocrine: Endocrine: Denies change in libido and Denies cold intolerance PMFSH Past Medical History Medical History Protein calorie malnutrition Opioid use disorder Hep C w/o coma, chronic HIV (human immunodeficiency virus infection) HIV (human immunodeficiency virus infection) Compartment syndrome Active substance abuse Substance abuse Diabetes Diabetes Surgical History Surgical History History of fasciotomy H/O fasciotomy Social History Social History Household Members: None Household Members Other:: self Housing: House Do you presently have visiting nurse or other home services: No Unable to assess alcohol history related to: Unknown Alcohol intake: current Alcohol intake frequency: a few times a week Comment: 1:1 sitter Patient Tobacco Use Status: Current everyday Tobacco user Tobacco use type: Cigarette Cigarette Packs Per Day: 1 Cigarettes Per Day: 10 Years Smoked: 20 Smoked in Last 30 Days: No Use of substances other than those prescribed or required for medical reasons: Yes Substance Use Type: Heroin Substance Use Type Other:: fentanyl Advance Directives: Yes Advance Directives on File: Yes Advance Directives Date on File: 07/09/21 Do you have a plan to hurt others: No Plan service: No Current occupational status: unemployed Meds Allergies Allergy/AdvReac Type Severity Reaction Status Date / Time fish Allergy Unknown Anaphylaxis Uncoded 02/09/25 10:38 shellfish Allergy Unknown Anaphylaxis Uncoded 02/09/25 10:38 Active Medications: Current Medications Norepinephrine Bitartrate (Levophed) 8 mg in 250 mls @ 0 mls/hr IVCONT .Q0M NIA; Protocol Last Admin: 02/09/25 14:02 Dose: 0.05 mcg/kg/min, 5.99 mls/hr Physical Exam 2 Vital Signs: Vital Signs: Last Vital Signs Temp 97.6 F 02/09/25 14:55 Pulse 78 02/09/25 15:03 Resp 15 02/09/25 15:03 BP 95/64 02/09/25 15:03 Pulse Ox 97 02/09/25 15:03 O2 Del Method High Flow Nasal C annula 02/09/25 15:03 O2 Flow Rate 50 02/09/25 15:03 BMI result Body Mass Index 22.1 Neuro: Cranial nerves: No Normal hearing present Results Labs 02/09/25 10:47 02/09/25 10:47 Labs: Laboratory Results - last 24 hr 02/09/25 02/09/25 02/09/25 10:34 10:47 10:48 MCV 82.3 MCH 27.0 MCHC 32.8 RDW 15.8 Plt Count 199 D MPV 10.1 Immature Gran % (Auto) 0.4 Neut % (Auto) 73.7 H Lymph % (Auto) 21.0 [place] % (Auto) 3.9 Eos % (Auto) 0.7 Baso % (Auto) 0.3 Lymph # (Auto) 1.5 [place] # (Auto) 0.3 Eos # (Auto) 0.1 Baso # (Auto) 0.0 Abs Immat Gran (auto) 0.03 Absolute Neuts (auto) 5.3 Absolute Nucleated RBC 0.000 Nucleated RBC % (auto) 0.0 PT 13.7 H D INR 1.2 H VBG pH VBG pCO2 VBG pO2 VBG HCO3 VBG O2 Saturation VBG Base Excess Anion Gap 14 Estim Creat Clear Calc 42.3 Estimated GFR 37 POC Glucose 414 H* Random Glucose 501 H* Lactic Acid 4.6 H* Lactic Acid F/U @ 2Hr Calcium 8.1 L D Magnesium 1.7 Total Bilirubin 0.3 AST 27 ALT < 6 Alkaline Phosphatase 145 H B-Natriuretic Peptide 739 H Total Protein 6.7 Albumin 2.5 L Influenza Type A (PCR) NEGATIVE Influenza Type B (PCR) NEGATIVE RSV RNA Qual (PCR) NEGATIVE SARS-CoV-2 RNA (RT-PCR) NEGATIVE Blood Type Antibody Screen Crossmatch 02/09/25 02/09/25 02/09/25 10:53 11:10 12:20 MCV MCH MCHC RDW Plt Count MPV Immature Gran % (Auto) Neut % (Auto) Lymph % (Auto) [place] % (Auto) Eos % (Auto) Baso % (Auto) Lymph # (Auto) [place] # (Auto) Eos # (Auto) Baso # (Auto) Abs Immat Gran (auto) Absolute Neuts (auto) Absolute Nucleated RBC Nucleated RBC % (auto) PT INR VBG pH 7.40 VBG pCO2 36 VBG pO2 42 VBG HCO3 23 VBG O2 Saturation TNP VBG Base Excess -1.3 Anion Gap Estim Creat Clear Calc Estimated GFR POC Glucose 403 H* Random Glucose Lactic Acid Lactic Acid F/U @ 2Hr Calcium Magnesium Total Bilirubin AST ALT Alkaline Phosphatase B-Natriuretic Peptide Total Protein Albumin Influenza Type A (PCR) Influenza Type B (PCR) RSV RNA Qual (PCR) SARS-CoV-2 RNA (RT-PCR) Blood Type O Negative Antibody Screen NEGATIVE Crossmatch See Detail 02/09/25 02/09/25 13:26 13:52 MCV MCH MCHC RDW Plt Count MPV Immature Gran % (Auto) Neut % (Auto) Lymph % (Auto) [place] % (Auto) Eos % (Auto) Baso % (Auto) Lymph # (Auto) [place] # (Auto) Eos # (Auto) Baso # (Auto) Abs Immat Gran (auto) Absolute Neuts (auto) Absolute Nucleated RBC Nucleated RBC % (auto) PT INR VBG pH VBG pCO2 VBG pO2 VBG HCO3 VBG O2 Saturation VBG Base Excess Anion Gap Estim Creat Clear Calc Estimated GFR POC Glucose 203 H Random Glucose Lactic Acid Lactic Acid F/U @ 2Hr 3.6 H* Calcium Magnesium Total Bilirubin AST ALT Alkaline Phosphatase B-Natriuretic Peptide Total Protein Albumin Influenza Type A (PCR) Influenza Type B (PCR) RSV RNA Qual (PCR) SARS-CoV-2 RNA (RT-PCR) Blood Type Antibody Screen Crossmatch Assessment and Plan (1) Acute hypoxemic respiratory failure: Status: Acute (2) Chronic anemia: Status: Acute (3) Hyperglycemia: Status: Acute (4) Septic shock: Status: Acute Plan Neuro: mental status at baseline history of drug abuse currently on methadone We will get a urine drug screen Septic Shock: Responded well to 3 L of fluid bolus, currently off pressors will start on levophed if needed to keep MAP above 65mmHg Lactic acidosis: Presented with a lactate of 4.6, now down to 3.6 Respiratory: Acute hypoxemic respiratory failure due to bilateral nonspecific pneumonia Saturation stable on high-flow oxygen 50% 50 L We will get respiratory viral panel, influenza, urine pneumococcal antigen, serum mycoplasma antibody and urine Legionella antibody We will also get LDH levels to rule out Pneumocystis pneumonia (CD4 count is 600, so less likely) GI: on tube feeds Renal: Acute kidney injury possibly secondary to ATN/volume depletion Baseline creatinine normal, creatinine today is 1.95 We will repeat a BMP to see if it is improving We will closely monitor I's and O's Avoid nephrotoxic medications Heme: Chronic anemia, closely monitor H&H, transfuse for hemoglobin less than 7 grams/deciliter; receiving 1 unit PRBC transfusion in ED Endocrine: Blood sugars not under control We will give 30U of lantus and sliding scale insulin as needed Infectious disease: We will send pancultures will start on ceftriaxone and azithromycin Musculoskeletal: Decubitus ulcer prevention protocol Lines: peripheral Prophylaxis: heparin, pantoprazole Total time managing care of this patient today: 35 minutes.
[2025-02-09 15:29] LABS: Reflex Lactate? 2 Y
--- NOTE | 2025-02-09 15:34 | PC.NURSE ---
Patient sent for CT
[2025-02-09] MEDS: Enoxaparin Sodium 40 MG/0.4 ML SYRINGE SUBCUT (16:05)
[2025-02-09] MEDS: Insulin Glargine,Hum.rec.anlog 100 UNIT/ML 10 ML VIAL 30 UNIT SUBCUT (16:05)
[2025-02-09] MEDS: Doxycycline Hyclate 100 MG in 0.9 % Sodium Chloride 250 ML 166.67 MG IV (16:18)
--- NOTE | 2025-02-09 17:00 | PC.NURSE ---
Report given to Alia LINARES
--- NOTE | 2025-02-09 17:10 | PHA.MEDREC ---
Addendum entered by Bhargav Laguna [facility] 02/09/25 17:52: MED REC CHECKED BY [facility] Original Note: Pharmacy Consult ? Medication Reconciliation Pharmacy has completed the medication reconciliation. Spoke with patient to confirm medications, also used claim history for meds he was unsure about. He reports he took Triumeq this morning. He said he is still taking doxycyline. He reports 30 units of Lantus, left lispro as rx instructions 4-20 units 4x/day. He reports methadone 50 mg from [facility] clinic in [place], last had this morning per family.
[2025-02-09 18:14] LABS: Estimated Average Glucose 229 mg/dL; Hemoglobin A1C 145.7717 umol/L; Hemoglobin A1c % 9.6 % (<6.0); Total Hemoglobin (HGBA1C) 1789.1298 umol/L
[2025-02-09 18:52] LABS: Appearance Urine Cloudy; Color Urine Dark Yellow; Glucose Urine UA 500 mg/dL (Negative); Leukocyte Esterase Urine Negative (Negative); Nitrite Urine Negative (Negative); Specific Gravity - Urine 1.025 (1.005-1.025); UMIC TRIGGER UACC YES; Urine Blood Negative (Negative); Urine Ketones Trace mg/dL (Negative); Urine Protein 30 (1+) mg/dL (Neg-Trace)
[2025-02-09 18:57] LABS: Bacteria Urine None Seen (None Seen); Hyaline Casts Urine 0-2 /LPF (0-2); RBC Urine 0-2 /HPF (0-2); Squamous Epithelial Cell Urine >20 /HPF (0-2); UACC Culture Trigger YES
[2025-02-09 18:58] LABS: Anion Gap 14 (12-20); Blood Urea Nitrogen 25 mg/dL (9-16); Calcium 8.1 mg/dL (8.4-10.2); Carbon Dioxide 20 mmol/L (22-29); Chloride 108 mmol/L (96-108); Creatinine Clr Calc Pharmacy 61.1; Estimated Glomerular Filt Rate 57; Glucose Random 65 mg/dL (60-115); Lactate Dehydrogenase 470 U/L (118-273); Phosphorus 3.2 mg/dL (2.7-4.5); Sodium 138 mmol/L (135-145)
[2025-02-09 19:02] LABS: Amphetamine Screen Urine Not Detected (Not Detect); Barbiturates, Urine Not Detected (Not Detect); Benzodiazepines Screen Urine Not Detected (Not Detect); Buprenorphine Scr Not Detected (Not Detect); Cannabinoid Screen Urine Not Detected (Not Detect); Cocaine Screen Urine POSITIVE (Not Detect); Fentanyl, urine POSITIVE (Not Detect); Methadone Screen, Urine Positive (Not Detect); Opiate Screen Urine POSITIVE (Not Detect); Oxycodone Screen Urine Not Detected (Not Detect); Phencyclidine Screen Urine Not Detected (Not Detect)
[2025-02-09 19:03] LABS: ~Lactic Acid-LAB USE ONLY 3.2 mmol/L (0.5-2.0)
--- NOTE | 2025-02-09 19:27 | PC.NURSE ---
Assumed care of patient 17:40 Pt arrive from ED via stretcher, slid to bed. Pt has 3 bags of clothing at bedside, pt name stickers applied and encouraged pt to send home extra belongings with mother. Clothing at bedside at this time. Pt also had silver and black small case with empty methadone Rx bottles. Case placed in patient specific bin for 261 in med room. Pt has cell phone and set of silver keys on bedside table. Pt on HFNC 50L, 50%. Mild orthopnea. SaO2 93%. Lungs dim to bases. See admission assessment. POC glucose 101 on arrival, no insulin coverage given. 1+ edema to left lower extremity from knee to ankle. Pt states prior meniscus tear injury to left knee, limited ROM. Discoloration to LLE with ?cellulitis. Pt provided full bed bath. Pt voided 600 ml concentrated and strong odor urine in urinal. Urine samples sent to lab per orders.
[2025-02-09 20:42] LABS: Hematocrit 25.3 % (42.0-52.0); Hemoglobin 8.6 g/dl (14.0-18.0)
[2025-02-09 21:05] LABS: Glucose, Whole Blood 101 mg/dL (60-115)
[2025-02-09 21:05] LABS: Glucose, Whole Blood 85 mg/dL (60-115)
[2025-02-09] MEDS: Famotidine/PF 20 MG/2 ML VIAL IVPUSH (21:05)
[2025-02-09] MEDS: QUEtiapine Fumarate 100 MG TABLET PO (21:39)
[2025-02-10] VITALS (24 sets, daily range): BP systolic 123–144; BP diastolic 73–88; PULSE 7–99; RESP 15–26; TEMP 36.6–37.4; O2SAT 89–98
[2025-02-10] MEDS: Albuterol Sulfate (0.083%) 2.5 MG/3 ML VIAL.NEB INHALE ×4 (00:26→19:35)
[2025-02-10] MEDS: Acetaminophen 325 MG TABLET 975 MG PO (03:18)
[2025-02-10 04:54] LABS: MANUAL DIFF FLAG NO
[2025-02-10 04:57] LABS: Basophils Percent Auto 0.1 % (0-2); Eosinophils Percent Auto 0.1 % (0-4); Hematocrit 25.2 % (42.0-52.0); Hemoglobin 8.6 g/dl (14.0-18.0); Imm Gran Abs Auto 0.04 X10*3/uL (0.00-0.03); Imm Gran Pct Auto 0.4 % (0.0-0.4); Lymphocytes Absolute Auto 2.1 X10*3/uL (1.2-4.9); Lymphocytes Percent Auto 20.9 % (20-40); Mean Corpuscular HGB Conc 34.1 g/dl (31.0-36.0); Mean Corpuscular Hemoglobin 27.7 pg (27.0-33.0); Mean Corpuscular Volume 81.3 fL (80.0-98.0); Mean Platelet Volume 11.3 fL (9.4-12.4); Monocytes Absolute Auto 0.4 X10*3/uL (0.1-1.2); Monocytes Percent Auto 3.9 % (2-11); NRBC Pct Auto 0.3 /100WBC (0.0-0.2); Neutrophils Absolute Auto 7.5 x10*3/uL (2.0-8.3); Neutrophils Percent Auto 74.6 % (45-73); Platelet Count 233 X10*3/uL (160-400); Red Cell Distribution Width 15.3 % (11.0-16.0)
[2025-02-10 05:14] LABS: Alanine Aminotransferase < 6 U/L (0-40); Albumin Level 2.4 g/dL (3.5-5.0); Alkaline Phosphatase 156 U/L (39-117); Anion Gap 13 (12-20); Aspartate Amino Transferase 26 U/L (5-37); Bilirubin Total 0.6 mg/dL (0.0-1.0); Blood Urea Nitrogen 22 mg/dL (9-16); Calcium 7.9 mg/dL (8.4-10.2); Carbon Dioxide 20 mmol/L (22-29); Chloride 110 mmol/L (96-108); Creatinine Clr Calc Pharmacy 86.8; Estimated Glomerular Filt Rate > 60; Glucose Random 149 mg/dL (60-115); Magnesium 1.6 mg/dL (1.6-2.6); Sodium 139 mmol/L (135-145); Total Protein 6.4 g/dL (6.5-8.0)
[2025-02-10] MEDS: Doxycycline Hyclate 100 MG in 0.9 % Sodium Chloride 250 ML 166.67 MG IV ×2 (05:24→16:33)
--- NOTE | 2025-02-10 06:26 | PC.NURSE ---
Critical Care Nursing Note? Assumed care at 1900, patient alert and oriented, tolerating high flow. Patient requested his prescribed medication for sleep, ordered by PA and administered. Patient with lateral chest and rib pain, acetaminophen 975mg administered with good effect.?
[2025-02-10] MEDS: Insulin Lispro 100 UNIT/ML 3 ML VIAL SUBCUT ×2 (07:49→11:26)
[2025-02-10] MEDS: Acetaminophen Oral Liquid 650 MG/20.3 ML SOLUTION PO (07:53)
[2025-02-10 08:13] LABS: Glucose, Whole Blood 176 mg/dL (60-115)
--- NOTE | 2025-02-10 09:12 | HE.PHANOTE ---
METHADONE CONFIRMATION FORM PATIENT TAKES 50MG FROM [facility] LAST DOSE 02/09
[2025-02-10] MEDS: Insulin Glargine,Hum.rec.anlog 100 UNIT/ML 10 ML VIAL 30 UNIT SUBCUT (09:18)
[2025-02-10] MEDS: Albumin Human 25 % 100 ML IV ×3 (09:18→20:31)
[2025-02-10] MEDS: Famotidine/PF 20 MG/2 ML VIAL IVPUSH (09:18)
[2025-02-10] MEDS: methADONE HCl 20 MG/2 ML ORAL.CONC 50 MG PO (09:19)
[2025-02-10] MEDS: cefTRIAXone sodium 2 GM VIAL IVPUSH (09:19)
--- NOTE | 2025-02-10 10:26 | P.PNCC_ITS ---
Subjective Subjective Date of Service: 02/10/25 Interval History: 49-year-old gentleman with underlying history of IV drug abuse, HIV last CD4 663 in December of 2024, hep C, prior compartment syndrome requiring fasciotomy, diabetes mellitus admitted on 02/09/2025 with bilateral pneumonia resulting in acute hypoxic respiratory failure requiring high-flow nasal cannula support, also, initially with poor response to IV fluid resuscitation requiring pressor support, admitted to the intensive care unit. Titrated off pressor support. Critical Care Time (minutes): 0 Physical Exam 2 Vital Signs: Vital Signs: Last Vital Signs Temp 99.1 F 02/10/25 08:00 Pulse 91 02/10/25 09:00 Resp 22 H 02/10/25 09:00 BP 125/76 02/10/25 09:00 Pulse Ox 92 02/10/25 09:00 O2 Del Method High Flow Nasal C annula 02/10/25 09:00 O2 Flow Rate 40 02/10/25 09:00 FiO2 45 02/10/25 09:00 BMI result Body Mass Index 22.1 Const: General: no acute distress, alert and awake Eyes: Sclerae: sclerae normal EOM: EOMs intact bilaterally Neck: Neck: Yes no lymphadenopathy, Yes trachea midline and Yes supple Resp: Effort & Inspection: no respiratory distress Auscultation: crackles (Bilateral) Cardio: Rate: regular rate Rhythm: regular rhythm Heart sounds: no gallops, no murmurs and no rubs GI: Palpation (GI): Soft to palpation and Other GI palpation findings present ( Nontender) Auscultation: normal bowel sounds Extrem: General: Yes no pedal edema, No clubbing and No cyanosis Objective Data Labs 02/10/25 04:45 02/10/25 04:45 Labs: Laboratory Results - last 24 hr 02/09/25 02/09/25 02/09/25 10:34 10:47 10:48 WBC 7.2 RBC 2.48 L Hgb 6.7 L* Hct 20.4 L* MCV 82.3 MCH 27.0 MCHC 32.8 RDW 15.8 Plt Count 199 D MPV 10.1 Immature Gran % (Auto) 0.4 Neut % (Auto) 73.7 H Lymph % (Auto) 21.0 Roberts % (Auto) 3.9 Eos % (Auto) 0.7 Baso % (Auto) 0.3 Lymph # (Auto) 1.5 Roberts # (Auto) 0.3 Eos # (Auto) 0.1 Baso # (Auto) 0.0 Abs Immat Gran (auto) 0.03 Absolute Neuts (auto) 5.3 Absolute Nucleated RBC 0.000 Nucleated RBC % (auto) 0.0 PT 13.7 H D INR 1.2 H VBG pH VBG pCO2 VBG pO2 VBG HCO3 VBG O2 Saturation VBG Base Excess Sodium 133 L Potassium 3.9 Chloride 102 Carbon Dioxide 21 L Anion Gap 14 BUN 31 H Creatinine 1.95 H Estim Creat Clear Calc 42.3 Estimated GFR 37 POC Glucose 414 H* Random Glucose 501 H* Estimat Average Glucose 229 Hemoglobin A1c % 9.6 H Lactic Acid 4.6 H* Lactic Acid F/U @ 2Hr Lactic Acid F/U @ 4Hr Calcium 8.1 L D Phosphorus Magnesium 1.7 Total Bilirubin 0.3 AST 27 ALT < 6 Alkaline Phosphatase 145 H Lactate Dehydrogenase Troponin I High Sens 95.3 H B-Natriuretic Peptide 739 H Total Protein 6.7 Albumin 2.5 L Urine Color Urine Appearance Urine pH Ur Specific [place] Urine Protein Urine Glucose (UA) Urine Ketones Urine Blood Urine Nitrite Ur Leukocyte Esterase Urine RBC Urine WBC Ur Squamous Epith Cells Urine Bacteria Hyaline Casts Urine Opiates Screen Ur Buprenorphine Scrn Ur Oxycodone Screen Urine Methadone Screen Urine Fentanyl Screen Ur Barbiturates Screen Ur Phencyclidine Scrn Ur Amphetamines Screen U Benzodiazepines Scrn Urine Cocaine Screen U Marijuana (THC) Screen Influenza Type A (PCR) NEGATIVE Influenza Type B (PCR) NEGATIVE RSV RNA Qual (PCR) NEGATIVE SARS-CoV-2 RNA (RT-PCR) NEGATIVE Blood Type Antibody Screen Crossmatch 02/09/25 02/09/25 02/09/25 10:53 11:10 12:20 WBC RBC Hgb Hct MCV MCH MCHC RDW Plt Count MPV Immature Gran % (Auto) Neut % (Auto) Lymph % (Auto) Roberts % (Auto) Eos % (Auto) Baso % (Auto) Lymph # (Auto) Roberts # (Auto) Eos # (Auto) Baso # (Auto) Abs Immat Gran (auto) Absolute Neuts (auto) Absolute Nucleated RBC Nucleated RBC % (auto) PT INR VBG pH 7.40 VBG pCO2 36 VBG pO2 42 VBG HCO3 23 VBG O2 Saturation TNP VBG Base Excess -1.3 Sodium Potassium Chloride Carbon Dioxide Anion Gap BUN Creatinine Estim Creat Clear Calc Estimated GFR POC Glucose 403 H* Random Glucose Estimat Average Glucose Hemoglobin A1c % Lactic Acid Lactic Acid F/U @ 2Hr Lactic Acid F/U @ 4Hr Calcium Phosphorus Magnesium Total Bilirubin AST ALT Alkaline Phosphatase Lactate Dehydrogenase Troponin I High Sens B-Natriuretic Peptide Total Protein Albumin Urine Color Urine Appearance Urine pH Ur Specific [place] Urine Protein Urine Glucose (UA) Urine Ketones Urine Blood Urine Nitrite Ur Leukocyte Esterase Urine RBC Urine WBC Ur Squamous Epith Cells Urine Bacteria Hyaline Casts Urine Opiates Screen Ur Buprenorphine Scrn Ur Oxycodone Screen Urine Methadone Screen Urine Fentanyl Screen Ur Barbiturates Screen Ur Phencyclidine Scrn Ur Amphetamines Screen U Benzodiazepines Scrn Urine Cocaine Screen U Marijuana (THC) Screen Influenza Type A (PCR) Influenza Type B (PCR) RSV RNA Qual (PCR) SARS-CoV-2 RNA (RT-PCR) Blood Type O Negative Antibody Screen NEGATIVE Crossmatch See Detail 02/09/25 02/09/25 02/09/25 13:26 13:52 17:31 WBC RBC Hgb Hct MCV MCH MCHC RDW Plt Count MPV Immature Gran % (Auto) Neut % (Auto) Lymph % (Auto) Roberts % (Auto) Eos % (Auto) Baso % (Auto) Lymph # (Auto) Roberts # (Auto) Eos # (Auto) Baso # (Auto) Abs Immat Gran (auto) Absolute Neuts (auto) Absolute Nucleated RBC Nucleated RBC % (auto) PT INR VBG pH VBG pCO2 VBG pO2 VBG HCO3 VBG O2 Saturation VBG Base Excess Sodium Potassium Chloride Carbon Dioxide Anion Gap BUN Creatinine Estim Creat Clear Calc Estimated GFR POC Glucose 203 H 101 Random Glucose Estimat Average Glucose Hemoglobin A1c % Lactic Acid Lactic Acid F/U @ 2Hr 3.6 H* Lactic Acid F/U @ 4Hr Calcium Phosphorus Magnesium Total Bilirubin AST ALT Alkaline Phosphatase Lactate Dehydrogenase Troponin I High Sens B-Natriuretic Peptide Total Protein Albumin Urine Color Urine Appearance Urine pH Ur Specific [place] Urine Protein Urine Glucose (UA) Urine Ketones Urine Blood Urine Nitrite Ur Leukocyte Esterase Urine RBC Urine WBC Ur Squamous Epith Cells Urine Bacteria Hyaline Casts Urine Opiates Screen Ur Buprenorphine Scrn Ur Oxycodone Screen Urine Methadone Screen Urine Fentanyl Screen Ur Barbiturates Screen Ur Phencyclidine Scrn Ur Amphetamines Screen U Benzodiazepines Scrn Urine Cocaine Screen U Marijuana (THC) Screen Influenza Type A (PCR) Influenza Type B (PCR) RSV RNA Qual (PCR) SARS-CoV-2 RNA (RT-PCR) Blood Type Antibody Screen Crossmatch 02/09/25 02/09/25 02/09/25 18:27 18:43 20:35 WBC RBC Hgb 8.6 L D Hct 25.3 L D MCV MCH MCHC RDW Plt Count MPV Immature Gran % (Auto) Neut % (Auto) Lymph % (Auto) Roberts % (Auto) Eos % (Auto) Baso % (Auto) Lymph # (Auto) Roberts # (Auto) Eos # (Auto) Baso # (Auto) Abs Immat Gran (auto) Absolute Neuts (auto) Absolute Nucleated RBC Nucleated RBC % (auto) PT INR VBG pH VBG pCO2 VBG pO2 VBG HCO3 VBG O2 Saturation VBG Base Excess Sodium 138 Potassium 4.0 Chloride 108 Carbon Dioxide 20 L Anion Gap 14 BUN 25 H Creatinine 1.35 Estim Creat Clear Calc 61.1 Estimated GFR 57 POC Glucose Random Glucose 65 Estimat Average Glucose Hemoglobin A1c % Lactic Acid Lactic Acid F/U @ 2Hr Lactic Acid F/U @ 4Hr 3.2 H* Calcium 8.1 L Phosphorus 3.2 Magnesium Total Bilirubin AST ALT Alkaline Phosphatase Lactate Dehydrogenase 470 H Troponin I High Sens B-Natriuretic Peptide Total Protein Albumin Urine Color Dark Yellow Urine Appearance Cloudy Urine pH 5.0 Ur Specific [place] 1.025 Urine Protein 30 (1+) H Urine Glucose (UA) 500 H Urine Ketones Trace Urine Blood Negative Urine Nitrite Negative Ur Leukocyte Esterase Negative Urine RBC 0-2 Urine WBC 6-10 H Ur Squamous Epith Cells >20 Urine Bacteria None Seen Hyaline Casts 0-2 Urine Opiates Screen POSITIVE H Ur Buprenorphine Scrn Not Detected Ur Oxycodone Screen Not Detected Urine Methadone Screen Positive H Urine Fentanyl Screen POSITIVE H Ur Barbiturates Screen Not Detected Ur Phencyclidine Scrn Not Detected Ur Amphetamines Screen Not Detected U Benzodiazepines Scrn Not Detected Urine Cocaine Screen POSITIVE H U Marijuana (THC) Screen Not Detected Influenza Type A (PCR) Influenza Type B (PCR) RSV RNA Qual (PCR) SARS-CoV-2 RNA (RT-PCR) Blood Type Antibody Screen Crossmatch 02/09/25 02/10/25 02/10/25 20:43 04:45 07:16 WBC 10.0 RBC 3.10 L D Hgb 8.6 L Hct 25.2 L MCV 81.3 MCH 27.7 MCHC 34.1 RDW 15.3 Plt Count 233 MPV 11.3 Immature Gran % (Auto) 0.4 Neut % (Auto) 74.6 H Lymph % (Auto) 20.9 Roberts % (Auto) 3.9 Eos % (Auto) 0.1 Baso % (Auto) 0.1 Lymph # (Auto) 2.1 Roberts # (Auto) 0.4 Eos # (Auto) 0.0 Baso # (Auto) 0.0 Abs Immat Gran (auto) 0.04 H Absolute Neuts (auto) 7.5 Absolute Nucleated RBC 0.030 H Nucleated RBC % (auto) 0.3 H PT INR VBG pH VBG pCO2 VBG pO2 VBG HCO3 VBG O2 Saturation VBG Base Excess Sodium 139 Potassium 4.0 Chloride 110 H Carbon Dioxide 20 L Anion Gap 13 BUN 22 H Creatinine 0.95 Estim Creat Clear Calc 86.8 Estimated GFR > 60 POC Glucose 85 176 H Random Glucose 149 H Estimat Average Glucose Hemoglobin A1c % Lactic Acid Lactic Acid F/U @ 2Hr Lactic Acid F/U @ 4Hr Calcium 7.9 L Phosphorus Magnesium 1.6 Total Bilirubin 0.6 AST 26 ALT < 6 Alkaline Phosphatase 156 H Lactate Dehydrogenase Troponin I High Sens B-Natriuretic Peptide Total Protein 6.4 L Albumin 2.4 L Urine Color Urine Appearance Urine pH Ur Specific [place] Urine Protein Urine Glucose (UA) Urine Ketones Urine Blood Urine Nitrite Ur Leukocyte Esterase Urine RBC Urine WBC Ur Squamous Epith Cells Urine Bacteria Hyaline Casts Urine Opiates Screen Ur Buprenorphine Scrn Ur Oxycodone Screen Urine Methadone Screen Urine Fentanyl Screen Ur Barbiturates Screen Ur Phencyclidine Scrn Ur Amphetamines Screen U Benzodiazepines Scrn Urine Cocaine Screen U Marijuana (THC) Screen Influenza Type A (PCR) Influenza Type B (PCR) RSV RNA Qual (PCR) SARS-CoV-2 RNA (RT-PCR) Blood Type Antibody Screen Crossmatch Microbiology Microbiology Results: Microbiology 02/09/25 18:43 Urine clean catch - Clean Catch Midstream Urine Culture - Preliminary No growth to date. Progress Note: A&P Assessment and plan (1) Acute hypoxemic respiratory failure: Status: Acute (2) Substance abuse: Status: Acute (3) Hep C w/o coma, chronic: Status: Acute (4) Chronic anemia: Status: Acute (5) HIV (human immunodeficiency virus infection): Status: Acute Plan Assessment: 49-year-old gentleman with underlying polysubstance abuse, HIV, hep C admitted with acute hypoxic respiratory failure and bilateral perivascular infiltrates secondary to pneumonia versus inflammatory response Plan: Neuro: No acute issues. History of substance abuse, continue methadone. Cardiac: No acute issues. Pulmonary: Acute hypoxic respiratory failure requiring high-flow nasal cannula, continue to titrate off as tolerated. CT chest reviewed, bilateral peribronchovascular infiltrates, unclear if infectious or inflammatory. Empiric coverage with ceftriaxone and doxycycline. Sputum culture is pending. PCP is unlikely secondary to CD4 at 600 recently but Marina's the age. Prednisone for inflammatory component. Renal: No acute issues. Endo: No acute issues. Underlying diabetes mellitus, continue on subcutaneous insulin. GI: No acute issues. ID: No acute issues Heme/Onc: No acute issues. Psych: No acute issues. Miscellaneous: No acute issues. Prophylaxis: Lovenox Diet: Diabetic Quality Stroke Does the patient have a stroke diagnosis?: No VTE Prior VTE?: No VTE Risk Level:: Medical - low VTE Device Contraindication: N/A - Device Ordered VTE Drug Contraindication: N/A - Med Ordered
[2025-02-10 11:15] LABS: Lactate Dehydrogenase 400 U/L (118-273)
[2025-02-10 11:21] LABS: Glucose, Whole Blood 182 mg/dL (60-115)
[2025-02-10 11:21] LABS: Adenovirus PCR Not Detected (Not Detect.); Bordetella parapertussis PCR Not Detected (Not Detect.); Bordetella pertussis PCR Not Detected (Not Detect.); Chlamydia pneumoniae PCR Not Detected (Not Detect.); Coronavirus 229E PCR Not Detected (Not Detect.); Coronavirus HKU1 PCR Not Detected (Not Detect.); Coronavirus NL63 PCR Not Detected (Not Detect.); Coronavirus OC43 PCR Not Detected (Not Detect.); Human metapneumovirus PCR Not Detected (Not Detect.); Influenza A PCR Not Detected (Not Detect.); Influenza B PCR Not Detected (Not Detect.); Mycoplasma pneumoniae PCR Not Detected (Not Detect.); Parainfluenza 1 PCR Not Detected (Not Detect.); Parainfluenza 2 PCR Not Detected (Not Detect.); Parainfluenza 3 PCR Not Detected (Not Detect.); Parainfluenza 4 PCR Not Detected (Not Detect.); RSV PCR Not Detected (Not Detect.); Rhino/Enterovirus PCR Not Detected (Not Detect.)
[2025-02-10] MEDS: predniSONE 20 MG TABLET 40 MG PO (11:26)
[2025-02-10 11:45] LABS: Influenza A H1 PCR Not Detected (Not Detect.); Influenza A H1-2009 PCR Not Detected (Not Detect.); Influenza A H3 PCR Not Detected (Not Detect.); SARS-CoV-2 PCR Not Detected (Not Detect.)
[2025-02-10] MEDS: Abacavir/lamiVUDine 600/300 TABLET 1 TAB PO (13:32)
[2025-02-10] MEDS: Dolutegravir Sodium 50 MG TABLET PO (13:33)
[2025-02-10 13:39] LABS: MRSA Nasal PCR POSITIVE (Negative); SA Nasal PCR POSITIVE (Negative)
--- NOTE | 2025-02-10 14:17 | MHC.CM.PN ---
Met with pt who was very sleepy and difficult to converse with. Pt resides alone, has no services - receives Methadone at [facility] clinic: has working glucometer and DM supplies, pt will need transportation to home. PCP Fartun Pascual NP. CM to follow
[2025-02-10] MEDS: Enoxaparin Sodium 40 MG/0.4 ML SYRINGE SUBCUT (15:09)
[2025-02-10] MEDS: Dextrose 50 % 25 GM/50 ML SYRINGE IVPUSH (16:23)
[2025-02-10 18:01] LABS: Glucose, Whole Blood 59 mg/dL (60-115)
[2025-02-10 18:02] LABS: Glucose, Whole Blood 147 mg/dL (60-115)
[2025-02-10] MEDS: QUEtiapine Fumarate 100 MG TABLET PO (20:31)
[2025-02-10 21:22] LABS: Glucose, Whole Blood 91 mg/dL (60-115)
--- NOTE | 2025-02-10 21:59 | PC.NURSE ---
Addendum entered by Sanjuana Christianson RN 02/11/25 06:38: Patient required replacement of HFNC after VMT observed and alerted staff of pt removing it a few times on the in-room camera. Otherwise, this patient slept the majority of the night. Breathing remained even and unlabored without distress without issue. Patient has continued to deny pain. Original Note: Assumed care of the patient at 19:00. During shift change, this patient had a visitor that arrived that claimed to be his mother. On evening assessment the pt was A&Ox4. Breathing even and unlabored without distress on HFNC. Denied pain or other acute issues. At 21:31 medical underwriter entered room to infuse IV albumin that had finished as evidenced by pump beeping. Patient was sleeping though arousable to voice. No distress noted. During this time the medical underwriter found a 50-unit insulin syringe with bloody needle tip/cap that does not appear to belong to this facility's inventory. Of note, patient had transferred to this unit from the ICU earlier this evening. media relations specialist, Nursing supervisor paste plant, covering Dr. Felipe, and security were notified. media relations specialist checked ICU and no needles matching the one found were located in the ICU. The nursing supervisor paste plant, change RN, and security x2 presented to bedside with medical underwriter and discussed the finding with patient and need for belongings search and placement in unit secured locker for safety. Security also advised patient of no further visitors at this time, pending head gauge unit operator review of situation. Patient verbalized understanding of the situation with aforementioned parties present. In-room camera was placed to which patient was agreeable to. Belongings were placed in unit secured locker, second shelf. Safety measures in place. Plan of care continues.
[2025-02-11] VITALS (8 sets, daily range): BP systolic 145–160; BP diastolic 60–98; PULSE 79–91; RESP 16–20; TEMP 36.9–37.2; O2SAT 90–96
[2025-02-11] MEDS: Albuterol Sulfate (0.083%) 2.5 MG/3 ML VIAL.NEB INHALE (00:51)
[2025-02-11] MEDS: Albumin Human 25 % 100 ML IV (02:12)
[2025-02-11] MEDS: Doxycycline Hyclate 100 MG in 0.9 % Sodium Chloride 250 ML 166.67 MG IV ×2 (04:10→16:41)
[2025-02-11] MEDS: predniSONE 20 MG TABLET 40 MG PO (07:49)
[2025-02-11] MEDS: Insulin Glargine,Hum.rec.anlog 100 UNIT/ML 10 ML VIAL 30 UNIT SUBCUT (07:50)
[2025-02-11] MEDS: Dolutegravir Sodium 50 MG TABLET PO (07:50)
[2025-02-11] MEDS: methADONE HCl 20 MG/2 ML ORAL.CONC 50 MG PO (07:50)
[2025-02-11] MEDS: Abacavir/lamiVUDine 600/300 TABLET 1 TAB PO (07:50)
[2025-02-11 07:57] LABS: Glucose, Whole Blood 125 mg/dL (60-115)
[2025-02-11 08:54] LABS: MANUAL DIFF FLAG NO
[2025-02-11 08:56] LABS: Hematocrit 24.4 % (42.0-52.0); Hemoglobin 8.1 g/dl (14.0-18.0); Imm Gran Abs Auto 0.04 X10*3/uL (0.00-0.03); Imm Gran Pct Auto 0.4 % (0.0-0.4); Lymphocytes Absolute Auto 1.7 X10*3/uL (1.2-4.9); Lymphocytes Percent Auto 17.8 % (20-40); Mean Corpuscular HGB Conc 33.2 g/dl (31.0-36.0); Mean Corpuscular Hemoglobin 27.7 pg (27.0-33.0); Mean Corpuscular Volume 83.6 fL (80.0-98.0); Monocytes Absolute Auto 0.3 X10*3/uL (0.1-1.2); Monocytes Percent Auto 2.9 % (2-11); Neutrophils Absolute Auto 7.3 x10*3/uL (2.0-8.3); Neutrophils Percent Auto 78.9 % (45-73); Platelet Count 207 X10*3/uL (160-400); Red Blood Count 2.92 X10*6/uL (4.60-5.80); Red Cell Distribution Width 16.1 % (11.0-16.0); White Blood Count 9.3 X10*3/uL (4.8-10.8)
[2025-02-11 09:03] LABS: VBG Base Excess 2.7 mmol/L; VBG HCO3 25 mmol/L (22-26); VBG pCO2 32 mmHg; VBG pO2 62 mmHg
[2025-02-11 09:04] LABS: Venous Blood Gas Refer to POC result
[2025-02-11 09:16] LABS: Alanine Aminotransferase < 6 U/L (0-40); Albumin Level 3.1 g/dL (3.5-5.0); Alkaline Phosphatase 128 U/L (39-117); Anion Gap 9 (12-20); Aspartate Amino Transferase 18 U/L (5-37); Bilirubin Total 0.6 mg/dL (0.0-1.0); Blood Urea Nitrogen 15 mg/dL (9-16); Calcium 8.5 mg/dL (8.4-10.2); Carbon Dioxide 24 mmol/L (22-29); Chloride 110 mmol/L (96-108); Creatinine Clr Calc Pharmacy 117.9; Estimated Glomerular Filt Rate > 60; Glucose Random 143 mg/dL (60-115); Iron 33 mcg/dL (45-160); Magnesium 1.5 mg/dL (1.6-2.6); Percent Iron Saturation 21 % (15-50); Phosphorus 2.8 mg/dL (2.7-4.5); Potassium 3.9 mmol/L (3.3-5.1); Sodium 139 mmol/L (135-145); Total Iron Binding Capacity 154 mcg/dL (228-428); Total Protein 6.5 g/dL (6.5-8.0); Unsaturated Iron Binding 121 ug/dL
[2025-02-11] MEDS: cefTRIAXone sodium 2 GM VIAL IVPUSH (09:42)
[2025-02-11 11:50] LABS: Glucose, Whole Blood 145 mg/dL (60-115)
--- NOTE | 2025-02-11 13:22 | HO.ADDICT_ITS ---
History of Present Illness Date of Service: 02/11/2025 Chief Complaint: WHEEZING, 95% ON DUONEB, LOW BP, FALL PER EMS Reason for Consult: KIT Sources of Information: chart reviewed HPI Narrative: Patient is a 49 year old male with history of HIV, OUD and DM medically admitted with pneumonia and hypoxic resp failure. Transferred to M/T today from ICU. Patient seen briefly in room 453, as he was not feeling well and asked this specifications writer to return at a later time. He states that he was feeling terrible and was experiencing nausea, and had recently vomited. He appeared ill, and weak. Chart review shows that patient presented to ED with SOB and was found to be in septic shock requiring brief pressor support. UDS +fentanyl and cocaine He is currently engaged in treatment for OUD via [facility], where he is prescribed methadone 50mg daily and last dose verified as being administered on 02/09. Review of Systems Constitutional: Reports as per HPI Diagnostics Vital Signs (24Hr): Vital Signs - 24 hr 02/10/25 13:29 02/10/25 15:23 02/10/25 15:25 Temperature 98.8 F 99.0 F Pulse Rate 90 91 Respiratory Rate 20 22 H 22 H Blood Pressure 140/79 H 142/85 H Pulse Oximetry 91 L 91 L Oxygen Delivery Method High Flow Nasal Cannula High Flow Nasal Cannula Oxygen Flow Rate 45 45 Fraction of Inspired Oxygen 48 48 02/10/25 19:05 02/10/25 19:13 02/10/25 19:37 Temperature 99.4 F Pulse Rate 87 91 Respiratory Rate 18 16 20 Blood Pressure 144/82 H Pulse Oximetry 93 Oxygen Delivery Method High Flow Nasal Cannula Oxygen Flow Rate 45 Fraction of Inspired Oxygen 48 02/10/25 23:16 02/10/25 23:36 02/11/25 00:49 Temperature 99.2 F Pulse Rate 85 85 Respiratory Rate 18 18 18 Blood Pressure 141/88 H Pulse Oximetry Oxygen Delivery Method High Flow Nasal Cannula Oxygen Flow Rate 45 Fraction of Inspired Oxygen 48 02/11/25 03:14 02/11/25 03:38 02/11/25 07:29 Temperature 98.9 F 98.7 F Pulse Rate 79 84 Respiratory Rate 18 18 20 Blood Pressure 145/79 H 160/98 H Pulse Oximetry 96 96 Oxygen Delivery Method High Flow Nasal Cannula High Flow Nasal Cannula Oxygen Flow Rate 45 45 Fraction of Inspired Oxygen 48 50 04/01/25 07:46 02/11/25 11:20 Temperature 98.9 F Pulse Rate 86 Respiratory Rate 20 20 Blood Pressure 148/60 H Pulse Oximetry 90 L Oxygen Delivery Method Nasal Cannula Oxygen Flow Rate 2 Fraction of Inspired Oxygen BMI result Body Mass Index 22.1 Labs 02/11/25 08:45 02/11/25 08:46 Labs: Laboratory Results - last 48 hr 02/09/25 02/09/25 02/09/25 10:47 11:10 13:26 WBC RBC Hgb Hct MCV MCH MCHC RDW Plt Count MPV Immature Gran % (Auto) Neut % (Auto) Lymph % (Auto) [place] % (Auto) Eos % (Auto) Baso % (Auto) Lymph # (Auto) [place] # (Auto) Eos # (Auto) Baso # (Auto) Abs Immat Gran (auto) Absolute Neuts (auto) Absolute Nucleated RBC Nucleated RBC % (auto) VBG pH VBG pCO2 VBG pO2 VBG HCO3 VBG O2 Saturation VBG Base Excess Sodium Potassium Chloride Carbon Dioxide Anion Gap BUN Creatinine Estim Creat Clear Calc Estimated GFR POC Glucose Random Glucose Estimat Average Glucose 229 Hemoglobin A1c % 9.6 H Lactic Acid F/U @ 2Hr 3.6 H* Lactic Acid F/U @ 4Hr Calcium Phosphorus Magnesium Iron TIBC % Saturation Unsat Iron Binding Total Bilirubin AST ALT Alkaline Phosphatase Lactate Dehydrogenase Total Protein Albumin Urine Color Urine Appearance Urine pH Ur Specific [place] Urine Protein Urine Glucose (UA) Urine Ketones Urine Blood Urine Nitrite Ur Leukocyte Esterase Urine RBC Urine WBC Ur Squamous Epith Cells Urine Bacteria Hyaline Casts Nasal Screen MRSA (PCR) Nasal S. aureus Screen Nasal MRSA/S.aureus Interp Urine Opiates Screen Ur Buprenorphine Scrn Ur Oxycodone Screen Urine Methadone Screen Urine Fentanyl Screen Ur Barbiturates Screen Ur Phencyclidine Scrn Ur Amphetamines Screen U Benzodiazepines Scrn Urine Cocaine Screen U Marijuana (THC) Screen Respiratory Panel [place] Adenovirus (Rapid PCR) B.pert (TEM-PCR) B.parapertussis DNA PCR C. pneumoniae DNA (PCR) Coronavirus OC43 (PCR) Coronavirus HKU1 (PCR) Coronavirus 229E (PCR) Coronavirus NL63 (PCR) Human Metapneumovir PCR Influenza A (RT-PCR) Influenza A (H1) PCR Influ A (H1/09) PCR Influenza A (H3) PCR Influenza B (RT-PCR) M. pneumoniae (PCR) Parainfluenza 1 (PCR) Parainfluenza 2 (PCR) Parainfluenza 3 (PCR) Parainfluenza 4 (PCR) RSV (PCR) Entero/Rhino (PCR) SARS-CoV-2 RNA (RT-PCR) Blood Type O Negative Antibody Screen NEGATIVE Crossmatch See Detail 02/09/25 02/09/25 02/09/25 13:52 17:31 18:27 WBC RBC Hgb Hct MCV MCH MCHC RDW Plt Count MPV Immature Gran % (Auto) Neut % (Auto) Lymph % (Auto) [place] % (Auto) Eos % (Auto) Baso % (Auto) Lymph # (Auto) [place] # (Auto) Eos # (Auto) Baso # (Auto) Abs Immat Gran (auto) Absolute Neuts (auto) Absolute Nucleated RBC Nucleated RBC % (auto) VBG pH VBG pCO2 VBG pO2 VBG HCO3 VBG O2 Saturation VBG Base Excess Sodium 138 Potassium 4.0 Chloride 108 Carbon Dioxide 20 L Anion Gap 14 BUN 25 H Creatinine 1.35 Estim Creat Clear Calc 61.1 Estimated GFR 57 POC Glucose 203 H 101 Random Glucose 65 Estimat Average Glucose Hemoglobin A1c % Lactic Acid F/U @ 2Hr Lactic Acid F/U @ 4Hr 3.2 H* Calcium 8.1 L Phosphorus 3.2 Magnesium Iron TIBC % Saturation Unsat Iron Binding Total Bilirubin AST ALT Alkaline Phosphatase Lactate Dehydrogenase 470 H Total Protein Albumin Urine Color Urine Appearance Urine pH Ur Specific [place] Urine Protein Urine Glucose (UA) Urine Ketones Urine Blood Urine Nitrite Ur Leukocyte Esterase Urine RBC Urine WBC Ur Squamous Epith Cells Urine Bacteria Hyaline Casts Nasal Screen MRSA (PCR) Nasal S. aureus Screen Nasal MRSA/S.aureus Interp Urine Opiates Screen Ur Buprenorphine Scrn Ur Oxycodone Screen Urine Methadone Screen Urine Fentanyl Screen Ur Barbiturates Screen Ur Phencyclidine Scrn Ur Amphetamines Screen U Benzodiazepines Scrn Urine Cocaine Screen U Marijuana (THC) Screen Respiratory Panel [place] Adenovirus (Rapid PCR) B.pert (TEM-PCR) B.parapertussis DNA PCR C. pneumoniae DNA (PCR) Coronavirus OC43 (PCR) Coronavirus HKU1 (PCR) Coronavirus 229E (PCR) Coronavirus NL63 (PCR) Human Metapneumovir PCR Influenza A (RT-PCR) Influenza A (H1) PCR Influ A (H1/09) PCR Influenza A (H3) PCR Influenza B (RT-PCR) M. pneumoniae (PCR) Parainfluenza 1 (PCR) Parainfluenza 2 (PCR) Parainfluenza 3 (PCR) Parainfluenza 4 (PCR) RSV (PCR) Entero/Rhino (PCR) SARS-CoV-2 RNA (RT-PCR) Blood Type Antibody Screen Crossmatch 02/09/25 02/09/25 02/09/25 18:43 19:55 20:35 WBC RBC Hgb 8.6 L D Hct 25.3 L D MCV MCH MCHC RDW Plt Count MPV Immature Gran % (Auto) Neut % (Auto) Lymph % (Auto) [place] % (Auto) Eos % (Auto) Baso % (Auto) Lymph # (Auto) [place] # (Auto) Eos # (Auto) Baso # (Auto) Abs Immat Gran (auto) Absolute Neuts (auto) Absolute Nucleated RBC Nucleated RBC % (auto) VBG pH VBG pCO2 VBG pO2 VBG HCO3 VBG O2 Saturation VBG Base Excess Sodium Potassium Chloride Carbon Dioxide Anion Gap BUN Creatinine Estim Creat Clear Calc Estimated GFR POC Glucose Random Glucose Estimat Average Glucose Hemoglobin A1c % Lactic Acid F/U @ 2Hr Lactic Acid F/U @ 4Hr Calcium Phosphorus Magnesium Iron TIBC % Saturation Unsat Iron Binding Total Bilirubin AST ALT Alkaline Phosphatase Lactate Dehydrogenase Total Protein Albumin Urine Color Dark Yellow Urine Appearance Cloudy Urine pH 5.0 Ur Specific [place] 1.025 Urine Protein 30 (1+) H Urine Glucose (UA) 500 H Urine Ketones Trace Urine Blood Negative Urine Nitrite Negative Ur Leukocyte Esterase Negative Urine RBC 0-2 Urine WBC 6-10 H Ur Squamous Epith Cells >20 Urine Bacteria None Seen Hyaline Casts 0-2 Nasal Screen MRSA (PCR) POSITIVE A Nasal S. aureus Screen POSITIVE A Nasal MRSA/S.aureus Interp SEE NOTE Urine Opiates Screen POSITIVE H Ur Buprenorphine Scrn Not Detected Ur Oxycodone Screen Not Detected Urine Methadone Screen Positive H Urine Fentanyl Screen POSITIVE H Ur Barbiturates Screen Not Detected Ur Phencyclidine Scrn Not Detected Ur Amphetamines Screen Not Detected U Benzodiazepines Scrn Not Detected Urine Cocaine Screen POSITIVE H U Marijuana (THC) Screen Not Detected Respiratory Panel [place] See Note Adenovirus (Rapid PCR) Not Detected B.pert (TEM-PCR) Not Detected B.parapertussis DNA PCR Not Detected C. pneumoniae DNA (PCR) Not Detected Coronavirus OC43 (PCR) Not Detected Coronavirus HKU1 (PCR) Not Detected Coronavirus 229E (PCR) Not Detected Coronavirus NL63 (PCR) Not Detected Human Metapneumovir PCR Not Detected Influenza A (RT-PCR) Not Detected Influenza A (H1) PCR Not Detected Influ A (H1/09) PCR Not Detected Influenza A (H3) PCR Not Detected Influenza B (RT-PCR) Not Detected M. pneumoniae (PCR) Not Detected Parainfluenza 1 (PCR) Not Detected Parainfluenza 2 (PCR) Not Detected Parainfluenza 3 (PCR) Not Detected Parainfluenza 4 (PCR) Not Detected RSV (PCR) Not Detected Entero/Rhino (PCR) Not Detected SARS-CoV-2 RNA (RT-PCR) Not Detected Blood Type Antibody Screen Crossmatch 02/09/25 02/10/25 02/10/25 20:43 04:45 07:16 WBC 10.0 RBC 3.10 L D Hgb 8.6 L Hct 25.2 L MCV 81.3 MCH 27.7 MCHC 34.1 RDW 15.3 Plt Count 233 MPV 11.3 Immature Gran % (Auto) 0.4 Neut % (Auto) 74.6 H Lymph % (Auto) 20.9 [place] % (Auto) 3.9 Eos % (Auto) 0.1 Baso % (Auto) 0.1 Lymph # (Auto) 2.1 [place] # (Auto) 0.4 Eos # (Auto) 0.0 Baso # (Auto) 0.0 Abs Immat Gran (auto) 0.04 H Absolute Neuts (auto) 7.5 Absolute Nucleated RBC 0.030 H Nucleated RBC % (auto) 0.3 H VBG pH VBG pCO2 VBG pO2 VBG HCO3 VBG O2 Saturation VBG Base Excess Sodium 139 Potassium 4.0 Chloride 110 H Carbon Dioxide 20 L Anion Gap 13 BUN 22 H Creatinine 0.95 Estim Creat Clear Calc 86.8 Estimated GFR > 60 POC Glucose 85 176 H Random Glucose 149 H Estimat Average Glucose Hemoglobin A1c % Lactic Acid F/U @ 2Hr Lactic Acid F/U @ 4Hr Calcium 7.9 L Phosphorus Magnesium 1.6 Iron TIBC % Saturation Unsat Iron Binding Total Bilirubin 0.6 AST 26 ALT < 6 Alkaline Phosphatase 156 H Lactate Dehydrogenase Total Protein 6.4 L Albumin 2.4 L Urine Color Urine Appearance Urine pH Ur Specific [place] Urine Protein Urine Glucose (UA) Urine Ketones Urine Blood Urine Nitrite Ur Leukocyte Esterase Urine RBC Urine WBC Ur Squamous Epith Cells Urine Bacteria Hyaline Casts Nasal Screen MRSA (PCR) Nasal S. aureus Screen Nasal MRSA/S.aureus Interp Urine Opiates Screen Ur Buprenorphine Scrn Ur Oxycodone Screen Urine Methadone Screen Urine Fentanyl Screen Ur Barbiturates Screen Ur Phencyclidine Scrn Ur Amphetamines Screen U Benzodiazepines Scrn Urine Cocaine Screen U Marijuana (THC) Screen Respiratory Panel [place] Adenovirus (Rapid PCR) B.pert (TEM-PCR) B.parapertussis DNA PCR C. pneumoniae DNA (PCR) Coronavirus OC43 (PCR) Coronavirus HKU1 (PCR) Coronavirus 229E (PCR) Coronavirus NL63 (PCR) Human Metapneumovir PCR Influenza A (RT-PCR) Influenza A (H1) PCR Influ A (H1/09) PCR Influenza A (H3) PCR Influenza B (RT-PCR) M. pneumoniae (PCR) Parainfluenza 1 (PCR) Parainfluenza 2 (PCR) Parainfluenza 3 (PCR) Parainfluenza 4 (PCR) RSV (PCR) Entero/Rhino (PCR) SARS-CoV-2 RNA (RT-PCR) Blood Type Antibody Screen Crossmatch 02/10/25 02/10/25 02/10/25 10:34 11:10 16:18 WBC RBC Hgb Hct MCV MCH MCHC RDW Plt Count MPV Immature Gran % (Auto) Neut % (Auto) Lymph % (Auto) [place] % (Auto) Eos % (Auto) Baso % (Auto) Lymph # (Auto) [place] # (Auto) Eos # (Auto) Baso # (Auto) Abs Immat Gran (auto) Absolute Neuts (auto) Absolute Nucleated RBC Nucleated RBC % (auto) VBG pH VBG pCO2 VBG pO2 VBG HCO3 VBG O2 Saturation VBG Base Excess Sodium Potassium Chloride Carbon Dioxide Anion Gap BUN Creatinine Estim Creat Clear Calc Estimated GFR POC Glucose 182 H 59 L* Random Glucose Estimat Average Glucose Hemoglobin A1c % Lactic Acid F/U @ 2Hr Lactic Acid F/U @ 4Hr Calcium Phosphorus Magnesium Iron TIBC % Saturation Unsat Iron Binding Total Bilirubin AST ALT Alkaline Phosphatase Lactate Dehydrogenase 400 H Total Protein Albumin Urine Color Urine Appearance Urine pH Ur Specific [place] Urine Protein Urine Glucose (UA) Urine Ketones Urine Blood Urine Nitrite Ur Leukocyte Esterase Urine RBC Urine WBC Ur Squamous Epith Cells Urine Bacteria Hyaline Casts Nasal Screen MRSA (PCR) Nasal S. aureus Screen Nasal MRSA/S.aureus Interp Urine Opiates Screen Ur Buprenorphine Scrn Ur Oxycodone Screen Urine Methadone Screen Urine Fentanyl Screen Ur Barbiturates Screen Ur Phencyclidine Scrn Ur Amphetamines Screen U Benzodiazepines Scrn Urine Cocaine Screen U Marijuana (THC) Screen Respiratory Panel [place] Adenovirus (Rapid PCR) B.pert (TEM-PCR) B.parapertussis DNA PCR C. pneumoniae DNA (PCR) Coronavirus OC43 (PCR) Coronavirus HKU1 (PCR) Coronavirus 229E (PCR) Coronavirus NL63 (PCR) Human Metapneumovir PCR Influenza A (RT-PCR) Influenza A (H1) PCR Influ A (H1/09) PCR Influenza A (H3) PCR Influenza B (RT-PCR) M. pneumoniae (PCR) Parainfluenza 1 (PCR) Parainfluenza 2 (PCR) Parainfluenza 3 (PCR) Parainfluenza 4 (PCR) RSV (PCR) Entero/Rhino (PCR) SARS-CoV-2 RNA (RT-PCR) Blood Type Antibody Screen Crossmatch 02/10/25 02/10/25 02/11/25 16:41 20:12 07:00 WBC RBC Hgb Hct MCV MCH MCHC RDW Plt Count MPV Immature Gran % (Auto) Neut % (Auto) Lymph % (Auto) [place] % (Auto) Eos % (Auto) Baso % (Auto) Lymph # (Auto) [place] # (Auto) Eos # (Auto) Baso # (Auto) Abs Immat Gran (auto) Absolute Neuts (auto) Absolute Nucleated RBC Nucleated RBC % (auto) VBG pH VBG pCO2 VBG pO2 VBG HCO3 VBG O2 Saturation VBG Base Excess Sodium Potassium Chloride Carbon Dioxide Anion Gap BUN Creatinine Estim Creat Clear Calc Estimated GFR POC Glucose 147 H 91 125 H Random Glucose Estimat Average Glucose Hemoglobin A1c % Lactic Acid F/U @ 2Hr Lactic Acid F/U @ 4Hr Calcium Phosphorus Magnesium Iron TIBC % Saturation Unsat Iron Binding Total Bilirubin AST ALT Alkaline Phosphatase Lactate Dehydrogenase Total Protein Albumin Urine Color Urine Appearance Urine pH Ur Specific [place] Urine Protein Urine Glucose (UA) Urine Ketones Urine Blood Urine Nitrite Ur Leukocyte Esterase Urine RBC Urine WBC Ur Squamous Epith Cells Urine Bacteria Hyaline Casts Nasal Screen MRSA (PCR) Nasal S. aureus Screen Nasal MRSA/S.aureus Interp Urine Opiates Screen Ur Buprenorphine Scrn Ur Oxycodone Screen Urine Methadone Screen Urine Fentanyl Screen Ur Barbiturates Screen Ur Phencyclidine Scrn Ur Amphetamines Screen U Benzodiazepines Scrn Urine Cocaine Screen U Marijuana (THC) Screen Respiratory Panel [place] Adenovirus (Rapid PCR) B.pert (TEM-PCR) B.parapertussis DNA PCR C. pneumoniae DNA (PCR) Coronavirus OC43 (PCR) Coronavirus HKU1 (PCR) Coronavirus 229E (PCR) Coronavirus NL63 (PCR) Human Metapneumovir PCR Influenza A (RT-PCR) Influenza A (H1) PCR Influ A (H1/09) PCR Influenza A (H3) PCR Influenza B (RT-PCR) M. pneumoniae (PCR) Parainfluenza 1 (PCR) Parainfluenza 2 (PCR) Parainfluenza 3 (PCR) Parainfluenza 4 (PCR) RSV (PCR) Entero/Rhino (PCR) SARS-CoV-2 RNA (RT-PCR) Blood Type Antibody Screen Crossmatch 02/11/25 02/11/25 02/11/25 08:45 08:46 08:54 WBC 9.3 RBC 2.92 L Hgb 8.1 L Hct 24.4 L MCV 83.6 MCH 27.7 MCHC 33.2 RDW 16.1 H Plt Count 207 MPV 11.0 Immature Gran % (Auto) 0.4 Neut % (Auto) 78.9 H Lymph % (Auto) 17.8 L [place] % (Auto) 2.9 Eos % (Auto) 0.0 Baso % (Auto) 0.0 Lymph # (Auto) 1.7 [place] # (Auto) 0.3 Eos # (Auto) 0.0 Baso # (Auto) 0.0 Abs Immat Gran (auto) 0.04 H Absolute Neuts (auto) 7.3 Absolute Nucleated RBC 0.000 Nucleated RBC % (auto) 0.0 VBG pH 7.50 H VBG pCO2 32 VBG pO2 62 VBG HCO3 25 VBG O2 Saturation 91.0 VBG Base Excess 2.7 Sodium 139 Potassium 3.9 Chloride 110 H Carbon Dioxide 24 Anion Gap 9 L BUN 15 Creatinine 0.70 Estim Creat Clear Calc 117.9 Estimated GFR > 60 POC Glucose Random Glucose 143 H Estimat Average Glucose Hemoglobin A1c % Lactic Acid F/U @ 2Hr Lactic Acid F/U @ 4Hr Calcium 8.5 D Phosphorus 2.8 Magnesium 1.5 L Iron 33 L TIBC 154 L % Saturation 21 Unsat Iron Binding 121 Total Bilirubin 0.6 AST 18 ALT < 6 Alkaline Phosphatase 128 H Lactate Dehydrogenase Total Protein 6.5 Albumin 3.1 L Urine Color Urine Appearance Urine pH Ur Specific [place] Urine Protein Urine Glucose (UA) Urine Ketones Urine Blood Urine Nitrite Ur Leukocyte Esterase Urine RBC Urine WBC Ur Squamous Epith Cells Urine Bacteria Hyaline Casts Nasal Screen MRSA (PCR) Nasal S. aureus Screen Nasal MRSA/S.aureus Interp Urine Opiates Screen Ur Buprenorphine Scrn Ur Oxycodone Screen Urine Methadone Screen Urine Fentanyl Screen Ur Barbiturates Screen Ur Phencyclidine Scrn Ur Amphetamines Screen U Benzodiazepines Scrn Urine Cocaine Screen U Marijuana (THC) Screen Respiratory Panel [place] Adenovirus (Rapid PCR) B.pert (TEM-PCR) B.parapertussis DNA PCR C. pneumoniae DNA (PCR) Coronavirus OC43 (PCR) Coronavirus HKU1 (PCR) Coronavirus 229E (PCR) Coronavirus NL63 (PCR) Human Metapneumovir PCR Influenza A (RT-PCR) Influenza A (H1) PCR Influ A (H1/09) PCR Influenza A (H3) PCR Influenza B (RT-PCR) M. pneumoniae (PCR) Parainfluenza 1 (PCR) Parainfluenza 2 (PCR) Parainfluenza 3 (PCR) Parainfluenza 4 (PCR) RSV (PCR) Entero/Rhino (PCR) SARS-CoV-2 RNA (RT-PCR) Blood Type Antibody Screen Crossmatch 02/11/25 11:35 WBC RBC Hgb Hct MCV MCH MCHC RDW Plt Count MPV Immature Gran % (Auto) Neut % (Auto) Lymph % (Auto) [place] % (Auto) Eos % (Auto) Baso % (Auto) Lymph # (Auto) [place] # (Auto) Eos # (Auto) Baso # (Auto) Abs Immat Gran (auto) Absolute Neuts (auto) Absolute Nucleated RBC Nucleated RBC % (auto) VBG pH VBG pCO2 VBG pO2 VBG HCO3 VBG O2 Saturation VBG Base Excess Sodium Potassium Chloride Carbon Dioxide Anion Gap BUN Creatinine Estim Creat Clear Calc Estimated GFR POC Glucose 145 H Random Glucose Estimat Average Glucose Hemoglobin A1c % Lactic Acid F/U @ 2Hr Lactic Acid F/U @ 4Hr Calcium Phosphorus Magnesium Iron TIBC % Saturation Unsat Iron Binding Total Bilirubin AST ALT Alkaline Phosphatase Lactate Dehydrogenase Total Protein Albumin Urine Color Urine Appearance Urine pH Ur Specific [place] Urine Protein Urine Glucose (UA) Urine Ketones Urine Blood Urine Nitrite Ur Leukocyte Esterase Urine RBC Urine WBC Ur Squamous Epith Cells Urine Bacteria Hyaline Casts Nasal Screen MRSA (PCR) Nasal S. aureus Screen Nasal MRSA/S.aureus Interp Urine Opiates Screen Ur Buprenorphine Scrn Ur Oxycodone Screen Urine Methadone Screen Urine Fentanyl Screen Ur Barbiturates Screen Ur Phencyclidine Scrn Ur Amphetamines Screen U Benzodiazepines Scrn Urine Cocaine Screen U Marijuana (THC) Screen Respiratory Panel [place] Adenovirus (Rapid PCR) B.pert (TEM-PCR) B.parapertussis DNA PCR C. pneumoniae DNA (PCR) Coronavirus OC43 (PCR) Coronavirus HKU1 (PCR) Coronavirus 229E (PCR) Coronavirus NL63 (PCR) Human Metapneumovir PCR Influenza A (RT-PCR) Influenza A (H1) PCR Influ A (H1/09) PCR Influenza A (H3) PCR Influenza B (RT-PCR) M. pneumoniae (PCR) Parainfluenza 1 (PCR) Parainfluenza 2 (PCR) Parainfluenza 3 (PCR) Parainfluenza 4 (PCR) RSV (PCR) Entero/Rhino (PCR) SARS-CoV-2 RNA (RT-PCR) Blood Type Antibody Screen Crossmatch Mental Status Exam Mental Status Exam Patient Appearance: Fatigued Level of Consciousness: Awake and Lethargic Affect Description: Flat Medications Medications Current Medications Abacavir/Lamivudine (Abacavir/Lamivudine 600/300 Tablet) 1 tab PO DAILY NIA Last Admin: 02/11/25 07:50 Dose: 1 tab Acetaminophen (Acetaminophen Oral Liquid 650 Mg/20.3 Ml Solution) 650 mg PO Q6H PRN PRN Reason: Pain, Mild 1-3,fever,headache Last Admin: 02/10/25 07:53 Dose: 650 mg Albuterol Sulfate (Albuterol Sulfate (0.083%) 2.5 Mg/3 Ml Vial.Neb) 2.5 mg INHALE Q4H PRN PRN Reason: Wheezing Last Admin: 02/11/25 00:51 Dose: 2.5 mg Ceftriaxone Sodium (Ceftriaxone Sodium 2 Gm Vial) 2 gm IVPUSH DAILY [facility] Last Admin: 02/11/25 09:42 Dose: 2 gm Dextrose (Dextrose 50 % 25 Gm/50 Ml Syringe) 25 gm IVPUSH Q15M PRN; Protocol PRN Reason: per Hypoglycemia Standing Ord. Last Admin: 02/10/25 16:23 Dose: 25 gm Dolutegravir Sodium (Dolutegravir Sodium 50 Mg Tablet) 50 mg PO DAILY [facility] Last Admin: 02/11/25 07:50 Dose: 50 mg Enoxaparin Sodium (Enoxaparin Sodium 40 Mg/0.4 Ml Syringe) 40 mg SUBCUT Q24H [facility] Last Admin: 02/10/25 15:09 Dose: 40 mg Glucose (Glucose Gel 15 Gm Gel..Gram.) 15 gm PO Q15M PRN; Protocol PRN Reason: per Hypoglycemia Standing Ord. Doxycycline Hyclate 100 mg/ (Sodium Chloride) 250 mls @ 166.67 mls/hr IV Q12H [facility] Last Infusion: 02/11/25 05:40 Dose: Infused Insulin Glargine (Insulin Glargine,Hum.Rec.Anlog 100 Unit/Ml 10 Ml Vial) 30 unit SUBCUT DAILY [facility] Last Admin: 02/11/25 07:50 Dose: 30 unit Methadone HCl (Methadone Hcl 20 Mg/2 Ml Oral.Conc) 50 mg PO DAILY@0800 [facility] Last Admin: 02/11/25 07:50 Dose: 50 mg Prednisone (Prednisone 20 Mg Tablet) 40 mg PO DAILY [facility] Last Admin: 02/11/25 07:49 Dose: 40 mg Quetiapine Fumarate (Quetiapine Fumarate 100 Mg Tablet) 100 mg PO BEDTIME [facility] Last Admin: 02/10/25 20:31 Dose: 100 mg Allergies Allergies Allergy/AdvReac Type Severity Reaction Status Date / Time fish Allergy Unknown Anaphylaxis Uncoded 02/09/25 10:38 shellfish Allergy Unknown Anaphylaxis Uncoded 02/09/25 10:38 Assessment & Plan Assessment & Plan (1) Opioid use disorder: Status: Acute Code(s): F11.99 - Opioid use, unspecified with unspecified opioid-induced disorder Assessment and Plan: * continue methadone 50mg as tolerated * will follow up in AM Total time managing care of this patient today _15___ minutes. [facility] Past Medical History Medical History (Updated 02/11/25 @ 15:49 by Stella Haywood CNP) Protein calorie malnutrition Opioid use disorder Hep C w/o coma, chronic HIV (human immunodeficiency virus infection) HIV (human immunodeficiency virus infection) Compartment syndrome Active substance abuse Substance abuse Diabetes Diabetes Surgical History Surgical History History of fasciotomy H/O fasciotomy Social History Social History Household Members: None Household Members Other:: self Housing: Apartment Do you presently have visiting nurse or other home services: No Unable to assess alcohol history related to: Unknown Alcohol intake: current Alcohol intake frequency: a few times a week Comment: bed/chair fast due to HFNC use Patient Tobacco Use Status: Never used Tobacco Tobacco use type: Cigarette Cigarette Packs Per Day: 1 Cigarettes Per Day: 10 Years Smoked: 20 e-Cigarette/Vaping Use: Never Used Second Hand Smoke Exposure: No Substance Use Type: Heroin Advance Directives Date on File: 07/09/21 service: No Current occupational status: unemployed
[2025-02-11 16:34] LABS: Glucose, Whole Blood 149 mg/dL (60-115)
[2025-02-11] MEDS: Enoxaparin Sodium 40 MG/0.4 ML SYRINGE SUBCUT (16:40)
--- NOTE | 2025-02-11 16:47 | HO.PM.IMPN ---
Subjective Subjective Date of Service: 02/12/25 Interval History: pneumonia Review of Systems still hypoxic but somewhat improving denies any chest pain or cough or fevers Physical Exam Vital Signs: Vital Signs: Last Vital Signs Temp 98.5 F 02/11/25 15:11 Pulse 87 02/11/25 15:11 Resp 20 02/11/25 15:11 BP 152/88 H 02/11/25 15:11 Pulse Ox 94 02/11/25 15:11 O2 Del Method Nasal Cannula 02/11/25 15:11 O2 Flow Rate 2 02/11/25 15:11 FiO2 50 02/11/25 07:29 BMI result Body Mass Index 22.1 Appearance: Alert.? Oriented X3.? cvs: rrr, [id number] . res:air entry diminshed ,has few cracles at bases. abd: no rebound or guarding ,nt, bs present. ext pulses present , no cyanosis . neuro: axo3 , nonfocal. Objective Data Active Medications Abacavir/Lamivudine (Abacavir/Lamivudine 600/300 Tablet) 1 tab PO DAILY [facility] Last Admin: 02/11/25 07:50 Dose: 1 tab Documented By: MARGARET Acetaminophen (Acetaminophen Oral Liquid 650 Mg/20.3 Ml Solution) 650 mg PO Q6H PRN PRN Reason: Pain, Mild 1-3,fever,headache Last Admin: 02/10/25 07:53 Dose: 650 mg Documented By: SAVANNAH Albuterol Sulfate (Albuterol Sulfate (0.083%) 2.5 Mg/3 Ml Vial.Neb) 2.5 mg INHALE Q4H PRN PRN Reason: Wheezing Last Admin: 02/11/25 00:51 Dose: 2.5 mg Documented By: RYAN Ceftriaxone Sodium (Ceftriaxone Sodium 2 Gm Vial) 2 gm IVPUSH DAILY [facility] Last Admin: 02/11/25 09:42 Dose: 2 gm Documented By: MARGARET Dextrose (Dextrose 50 % 25 Gm/50 Ml Syringe) 25 gm IVPUSH Q15M PRN; Protocol PRN Reason: per Hypoglycemia Standing Ord. Last Admin: 02/10/25 16:23 Dose: 25 gm Documented By: MITCHELL Dolutegravir Sodium (Dolutegravir Sodium 50 Mg Tablet) 50 mg PO DAILY [facility] Last Admin: 02/11/25 07:50 Dose: 50 mg Documented By: MARGARET Enoxaparin Sodium (Enoxaparin Sodium 40 Mg/0.4 Ml Syringe) 40 mg SUBCUT Q24H [facility] Last Admin: 02/11/25 16:40 Dose: 40 mg Documented By: MARGARET Glucose (Glucose Gel 15 Gm Gel..Gram.) 15 gm PO Q15M PRN; Protocol PRN Reason: per Hypoglycemia Standing Ord. Doxycycline Hyclate 100 mg/ (Sodium Chloride) 250 mls @ 166.67 mls/hr IV Q12H [facility] Last Admin: 02/11/25 16:41 Dose: 166.67 mls/hr Documented By: MARGARET Insulin Glargine (Insulin Glargine,Hum.Rec.Anlog 100 Unit/Ml 10 Ml Vial) 30 unit SUBCUT DAILY [facility] Last Admin: 02/11/25 07:50 Dose: 30 unit Documented By: MARGARET Methadone HCl (Methadone Hcl 20 Mg/2 Ml Oral.Conc) 50 mg PO DAILY@0800 [facility] Last Admin: 02/11/25 07:50 Dose: 50 mg Documented By: MARGARET Co-signed By: ALPHONSO Prednisone (Prednisone 20 Mg Tablet) 40 mg PO DAILY [facility] Last Admin: 02/11/25 07:49 Dose: 40 mg Documented By: MARGARET Quetiapine Fumarate (Quetiapine Fumarate 100 Mg Tablet) 100 mg PO BEDTIME [facility] Last Admin: 02/10/25 20:31 Dose: 100 mg Documented By: JOSH Labs 02/12/25 09:26 02/11/25 08:46 Labs: Laboratory Results - last 24 hr 02/10/25 02/10/25 02/10/25 16:18 16:41 20:12 MCV MCH MCHC RDW Plt Count MPV Immature Gran % (Auto) Neut % (Auto) Lymph % (Auto) Emery % (Auto) Eos % (Auto) Baso % (Auto) Lymph # (Auto) Emery # (Auto) Eos # (Auto) Baso # (Auto) Abs Immat Gran (auto) Absolute Neuts (auto) Absolute Nucleated RBC Nucleated RBC % (auto) VBG pH VBG pCO2 VBG pO2 VBG HCO3 VBG O2 Saturation VBG Base Excess Anion Gap Estim Creat Clear Calc Estimated GFR POC Glucose 59 L* 147 H 91 Random Glucose Calcium Phosphorus Magnesium Iron TIBC % Saturation Unsat Iron Binding Total Bilirubin AST ALT Alkaline Phosphatase Total Protein Albumin 02/11/25 02/11/25 02/11/25 07:00 08:45 08:46 MCV 83.6 MCH 27.7 MCHC 33.2 RDW 16.1 H Plt Count 207 MPV 11.0 Immature Gran % (Auto) 0.4 Neut % (Auto) 78.9 H Lymph % (Auto) 17.8 L Emery % (Auto) 2.9 Eos % (Auto) 0.0 Baso % (Auto) 0.0 Lymph # (Auto) 1.7 Emery # (Auto) 0.3 Eos # (Auto) 0.0 Baso # (Auto) 0.0 Abs Immat Gran (auto) 0.04 H Absolute Neuts (auto) 7.3 Absolute Nucleated RBC 0.000 Nucleated RBC % (auto) 0.0 VBG pH VBG pCO2 VBG pO2 VBG HCO3 VBG O2 Saturation VBG Base Excess Anion Gap 9 L Estim Creat Clear Calc 117.9 Estimated GFR > 60 POC Glucose 125 H Random Glucose 143 H Calcium 8.5 D Phosphorus 2.8 Magnesium 1.5 L Iron 33 L TIBC 154 L % Saturation 21 Unsat Iron Binding 121 Total Bilirubin 0.6 AST 18 ALT < 6 Alkaline Phosphatase 128 H Total Protein 6.5 Albumin 3.1 L 02/11/25 02/11/25 02/11/25 08:54 11:35 16:18 MCV MCH MCHC RDW Plt Count MPV Immature Gran % (Auto) Neut % (Auto) Lymph % (Auto) Emery % (Auto) Eos % (Auto) Baso % (Auto) Lymph # (Auto) Emery # (Auto) Eos # (Auto) Baso # (Auto) Abs Immat Gran (auto) Absolute Neuts (auto) Absolute Nucleated RBC Nucleated RBC % (auto) VBG pH 7.50 H VBG pCO2 32 VBG pO2 62 VBG HCO3 25 VBG O2 Saturation 91.0 VBG Base Excess 2.7 Anion Gap Estim Creat Clear Calc Estimated GFR POC Glucose 145 H 149 H Random Glucose Calcium Phosphorus Magnesium Iron TIBC % Saturation Unsat Iron Binding Total Bilirubin AST ALT Alkaline Phosphatase Total Protein Albumin Microbiology Microbiology Results: Microbiology 02/09/25 11:10 Blood Culture - Preliminary Blood - Venous No growth after 48 hours. 02/09/25 10:48 Blood Culture - Preliminary Blood - Venous No growth after 48 hours. 02/09/25 18:43 Urine Culture - Final Urine clean catch - Clean Catch Midstream No growth. Assessment and Plan (1) Pneumonia: Status: Acute Plan Toxic metabolic encephalopathy: Thought to be related to drug use Urine toxicology positive for opioids, methadone, fentanyl, cocaine Patient mental status is improving with supportive care. Acute lactic acidosis: Multifactorial Improving with hydration/supportive care. sepsis(POA -as per ICu documentation) and Acute hypoxemic respiratory failure due to bilateral nonspecific pneumonia: sepsis improving,received ivf and also pressor in icu. Continue IV antibiotics, patient slowly taper from high-flow albert: Possibly secondary to hypovolemia, improved with the hydration. HIV. Continue Triumeq. dm:insulin,moniter fs . Ongoing IV drug use (heroin). On methadone. Addiction medicine consult. Quality Stroke Does the patient have a stroke diagnosis?: No VTE Prior VTE?: No VTE Risk Level:: Medical - low VTE Device Contraindication: N/A - Device Ordered VTE Drug Contraindication: N/A - Med Ordered
[2025-02-11] MEDS: ondansetron HCL 4 MG/2 ML VIAL IVPUSH (19:54)
[2025-02-11 20:51] LABS: Glucose, Whole Blood 192 mg/dL (60-115)
[2025-02-11] MEDS: QUEtiapine Fumarate 100 MG TABLET PO (20:59)
[2025-02-11] MEDS: Gabapentin 300 MG CAPSULE PO (20:59)
[2025-02-11] MEDS: cloNIDine HCL 0.1 MG TABLET PO (20:59)
--- NOTE | 2025-02-11 22:50 | P.CNID_ITS ---
History of Present Illness Data of Consult Service Date: 02/11/25 Requesting physician: Rick Melendrez Primary Care Provider: Barbie Pearl MD HPI Reason for consult: pneumonia He presents with cough and shortness of breath. He has diffuse lung infiltrates. He was started on Ceftriaxone and Doxycycline and continues abacavir and dolutegravir components of Triumeq which he takes for HIV He has CD4 count of 663 and viral load undetectable 12/27/2024. Review of Systems 2 Review of Systems: Yes all other systems are reviewed and are negative PMFSH Past Medical History Medical History Protein calorie malnutrition Opioid use disorder Hep C w/o coma, chronic HIV (human immunodeficiency virus infection) HIV (human immunodeficiency virus infection) Compartment syndrome Active substance abuse Substance abuse Diabetes Diabetes Family History Family history: reviewed and not pertinent Surgical History Surgical History History of fasciotomy H/O fasciotomy Social History Social History Household Members: None Household Members Other:: self Housing: Apartment Do you presently have visiting nurse or other home services: No Unable to assess alcohol history related to: Unknown Alcohol intake: current Alcohol intake frequency: a few times a week Comment: bed/chair fast due to HFNC use Patient Tobacco Use Status: Never used Tobacco Tobacco use type: Cigarette Cigarette Packs Per Day: 1 Cigarettes Per Day: 10 Years Smoked: 20 e-Cigarette/Vaping Use: Never Used Second Hand Smoke Exposure: No Substance Use Type: Heroin Advance Directives Date on File: 07/09/21 service: No Current occupational status: unemployed Meds Allergies Allergy/AdvReac Type Severity Reaction Status Date / Time fish Allergy Unknown Anaphylaxis Uncoded 02/09/25 10:38 shellfish Allergy Unknown Anaphylaxis Uncoded 02/09/25 10:38 Active Medications: Current Medications Abacavir/Lamivudine (Abacavir/Lamivudine 600/300 Tablet) 1 tab PO DAILY [facility] Last Admin: 02/11/25 07:50 Dose: 1 tab Acetaminophen (Acetaminophen Oral Liquid 650 Mg/20.3 Ml Solution) 650 mg PO Q6H PRN PRN Reason: Pain, Mild 1-3,fever,headache Last Admin: 02/10/25 07:53 Dose: 650 mg Albuterol Sulfate (Albuterol Sulfate (0.083%) 2.5 Mg/3 Ml Vial.Neb) 2.5 mg INHALE Q4H PRN PRN Reason: Wheezing Last Admin: 02/11/25 00:51 Dose: 2.5 mg Ceftriaxone Sodium (Ceftriaxone Sodium 2 Gm Vial) 2 gm IVPUSH DAILY REPLACED BY [facility] Last Admin: 02/11/25 09:42 Dose: 2 gm Dextrose (Dextrose 50 % 25 Gm/50 Ml Syringe) 25 gm IVPUSH Q15M PRN; Protocol PRN Reason: per Hypoglycemia Standing Ord. Last Admin: 02/10/25 16:23 Dose: 25 gm Dolutegravir Sodium (Dolutegravir Sodium 50 Mg Tablet) 50 mg PO DAILY REPLACED BY [facility] Last Admin: 02/11/25 07:50 Dose: 50 mg Enoxaparin Sodium (Enoxaparin Sodium 40 Mg/0.4 Ml Syringe) 40 mg SUBCUT Q24H REPLACED BY [facility] Last Admin: 02/11/25 16:40 Dose: 40 mg Glucose (Glucose Gel 15 Gm Gel..Gram.) 15 gm PO Q15M PRN; Protocol PRN Reason: per Hypoglycemia Standing Ord. Doxycycline Hyclate 100 mg/ (Sodium Chloride) 250 mls @ 166.67 mls/hr IV Q12H REPLACED BY [facility] Last Infusion: 02/11/25 18:20 Dose: Infused Insulin Glargine (Insulin Glargine,Hum.Rec.Anlog 100 Unit/Ml 10 Ml Vial) 30 unit SUBCUT DAILY REPLACED BY [facility] Last Admin: 02/11/25 07:50 Dose: 30 unit Methadone HCl (Methadone Hcl 20 Mg/2 Ml Oral.Conc) 50 mg PO DAILY@0800 REPLACED BY [facility] Last Admin: 02/11/25 07:50 Dose: 50 mg Ondansetron HCl (Ondansetron Hcl 4 Mg/2 Ml Vial) 4 mg IVPUSH Q6H PRN PRN Reason: Nausea and Vomiting Last Admin: 02/11/25 19:54 Dose: 4 mg Prednisone (Prednisone 20 Mg Tablet) 40 mg PO DAILY REPLACED BY [facility] Last Admin: 02/11/25 07:49 Dose: 40 mg Quetiapine Fumarate (Quetiapine Fumarate 100 Mg Tablet) 100 mg PO BEDTIME REPLACED BY [facility] Last Admin: 02/11/25 20:59 Dose: 100 mg Home Medications ?Medication ?Instructions ?Recorded ?Confirmed ?Last Taken ?Type abacavir 600 mg-dolutegravir 50 1 tab PO DAILY 02/09/25 02/09/25 02/09/25 History mg-lamivudine 300 mg tablet (Triumeq) acetaminophen 500 mg tablet 500 mg PO Q6H PRN mild pain 02/09/25 02/09/25 Unknown History albuterol sulfate 90 mcg/actuation 2 puff inhalation Q6H PRN wheezing 02/09/25 02/09/25 Unknown History aerosol inhaler (Ventolin HFA) clonidine HCl 0.1 mg tablet 0.1 mg PO BID 02/09/25 02/09/25 Unknown History doxycycline hyclate 100 mg tablet 100 mg PO BID 02/09/25 02/09/25 Unknown History ferrous gluconate 324 mg (38 mg 324 mg PO QAM 02/09/25 02/09/25 Unknown History iron) tablet fluticasone propionate 50 1 spray intranasal DAILY 02/09/25 02/09/25 Unknown History mcg/actuation nasal spray,suspension gabapentin 300 mg capsule 300 mg PO TID 02/09/25 02/09/25 Unknown History hydroxyzine pamoate 25 mg capsule 25 mg PO Q12H PRN itch 02/09/25 02/09/25 Unknown History insulin glargine 100 unit/mL (3 30 unit subcut QAM 02/09/25 02/09/25 Unknown History mL) subcutaneous pen (Lantus Solostar U-100 Insulin) insulin lispro 100 unit/mL 4 - 20 sliding scale dose subcut 02/09/25 02/09/25 Unknown History subcutaneous pen (Humalog KwikPen QIDACHS (U-100) Insulin) methadone 10 mg/mL oral concentrate 50 mg PO DAILY 02/09/25 02/10/25 Unknown History omeprazole 20 mg capsule,delayed 20 mg PO BID 02/09/25 02/09/25 Unknown History release quetiapine 100 mg tablet 100 mg PO BEDTIME 02/09/25 02/09/25 Unknown History Physical Exam 2 Vital Signs: Vital Signs: Last Vital Signs Temp 98.7 F 02/11/25 19:37 Pulse 91 02/11/25 19:37 Resp 16 02/11/25 19:37 BP 158/85 H 02/11/25 19:37 Pulse Ox 95 02/11/25 19:37 O2 Del Method Nasal Cannula 02/11/25 19:37 O2 Flow Rate 1 02/11/25 19:37 FiO2 50 02/11/25 07:29 BMI result Body Mass Index 22.1 Const: General: cooperative HEENT: Head: Yes normal to inspection Face and sinus: Yes normal facial exam Mouth: Normal oral and palatal mucosa present Teeth and gingiva: d entition normal Eyes: General: appearance normal, both eyes and all related structures P upils: Equal, round and reactive pupils present Chest: Other: rhonchi bilaterally Resp: Effort & Inspection: normal respiratory effort Cardio: Rate: regular rate Rhythm: regular rhythm GI: Palpation (GI): Soft to palpation and nontender : General: Yes no CVA tenderness Back/Spine/Pelvis: Back: no CVA tenderness Skin: General skin exam: no rashes or lesions noted Neuro: General: moves all extremities Cranial nerves: Yes Equal, round and reactive pupils present Extrem: General: Yes normal to inspection Psych: Appearance: grossly normal Results Labs 02/11/25 08:45 02/11/25 08:46 Labs: Short CBC 02/11/25 Range/Units 08:45 WBC 9.3 (4.8-10.8) X10*3/uL Hgb 8.1 L (14.0-18.0) g/dl Hct 24.4 L (42.0-52.0) % Plt Count 207 (160-400) X10*3/uL BMP 02/11/25 08:46 Sodium 139 Potassium 3.9 Chloride 110 H Carbon Dioxide 24 BUN 15 Creatinine 0.70 Calcium 8.5 D Liver Function 02/11/25 Range/Units 08:46 Total Bilirubin 0.6 (0.0-1.0) mg/dL AST 18 (5-37) U/L ALT < 6 (0-40) U/L Alkaline Phosphatase 128 H (39-117) U/L Albumin 3.1 L (3.5-5.0) g/dL Microbiology Microbiology Results: Microbiology 02/09/25 11:10 Blood - Venous Blood Culture - Preliminary No growth after 48 hours. 02/09/25 10:48 Blood - Venous Blood Culture - Preliminary No growth after 48 hours. 02/09/25 18:43 Urine clean catch - Clean Catch Midstream Urine Culture - Final No growth. 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 Would continue Ceftriaxone and Doxycycline as improving since out of ICU. Po when off oxygen and on RA. Po cephalosporin and Doxycycline when off oxygen and give for a week. Continue abacavir and dolutegravir. Check nares MRSA and Legionella.
[2025-02-12] VITALS (8 sets, daily range): BP systolic 119–167; BP diastolic 69–99; PULSE 70–88; RESP 16–18; TEMP 36.4–37; O2SAT 94–97
[2025-02-12] MEDS: Doxycycline Hyclate 100 MG in 0.9 % Sodium Chloride 250 ML 166.67 MG IV (05:34)
[2025-02-12 07:19] LABS: Glucose, Whole Blood 170 mg/dL (60-115)
[2025-02-12] MEDS: Dolutegravir Sodium 50 MG TABLET PO (08:45)
[2025-02-12] MEDS: predniSONE 20 MG TABLET 40 MG PO (08:45)
[2025-02-12] MEDS: methADONE HCl 20 MG/2 ML ORAL.CONC 50 MG PO (08:45)
[2025-02-12] MEDS: Abacavir/lamiVUDine 600/300 TABLET 1 TAB PO (08:45)
[2025-02-12] MEDS: Magnesium Oxide 400 MG TABLET PO ×2 (08:45→16:39)
[2025-02-12] MEDS: cefTRIAXone sodium 2 GM VIAL IVPUSH (08:45)
[2025-02-12] MEDS: Insulin Glargine,Hum.rec.anlog 100 UNIT/ML 10 ML VIAL 30 UNIT SUBCUT (08:46)
[2025-02-12] MEDS: Magnesium Sulfate/D5W 1 GM/100 ML PIGGYBACK IV (08:46)
[2025-02-12] MEDS: Insulin Lispro 100 UNIT/ML 3 ML VIAL SUBCUT ×2 (08:46→20:44)
[2025-02-12 10:03] LABS: Hematocrit 25.3 % (42.0-52.0); Hemoglobin 8.1 g/dl (14.0-18.0)
--- NOTE | 2025-02-12 10:40 | MHC.CM.PN ---
Per ROUNDS discussion, Patient is not yet medically cleared for dc (still on O2); home is the goal and CM will continue to follow.
[2025-02-12 10:42] LABS: Estimated Average Glucose 192 mg/dL; Ferritin 196 ng/mL (20-250); Hemoglobin A1C 151.3584 umol/L; Hemoglobin A1c % 8.3 % (<6.0); Total Hemoglobin (HGBA1C) 2238.4392 umol/L
[2025-02-12 10:52] LABS: Folate 9.6 ng/mL (> or = 4.0); Vitamin B12 568 pg/mL (200-900)
[2025-02-12 11:02] LABS: Glucose, Whole Blood 120 mg/dL (60-115)
--- NOTE | 2025-02-12 12:11 | P.PNIM_ITS ---
Subjective Subjective Date of Service: 02/12/25 Interval History: pneumonia Review of Systems sob seems improving no cough taper oxygen Physical Exam 2 Vital Signs: Vital Signs: Last Vital Signs Temp 98.4 F 02/12/25 11:14 Pulse 77 02/12/25 11:14 Resp 18 02/12/25 11:14 BP 154/93 H 02/12/25 11:14 Pulse Ox 95 02/12/25 11:14 O2 Del Method Nasal Cannula 02/12/25 11:14 O2 Flow Rate 2 02/12/25 11:14 FiO2 50 02/11/25 07:29 BMI result Body Mass Index 22.1 Appearance: Alert.? Oriented X3.? cvs: rrr, [id number] . res:air entry diminshed ,has few cracles at bases. abd: no rebound or guarding ,nt, bs present. ext pulses present , no cyanosis . neuro: axo3 , nonfocal. Objective Data Active Medications Abacavir/Lamivudine (Abacavir/Lamivudine 600/300 Tablet) 1 tab PO DAILY [facility] Last Admin: 02/12/25 08:45 Dose: 1 tab Documented By: ALPHONSO Acetaminophen (Acetaminophen Oral Liquid 650 Mg/20.3 Ml Solution) 650 mg PO Q6H PRN PRN Reason: Pain, Mild 1-3,fever,headache Last Admin: 02/10/25 07:53 Dose: 650 mg Documented By: SAVANNAH Albuterol Sulfate (Albuterol Sulfate (0.083%) 2.5 Mg/3 Ml Vial.Neb) 2.5 mg INHALE Q4H PRN PRN Reason: Wheezing Last Admin: 02/11/25 00:51 Dose: 2.5 mg Documented By: RYAN Ceftriaxone Sodium (Ceftriaxone Sodium 2 Gm Vial) 2 gm IVPUSH DAILY [facility] Last Admin: 02/12/25 08:45 Dose: 2 gm Documented By: ALPHONSO Dextrose (Dextrose 50 % 25 Gm/50 Ml Syringe) 25 gm IVPUSH Q15M PRN; Protocol PRN Reason: per Hypoglycemia Standing Ord. Last Admin: 02/10/25 16:23 Dose: 25 gm Documented By: MITCHELL Dolutegravir Sodium (Dolutegravir Sodium 50 Mg Tablet) 50 mg PO DAILY [facility] Last Admin: 02/12/25 08:45 Dose: 50 mg Documented By: ALPHONSO Doxycycline Monohydrate (Doxycycline Monohydrate 100 Mg Capsule) 100 mg PO Q12H [facility] Enoxaparin Sodium (Enoxaparin Sodium 40 Mg/0.4 Ml Syringe) 40 mg SUBCUT Q24H [facility] Last Admin: 02/11/25 16:40 Dose: 40 mg Documented By: MARGARET Glucose (Glucose Gel 15 Gm Gel..Gram.) 15 gm PO Q15M PRN; Protocol PRN Reason: per Hypoglycemia Standing Ord. Insulin Glargine (Insulin Glargine,Hum.Rec.Anlog 100 Unit/Ml 10 Ml Vial) 30 unit SUBCUT DAILY [facility] Last Admin: 02/12/25 08:46 Dose: 30 unit Documented By: ALPHONSO Insulin Human Lispro (Insulin Lispro 100 Unit/Ml 3 Ml Vial) 0 unit SUBCUT QIDACHS [facility]; Protocol Last Admin: 02/12/25 11:03 Dose: Not Given Documented By: ALPHONSO Non-Admin Reason: No Insulin Coverage Magnesium Oxide (Magnesium Oxide 400 Mg Tablet) 400 mg PO BIDPC [facility] Last Admin: 02/12/25 08:45 Dose: 400 mg Documented By: ALPHONSO Methadone HCl (Methadone Hcl 20 Mg/2 Ml Oral.Conc) 50 mg PO DAILY@0800 [facility] Last Admin: 02/12/25 08:45 Dose: 50 mg Documented By: ALPHONSO Co-signed By: SAHIL Ondansetron HCl (Ondansetron Hcl 4 Mg/2 Ml Vial) 4 mg IVPUSH Q6H PRN PRN Reason: Nausea and Vomiting Last Admin: 02/11/25 19:54 Dose: 4 mg Documented By: RUSSEL Prednisone (Prednisone 20 Mg Tablet) 40 mg PO DAILY [facility] Last Admin: 02/12/25 08:45 Dose: 40 mg Documented By: ALPHONSO Quetiapine Fumarate (Quetiapine Fumarate 100 Mg Tablet) 100 mg PO BEDTIME [facility] Last Admin: 02/11/25 20:59 Dose: 100 mg Documented By: RUSSEL Labs 02/12/25 09:26 02/11/25 08:46 Labs: Laboratory Results - last 24 hr 02/11/25 02/11/25 02/12/25 16:18 20:39 07:04 POC Glucose 149 H 192 H 170 H Estimat Average Glucose Hemoglobin A1c % Ferritin Vitamin B12 Folate 02/12/25 02/12/25 09:26 10:43 POC Glucose 120 H Estimat Average Glucose 192 Hemoglobin A1c % 8.3 H Ferritin 196 Vitamin B12 568 Folate 9.6 Microbiology Microbiology Results: Microbiology 02/09/25 11:10 Blood Culture - Preliminary Blood - Venous No growth after 48 hours. 02/09/25 10:48 Blood Culture - Preliminary Blood - Venous No growth after 48 hours. 02/09/25 18:43 Urine Culture - Final Urine clean catch - Clean Catch Midstream No growth. Assessment and Plan (1) Pneumonia: Status: Acute Plan Toxic metabolic encephalopathy: Thought to be related to drug use Urine toxicology positive for opioids, methadone, fentanyl, cocaine Patient mental status is improving with supportive care. Acute lactic acidosis: Multifactorial Improving with hydration/supportive care. sepsis(POA -as per ICu documentation) and Acute hypoxemic respiratory failure due to bilateral nonspecific pneumonia: sepsis improving,received ivf and also pressor in icu. Continue IV antibiotics, patient slowly taper from high-flow albert: Possibly secondary to hypovolemia, improved with the hydration. HIV. Continue Triumeq. dm:insulin,moniter fs . Ongoing IV drug use (heroin). On methadone. Addiction medicine consult. Quality Stroke Does the patient have a stroke diagnosis?: No VTE Prior VTE?: No VTE Risk Level:: Medical - low VTE Device Contraindication: N/A - Device Ordered VTE Drug Contraindication: N/A - Med Ordered
--- NOTE | 2025-02-12 15:34 | MHC.CM.PN ---
NAZARIO received a call from Tammi @ [facility] (Nurse NAZARIO with ID) @ [phone]; CM will need to inform Tammi of date of dc. NAZARIO will follow.
[2025-02-12 16:27] LABS: Glucose, Whole Blood 113 mg/dL (60-115)
[2025-02-12] MEDS: Enoxaparin Sodium 40 MG/0.4 ML SYRINGE SUBCUT (16:39)
[2025-02-12] MEDS: Doxycycline Monohydrate 100 MG CAPSULE PO (16:39)
[2025-02-12 20:18] LABS: Glucose, Whole Blood 153 mg/dL (60-115)
[2025-02-12] MEDS: QUEtiapine Fumarate 100 MG TABLET PO (20:43)
[2025-02-13 03:07] VITALS: BP 169/93; PULSE 75; RESP 18; TEMP 36.6; O2SAT 91
[2025-02-13 03:20] VITALS: O2SAT 94
[2025-02-13] MEDS: Doxycycline Monohydrate 100 MG CAPSULE PO ×2 (05:26→16:18)
[2025-02-13 07:25] LABS: Glucose, Whole Blood 297 mg/dL (60-115)
[2025-02-13 07:39] VITALS: BP 155/95; PULSE 73; RESP 18; TEMP 36.7; O2SAT 92
[2025-02-13] MEDS: Magnesium Oxide 400 MG TABLET PO ×2 (08:16→16:18)
[2025-02-13] MEDS: Dolutegravir Sodium 50 MG TABLET PO (08:17)
[2025-02-13] MEDS: methADONE HCl 20 MG/2 ML ORAL.CONC 50 MG PO (08:17)
[2025-02-13] MEDS: predniSONE 20 MG TABLET 40 MG PO (08:17)
[2025-02-13] MEDS: Abacavir/lamiVUDine 600/300 TABLET 1 TAB PO (08:17)
[2025-02-13] MEDS: Insulin Lispro 100 UNIT/ML 3 ML VIAL SUBCUT ×3 (08:18→21:03)
[2025-02-13] MEDS: Insulin Glargine,Hum.rec.anlog 100 UNIT/ML 10 ML VIAL 30 UNIT SUBCUT (08:21)
[2025-02-13] MEDS: cefTRIAXone sodium 2 GM VIAL IVPUSH (08:22)
[2025-02-13] MEDS: Fluconazole in NaCl,Iso-Osm 200 MG/100 ML PIGGYBACK 100 MG IV (08:22)
--- NOTE | 2025-02-13 10:16 | P.PNADD_ITS ---
Subjective Subjective Date of Service: 02/13/25 Reason For Visit: WHEEZING, 95% ON DUONEB, LOW BP, FALL PER EMS Interim History: Patient seen in follow up Awake, alert, scheduled to discharge today Reports feeling better Tolerating methadone dose w/o issue Review of Systems Constitutional: Reports as per HPI and Reports no additional constitutional complaints Mental Status Exam Mental Status Exam Patient Appearance: Appropriate Level of Consciousness: Awake, Appropriate and Alert Patient Behavior: Appropriate Mood Description: Calm Affect Description: Calm Speech Pattern: Clear Thought Process: Intact Thought Content: positive for Intact Judgement: Good Diagnostics Vital Signs (24Hr): Vital Signs - 24 hr 02/12/25 11:14 02/12/25 15:59 02/12/25 17:13 Temperature 98.4 F 98.1 F Pulse Rate 77 78 Respiratory Rate 18 18 Blood Pressure 154/93 H 160/87 H 130/80 Pulse Oximetry 95 95 Oxygen Delivery Method Nasal Cannula Nasal Cannula Oxygen Flow Rate 2 2 02/12/25 19:29 02/12/25 23:09 02/13/25 03:07 Temperature 98.0 F 97.6 F 97.9 F Pulse Rate 77 70 75 Respiratory Rate 18 18 18 Blood Pressure 167/99 H 156/94 H 169/93 H Pulse Oximetry 97 95 91 L Oxygen Delivery Method Nasal Cannula Nasal Cannula Nasal Cannula Oxygen Flow Rate 2 2 2 02/13/25 03:20 02/13/25 07:39 Temperature 98.1 F Pulse Rate 73 Respiratory Rate 18 Blood Pressure 155/95 H Pulse Oximetry 94 92 Oxygen Delivery Method Room Air Room Air Oxygen Flow Rate BMI result Body Mass Index 22.1 Labs 02/12/25 09:26 02/11/25 08:46 Labs: Laboratory Results - last 48 hr 02/11/25 02/11/25 02/11/25 11:35 16:18 20:39 Hgb Hct POC Glucose 145 H 149 H 192 H Estimat Average Glucose Hemoglobin A1c % Ferritin Vitamin B12 Folate 02/12/25 02/12/25 02/12/25 07:04 09:26 10:43 Hgb 8.1 L Hct 25.3 L POC Glucose 170 H 120 H Estimat Average Glucose 192 Hemoglobin A1c % 8.3 H Ferritin 196 Vitamin B12 568 Folate 9.6 02/12/25 02/12/25 02/13/25 16:24 20:00 07:07 Hgb Hct POC Glucose 113 153 H 297 H Estimat Average Glucose Hemoglobin A1c % Ferritin Vitamin B12 Folate Medications Medications Current Medications Abacavir/Lamivudine (Abacavir/Lamivudine 600/300 Tablet) 1 tab PO DAILY [facility] Last Admin: 02/13/25 08:17 Dose: 1 tab Acetaminophen (Acetaminophen Oral Liquid 650 Mg/20.3 Ml Solution) 650 mg PO Q6H PRN PRN Reason: Pain, Mild 1-3,fever,headache Last Admin: 02/10/25 07:53 Dose: 650 mg Albuterol Sulfate (Albuterol Sulfate (0.083%) 2.5 Mg/3 Ml Vial.Neb) 2.5 mg INHALE Q4H PRN PRN Reason: Wheezing Last Admin: 02/11/25 00:51 Dose: 2.5 mg Ceftriaxone Sodium (Ceftriaxone Sodium 2 Gm Vial) 2 gm IVPUSH DAILY [facility] Last Admin: 02/13/25 08:22 Dose: 2 gm Dextrose (Dextrose 50 % 25 Gm/50 Ml Syringe) 25 gm IVPUSH Q15M PRN; Protocol PRN Reason: per Hypoglycemia Standing Ord. Last Admin: 02/10/25 16:23 Dose: 25 gm Dolutegravir Sodium (Dolutegravir Sodium 50 Mg Tablet) 50 mg PO DAILY [facility] Last Admin: 02/13/25 08:17 Dose: 50 mg Doxycycline Monohydrate (Doxycycline Monohydrate 100 Mg Capsule) 100 mg PO Q12H [facility] Last Admin: 02/13/25 05:26 Dose: 100 mg Enoxaparin Sodium (Enoxaparin Sodium 40 Mg/0.4 Ml Syringe) 40 mg SUBCUT Q24H [facility] Last Admin: 02/12/25 16:39 Dose: 40 mg Glucose (Glucose Gel 15 Gm Gel..Gram.) 15 gm PO Q15M PRN; Protocol PRN Reason: per Hypoglycemia Standing Ord. Fluconazole (Diflucan) 200 mg in 100 mls @ 100 mls/hr IV DAILY [facility] Last Admin: 02/13/25 08:22 Dose: 100 mls/hr Insulin Glargine (Insulin Glargine,Hum.Rec.Anlog 100 Unit/Ml 10 Ml Vial) 30 unit SUBCUT DAILY [facility] Last Admin: 02/13/25 08:21 Dose: 30 unit Insulin Human Lispro (Insulin Lispro 100 Unit/Ml 3 Ml Vial) 0 unit SUBCUT QIDACHS [facility]; Protocol Last Admin: 02/13/25 08:18 Dose: 6 unit Magnesium Oxide (Magnesium Oxide 400 Mg Tablet) 400 mg PO BIDPC [facility] Last Admin: 02/13/25 08:16 Dose: 400 mg Methadone HCl (Methadone Hcl 20 Mg/2 Ml Oral.Conc) 50 mg PO DAILY@0800 [facility] Last Admin: 02/13/25 08:17 Dose: 50 mg Ondansetron HCl (Ondansetron Hcl 4 Mg/2 Ml Vial) 4 mg IVPUSH Q6H PRN PRN Reason: Nausea and Vomiting Last Admin: 02/11/25 19:54 Dose: 4 mg Prednisone (Prednisone 20 Mg Tablet) 40 mg PO DAILY [facility] Last Admin: 02/13/25 08:17 Dose: 40 mg Quetiapine Fumarate (Quetiapine Fumarate 100 Mg Tablet) 100 mg PO BEDTIME [facility] Last Admin: 02/12/25 20:43 Dose: 100 mg Allergies Allergies Allergy/AdvReac Type Severity Reaction Status Date / Time fish Allergy Unknown Anaphylaxis Uncoded 02/09/25 10:38 shellfish Allergy Unknown Anaphylaxis Uncoded 02/09/25 10:38 Assessment & Plan Assessment & Plan (1) Opioid use disorder: Status: Acute Code(s): F11.99 - Opioid use, unspecified with unspecified opioid-induced disorder Assessment and Plan: * last dose letter to bring to [facility] in AM * take home narcan ordered * 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
[2025-02-13 11:00] LABS: Glucose, Whole Blood 224 mg/dL (60-115)
[2025-02-13 11:21] VITALS: BP 140/78; PULSE 72; RESP 18; TEMP 36.7; O2SAT 93
--- NOTE | 2025-02-13 12:49 | MHC.RECOVRN ---
Met with pt to follow up and provide support. Plan for pt to dc today. Pt interested in safer injection kit, educated pt regarding harm reduction and use of kit. Pt denies questions or concerns for t/w. Kit has been given to pts RN to give to pt upon discharge.
--- NOTE | 2025-02-13 14:23 | HO.PM.IMPN ---
Subjective Subjective Date of Service: 02/13/25 Interval History: pneumonia , 1/2 blood culture positive for yeast Review of Systems sob improving,no cough or fevers Physical Exam Vital Signs: Vital Signs: Last Vital Signs Temp 98.1 F 02/13/25 11:21 Pulse 72 02/13/25 11:21 Resp 18 02/13/25 11:21 BP 140/78 H 02/13/25 11:21 Pulse Ox 93 02/13/25 11:21 O2 Del Method Room Air 02/13/25 11:21 O2 Flow Rate 2 02/13/25 03:07 FiO2 50 02/11/25 07:29 BMI result Body Mass Index 22.1 Appearance: Alert.? Oriented X3.? cvs: rrr, [id number] . res:air entry diminshed ,has few cracles at bases. abd: no rebound or guarding ,nt, bs present. ext pulses present , no cyanosis . neuro: axo3 , nonfocal. Objective Data Active Medications Abacavir/Lamivudine (Abacavir/Lamivudine 600/300 Tablet) 1 tab PO DAILY [facility] Last Admin: 02/13/25 08:17 Dose: 1 tab Documented By: MITCHELL Acetaminophen (Acetaminophen Oral Liquid 650 Mg/20.3 Ml Solution) 650 mg PO Q6H PRN PRN Reason: Pain, Mild 1-3,fever,headache Last Admin: 02/10/25 07:53 Dose: 650 mg Documented By: SAVANNAH Albuterol Sulfate (Albuterol Sulfate (0.083%) 2.5 Mg/3 Ml Vial.Neb) 2.5 mg INHALE Q4H PRN PRN Reason: Wheezing Last Admin: 02/11/25 00:51 Dose: 2.5 mg Documented By: RYAN Ceftriaxone Sodium (Ceftriaxone Sodium 2 Gm Vial) 2 gm IVPUSH DAILY [facility] Last Admin: 02/13/25 08:22 Dose: 2 gm Documented By: MITCHELL Dextrose (Dextrose 50 % 25 Gm/50 Ml Syringe) 25 gm IVPUSH Q15M PRN; Protocol PRN Reason: per Hypoglycemia Standing Ord. Last Admin: 02/10/25 16:23 Dose: 25 gm Documented By: MITCHELL Dolutegravir Sodium (Dolutegravir Sodium 50 Mg Tablet) 50 mg PO DAILY [facility] Last Admin: 02/13/25 08:17 Dose: 50 mg Documented By: MITCHELL Doxycycline Monohydrate (Doxycycline Monohydrate 100 Mg Capsule) 100 mg PO Q12H [facility] Last Admin: 02/13/25 05:26 Dose: 100 mg Documented By: RUSSEL Enoxaparin Sodium (Enoxaparin Sodium 40 Mg/0.4 Ml Syringe) 40 mg SUBCUT Q24H [facility] Last Admin: 02/12/25 16:39 Dose: 40 mg Documented By: ALPHONSO Glucose (Glucose Gel 15 Gm Gel..Gram.) 15 gm PO Q15M PRN; Protocol PRN Reason: per Hypoglycemia Standing Ord. Fluconazole (Diflucan) 200 mg in 100 mls @ 100 mls/hr IV DAILY [facility] Last Infusion: 02/13/25 09:22 Dose: Infused Documented By: MITCHELL Insulin Glargine (Insulin Glargine,Hum.Rec.Anlog 100 Unit/Ml 10 Ml Vial) 30 unit SUBCUT DAILY [facility] Last Admin: 02/13/25 08:21 Dose: 30 unit Documented By: MITCHELL Insulin Human Lispro (Insulin Lispro 100 Unit/Ml 3 Ml Vial) 0 unit SUBCUT QIDACHS [facility]; Protocol Last Admin: 02/13/25 11:58 Dose: 4 unit Documented By: MITCHELL Magnesium Oxide (Magnesium Oxide 400 Mg Tablet) 400 mg PO BIDPC [facility] Last Admin: 02/13/25 08:16 Dose: 400 mg Documented By: MITCHELL Methadone HCl (Methadone Hcl 20 Mg/2 Ml Oral.Conc) 50 mg PO DAILY@0800 [facility] Last Admin: 02/13/25 08:17 Dose: 50 mg Documented By: MITCHELL Co-signed By: REAGAN Ondansetron HCl (Ondansetron Hcl 4 Mg/2 Ml Vial) 4 mg IVPUSH Q6H PRN PRN Reason: Nausea and Vomiting Last Admin: 02/11/25 19:54 Dose: 4 mg Documented By: RUSSEL Prednisone (Prednisone 20 Mg Tablet) 40 mg PO DAILY [facility] Last Admin: 02/13/25 08:17 Dose: 40 mg Documented By: MITCHELL Quetiapine Fumarate (Quetiapine Fumarate 100 Mg Tablet) 100 mg PO BEDTIME [facility] Last Admin: 02/12/25 20:43 Dose: 100 mg Documented By: RUSSEL Labs 02/12/25 09:26 02/11/25 08:46 Labs: Laboratory Results - last 24 hr 02/12/25 02/12/25 02/13/25 16:24 20:00 07:07 POC Glucose 113 153 H 297 H 02/13/25 10:51 POC Glucose 224 H Microbiology Microbiology Results: Microbiology 02/09/25 11:10 Blood Culture - Preliminary Blood - Venous Prelim: Yeast Gram Stain only Assessment and Plan (1) Pneumonia: Status: Acute Plan Toxic metabolic encephalopathy: Thought to be related to drug use Urine toxicology positive for opioids, methadone, fentanyl, cocaine Patient mental status is improving with supportive care. Acute lactic acidosis: Multifactorial Improving with hydration/supportive care. sepsis(POA -as per ICu documentation) and Acute hypoxemic respiratory failure due to bilateral nonspecific pneumonia: sepsis improving,received ivf and also pressor in icu. Continue IV antibiotics, off high flow 1/2 blood culture -positive for yeast,no new symptoms-? contamination id follow up ( Id is aware) albert: Possibly secondary to hypovolemia, improved with the hydration. HIV. Continue Triumeq. dm:insulin,moniter fs . Ongoing IV drug use (heroin). On methadone. Addiction medicine consult. Quality Stroke Does the patient have a stroke diagnosis?: No VTE Prior VTE?: No VTE Risk Level:: Medical - low VTE Device Contraindication: N/A - Device Ordered VTE Drug Contraindication: N/A - Med Ordered
[2025-02-13 16:00] VITALS: BP 162/90; PULSE 72; RESP 18; TEMP 36.3; O2SAT 96
[2025-02-13] MEDS: Enoxaparin Sodium 40 MG/0.4 ML SYRINGE SUBCUT (16:18)
[2025-02-13 16:27] LABS: Glucose, Whole Blood 111 mg/dL (60-115)
[2025-02-13 17:04] LABS: Strep Pneumo Ag urine Not Detected (Not Detected)
[2025-02-13 19:38] VITALS: BP 168/96; PULSE 75; RESP 20; TEMP 36.8; O2SAT 95
[2025-02-13 20:26] LABS: Glucose, Whole Blood 252 mg/dL (60-115)
[2025-02-13] MEDS: QUEtiapine Fumarate 100 MG TABLET PO (21:02)
[2025-02-14 00:59] VITALS: BP 137/82; PULSE 67; RESP 18; TEMP 36.4; O2SAT 93
[2025-02-14 03:01] VITALS: BP 167/90; PULSE 71; RESP 18; TEMP 36.7; O2SAT 95
[2025-02-14] MEDS: Doxycycline Monohydrate 100 MG CAPSULE PO ×2 (05:51→16:49)
[2025-02-14 07:50] LABS: Glucose, Whole Blood 302 mg/dL (60-115)
[2025-02-14 08:00] VITALS: BP 183/95; PULSE 76; RESP 17; TEMP 36.9; O2SAT 94
[2025-02-14] MEDS: methADONE HCl 20 MG/2 ML ORAL.CONC 50 MG PO (08:22)
[2025-02-14] MEDS: Insulin Lispro 100 UNIT/ML 3 ML VIAL SUBCUT ×2 (08:25→21:56)
[2025-02-14] MEDS: Insulin Glargine,Hum.rec.anlog 100 UNIT/ML 10 ML VIAL 30 UNIT SUBCUT (08:25)
[2025-02-14] MEDS: predniSONE 20 MG TABLET 40 MG PO (08:26)
[2025-02-14] MEDS: Magnesium Oxide 400 MG TABLET PO ×2 (08:27→16:49)
[2025-02-14] MEDS: Dolutegravir Sodium 50 MG TABLET PO (08:27)
[2025-02-14] MEDS: Abacavir/lamiVUDine 600/300 TABLET 1 TAB PO (08:27)
[2025-02-14] MEDS: cefTRIAXone sodium 2 GM VIAL IVPUSH (08:27)
[2025-02-14] MEDS: Fluconazole in NaCl,Iso-Osm 200 MG/100 ML PIGGYBACK 100 MG IV (08:32)
[2025-02-14] MEDS: cloNIDine HCL 0.1 MG TABLET PO ×2 (10:26→21:26)
--- NOTE | 2025-02-14 11:02 | MHC.CM.PN ---
Per ROUNDS discussion, Patient is not yet medically cleared for dc (Needs ID/IV Diflucan started); home is the goal and CM will follow.
[2025-02-14 11:15] LABS: Glucose, Whole Blood 97 mg/dL (60-115)
--- NOTE | 2025-02-14 11:47 | P.PNIM_ITS ---
Subjective Subjective Date of Service: 02/14/25 Interval History: ? yeast in blood culture Review of Systems no new c/o no fever or cough Physical Exam 2 Vital Signs: Vital Signs: Last Vital Signs Temp 98.5 F 02/14/25 08:00 Pulse 76 02/14/25 08:00 Resp 17 02/14/25 08:00 BP 183/95 H 02/14/25 08:00 Pulse Ox 94 02/14/25 08:00 O2 Del Method Room Air 02/14/25 08:00 O2 Flow Rate 2 02/13/25 03:07 FiO2 50 02/11/25 07:29 BMI result Body Mass Index 22.1 Appearance: Alert.? Oriented X3.? cvs: rrr, [id number] . res:air entry diminshed ,has few cracles at bases. abd: no rebound or guarding ,nt, bs present. ext pulses present , no cyanosis . neuro: axo3 , nonfocal. Objective Data Active Medications Abacavir/Lamivudine (Abacavir/Lamivudine 600/300 Tablet) 1 tab PO DAILY [facility] Last Admin: 02/14/25 08:27 Dose: 1 tab Documented By: LUIS ALBERTO Acetaminophen (Acetaminophen Oral Liquid 650 Mg/20.3 Ml Solution) 650 mg PO Q6H PRN PRN Reason: Pain, Mild 1-3,fever,headache Last Admin: 02/10/25 07:53 Dose: 650 mg Documented By: SAVANNAH Albuterol Sulfate (Albuterol Sulfate (0.083%) 2.5 Mg/3 Ml Vial.Neb) 2.5 mg INHALE Q4H PRN PRN Reason: Wheezing Last Admin: 02/11/25 00:51 Dose: 2.5 mg Documented By: RYAN Ceftriaxone Sodium (Ceftriaxone Sodium 2 Gm Vial) 2 gm IVPUSH DAILY [facility] Last Admin: 02/14/25 08:27 Dose: 2 gm Documented By: LUIS ALBERTO Clonidine HCl (Clonidine Hcl 0.1 Mg Tablet) 0.1 mg PO BID [facility]; Protocol Last Admin: 02/14/25 10:26 Dose: 0.1 mg Documented By: LUIS ALBERTO Dextrose (Dextrose 50 % 25 Gm/50 Ml Syringe) 25 gm IVPUSH Q15M PRN; Protocol PRN Reason: per Hypoglycemia Standing Ord. Last Admin: 02/10/25 16:23 Dose: 25 gm Documented By: MITCHELL Dolutegravir Sodium (Dolutegravir Sodium 50 Mg Tablet) 50 mg PO DAILY [facility] Last Admin: 02/14/25 08:27 Dose: 50 mg Documented By: LUIS ALBERTO Doxycycline Monohydrate (Doxycycline Monohydrate 100 Mg Capsule) 100 mg PO Q12H [facility] Last Admin: 02/14/25 05:51 Dose: 100 mg Documented By: RUSSEL Enoxaparin Sodium (Enoxaparin Sodium 40 Mg/0.4 Ml Syringe) 40 mg SUBCUT Q24H [facility] Last Admin: 02/13/25 16:18 Dose: 40 mg Documented By: MITCHELL Glucose (Glucose Gel 15 Gm Gel..Gram.) 15 gm PO Q15M PRN; Protocol PRN Reason: per Hypoglycemia Standing Ord. Fluconazole (Diflucan) 200 mg in 100 mls @ 100 mls/hr IV DAILY [facility] Last Infusion: 02/14/25 09:32 Dose: Infused Documented By: LUIS ALBERTO Insulin Glargine (Insulin Glargine,Hum.Rec.Anlog 100 Unit/Ml 10 Ml Vial) 30 unit SUBCUT DAILY [facility] Last Admin: 02/14/25 08:25 Dose: 30 unit Documented By: LUIS ALBERTO Insulin Human Lispro (Insulin Lispro 100 Unit/Ml 3 Ml Vial) 0 unit SUBCUT QIDACHS [facility]; Protocol Last Admin: 02/14/25 08:25 Dose: 8 unit Documented By: LUIS ALBERTO Magnesium Oxide (Magnesium Oxide 400 Mg Tablet) 400 mg PO BIDPC [facility] Last Admin: 02/14/25 08:27 Dose: 400 mg Documented By: LUIS ALBERTO Methadone HCl (Methadone Hcl 20 Mg/2 Ml Oral.Conc) 50 mg PO DAILY@0800 [facility] Last Admin: 02/14/25 08:22 Dose: 50 mg Documented By: LUIS ALBERTO Co-signed By: CHRIS Ondansetron HCl (Ondansetron Hcl 4 Mg/2 Ml Vial) 4 mg IVPUSH Q6H PRN PRN Reason: Nausea and Vomiting Last Admin: 02/11/25 19:54 Dose: 4 mg Documented By: RUSSEL Prednisone (Prednisone 20 Mg Tablet) 40 mg PO DAILY [facility] Last Admin: 02/14/25 08:26 Dose: 40 mg Documented By: LUIS ALBERTO Quetiapine Fumarate (Quetiapine Fumarate 100 Mg Tablet) 100 mg PO BEDTIME [facility] Last Admin: 02/13/25 21:02 Dose: 100 mg Documented By: RUSSEL Labs 02/12/25 09:26 02/11/25 08:46 Labs: Laboratory Results - last 24 hr 02/09/25 02/13/25 02/13/25 18:43 16:19 20:15 POC Glucose 111 252 H Ur Strep pneumoniae Ag Not Detected 02/14/25 02/14/25 07:18 11:07 POC Glucose 302 H 97 Ur Strep pneumoniae Ag Microbiology Microbiology Results: Microbiology 02/09/25 11:10 Blood Culture - Final Blood - Venous Prelim: Yeast Gram Stain only Assessment and Plan (1) Pneumonia: Status: Acute Plan Toxic metabolic encephalopathy: Thought to be related to drug use Urine toxicology positive for opioids, methadone, fentanyl, cocaine Patient mental status is improving with supportive care. Acute lactic acidosis: Multifactorial Improving with hydration/supportive care. sepsis(POA -as per ICu documentation) and Acute hypoxemic respiratory failure due to bilateral nonspecific pneumonia: sepsis improving,received ivf and also pressor in icu. Continue IV antibiotics, off high flow 1/2 blood culture -positive for yeast? -started on iv fluconazole,await final bllood cultures. albert: Possibly secondary to hypovolemia, improved with the hydration. HIV. Continue Triumeq. dm:insulin,moniter fs . Ongoing IV drug use (heroin). On methadone. Addiction medicine consult. Quality Stroke Does the patient have a stroke diagnosis?: No VTE Prior VTE?: No VTE Risk Level:: Medical - low VTE Device Contraindication: N/A - Device Ordered VTE Drug Contraindication: N/A - Med Ordered
[2025-02-14 11:58] VITALS: BP 146/80; PULSE 89; RESP 20; TEMP 36; O2SAT 93
[2025-02-14 15:13] LABS: Mycoplasma Pneumoniae - IgG 1.41 (<=0.90); Mycoplasma Pneumoniae - IgM 675 U/mL (<770)
[2025-02-14 15:24] VITALS: BP 146/90; PULSE 72; RESP 17; TEMP 36.2; O2SAT 92
[2025-02-14 16:25] LABS: Glucose, Whole Blood 95 mg/dL (60-115)
[2025-02-14] MEDS: Enoxaparin Sodium 40 MG/0.4 ML SYRINGE SUBCUT (16:49)
[2025-02-14 17:03] LABS: Legionella Ag Urine Not Detected (Not Detected)
[2025-02-14 20:00] VITALS: BP 171/95; PULSE 75; RESP 16; TEMP 36.9; O2SAT 96
[2025-02-14] MEDS: QUEtiapine Fumarate 100 MG TABLET PO (21:26)
[2025-02-14 22:02] LABS: Glucose, Whole Blood 298 mg/dL (60-115)
[2025-02-15] VITALS: BP 144/93; PULSE 68; RESP 16; TEMP 36.1; O2SAT 94
[2025-02-15 06:22] VITALS: BMI 20.1
[2025-02-15] MEDS: Doxycycline Monohydrate 100 MG CAPSULE PO ×2 (06:27→16:21)
[2025-02-15 07:01] LABS: Glucose, Whole Blood 221 mg/dL (60-115)
[2025-02-15 07:11] VITALS: BP 160/90; PULSE 75; RESP 20; TEMP 37; O2SAT 99
[2025-02-15] MEDS: Dolutegravir Sodium 50 MG TABLET PO (07:49)
[2025-02-15] MEDS: Magnesium Oxide 400 MG TABLET PO ×2 (07:49→16:22)
[2025-02-15] MEDS: Abacavir/lamiVUDine 600/300 TABLET 1 TAB PO (07:49)
[2025-02-15] MEDS: predniSONE 20 MG TABLET 40 MG PO (07:49)
[2025-02-15] MEDS: cloNIDine HCL 0.1 MG TABLET PO ×2 (07:49→21:05)
[2025-02-15] MEDS: cefTRIAXone sodium 2 GM VIAL IVPUSH (07:50)
[2025-02-15] MEDS: Fluconazole in NaCl,Iso-Osm 200 MG/100 ML PIGGYBACK IV (07:50)
[2025-02-15] MEDS: methADONE HCl 20 MG/2 ML ORAL.CONC 50 MG PO (07:50)
[2025-02-15] MEDS: Insulin Lispro 100 UNIT/ML 3 ML VIAL SUBCUT ×4 (07:51→21:06)
[2025-02-15] MEDS: Insulin Glargine,Hum.rec.anlog 100 UNIT/ML 10 ML VIAL 30 UNIT SUBCUT (07:51)
--- NOTE | 2025-02-15 10:39 | P.DS_ITS ---
DS: Providers Provider Date of Service: 03/19/25 <Rick Melendrez MD - Last Filed: 02/18/25 13:27> 02/18/25 <Ulices Murphy MD - Last Filed: 02/18/25 14:47> Date of admission: 02/09/25 15:25 <Rick Melendrez MD - Last Filed: 02/18/25 13:27> Date of discharge: 02/15/25 <Rick Melendrez MD - Last Filed: 02/18/25 13:27> 02/18/25 <Ulices Murphy MD - Last Filed: 02/18/25 14:47> Primary care physician: Barbie Pearl MD <Rick Melendrez MD - Last Filed: 02/18/25 13:27> Consults: 02/10/25 17:13 Consult to Infectious Diseases Routine Consulting Provider: [facility] Reason for consultation: hiv Has provider been notified: Yes 02/11/25 09:00 Addiction Medicine Provider Routine Consulting Provider: Addiction Covering Reason for consultation: polysubstance use Has provider been notified: No 02/12/25 08:11 Inpt - Recovery Team Routine Comment: Reason for consultation: KIT eval <Rick Melendrez MD - Last Filed: 02/18/25 13:27> Attending physician on discharge: Rick Melendrez <Rick Melendrez MD - Last Filed: 02/18/25 13:27> Discharging clinician: Rick Melendrez <Rick Melendrez MD - Last Filed: 02/18/25 13:27> DS: Diagnosis Discharge Diagnosis (1) Pneumonia: Status: Acute <Rick Melendrez MD - Last Filed: 02/18/25 13:27> DS: Summary Hospital Course Hospital Course: HPI:49-year-old male with past medical history of HIV, IV drug abuse and diabetes mellitus presented to the ED with complaints of shortness of breath and fall at home. He complaints of shortness of breath on exertion for the past few days, minimal cough, nonproductive, worsens on exertion, relieved on rest. He denies any fever or any other complaints. Hospital course: patient initally admitted to Icu for possible Toxic metabolic encephalopathy: Thought to be related to drug use,Urine toxicology positive for opioids, methadone, fentanyl, cocaine also had Acute lactic acidosis( Multifactorial) as well as sepsis(POA -as per ICu documentation) and Acute hypoxemic respiratory failure due to bilateral nonspecific pneumonia,albert:patient received ivf and also pressor in icu,iv antibiotics and steriods,on high flow ,blood cultures sent: with above supportive care sepsis resolved ,patient is off oxygen ,no fever or new symptoms ,blood cultures 1/2 -?yeast . above is discussed with Id and pulmonary: PCP is unlikely secondary to CD4 and recomended to stop Prednisone , in addition ID recomended 1week for fluconazole until final cultures and cryptococcal antigen testing comes back . patient seems improved , asymptomatic ,mental status is at baseline (aox3). going home with ceftin 500 mg po bid and doxycycline 100 mg po bid for 1 week as well as fluconazole 100 mg po daily for 1 week. he needs follow up cbc ,cmp in 1 week. also follow up with pcp and Id outpatient. Ongoing IV drug use (heroin). On methadone. strongly advised to abstain from drug use,take home narcan added. <Rick Melendrez MD - Last Filed: 02/18/25 13:27> Time Attestation Discharge Coordination Time (in mins): 45 <Ulices Murphy MD - Last Filed: 02/18/25 14:47> Quality: Safe Use of Opioids Does Pt have an Active Cancer Diagnosis on the Problem List?: No <Ulices Murphy MD - Last Filed: 02/18/25 14:47> Quality: Stroke Does the patient have a stroke diagnosis?: No <Ulices Murphy MD - Last Filed: 02/18/25 14:47> Physical Exam Vital Signs: Vital Signs: Last Vital Signs Temp 98.6 F 02/15/25 07:11 Pulse 75 02/15/25 07:11 Resp 20 02/15/25 07:11 BP 160/90 H 02/15/25 07:11 Pulse Ox 99 02/15/25 07:11 O2 Del Method Room Air 02/15/25 07:11 O2 Flow Rate 2 02/13/25 03:07 FiO2 50 02/11/25 07:29 BMI result Body Mass Index 20.1 <Rick Melendrez MD - Last Filed: 02/18/25 13:27> Vital Signs: Selected Entries 02/18/25 11:00 Temperature 98.1 F Pulse Rate 79 Respiratory Rate 18 Blood Pressure 105/64 Pulse Oximetry 97 Oxygen Delivery Me thod Room Air <Ulices Murphy MD - Last Filed: 02/18/25 14:47> DS: Data Data Completed and Pending Completed studies during hospitalization [Text1]: Procedures Insertion of Endotracheal Airway into Trachea, Via Natural or Artificial Opening Endoscopic (07/04/21) Insertion of Infusion Device into Superior Vena Cava, Percutaneous Approach (07/04/21) Respiratory Ventilation, Less than 24 Consecutive Hours (07/04/21) Transfusion of Nonautologous Red Blood Cells into Peripheral Vein, Percutaneous Approach (06/23/21) <Rick Melendrez MD - Last Filed: 02/18/25 13:27> Labs on day of discharge: Laboratory Results - last 24 hr 02/09/25 02/09/25 02/12/25 18:27 18:43 09:26 POC Glucose Ur L.pneumophila Ag Not Detected Mycoplasma pneumon IgG 1.41 H Mycoplasma pneumon IgM 675 Cryptococcal Ag SEE NOTE 02/14/25 02/14/25 02/14/25 11:07 16:18 21:51 POC Glucose 97 95 298 H Ur L.pneumophila Ag Mycoplasma pneumon IgG Mycoplasma pneumon IgM Cryptococcal Ag 02/15/25 06:58 POC Glucose 221 H Ur L.pneumophila Ag Mycoplasma pneumon IgG Mycoplasma pneumon IgM Cryptococcal Ag <Rick Melendrez MD - Last Filed: 02/18/25 13:27> Discharge Plan Discharge Anticipated Discharge Date/Time: 02/18/25 14:32 <Rick Melendrez MD - Last Filed: 02/18/25 13:27> Patient Disposition: Home, Self-Care <Rick Melendrez MD - Last Filed: 02/18/25 13:27> Discharge Diagnosis: pneumonia <Rick Melendrez MD - Last Filed: 02/18/25 13:27> pneumonia <Ulices Murphy MD - Last Filed: 02/18/25 14:47> Referrals: Barbie Pearl MD [Primary Care Provider] - 1 Week Sunshine Rodriguez MD [Physician] - 1 Week <Rick Melendrez MD - Last Filed: 02/18/25 13:27> Discharge Medications: New cefuroxime axetil 500 mg Tablet 500 mg PO Q12H Qty: 14 0RF fluconazole 100 mg Tablet 100 mg PO DAILY Qty: 7 0RF Continued clonidine HCl 0.1 mg tablet 0.1 mg PO BID quetiapine 100 mg tablet 100 mg PO BEDTIME acetaminophen 500 mg tablet 500 mg PO Q6H PRN (Reason: mild pain) gabapentin 300 mg capsule 300 mg PO TID omeprazole 20 mg capsule,delayed release(DR/EC) 20 mg PO BID albuterol sulfate [Ventolin HFA] 90 mcg/actuation HFA aerosol inhaler 2 puff inhalation Q6H PRN (Reason: wheezing) fluticasone propionate 50 mcg/actuation spray,suspension 1 spray intranasal DAILY hydroxyzine pamoate 25 mg capsule 25 mg PO Q12H PRN (Reason: itch) ferrous gluconate 324 mg (38 mg iron) tablet 324 mg PO QAM Triumeq 600-50-300 mg tablet 1 tab PO DAILY insulin lispro [Humalog KwikPen Insulin] 100 unit/mL insulin pen 4 - 20 sliding scale dose SUBCUT QIDACHS Rx Instructions: Blood Sugar: <150 - 0 units 151-200 - 2 units 201-250 - 4 units 251-300 - 6 units 301-350 - 8 units >350 - 10 units insulin glargine [Lantus Solostar U-100 Insulin] 100 unit/mL (3 mL) insulin pen 30 unit SUBCUT QAM methadone 10 mg/mL Concentrate 50 mg PO DAILY doxycycline hyclate 100 mg tablet 100 mg PO BID Qty: 14 0RF <Rick Melendrez MD - Last Filed: 02/18/25 13:27> Diet: Advance to usual diet <Rick Melendrez MD - Last Filed: 02/18/25 13:27> Advance to usual diet <Ulices Murphy MD - Last Filed: 02/18/25 14:47> Activity on Discharge: As tolerated <Rick Melendrez MD - Last Filed: 02/18/25 13:27> As tolerated <Ulices Murphy MD - Last Filed: 02/18/25 14:47> Stand Alone Forms: Patient Portal Discharge page <Rick Melendrez MD - Last Filed: 02/18/25 13:27> Print Language: Prydeinig <iRck Melendrez MD - Last Filed: 02/18/25 13:27> Other Ambulatory Orders: Complete Blood Count no Diff (Routine) Timeframe: 1 Week Facility: [facility] - Location: Laboratory Ordered By: Rick Melendrez Comprehensive Met. Panel (Routine) Timeframe: 1 Week Facility: [facility] - Location: Laboratory Ordered By: Rick Melendrez <Rick Melendrez MD - Last Filed: 02/18/25 13:27> Care Plan Goals: patient initally admitted to Icu for possible Toxic metabolic encephalopathy: Thought to be related to drug use,Urine toxicology positive for opioids, methadone, fentanyl, cocaine also had Acute lactic acidosis( Multifactorial) as well as sepsis(POA -as per ICu documentation) and Acute hypoxemic respiratory failure due to bilateral nonspecific pneumonia,albert:patient received ivf and also pressor in icu,iv antibiotics and steriods,on high flow ,blood cultures sent: with above supportive care sepsis resolved ,patient is off oxygen ,no fever or new symptoms ,blood cultures 1/2 -?yeast . above is discussed with Id and pulmonary: PCP is unlikely secondary to CD4 and recomended to stop Prednisone , in addition ID recomended 1week for fluconazole until final cultures and cryptococcal antigen testing comes back . patient seems improved , asymptomatic ,mental status is at baseline (aox3). going home with ceftin 500 mg po bid and doxycycline 100 mg po bid for 1 week as well as fluconazole 100 mg po daily for 1 week. he needs follow up cbc ,cmp in 1 week. also follow up with pcp and Id outpatient. Ongoing IV drug use (heroin). On methadone. strongly advised to abstain from drug use,take home narcan added. <Rick Melendrez MD - Last Filed: 02/18/25 13:27> Health Concerns: as above. <Rick Melendrez MD - Last Filed: 02/18/25 13:27> Plan of Treatment: final cultures and cryptococcal antigen testing comes back. ceftin 500 mg po bid and doxycycline 100 mg po bid for 1 week as well as fluconazole 100 mg po daily for 1 week. he needs follow up cbc ,cmp in 1 week. repeat chest imaging in 3-4 weeks to see resolution of pneumonia . also follow up with pcp and Id outpatient. <Rick Melendrez MD - Last Filed: 02/18/25 13:27> Assessment: as above. <Rick Melendrez MD - Last Filed: 02/18/25 13:27> Patient Instructions: Pneumonia (DC) <Rick Melendrez MD - Last Filed: 02/18/25 13:27>
[2025-02-15 10:55] LABS: Glucose, Whole Blood 246 mg/dL (60-115)
[2025-02-15 11:08] VITALS: BP 135/82; PULSE 66; RESP 20; TEMP 36.2; O2SAT 100
[2025-02-15] MEDS: cefuroxime axetiL 500 MG TABLET PO ×2 (11:46→21:05)
[2025-02-15 13:30] VITALS: BP 135/82; PULSE 66; O2SAT 100
--- NOTE | 2025-02-15 14:13 | HO.PM.IMPN ---
Subjective Subjective Date of Service: 02/15/25 Interval History: pneumonia Review of Systems no sob mild cough knee pain-walking difficultly at least 4-5 weeks duration/fall in begining of january-seen in ed but left. Review of Systems: Yes all other systems are reviewed and are negative Physical Exam Vital Signs: Vital Signs: Last Vital Signs Temp 97.2 F 02/15/25 11:08 Pulse 66 02/15/25 13:30 Resp 20 02/15/25 11:08 BP 135/82 02/15/25 13:30 Pulse Ox 100 02/15/25 13:30 O2 Del Method Room Air 02/15/25 11:08 O2 Flow Rate 2 02/13/25 03:07 FiO2 50 02/11/25 07:29 BMI result Body Mass Index 20.1 Appearance: Alert.? Oriented X3.? cvs: rrr, [id number] . res:air entry diminshed ,has few cracles at bases. abd: no rebound or guarding ,nt, bs present. MS-left knee pains ,rom limited neuro: axo3 , nonfocal. Objective Data Active Medications Abacavir/Lamivudine (Abacavir/Lamivudine 600/300 Tablet) 1 tab PO DAILY [facility] Last Admin: 02/15/25 07:49 Dose: 1 tab Documented By: LUIS ALBERTO Acetaminophen (Acetaminophen Oral Liquid 650 Mg/20.3 Ml Solution) 650 mg PO Q6H PRN PRN Reason: Pain, Mild 1-3,fever,headache Last Admin: 02/10/25 07:53 Dose: 650 mg Documented By: SAVANNAH Albuterol Sulfate (Albuterol Sulfate (0.083%) 2.5 Mg/3 Ml Vial.Neb) 2.5 mg INHALE Q4H PRN PRN Reason: Wheezing Last Admin: 02/11/25 00:51 Dose: 2.5 mg Documented By: RYAN Cefuroxime Axetil (Cefuroxime Axetil 500 Mg Tablet) 500 mg PO BID [facility] Last Admin: 02/15/25 11:46 Dose: 500 mg Documented By: LUIS ALBERTO Clonidine HCl (Clonidine Hcl 0.1 Mg Tablet) 0.1 mg PO BID [facility]; Protocol Last Admin: 02/15/25 07:49 Dose: 0.1 mg Documented By: LUIS ALBERTO Dextrose (Dextrose 50 % 25 Gm/50 Ml Syringe) 25 gm IVPUSH Q15M PRN; Protocol PRN Reason: per Hypoglycemia Standing Ord. Last Admin: 02/10/25 16:23 Dose: 25 gm Documented By: MITCHELL Dolutegravir Sodium (Dolutegravir Sodium 50 Mg Tablet) 50 mg PO DAILY [facility] Last Admin: 02/15/25 07:49 Dose: 50 mg Documented By: LUIS ALBERTO Doxycycline Monohydrate (Doxycycline Monohydrate 100 Mg Capsule) 100 mg PO Q12H [facility] Last Admin: 02/15/25 06:27 Dose: 100 mg Documented By: ALBINO Enoxaparin Sodium (Enoxaparin Sodium 40 Mg/0.4 Ml Syringe) 40 mg SUBCUT Q24H [facility] Last Admin: 02/14/25 16:49 Dose: 40 mg Documented By: LUIS ALBERTO Fluconazole (Fluconazole 100 Mg Tablet) 100 mg PO DAILY [facility] Glucose (Glucose Gel 15 Gm Gel..Gram.) 15 gm PO Q15M PRN; Protocol PRN Reason: per Hypoglycemia Standing Ord. Insulin Glargine (Insulin Glargine,Hum.Rec.Anlog 100 Unit/Ml 10 Ml Vial) 30 unit SUBCUT DAILY [facility] Last Admin: 02/15/25 07:51 Dose: 30 unit Documented By: LUIS ALBERTO Insulin Human Lispro (Insulin Lispro 100 Unit/Ml 3 Ml Vial) 0 unit SUBCUT QIDACHS [facility]; Protocol Last Admin: 02/15/25 11:47 Dose: 4 unit Documented By: LUIS ALBERTO Magnesium Oxide (Magnesium Oxide 400 Mg Tablet) 400 mg PO BIDPC [facility] Last Admin: 02/15/25 07:49 Dose: 400 mg Documented By: LUIS ALBERTO Methadone HCl (Methadone Hcl 20 Mg/2 Ml Oral.Conc) 50 mg PO DAILY@0800 [facility] Last Admin: 02/15/25 07:50 Dose: 50 mg Documented By: LUIS ALBERTO Co-signed By: CHRIS Ondansetron HCl (Ondansetron Hcl 4 Mg/2 Ml Vial) 4 mg IVPUSH Q6H PRN PRN Reason: Nausea and Vomiting Last Admin: 02/11/25 19:54 Dose: 4 mg Documented By: RUSSEL Quetiapine Fumarate (Quetiapine Fumarate 100 Mg Tablet) 100 mg PO BEDTIME [facility] Last Admin: 02/14/25 21:26 Dose: 100 mg Documented By: ALBINO Labs 02/12/25 09:26 02/11/25 08:46 Labs: Laboratory Results - last 24 hr 02/09/25 02/09/25 02/12/25 18:27 18:43 09:26 POC Glucose Ur L.pneumophila Ag Not Detected Mycoplasma pneumon IgG 1.41 H Mycoplasma pneumon IgM 675 Cryptococcal Ag SEE NOTE 02/14/25 02/14/25 02/15/25 16:18 21:51 06:58 POC Glucose 95 298 H 221 H Ur L.pneumophila Ag Mycoplasma pneumon IgG Mycoplasma pneumon IgM Cryptococcal Ag 02/15/25 10:52 POC Glucose 246 H Ur L.pneumophila Ag Mycoplasma pneumon IgG Mycoplasma pneumon IgM Cryptococcal Ag Microbiology Microbiology Results: Microbiology 02/09/25 10:48 Blood Culture - Final Blood - Venous No growth after 5 days. 02/09/25 11:10 Blood Culture - Final Blood - Venous Prelim: Yeast Gram Stain only Assessment and Plan (1) Pneumonia: Status: Acute Plan sepsis(POA -as per ICu documentation) and Acute hypoxemic respiratory failure due to bilateral nonspecific pneumonia: sepsis improving,received ivf and also pressor in icu. Continue IV antibiotics, off high flow 1/2 blood culture -positive for yeast? -started on iv fluconazole,await final bllood cultures. Knee pain/fall 4 -5 weeks back: recent mri shows knee(01/29/25) : Diffuse increased signal intensity of all the visualized muscles which may indicate myositis or muscle strain. No evidence of internal derangement. Large joint effusion. Diffuse marked subcutaneous soft tissue edema. repeat knee xray pending d/w ortho -outpatient followup pt rec -rehab Acute lactic acidosis: Multifactorial Improving with hydration/supportive care. toxic metabolic encephalopathy -? drug use (Urine toxicology positive for opioids, methadone, fentanyl, cocaine) albert: Possibly secondary to hypovolemia, improved with the hydration. HIV. Continue Triumeq. dm:insulin,moniter fs . Ongoing IV drug use (heroin). On methadone. Addiction medicine following awaiting rehab placement Quality Stroke Does the patient have a stroke diagnosis?: No VTE Prior VTE?: No VTE Risk Level:: Medical - low VTE Device Contraindication: N/A - Device Ordered VTE Drug Contraindication: N/A - Med Ordered
[2025-02-15 15:57] LABS: Glucose, Whole Blood 191 mg/dL (60-115)
[2025-02-15 16:00] VITALS: PULSE 68; RESP 16; TEMP 36.8; O2SAT 95
[2025-02-15] MEDS: Enoxaparin Sodium 40 MG/0.4 ML SYRINGE SUBCUT (16:21)
--- NOTE | 2025-02-15 16:21 | MHC.CM.PN ---
PT recommends STR, pt agreeable, STR referral sent via [facility], awaiting bed offer.
[2025-02-15 19:28] VITALS: BP 173/89; PULSE 70; RESP 16; TEMP 36.7; O2SAT 97
[2025-02-15 20:59] LABS: Glucose, Whole Blood 268 mg/dL (60-115)
[2025-02-15] MEDS: QUEtiapine Fumarate 100 MG TABLET PO (21:05)
[2025-02-16] VITALS (8 sets, daily range): BP systolic 116–168; BP diastolic 68–89; PULSE 66–90; RESP 16–20; TEMP 36–36.9; O2SAT 94–99
[2025-02-16] MEDS: Doxycycline Monohydrate 100 MG CAPSULE PO ×2 (06:20→16:25)
[2025-02-16 07:12] LABS: Glucose, Whole Blood 415 mg/dL (60-115)
[2025-02-16] MEDS: cloNIDine HCL 0.1 MG TABLET PO ×2 (08:22→20:49)
[2025-02-16] MEDS: Insulin Lispro 100 UNIT/ML 3 ML VIAL SUBCUT ×2 (08:23→12:38)
[2025-02-16] MEDS: methADONE HCl 20 MG/2 ML ORAL.CONC 50 MG PO (08:23)
[2025-02-16] MEDS: Magnesium Oxide 400 MG TABLET PO ×2 (08:23→16:25)
[2025-02-16] MEDS: Fluconazole 100 MG TABLET PO (08:23)
[2025-02-16] MEDS: cefuroxime axetiL 500 MG TABLET PO ×2 (08:23→20:48)
[2025-02-16] MEDS: Abacavir/lamiVUDine 600/300 TABLET 1 TAB PO (08:23)
[2025-02-16] MEDS: Insulin Glargine,Hum.rec.anlog 100 UNIT/ML 10 ML VIAL 30 UNIT SUBCUT (08:23)
[2025-02-16] MEDS: Dolutegravir Sodium 50 MG TABLET PO (08:24)
[2025-02-16 11:00] LABS: Glucose, Whole Blood 263 mg/dL (60-115)
--- NOTE | 2025-02-16 11:50 | HO.PM.IMPN ---
Subjective Subjective Date of Service: 02/16/25 Interval History: pneumonia Review of Systems mild cough no sob Physical Exam Vital Signs: Vital Signs: Last Vital Signs Temp 98.5 F 02/16/25 11:09 Pulse 71 02/16/25 11:09 Resp 20 02/16/25 11:09 BP 116/68 02/16/25 11:09 Pulse Ox 95 02/16/25 11:09 O2 Del Method Room Air 02/16/25 11:09 O2 Flow Rate 2 02/13/25 03:07 FiO2 50 02/11/25 07:29 BMI result Body Mass Index 20.1 Appearance: Alert.? Oriented X3.? cvs: rrr, [id number] . res:air entry diminshed ,has few cracles at bases. abd: no rebound or guarding ,nt, bs present. MS-left knee pains ,rom limited neuro: axo3 , nonfocal. Objective Data Active Medications Abacavir/Lamivudine (Abacavir/Lamivudine 600/300 Tablet) 1 tab PO DAILY [facility] Last Admin: 02/16/25 08:23 Dose: 1 tab Documented By: MITCHELL Acetaminophen (Acetaminophen Oral Liquid 650 Mg/20.3 Ml Solution) 650 mg PO Q6H PRN PRN Reason: Pain, Mild 1-3,fever,headache Last Admin: 02/10/25 07:53 Dose: 650 mg Documented By: SAVANNAH Albuterol Sulfate (Albuterol Sulfate (0.083%) 2.5 Mg/3 Ml Vial.Neb) 2.5 mg INHALE Q4H PRN PRN Reason: Wheezing Last Admin: 02/11/25 00:51 Dose: 2.5 mg Documented By: RYAN Cefuroxime Axetil (Cefuroxime Axetil 500 Mg Tablet) 500 mg PO BID [facility] Last Admin: 02/16/25 08:23 Dose: 500 mg Documented By: MITCHELL Clonidine HCl (Clonidine Hcl 0.1 Mg Tablet) 0.1 mg PO BID [facility]; Protocol Last Admin: 02/16/25 08:22 Dose: 0.1 mg Documented By: MITCHELL Dextrose (Dextrose 50 % 25 Gm/50 Ml Syringe) 25 gm IVPUSH Q15M PRN; Protocol PRN Reason: per Hypoglycemia Standing Ord. Last Admin: 02/10/25 16:23 Dose: 25 gm Documented By: MITCHELL Dolutegravir Sodium (Dolutegravir Sodium 50 Mg Tablet) 50 mg PO DAILY [facility] Last Admin: 02/16/25 08:24 Dose: 50 mg Documented By: MITCHELL Doxycycline Monohydrate (Doxycycline Monohydrate 100 Mg Capsule) 100 mg PO Q12H [facility] Last Admin: 02/16/25 06:20 Dose: 100 mg Documented By: ALBINO Enoxaparin Sodium (Enoxaparin Sodium 40 Mg/0.4 Ml Syringe) 40 mg SUBCUT Q24H [facility] Last Admin: 02/15/25 16:21 Dose: 40 mg Documented By: LUIS ALBERTO Fluconazole (Fluconazole 100 Mg Tablet) 100 mg PO DAILY [facility] Last Admin: 02/16/25 08:23 Dose: 100 mg Documented By: MITCHELL Glucose (Glucose Gel 15 Gm Gel..Gram.) 15 gm PO Q15M PRN; Protocol PRN Reason: per Hypoglycemia Standing Ord. Insulin Glargine (Insulin Glargine,Hum.Rec.Anlog 100 Unit/Ml 10 Ml Vial) 30 unit SUBCUT DAILY [facility] Last Admin: 02/16/25 08:23 Dose: 30 unit Documented By: MITCHELL Insulin Human Lispro (Insulin Lispro 100 Unit/Ml 3 Ml Vial) 0 unit SUBCUT QIDACHS [facility]; Protocol Last Admin: 02/16/25 08:23 Dose: 14 unit Documented By: MITCHELL Magnesium Oxide (Magnesium Oxide 400 Mg Tablet) 400 mg PO BIDPC [facility] Last Admin: 02/16/25 08:23 Dose: 400 mg Documented By: MITCHELL Methadone HCl (Methadone Hcl 20 Mg/2 Ml Oral.Conc) 50 mg PO DAILY@0800 [facility] Last Admin: 02/16/25 08:23 Dose: 50 mg Documented By: MITCHELL Co-signed By: MARYANN Ondansetron HCl (Ondansetron Hcl 4 Mg/2 Ml Vial) 4 mg IVPUSH Q6H PRN PRN Reason: Nausea and Vomiting Last Admin: 02/11/25 19:54 Dose: 4 mg Documented By: RUSSEL Quetiapine Fumarate (Quetiapine Fumarate 100 Mg Tablet) 100 mg PO BEDTIME [facility] Last Admin: 02/15/25 21:05 Dose: 100 mg Documented By: ALBINO Labs 02/12/25 09:26 02/11/25 08:46 Labs: Laboratory Results - last 24 hr 02/15/25 02/15/25 02/16/25 15:49 20:50 07:05 POC Glucose 191 H 268 H 415 H* 02/16/25 10:50 POC Glucose 263 H Assessment and Plan (1) Pneumonia: Status: Acute Plan sepsis(POA -as per ICu documentation) and Acute hypoxemic respiratory failure due to bilateral nonspecific pneumonia: sepsis improving,received ivf and also pressor in icu. Continue IV antibiotics, off high flow 1/2 blood culture -positive for yeast? -started on iv fluconazole,await final bllood cultures. Knee pain/fall 4 -5 weeks back: recent mri shows knee(01/29/25) : Diffuse increased signal intensity of all the visualized muscles which may indicate myositis or muscle strain. No evidence of internal derangement. Large joint effusion. Diffuse marked subcutaneous soft tissue edema. repeat knee xray pending d/w ortho -outpatient followup pt rec -rehab Acute lactic acidosis: Multifactorial Improving with hydration/supportive care. toxic metabolic encephalopathy -? drug use (Urine toxicology positive for opioids, methadone, fentanyl, cocaine) albert: Possibly secondary to hypovolemia, improved with the hydration. HIV. Continue Triumeq. dm:insulin,moniter fs . Ongoing IV drug use (heroin). On methadone. Addiction medicine following awaiting rehab placement Quality Stroke Does the patient have a stroke diagnosis?: No VTE Prior VTE?: No VTE Risk Level:: Medical - low VTE Device Contraindication: N/A - Device Ordered VTE Drug Contraindication: N/A - Med Ordered
[2025-02-16 14:39] LABS: Glucose, Whole Blood 45 mg/dL (60-115)
[2025-02-16] MEDS: Dextrose 50 % 25 GM/50 ML SYRINGE IVPUSH (14:55)
[2025-02-16 14:57] LABS: Glucose, Whole Blood 48 mg/dL (60-115)
[2025-02-16 15:31] LABS: Glucose, Whole Blood 251 mg/dL (60-115)
[2025-02-16] MEDS: Enoxaparin Sodium 40 MG/0.4 ML SYRINGE SUBCUT (16:25)
[2025-02-16 20:02] LABS: Glucose, Whole Blood 180 mg/dL (60-115)
[2025-02-16] MEDS: QUEtiapine Fumarate 100 MG TABLET PO (20:48)
[2025-02-16 22:24] LABS: Glucose, Whole Blood 225 mg/dL (60-115)
[2025-02-17] MEDS: Doxycycline Monohydrate 100 MG CAPSULE PO ×2 (05:19→16:46)
[2025-02-17 05:45] VITALS: BP 132/75; PULSE 66; RESP 18; TEMP 36.1; O2SAT 96
[2025-02-17 07:36] VITALS: BP 130/72; PULSE 70; RESP 18; TEMP 36.2; O2SAT 98
[2025-02-17 08:12] LABS: Glucose, Whole Blood 244 mg/dL (60-115)
--- NOTE | 2025-02-17 08:53 | P.CONOP_ITS ---
History of Present Illness HPI Consult date: 02/17/25 Chief complaint: WHEEZING, 95% ON DUONEB, LOW BP, FALL PER EMS Narrative: 49-year-old gentleman admitted to the medical service and complaining of left knee pain. Patient states he fell back in December on the ice and banged his left knee. He complains of left medial-sided tenderness. He had an MRI ordered by his PCP which was negative for any acute or chronic abnormalities other than edema and effusion. Patient states he has difficulty with ambulation and bending/extending the knee. Denies instability. Denies fever redness or chills. Review of Systems 2 Review of Systems: Yes all other systems are reviewed and are negative PMFSH Past Medical History Medical History Protein calorie malnutrition Opioid use disorder Hep C w/o coma, chronic HIV (human immunodeficiency virus infection) HIV (human immunodeficiency virus infection) Compartment syndrome Active substance abuse Substance abuse Diabetes Diabetes Family History Family history: reviewed and not pertinent Surgical History Surgical History History of fasciotomy H/O fasciotomy Social History Social History Household Members: None Household Members Other:: self Housing: Apartment Do you presently have visiting nurse or other home services: No Unable to assess alcohol history related to: Unknown Alcohol intake: current Alcohol intake frequency: a few times a week Comment: bed/chair fast due to HFNC use Patient Tobacco Use Status: Never used Tobacco Tobacco use type: Cigarette Cigarette Packs Per Day: 1 Cigarettes Per Day: 10 Years Smoked: 20 e-Cigarette/Vaping Use: Never Used Second Hand Smoke Exposure: No Substance Use Type: Heroin Advance Directives Date on File: 07/09/21 service: No Current occupational status: unemployed Meds Allergies Allergy/AdvReac Type Severity Reaction Status Date / Time fish Allergy Unknown Anaphylaxis Uncoded 02/09/25 10:38 shellfish Allergy Unknown Anaphylaxis Uncoded 02/09/25 10:38 Active Medications: Current Medications Abacavir/Lamivudine (Abacavir/Lamivudine 600/300 Tablet) 1 tab PO DAILY NIA Last Admin: 02/16/25 08:23 Dose: 1 tab Acetaminophen (Acetaminophen Oral Liquid 650 Mg/20.3 Ml Solution) 650 mg PO Q6H PRN PRN Reason: Pain, Mild 1-3,fever,headache Last Admin: 02/10/25 07:53 Dose: 650 mg Cefuroxime Axetil (Cefuroxime Axetil 500 Mg Tablet) 500 mg PO BID [facility] Last Admin: 02/16/25 20:48 Dose: 500 mg Clonidine HCl (Clonidine Hcl 0.1 Mg Tablet) 0.1 mg PO BID [facility]; Protocol Last Admin: 02/16/25 20:49 Dose: 0.1 mg Dextrose (Dextrose 50 % 25 Gm/50 Ml Syringe) 25 gm IVPUSH Q15M PRN; Protocol PRN Reason: per Hypoglycemia Standing Ord. Last Admin: 02/16/25 14:55 Dose: 25 gm Dolutegravir Sodium (Dolutegravir Sodium 50 Mg Tablet) 50 mg PO DAILY [facility] Last Admin: 02/16/25 08:24 Dose: 50 mg Doxycycline Monohydrate (Doxycycline Monohydrate 100 Mg Capsule) 100 mg PO Q12H [facility] Last Admin: 02/17/25 05:19 Dose: 100 mg Enoxaparin Sodium (Enoxaparin Sodium 40 Mg/0.4 Ml Syringe) 40 mg SUBCUT Q24H [facility] Last Admin: 02/16/25 16:25 Dose: 40 mg Fluconazole (Fluconazole 100 Mg Tablet) 100 mg PO DAILY [facility] Last Admin: 02/16/25 08:23 Dose: 100 mg Glucose (Glucose Gel 15 Gm Gel..Gram.) 15 gm PO Q15M PRN; Protocol PRN Reason: per Hypoglycemia Standing Ord. Insulin Glargine (Insulin Glargine,Hum.Rec.Anlog 100 Unit/Ml 10 Ml Vial) 30 unit SUBCUT DAILY [facility] Last Admin: 02/16/25 08:23 Dose: 30 unit Insulin Human Lispro (Insulin Lispro 100 Unit/Ml 3 Ml Vial) 0 unit SUBCUT QIDACHS [facility]; Protocol Last Admin: 02/16/25 20:50 Dose: Not Given Magnesium Oxide (Magnesium Oxide 400 Mg Tablet) [facility] Last Admin: 02/16/25 16:25 Dose: 400 mg Methadone HCl (Methadone Hcl 20 Mg/2 Ml Oral.Conc) 50 mg PO DAILY@0800 [facility] Last Admin: 02/16/25 08:23 Dose: 50 mg Ondansetron HCl (Ondansetron Hcl 4 Mg/2 Ml Vial) 4 mg IVPUSH Q6H PRN PRN Reason: Nausea and Vomiting Last Admin: 02/11/25 19:54 Dose: 4 mg Quetiapine Fumarate (Quetiapine Fumarate 100 Mg Tablet) 100 mg PO BEDTIME NIA Last Admin: 02/16/25 20:48 Dose: 100 mg Home Medications ?Medication ?Instructions ?Recorded ?Confirmed ?Last Taken ?Type abacavir 600 mg-dolutegravir 50 1 tab PO DAILY 02/09/25 02/09/25 02/09/25 History mg-lamivudine 300 mg tablet (Triumeq) acetaminophen 500 mg tablet 500 mg PO Q6H PRN mild pain 02/09/25 02/09/25 Unknown History albuterol sulfate 90 mcg/actuation 2 puff inhalation Q6H PRN wheezing 02/09/25 02/09/25 Unknown History aerosol inhaler (Ventolin HFA) clonidine HCl 0.1 mg tablet 0.1 mg PO BID 02/09/25 02/09/25 Unknown History ferrous gluconate 324 mg (38 mg 324 mg PO QAM 02/09/25 02/09/25 Unknown History iron) tablet fluticasone propionate 50 1 spray intranasal DAILY 02/09/25 02/09/25 Unknown History mcg/actuation nasal spray,suspension gabapentin 300 mg capsule 300 mg PO TID 02/09/25 02/09/25 Unknown History hydroxyzine pamoate 25 mg capsule 25 mg PO Q12H PRN itch 02/09/25 02/09/25 Unknown History insulin glargine 100 unit/mL (3 30 unit subcut QAM 02/09/25 02/09/25 Unknown History mL) subcutaneous pen (Lantus Solostar U-100 Insulin) insulin lispro 100 unit/mL 4 - 20 sliding scale dose subcut 02/09/25 02/09/25 Unknown History subcutaneous pen (Humalog KwikPen QIDACHS (U-100) Insulin) methadone 10 mg/mL oral concentrate 50 mg PO DAILY 02/09/25 02/10/25 Unknown History omeprazole 20 mg capsule,delayed 20 mg PO BID 02/09/25 02/09/25 Unknown History release quetiapine 100 mg tablet 100 mg PO BEDTIME 02/09/25 02/09/25 Unknown History Physical Exam 2 Vital Signs: Vital Signs: Last Vital Signs Temp 97.1 F 02/17/25 07:36 Pulse 70 02/17/25 07:36 Resp 18 02/17/25 07:36 BP 130/72 02/17/25 07:36 Pulse Ox 98 02/17/25 07:36 O2 Del Method Room Air 02/17/25 07:36 O2 Flow Rate 2 02/13/25 03:07 FiO2 50 02/11/25 07:29 BMI result Body Mass Index 20.1 Const: General: cooperative, healthy appearing, comfortable and no acute distress Extrem: Other: Left knee normal to inspection. No joint effusion present. No redness or warmth. Range of motion-5-90 90 degrees. Calf supple nontender neurovascularly intact. Results Labs 02/12/25 09:26 02/11/25 08:46 Labs: Abnormal lab results 02/16/25 02/16/25 02/16/25 Range/Units 10:50 14:35 14:53 POC Glucose 263 H 45 L* 48 L* (60-115) mg/dL 02/16/25 02/16/25 02/16/25 Range/Units 15:28 19:54 22:20 POC Glucose 251 H 180 H 225 H (60-115) mg/dL 02/17/25 Range/Units 07:35 POC Glucose 244 H (60-115) mg/dL H & H 02/09/25 02/09/25 02/10/25 Range/Units 10:47 20:35 04:45 Hgb 6.7 L* 8.6 L D 8.6 L (14.0-18.0) g/dl Hct 20.4 L* 25.3 L D 25.2 L (42.0-52.0) % 02/11/25 02/12/25 Range/Units 08:45 09:26 Hgb 8.1 L 8.1 L (14.0-18.0) g/dl Hct 24.4 L 25.3 L (42.0-52.0) % Coagulation 02/09/25 Range/Units 10:47 INR 1.2 H (0.9-1.1) All other labs normal. Assessment and Plan (1) Knee pain, left: Status: Inactive Plan No acute orthopedic intervention warranted at this time I did show him some exercises in the room to work on extension Expressed the importance of working on range of motion to prevent stiffness Explained he may have a contusion in the left knee which can take 3-6 months for full recovery Explain there are no abnormalities on the MRI such as ligamentous or meniscal injury. If he continues to have discomfort he can follow up outpatient. Procedures Date of Service Date of Service: 02/17/25
[2025-02-17] MEDS: cefuroxime axetiL 500 MG TABLET PO ×2 (08:55→21:09)
[2025-02-17] MEDS: Magnesium Oxide 400 MG TABLET PO ×2 (08:55→16:46)
[2025-02-17] MEDS: Abacavir/lamiVUDine 600/300 TABLET 1 TAB PO (08:56)
[2025-02-17] MEDS: methADONE HCl 20 MG/2 ML ORAL.CONC 50 MG PO (08:56)
[2025-02-17] MEDS: Insulin Glargine,Hum.rec.anlog 100 UNIT/ML 10 ML VIAL 30 UNIT SUBCUT (08:56)
[2025-02-17] MEDS: cloNIDine HCL 0.1 MG TABLET PO ×2 (08:56→21:09)
[2025-02-17] MEDS: Fluconazole 100 MG TABLET PO (08:56)
[2025-02-17] MEDS: Insulin Lispro 100 UNIT/ML 3 ML VIAL SUBCUT (08:56)
[2025-02-17] MEDS: Dolutegravir Sodium 50 MG TABLET PO (08:56)
--- NOTE | 2025-02-17 09:54 | P.PNIM_ITS ---
Subjective Subjective Date of Service: 02/17/25 Interval History: pneumonia Review of Systems feeling better no fever Physical Exam 2 Vital Signs: Vital Signs: Last Vital Signs Temp 97.1 F 02/17/25 07:36 Pulse 70 02/17/25 07:36 Resp 18 02/17/25 07:36 BP 130/72 02/17/25 07:36 Pulse Ox 98 02/17/25 07:36 O2 Del Method Room Air 02/17/25 07:36 O2 Flow Rate 2 02/13/25 03:07 FiO2 50 02/11/25 07:29 BMI result Body Mass Index 20.1 Appearance: Alert.? Oriented X3.? cvs: rrr, [id number] . res:air entry diminshed ,has few cracles at bases. abd: no rebound or guarding ,nt, bs present. MS-left knee pains ,rom limited neuro: axo3 , nonfocal. Objective Data Active Medications Abacavir/Lamivudine (Abacavir/Lamivudine 600/300 Tablet) 1 tab PO DAILY REPLACED BY [facility] Last Admin: 02/17/25 08:56 Dose: 1 tab Documented By: MITCHELL Acetaminophen (Acetaminophen Oral Liquid 650 Mg/20.3 Ml Solution) 650 mg PO Q6H PRN PRN Reason: Pain, Mild 1-3,fever,headache Last Admin: 02/10/25 07:53 Dose: 650 mg Documented By: SAVANNAH Cefuroxime Axetil (Cefuroxime Axetil 500 Mg Tablet) 500 mg PO BID REPLACED BY [facility] Last Admin: 02/17/25 08:55 Dose: 500 mg Documented By: MITCHELL Clonidine HCl (Clonidine Hcl 0.1 Mg Tablet) 0.1 mg PO BID REPLACED BY [facility]; Protocol Last Admin: 02/17/25 08:56 Dose: 0.1 mg Documented By: MITCHELL Dextrose (Dextrose 50 % 25 Gm/50 Ml Syringe) 25 gm IVPUSH Q15M PRN; Protocol PRN Reason: per Hypoglycemia Standing Ord. Last Admin: 02/16/25 14:55 Dose: 25 gm Documented By: MITCHELL Dolutegravir Sodium (Dolutegravir Sodium 50 Mg Tablet) 50 mg PO DAILY REPLACED BY [facility] Last Admin: 02/17/25 08:56 Dose: 50 mg Documented By: MITCHELL Doxycycline Monohydrate (Doxycycline Monohydrate 100 Mg Capsule) 100 mg PO Q12H REPLACED BY [facility] Last Admin: 02/17/25 05:19 Dose: 100 mg Documented By: JOSE RAMON Enoxaparin Sodium (Enoxaparin Sodium 40 Mg/0.4 Ml Syringe) 40 mg SUBCUT Q24H REPLACED BY [facility] Last Admin: 02/16/25 16:25 Dose: 40 mg Documented By: MITCHELL Fluconazole (Fluconazole 100 Mg Tablet) 100 mg PO DAILY REPLACED BY [facility] Last Admin: 02/17/25 08:56 Dose: 100 mg Documented By: MITCHELL Glucose (Glucose Gel 15 Gm Gel..Gram.) 15 gm PO Q15M PRN; Protocol PRN Reason: per Hypoglycemia Standing Ord. Insulin Glargine (Insulin Glargine,Hum.Rec.Anlog 100 Unit/Ml 10 Ml Vial) 30 unit SUBCUT DAILY REPLACED BY [facility] Last Admin: 02/17/25 08:56 Dose: 30 unit Documented By: MITCHELL Insulin Human Lispro (Insulin Lispro 100 Unit/Ml 3 Ml Vial) 0 unit SUBCUT QIDACHS REPLACED BY [facility]; Protocol Last Admin: 02/17/25 08:56 Dose: 4 unit Documented By: MITCHELL Magnesium Oxide (Magnesium Oxide 400 Mg Tablet) 400 mg PO BIDPC REPLACED BY [facility] Last Admin: 02/17/25 08:55 Dose: 400 mg Documented By: MITCHELL Methadone HCl (Methadone Hcl 20 Mg/2 Ml Oral.Conc) 50 mg PO DAILY@0800 REPLACED BY [facility] Last Admin: 02/17/25 08:56 Dose: 50 mg Documented By: MITCHELL Co-signed By: MARYANN Ondansetron HCl (Ondansetron Hcl 4 Mg/2 Ml Vial) 4 mg IVPUSH Q6H PRN PRN Reason: Nausea and Vomiting Last Admin: 02/11/25 19:54 Dose: 4 mg Documented By: RUSSEL Quetiapine Fumarate (Quetiapine Fumarate 100 Mg Tablet) 100 mg PO BEDTIME REPLACED BY [facility] Last Admin: 02/16/25 20:48 Dose: 100 mg Documented By: JOSE RAMON Labs 02/12/25 09:26 02/11/25 08:46 Labs: Laboratory Results - last 24 hr 02/16/25 02/16/25 02/16/25 10:50 14:35 14:53 POC Glucose 263 H 45 L* 48 L* 02/16/25 02/16/25 02/16/25 15:28 19:54 22:20 POC Glucose 251 H 180 H 225 H 02/17/25 07:35 POC Glucose 244 H Assessment and Plan (1) Pneumonia: Status: Acute Plan sepsis(POA -as per ICu documentation) and Acute hypoxemic respiratory failure due to bilateral nonspecific pneumonia: sepsis improving,received ivf and also pressor in icu. / blood culture -positive for yeast? mycoplasma serology :1.4 plan; off oxygen cryptococcal ag pending started on fluconazole (on 02/16/25),await final bllood cultures. on ceftin and doxycycline ( intiated on 02/12/25) Knee pain/fall 4 -5 weeks back: recent mri shows knee(01/29/25) : Diffuse increased signal intensity of all the visualized muscles which may indicate myositis or muscle strain. No evidence of internal derangement. Large joint effusion. Diffuse marked subcutaneous soft tissue edema. repeat knee xray pending d/w ortho -outpatient following ,follow outpatient pt rec -rehab Acute lactic acidosis: Multifactorial Improving with hydration/supportive care. toxic metabolic encephalopathy -? drug use (Urine toxicology positive for opioids, methadone, fentanyl, cocaine) albert: Possibly secondary to hypovolemia, improved with the hydration. HIV. Continue Triumeq. dm:insulin,moniter fs . Ongoing IV drug use (heroin). On methadone. Addiction medicine following awaiting rehab placement Quality Stroke Does the patient have a stroke diagnosis?: No VTE Prior VTE?: No VTE Risk Level:: Medical - low VTE Device Contraindication: N/A - Device Ordered VTE Drug Contraindication: N/A - Med Ordered
[2025-02-17 10:54] VITALS: BP 99/61; PULSE 80; RESP 18; TEMP 36.4; O2SAT 100
[2025-02-17 11:44] LABS: Glucose, Whole Blood 196 mg/dL (60-115)
[2025-02-17 15:23] VITALS: BP 112/72; PULSE 74; RESP 18; TEMP 36.2; O2SAT 100
--- NOTE | 2025-02-17 15:46 | MHC.CM.PN ---
CM MET WITH PT TO DISCUSS DC PLANS HE INITIALLY REPORTED HE DID NOT WANT TO GO TO STR BECAUSE IT WILL BE SO FAR AWAY, HOWEVER LATER AGREED REFERRALS WERE UPDATED, THERE ARE STILL NO BED OFFERS
[2025-02-17 15:58] LABS: Glucose, Whole Blood 113 mg/dL (60-115)
[2025-02-17] MEDS: Enoxaparin Sodium 40 MG/0.4 ML SYRINGE SUBCUT (16:46)
[2025-02-17 19:21] VITALS: BP 111/66; PULSE 75; RESP 20; TEMP 36.4; O2SAT 98
[2025-02-17 20:14] LABS: Glucose, Whole Blood 165 mg/dL (60-115)
[2025-02-17] MEDS: QUEtiapine Fumarate 100 MG TABLET PO (21:09)
[2025-02-17] MEDS: Acetaminophen Oral Liquid 650 MG/20.3 ML SOLUTION PO (22:24)
[2025-02-17 23:41] VITALS: BP 111/66; PULSE 73; RESP 20; TEMP 36.3; O2SAT 96
[2025-02-18 03:07] VITALS: BP 111/69; PULSE 74; RESP 20; TEMP 36.2; O2SAT 96
[2025-02-18] MEDS: Doxycycline Monohydrate 100 MG CAPSULE PO (05:06)
[2025-02-18 07:05] VITALS: BP 95/55; PULSE 74; RESP 18; TEMP 36.6; O2SAT 97
[2025-02-18 07:09] LABS: Hematocrit 29.7 % (42.0-52.0); Hemoglobin 9.4 g/dl (14.0-18.0); Mean Corpuscular HGB Conc 31.6 g/dl (31.0-36.0); Mean Corpuscular Hemoglobin 27.7 pg (27.0-33.0); Mean Corpuscular Volume 87.6 fL (80.0-98.0); Mean Platelet Volume 9.9 fL (9.4-12.4); Platelet Count 298 X10*3/uL (160-400); Red Blood Count 3.39 X10*6/uL (4.60-5.80); Red Cell Distribution Width 19.7 % (11.0-16.0); White Blood Count 9.9 X10*3/uL (4.8-10.8)
[2025-02-18 07:18] LABS: Glucose, Whole Blood 165 mg/dL (60-115)
[2025-02-18 07:31] LABS: Anion Gap 13 (12-20); Blood Urea Nitrogen 29 mg/dL (9-16); Carbon Dioxide 31 mmol/L (22-29); Chloride 98 mmol/L (96-108); Creatinine Clr Calc Pharmacy 100.2; Estimated Glomerular Filt Rate > 60; Glucose Random 178 mg/dL (60-115); Potassium 4.7 mmol/L (3.3-5.1); Sodium 137 mmol/L (135-145)
[2025-02-18] MEDS: Insulin Glargine,Hum.rec.anlog 100 UNIT/ML 10 ML VIAL 30 UNIT SUBCUT (08:04)
[2025-02-18] MEDS: methADONE HCl 20 MG/2 ML ORAL.CONC 50 MG PO (08:43)
[2025-02-18] MEDS: Dolutegravir Sodium 50 MG TABLET PO (08:44)
[2025-02-18] MEDS: cefuroxime axetiL 500 MG TABLET PO (08:44)
[2025-02-18] MEDS: Magnesium Oxide 400 MG TABLET PO (08:44)
[2025-02-18] MEDS: Abacavir/lamiVUDine 600/300 TABLET 1 TAB PO (08:44)
[2025-02-18] MEDS: cloNIDine HCL 0.1 MG TABLET PO (08:44)
[2025-02-18] MEDS: Fluconazole 100 MG TABLET PO (08:47)
--- NOTE | 2025-02-18 10:30 | P.PNIM_ITS ---
Subjective Subjective Date of Service: 02/18/25 Interval History: f/u on resp failure d/t PNA in setting of HIV gen weakness Review of Systems feeling better no fever Physical Exam 2 Vital Signs: Vital Signs: Last Vital Signs Temp 97.9 F 02/18/25 07:05 Pulse 74 02/18/25 07:05 Resp 18 02/18/25 07:05 BP 95/55 L 02/18/25 07:05 Pulse Ox 97 02/18/25 07:05 O2 Del Method Room Air 02/18/25 07:05 O2 Flow Rate 2 02/13/25 03:07 FiO2 50 02/11/25 07:29 BMI result Body Mass Index 20.1 Objective Data Active Medications Abacavir/Lamivudine (Abacavir/Lamivudine 600/300 Tablet) 1 tab PO DAILY [facility] Last Admin: 02/18/25 08:44 Dose: 1 tab Documented By: MITCHELL Acetaminophen (Acetaminophen Oral Liquid 650 Mg/20.3 Ml Solution) 650 mg PO Q6H PRN PRN Reason: Pain, Mild 1-3,fever,headache Last Admin: 02/17/25 22:24 Dose: 650 mg Documented By: JOSE RAMON Cefuroxime Axetil (Cefuroxime Axetil 500 Mg Tablet) 500 mg PO BID [facility] Last Admin: 02/18/25 08:44 Dose: 500 mg Documented By: MITCHELL Clonidine HCl (Clonidine Hcl 0.1 Mg Tablet) 0.1 mg PO BID [facility]; Protocol Last Admin: 02/18/25 08:44 Dose: 0.1 mg Documented By: MITCHELL Dextrose (Dextrose 50 % 25 Gm/50 Ml Syringe) 25 gm IVPUSH Q15M PRN; Protocol PRN Reason: per Hypoglycemia Standing Ord. Last Admin: 02/16/25 14:55 Dose: 25 gm Documented By: MITCHELL Dolutegravir Sodium (Dolutegravir Sodium 50 Mg Tablet) 50 mg PO DAILY [facility] Last Admin: 02/18/25 08:44 Dose: 50 mg Documented By: MITCHELL Doxycycline Monohydrate (Doxycycline Monohydrate 100 Mg Capsule) 100 mg PO Q12H [facility] Last Admin: 02/18/25 05:06 Dose: 100 mg Documented By: DONNA Enoxaparin Sodium (Enoxaparin Sodium 40 Mg/0.4 Ml Syringe) 40 mg SUBCUT Q24H [facility] Last Admin: 02/17/25 16:46 Dose: 40 mg Documented By: MITCHELL Fluconazole (Fluconazole 100 Mg Tablet) 100 mg PO DAILY [facility] Last Admin: 02/18/25 08:47 Dose: 100 mg Documented By: MITCHELL Glucose (Glucose Gel 15 Gm Gel..Gram.) 15 gm PO Q15M PRN; Protocol PRN Reason: per Hypoglycemia Standing Ord. Insulin Glargine (Insulin Glargine,Hum.Rec.Anlog 100 Unit/Ml 10 Ml Vial) 30 unit SUBCUT DAILY [facility] Last Admin: 02/18/25 08:04 Dose: 30 unit Documented By: MITCHELL Insulin Human Lispro (Insulin Lispro 100 Unit/Ml 3 Ml Vial) 0 unit SUBCUT QIDACHS [facility]; Protocol Last Admin: 02/18/25 07:23 Dose: Not Given Documented By: MITCHELL Non-Admin Reason: No Insulin Coverage Magnesium Oxide (Magnesium Oxide 400 Mg Tablet) 400 mg PO BIDPC [facility] Last Admin: 02/18/25 08:44 Dose: 400 mg Documented By: MITCHELL Methadone HCl (Methadone Hcl 20 Mg/2 Ml Oral.Conc) 50 mg PO DAILY@0800 [facility] Last Admin: 02/18/25 08:43 Dose: 50 mg Documented By: MITCHELL Co-signed By: DIVYA Ondansetron HCl (Ondansetron Hcl 4 Mg/2 Ml Vial) 4 mg IVPUSH Q6H PRN PRN Reason: Nausea and Vomiting Last Admin: 02/11/25 19:54 Dose: 4 mg Quetiapine Fumarate (Quetiapine Fumarate 100 Mg Tablet) 100 mg PO BEDTIME [facility] Last Admin: 02/17/25 21:09 Dose: 100 mg Documented By: DONNA Labs 02/18/25 06:41 02/18/25 06:41 Labs: Laboratory Results - last 24 hr 02/17/25 02/17/25 02/17/25 10:53 15:22 20:08 MCV MCH MCHC RDW Plt Count MPV Absolute Nucleated RBC Nucleated RBC % (auto) Anion Gap Estim Creat Clear Calc Estimated GFR POC Glucose 196 H 113 165 H Random Glucose Calcium 04/08/25 04/08/25 06:41 07:06 MCV 87.6 MCH 27.7 MCHC 31.6 RDW 19.7 H Plt Count 298 D MPV 9.9 Absolute Nucleated RBC 0.000 Nucleated RBC % (auto) 0.0 Anion Gap 13 Estim Creat Clear Calc 100.2 Estimated GFR > 60 POC Glucose 165 H Random Glucose 178 H Calcium 9.0 Assessment and Plan (1) Pneumonia: Status: Acute Plan sepsis POA, and Acute hypoxemic respiratory failure due to bilateral nonspecific pneumonia, sepsis resolved s/p IVF, vasopressors and. /2 blood culture for yeast On fluconazolle 02/16 and await final culture. S/P IV Abx for Pneumonia and now on oral Ceftin and doxy since 02/12. Cryptococcal Ag pending Knee pain/fall 4 -5 weeks back: recent mri shows knee(01/29/25) : Diffuse increased signal intensity of all the visualized muscles which may indicate myositis or muscle strain. No evidence of internal derangement. Large joint effusion. Diffuse marked subcutaneous soft tissue edema. repeat knee xray pending d/w ortho -outpatient following ,follow outpatient pt rec -rehab Acute lactic acidosis: Multifactorial Improving with hydration/supportive care. toxic metabolic encephalopathy -? drug use (Urine toxicology positive for opioids, methadone, fentanyl, cocaine) TOMMY d/t hypotension, resolved. HIV. Continue Triumeq. dm:insulin,moniter fs . Ongoing IV drug use (heroin). On methadone. Addiction medicine following awaiting rehab placement lovenox for dvt prophylaxis dc today if rehab bed available. Quality Stroke Does the patient have a stroke diagnosis?: No VTE Prior VTE?: No VTE Risk Level:: Medical - low VTE Device Contraindication: N/A - Device Ordered VTE Drug Contraindication: N/A - Med Ordered
[2025-02-18 11:00] VITALS: BP 105/64; PULSE 79; RESP 18; TEMP 36.7; O2SAT 97
[2025-02-18 11:44] LABS: Glucose, Whole Blood 193 mg/dL (60-115)
--- NOTE | 2025-02-18 14:50 | W.MHC.F2F ---
Service Date Service Date: 02/18/25 Encounter Date of encounter: 02/18/25 Reasons for Services Signs and symptoms assessed: sepsis pneumonia, weakness, Reason for senior care: medication management, medication treatment and teach disease management Reason for physical therapy: home safety and mobility, therapeutic exercises and restore joint function Homebound: Leaving the home is medically contraindicated at this time without the asist of a device and/or another person due th the listed conditions above and below. Reason homebound: unsteady gait / fall risk and fall risk related to blood pressure changes Homebound supporting statement: homebound due to weakness from hospitalization, knee pain pain and therefore needs the assistance of another person Certification: Based on the above findings, I certify that this patient is confined to the home and needs intermittent senior care care, physical therapy and/or speech therapy, or continues to need occupational therapy. The patient is under my care, and I have initiated the establishment of the plan of care. The patient will be followed by a physician who will periodically review the plan of care. Time Spent With Patient Time: Total time managing care of this patient today ____ minutes.
--- NOTE | 2025-02-18 14:59 | MHC.CM.PN ---
EMR reviewed and per MD rounds, pt is medically cleared for discharge. This CM met with pt to discuss discharge plans, at this time, no STR bed offers, referrals sent to facilities as far as the [facility]. Pt states he is not willing to go that far and would like to go home. Hospitalist updated.
--- NOTE | 2025-02-18 15:59 | MHC.CM.PN ---
Pt is medically cleared for discharge home with new [facility] services, pts mother to transport him home today.
== END 2025-02-18 16:00 | disposition home or self-care (01) | DRG 720 ==
LOC: HO.ED 15:27 → HO.EDOVER 15:47 → HO.ICU 16:22 → HO.IMC 02-10 12:18
PROVIDERS: Internal Medicine; Internal Medicine Pulmonary Disease; Physician Assistant Medical; Admitting Provider Internal Medicine Critical Care Medicine; Emergency Provider Internal Medicine; PCP General Practice; Visit Provider Internal Medicine
DX: A41.9 Sepsis, unspecified organism (principal); J96.01 Acute respiratory failure with hypoxia; N17.0 Acute kidney failure with tubular necrosis; R65.21 Severe sepsis with septic shock; G92.8 Other toxic encephalopathy; J18.9 Pneumonia, unspecified organism; E87.21 Acute metabolic acidosis; E86.1 Hypovolemia; E11.65 Type 2 diabetes mellitus with hyperglycemia; T50.911A Poisoning by multiple unspecified drugs, medicaments and biological substances, accidental (unintentional), initial encounter; D64.9 Anemia, unspecified; M25.562 Pain in left knee; B18.2 Chronic viral hepatitis C; F11.20 Opioid dependence, uncomplicated; Z79.4 Long term (current) use of insulin; Z79.51 Long term (current) use of inhaled steroids; Z79.899 Other long term (current) drug therapy
CPT/HCPCS: 0241U; 36415; 70450; 71045; 71250; 73564; 80048; 80053; 80307; 81001; 82607; 82728; 82746; 82803; 82947; 83036; 83540; 83605; 83615; 83735; 83880; 84100; 84484; 85014; 85018; 85025; 85027; 85610; 86403; 86738; 86850; 86900; 86901; 86923; 87040; 87086; 87449; 87633; 87640; 87641; 87899; 93005; 94640; 94799; 97162; 97530; 99285; J0696; J1450; J1650; J1720; J2405; J2543; J3371; J3475; J7120; P9016; P9047; S9485

== ENCOUNTER → 2025-02-09 10:41 | Outpatient (BNV) | payer MEDICAID, SELFPAY | PROVIDERS: Emergency Provider Internal Medicine; PCP General Practice; Visit Provider Radiology Vascular & Interventional Radiology | DX: J40 Bronchitis, not specified as acute or chronic (principal); R06.02 Shortness of breath; A41.9 Sepsis, unspecified organism; R65.21 Severe sepsis with septic shock | CPT/HCPCS: 70450; 71045; 71250 ==

== ENCOUNTER → 2025-02-09 10:41 | Outpatient (BNV) | payer MEDICAID, SELFPAY | PROVIDERS: Admitting Provider Internal Medicine Critical Care Medicine; Emergency Provider Internal Medicine; PCP General Practice; Visit Provider Internal Medicine | DX: R06.02 Shortness of breath (principal); R94.31 Abnormal electrocardiogram [ECG] [EKG] | CPT/HCPCS: 93010 ==

== ENCOUNTER → 2025-02-09 10:44 | Outpatient (BNV) | payer MEDICAID, SELFPAY | PROVIDERS: Emergency Provider Internal Medicine; PCP General Practice; Visit Provider Internal Medicine Critical Care Medicine | DX: J96.01 Acute respiratory failure with hypoxia (principal); D64.9 Anemia, unspecified; R73.9 Hyperglycemia, unspecified; A41.9 Sepsis, unspecified organism; R65.21 Severe sepsis with septic shock | CPT/HCPCS: 99223 ==

== ENCOUNTER 2025-02-09 15:25 | Outpatient (BNV) | payer MEDICAID, SELFPAY | END 2025-02-15 13:20 | PROVIDERS: Admitting Provider Internal Medicine Critical Care Medicine; Emergency Provider Internal Medicine; PCP General Practice; Visit Provider Radiology Diagnostic Radiology | DX: M61.9 Calcification and ossification of muscle, unspecified (principal) | CPT/HCPCS: 73564 ==

== ENCOUNTER → 2025-02-09 15:25 | Outpatient (BNV) | payer OTHER, SELFPAY | PROVIDERS: Admitting Provider Internal Medicine Critical Care Medicine; Emergency Provider Internal Medicine; PCP General Practice; Visit Provider Nurse Practitioner Psychiatric/Mental Health | DX: F11.959 Opioid use, unspecified with opioid-induced psychotic disorder, unspecified (principal) | CPT/HCPCS: 99231 ==

== ENCOUNTER → 2025-02-09 15:25 | Outpatient (BNV) | payer MEDICAID, SELFPAY | PROVIDERS: Admitting Provider Internal Medicine Critical Care Medicine; Emergency Provider Internal Medicine; PCP General Practice; Visit Provider Internal Medicine | DX: J18.9 Pneumonia, unspecified organism (principal); G93.41 Metabolic encephalopathy | CPT/HCPCS: 99231; 99232; 99239; 99499; G0180 ==

== ENCOUNTER → 2025-02-09 15:25 | Outpatient (BNV) | payer MEDICAID, SELFPAY | PROVIDERS: Admitting Provider Internal Medicine Critical Care Medicine; Emergency Provider Internal Medicine; PCP General Practice; Visit Provider Physician Assistant | DX: M25.562 Pain in left knee (principal) | CPT/HCPCS: 99222 ==

== ENCOUNTER → 2025-02-09 15:25 | Outpatient (BNV) | payer MEDICAID, SELFPAY | PROVIDERS: Admitting Provider Internal Medicine Critical Care Medicine; Emergency Provider Internal Medicine; PCP General Practice; Visit Provider Internal Medicine | DX: F11.99 Opioid use, unspecified with unspecified opioid-induced disorder (principal); E11.9 Type 2 diabetes mellitus without complications; Z79.4 Long term (current) use of insulin; B20 Human immunodeficiency virus [HIV] disease | CPT/HCPCS: 99222 ==

== ENCOUNTER → 2025-02-09 15:25 | Outpatient (BNV) | payer MEDICAID, SELFPAY | PROVIDERS: Admitting Provider Internal Medicine Critical Care Medicine; Emergency Provider Internal Medicine; PCP General Practice; Visit Provider Nurse Practitioner Psychiatric/Mental Health | DX: F11.99 Opioid use, unspecified with unspecified opioid-induced disorder (principal) | CPT/HCPCS: 99221 ==

== ENCOUNTER → 2025-02-09 15:25 | Outpatient (BNV) | payer MEDICAID, SELFPAY | PROVIDERS: Admitting Provider Internal Medicine Critical Care Medicine; Emergency Provider Internal Medicine; PCP General Practice; Visit Provider Internal Medicine Pulmonary Disease | DX: J96.01 Acute respiratory failure with hypoxia (principal); F19.10 Other psychoactive substance abuse, uncomplicated; B18.2 Chronic viral hepatitis C; D64.9 Anemia, unspecified; B20 Human immunodeficiency virus [HIV] disease | CPT/HCPCS: 99233 ==

== ENCOUNTER 2025-03-05 08:09 | Outpatient (REF) | payer OTHER, SELFPAY | END 2025-03-05 08:10 | disposition home or self-care (01) | LOC: HO.HOSX 08:09 | PROVIDERS: Visit Provider Physician Assistant | DX: Z13.89 Encounter for screening for other disorder (principal) ==

== ENCOUNTER 2025-04-16 10:18 | Outpatient (REF) | payer MEDICAID, SELFPAY ==
--- OUTSIDE RECORDS SUMMARY | 2025-04-16 10:58 | XMS_ITS | Data Portability ---
Author Organization [facility], Main Office Address [address], [address] [place] [address] Care Team Providers Care Fund Development Manager Name Role Phone [facility] ([facility]) OTHER Assessment Encounter Date Assessment Date Assessment LastModified by Organization Details LastModified Time 08/04/2021 08/04/202107/27 bun 15, creat 1.0, na 139, k 4.7, wbc 6.37, hgb 9.8, hct 29.9 [email or web address] Not available 08/04/2021 13:44:49 08/09/2021 08/09/202107/27 bun 15, creat 1.0, na 139, k 4.7, wbc 6.37, hgb 9.8, hct 29.9 [email or web address] Not available 08/09/2021 11:23:56 08/10/2021 08/10/202107/27 bun 15, creat 1.0, na 139, k 4.7, wbc 6.37, hgb 9.8, hct 29.9 [email or web address] Not available 08/10/2021 14:34:10 Plan of Treatment [...] By Organization Details Last Modified Time 08/17/2021 [id number] Immunizations reconciled [email or web address] Not available 08/17/2021 20:44:21 08/23/2021 [id number] Total time spent with pt 45 minutes, >50% in [id number] counseling and coordination of care Not available 08/23/2021 14:43:12 Reason for Referral None Reported. 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 626209108 Active 2020 BRIDGER Moore [address] [facility] [address] [facility], [address], [place], [address], [facility] [employer] 10:49:37 Human immunodef iciency virus infection 08181514 Active 2020 BRIDGER Moore [address] [facility], [address], [place], [address], [employer] 10:49:45 Diabetic ketoacido sis 236003143 Active 2020 BRIDGER Moore [address] [place] [address], [address], [place], [address], [employer] 10:49:51 Acute nontrauma tic kidney injury 876743717108 103 Active 2020 BRIDGER Moore [address] [facility], [address], [place], [address], [employer] 10:50:00 Fasciotom y upper arm Completed 202007/09/2021 BRIDGER Moore [address] [facility], [address], [place], [address], [employer] 11:22:08 Type 2 diabetes mellitus without complicat ion 922401480 Active 2020 BRIDGER Moore [address] [place] [address], [address], [place], [address], [employer] 11:06:26 Compartme nt syndrome 611681425 Active 2020 BRIDGER Moore [address] [facility], [address], [place], [address], [employer] 11:22:17 Acute respirato ry infection s 909337864 Active 2020 BRIDGER Moore [address] [facility], [address], [place], [address], [employer] 11:30:23 Problem Notes None recorded. Medical Equipment None Reported. Allergies Allergen ID Allergen Name Allergen Category Reaction Reaction Severity Criticality Documentation Date Start Date Code Code System Note Provider Name and Address Organization Details Recorded Time 22018 shellfish derived food,medi cation Not available Not available Not available 07/09/2021 [id number] UNK BRIDGER Moore [address] [facility], [address], [place], [address], [employer] 11:04:43 Medications Not known to be on any medication Vitals Date Recorded Systolic blood pressure Diastolic blood pressure Provider Name and Address Organization Details Last Updated DateTime 08/04/2021 118 mm[Hg] 70 mm[Hg] Lorin Mariscales [employer] 08/04/2021 13:22:57 Date Recorded Heart rate Respiratory rate Body temperature Oxygen saturation Oxygen saturation in Arterial blood by Pulse oximetry Systolic blood pressure Diastolic blood pressure Provider Name and Address Organization Details Last Updated DateTime 1 68 /min 18 /min 97.5 [degF] 95 % 95 % 118 mm[Hg] 70 mm[Hg] BRIDGER Moore [address] [facility], [address], [place], [address], [employer] 11:20:36 Date Recorded Heart rate Respiratory rate Body temperature Oxygen saturation Oxygen saturation in Arterial blood by Pulse oximetry Provider Name and Address Organization Details Last Updated DateTime 1 70 /min 18 /min 97.2 [degF] 100 % 100 % BRIDGER Moore [address] [facility], [address], [place], [address], [employer] 1 14:31:28 Date Recorded Respiratory rate Body temperature Heart rate Oxygen saturation Oxygen saturation in Arterial blood by Pulse oximetry Body height Systolic blood pressure Diastolic blood pressure Provider Name and Address Organization Details Last Updated DateTime 1 18 /min 97.2 [degF] 68 /min 97 % 97 % 177.8 cm 118 mm[Hg] 70 mm[Hg] DENILSON ARIAS PA-C [address] [facility], [address], [place], [address], [employer] 13:07:41 Date Recorded Body height Heart rate Respiratory rate Body temperature Oxygen saturation Oxygen saturation in Arterial blood by Pulse oximetry Systolic blood pressure Diastolic blood pressure Provider Name and Address Organization Details Last Updated DateTime 1 177.8 cm 68 /min 18 /min 97.3 [degF] 95 % 95 % 118 mm[Hg] 70 mm[Hg] DENILSON ARIAS PA-C [address] [facility], [address], [place], [address], [facility] [employer] 14:17:18 Social History Question Answer Notes LastModified by Organizat ion Details LastModified Time Tobacco Smoking Status Current Every Day Smoker BRIDGER Moore [address] [facility], [address], [place], [address], [facility] [employer] 07/09/2021 10:47:36 Do You Have An Advance Directive? No Information not available 07/09/2021 Legal Guardian? No [email or web address] Information not available 07/09/2021 How Much Tobacco Do You Smoke? 0.25 PPD [email or web address] Information not available 07/09/2021 Has Tobacco Cessation Counseling Been Provided? Yes Pt Refuses Cessation, Says He Wants To Continue To Smoke [email or web address] Information not available 07/09/2021 On What Date Was Tobacco Cessation Counseling Provided? 07/09/2021 [email or web address] Information not available 07/09/2021 Sex: Unknown Functional Status Question Answer Note LastModified by Organization D etails LastModified Time Do you or have you ever used any other forms of tobacco or nicotine? No [email or web address] Information not available 07/09/2021 What is your level of alcohol consumption? None [email or web address] Information not available 07/09/2021 Mental Status None recorded. Family History Nothing Reported Notes:n/c Medical History No medical history recorded. Immunizations Vaccine Type Date Status Note Provider Nam e and Address Organization Details Recorded Time COVID-19, mRNA, LNP-S, PF, 30 mcg/0.3 mL dose 12/18/2020 completed DENILSON ARIAS PA-C [address] [facility], [address], [place], [address], [facility] [employer] 08/17/2021 13:09:09 COVID-19, mRNA, LNP-S, PF, 30 mcg/0.3 mL dose 01/15/2021 completed DENILSON ARIAS PA-C [address] [facility], [address], [place], [address], [facility] 08/17/2021 13:09:16 Past Encounters Encounter ID Performer Location Encounter Start Date Encounter Closed Date Diagnosis/Indication Diagnosis SNOMED-CT Code Diagnosis ICD10 Code Diagnosis Note [id number] BRIDGER Moore [facility] on [address] [place] [address] 07/09/2021 10:38:05 07/16/2021 13:30:34 Diabetic ketoacidosis 167301665 E13.10 see hpiresolve dlantus 40 units sq qdhumalog sliding scalemonit or accuchecks and adjust insulin prn Type 2 jimmie betes mellitus without complication 981666870 E11.9 meds as abovemonit or and adjust insulin 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 F19.10 pt has already been found to [...] 20 mg qd Human immunodeficiency virus infection 87826803 B20 triumeq 1 qdf/u with pcp on discharge Acute nont raumatic kidney injury 0387232010 09101 N17.9 resolved with IV fluidsavoi d nephrotoxi c meds as ablemonito r renal function weekly Compartment syndrome 111 940019 T79.A11D see hpimonitor right arm fasciotomy site, dressing as ordered Acute resp iratory infections 892027816 J22 finish augmentin 875/125 mg 1 bid till 07/11monito r resp status [id number] BRIDGER Moore [facility] on [address] [place] [address] 07/12/2021 14:08:42 07/16/2021 13:31:43 Type 2 diabetes mellitus without complication 792168795 E11.9 add lantus 10 units sq qhscontinu e lantus 40 units sq q ammonitor and adjust insulin [id number] Rebeca Marcano MD [facility] on [address] [place] [address] 07/14/2021 06:00:10 07/16/2021 13:46:34 Compartment syndrome 664513613 T79.A11D s/p right arm abscess; s/p fasciotomy for compartmen t syndromeAP AP 650 mg q6h prngabapen tin 300 mg bidwill monitorPT/ OTfu surgery, I.D. 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 cmp and a1c on 07/27resolv ed with IV fluidsavoi d nephrotoxi c meds as ablemonito r renal function weekly Compartment syndrome 111 524010 T79.A11D monitor right arm fasciotomy site, dressing as ordered Acute resp iratory infections 639071122 J22 finished augmentin 875/125 mg 1 bid on 07/11monito r resp status [id number] Lorin Nj [facility] on [address] [place] [address] 08/04/2021 12:59:01 08/06/2021 13:59:36 Type 2 diabetes mellitus without complication 196321171 E11.9 Blood sugars improved however remain >200 oftenLantu s 40 units QAM, 15 units QHShumalog sliding scale-incr ease sliding scale coveragemo nitor and adjust insulin 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 765116543 F19.10 on methadone 20 mg qd Human immunodeficiency virus infection 30765199 B20 triumeq 1 qdf/u with pcp on discharge Acute nont raumatic kidney injury 4521425537 92987 N17.9 resolved with IV fluidsavoi d nephrotoxi c meds as ablemonito r renal function weekly Compartment syndrome 111 664076 T79.A11D monitor right arm fasciotomy site, dressing as ordered [id number] Jennifer Babcock [facility] on [address] [place] [address] 08/09/2021 11:19:37 08/11/2021 11:54:34 Type 2 diabetes mellitus without complication 750267968 E11.9 will change sliding scale to start at 200continu e Lantus 40 units QAM, 15 units QHShumalog sliding scalemonit or and adjust insulin 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 482041819 F19.10 continue methadone 20 mg qdf/u with clinic Human immunodeficiency virus infection 59550555 B20 triumeq 1 qdf/u with pcp on discharge Acute nont raumatic kidney injury 6197301948 90833 N17.9 resolved with IV fluidsavoi d nephrotoxi c meds as ablemonito r renal function weekly Compartment syndrome 111 212120 T79.A11D monitor right arm fasciotomy site, dressing as orderedmon itor site [id number] BRIDGER Moore [facility] on [address] [place] [address] 08/10/2021 14:28:18 08/12/2021 12:08:30 Type 2 diabetes mellitus without complication 834988084 E11.9 will change sliding scale to start at 200 for breakfast only, will use sliding scale to start at 150 for lunch and dinnercont inue Lantus 40 units QAM, 15 units QHShumalog sliding scalemonit or and adjust insulin based on BSf/u later this week to reassess [id number] DENILSON ARIAS PA-C [facility] on [address] [place] [address] 08/17/2021 13:06:51 08/18/2021 14:24:56 Infection of tooth 246987892 K04.7 Amox 1 g po x 1 then 500 mg po tiid x 3 daysProbio tic bid x 6 daysDental consultCon tinue prn OrjelMonit or and f/u prn Uncontroll ed type 1 diabetes mellitus 927683743 E10.65 Hx DKAadd hs fingerstic k but do not cover with correction al Humalogtra nscription error in correction al insulin resolved-s hould be 9 ux for 351-400d/c order to repeat sugar in 90 minutes if >400On ARB for renal protection Monitor sugars and adjust meds prn [id number] DENILSON ARIAS PA-C [facility] on [address] [place] [address] 08/23/2021 14:16:07 08/25/2021 10:02:21 Infection of tooth 885025377 K04.7 Improved with AmoxDental f/u tomorrow as scheduledf /u prn Uncontroll ed type 1 diabetes mellitus 069589293 E10.65 Consider fingerstic k blood sugar at [...] or hs-adjust correction al insulin back to 12/17//8 for lunch and dinnerRefe r [facility] ([facility]) for considerat ion of insulin pumpOn ARB for renal protection Monitor sugars and adjust meds prn Health Concerns Section Related Observation LastModified by Organization Detai ls LastModified Time None Recorded Concern Status LastModified by Organization Details LastModified Time None Recorded Advance Directives Directive N: Payers Encounter Date Sequence Insurance Name Policy Number Policy Gonzales Covered Member ID Gonzales Member ID Guarantor Name 08/04/2021 1 [place] [facility] Kelechi Chinchilla Jennifer [id number] Kelechi Chinchilla Jennifer 08/09/2021 1 [place] [facility] Kelechi Chinchilla Jennifer [id number] Kelechi Chinchilla Jennifer 08/10/2021 1 [place] [facility] Kelechi Chinchilla Jennifer [id number] Kelechi Chinchilla Jennifer 08/17/2021 1 [place] [facility] Kelechi Chinchilla Jennifer [id number] Kelechi Chinchilla Jennifer 08/23/2021 1 [place] [facility] Kelechi Chinchilla Jennifer [id number] Kelechi Chinchilla Jennifer Notes Date Note Type [...] at fasciotomy site. Patient had been at [facility] for abscess of right arm in [...] with good response. Lorin jimenez [place] - [facility] 08/04/2021 13:45:52 08/09/2021 text/html pt seen today fo r acute rounding visit. Patient with hx IV drug use, DM, recent right arm abscess, compartment syndrome, s/p fasciotomy. Patient admitted to this facility following hospitalization for fever and increased pain and swelling at fasciotomy site. Patient had been at [facility] for abscess of right arm in [...] no concerns per nursing. BRIDGER Moore [address] [facility], [address], [place], [address], [employer] 08/09/2021 11:25:33 08/10/2021 text/html pt seen today fo r acute rounding visit. Patient with hx IV drug use, DM, recent right arm abscess, compartment syndrome, s/p fasciotomy. Patient admitted to this facility following hospitalization for fever and increased pain and swelling at fasciotomy site. Patient had been at [facility] for abscess of right arm in [...] titration at this point. BRIDGER Moore [address] [facility], [address], [place], [address], [employer] 08/10/2021 14:35:09 08/17/2021 text/html Pt seen [...] prnHouse bowel protocolNarcan prn DENILSON ARIAS PA-C [address] [place] [address], [address], [place], [address], [facility] 08/17/2021 20:45:43 08/23/2021 text/html Pt seen today [...] ux qhs added; 40 ux q am tlwphanlf49/13/21: HS Lantus increased to 15 ux; 40 ux am bxujtzcuq57/22/21: Sliding scale [id number]/27/21: Order given to start coverage at 201 rather than 9639208/10/21: Order given for 2 ux coverage if sugar 150-200 at lunch and dinner only and to continue starting coverage at 201 for alegcimbf45/29/21: Scale adjusted to 11/15///07/24 ux from 12/17///08/24 ux; Morning Lantus decreased from 40 to 30 ux and hs dose increased 15 to 20 ux No polyuria/poydipsia. DENILSON ARIAS PA-C [address] [place] [address], [address], [place], [address], [facility] 08/23/2021 14:48:00
[2025-04-16 11:29] LABS: MANUAL DIFF FLAG NO
[2025-04-16 11:40] LABS: Basophils Percent Auto 0.7 % (0-2); Eosinophils Absolute Auto 0.2 X10*3/uL (0.0-0.4); Eosinophils Percent Auto 2.8 % (0-4); Hematocrit 25.7 % (42.0-52.0); Hemoglobin 8.2 g/dl (14.0-18.0); Imm Gran Abs Auto 0.02 X10*3/uL (0.00-0.03); Imm Gran Pct Auto 0.3 % (0.0-0.4); Lymphocytes Absolute Auto 2.2 X10*3/uL (1.2-4.9); Lymphocytes Percent Auto 37.3 % (20-40); Mean Corpuscular HGB Conc 31.9 g/dl (31.0-36.0); Mean Corpuscular Hemoglobin 28.9 pg (27.0-33.0); Mean Corpuscular Volume 90.5 fL (80.0-98.0); Mean Platelet Volume 10.7 fL (9.4-12.4); Monocytes Absolute Auto 0.5 X10*3/uL (0.1-1.2); Monocytes Percent Auto 8.2 % (2-11); Neutrophils Absolute Auto 2.9 x10*3/uL (2.0-8.3); Neutrophils Percent Auto 50.7 % (45-73); Platelet Count 208 X10*3/uL (160-400); Red Blood Count 2.84 X10*6/uL (4.60-5.80); Red Cell Distribution Width 19.9 % (11.0-16.0); White Blood Count 5.8 X10*3/uL (4.8-10.8)
[2025-04-16 14:11] LABS: Alanine Aminotransferase 10 U/L (0-40); Alkaline Phosphatase 73 U/L (39-117); Anion Gap 9 (12-20); Aspartate Amino Transferase 22 U/L (5-37); Bilirubin Total 0.2 mg/dL (0.0-1.0); Blood Urea Nitrogen 19 mg/dL (9-16); Calcium 8.2 mg/dL (8.4-10.2); Carbon Dioxide 27 mmol/L (22-29); Chloride 106 mmol/L (96-108); Estimated Glomerular Filt Rate > 60; Glucose Random 280 mg/dL (60-115); Potassium 4.6 mmol/L (3.3-5.1); Sodium 137 mmol/L (135-145)
[2025-04-17 11:24] LABS: RPR Rapid Plasma Reagin NON-REACTIVE (NON-REACTIVE)
[2025-04-17 15:18] LABS: HIV RNA PCR Qn Copies NOT DETECTED copies/mL (NOT DETECTED); HIV RNA PCR Qn Log Copies NOT DETECTED (NOT DETECTED)
[2025-04-18 15:13] LABS: HCV Log PCR 1.41 Log IU/mL (NOT DETECTED); HepC Viral Load 26 IU/mL (NOT DETECTED)
[2025-04-20 18:58] LABS: Absolute CD3 Count 1775 cells/uL (840-3060); Absolute CD4 Count 817 cells/uL (490-1740); Absolute CD8 Count 890 cells/uL (180-1170); Absolute Lymphocytes 2066 cells/uL (850-3900); CD4 CD8 Ratio 0.92 (0.86-5.00); Percent CD3 Cells 86 % (57-85); Percent CD4 Cells 40 % (30-61); Percent CD8 Cells 43 % (12-42)
== END 2025-04-16 10:19 | disposition home or self-care (01) ==
LOC: HO.HHCL 10:18
PROVIDERS: Registered Nurse; Visit Provider General Practice
DX: Z21 Asymptomatic human immunodeficiency virus [HIV] infection status (principal); N17.9 Acute kidney failure, unspecified; J18.9 Pneumonia, unspecified organism; D64.9 Anemia, unspecified
CPT/HCPCS: 36415; 80053; 85025; 85027; 86359; 86360; 86592; 87522; 87536

== ENCOUNTER 2025-05-27 10:42 | Outpatient (REF) | payer MEDICAID, SELFPAY ==
--- OUTSIDE RECORDS SUMMARY | 2025-05-28 11:24 | XMS_ITS | Data Portability ---
Author Organization [facility], Main Office Address [address] [facility], [address] [place] [address] Care Team Providers Care Counter Caser Name Role Phone [facility] ([facility] OTHER Assessment Encounter Date Assessment Date Assessment LastModified by Organization Details LastModified Time 08/04/2021 08/04/202107/27 bun 15, creat 1.0, na 139, k 4.7, wbc 6.37, hgb 9.8, hct 29.9 [email or web address] Not available 08/04/2021 13:44:49 08/09/2021 08/09/202107/27 bun 15, creat 1.0, na 139, k 4.7, wbc 6.37, hgb 9.8, hct 29.9 [email or web address] Not available 08/09/2021 11:23:56 08/10/2021 08/10/202107/27 bun [...] By Organization Details Last Modified Time 08/17/2021 [id number] Immunizations reconciled Not available 08/17/2021 20:44:21 08/23/2021 [id number] Total time spent with pt 45 minutes, >50% in [id number] counseling and coordination of care Not available 08/23/2021 14:43:12 Reason for Referral None Reported. 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 289988852 Active 2020 BRIDGER Moore [address] , [address], [place], [address], [employer] [facility] 10:49:37 Human immunodef iciency virus infection 38207239 Active 2020 BRIDGER Moore [address] [facility], [address], [place], [address], [employer] [facility] 10:49:45 Diabetic ketoacido sis 163252136 Active 2020 BRIDGER Moore [address] [facility], [address], [place], [address], [employer] [facility] 10:49:51 Acute nontrauma tic kidney injury 184527321435 103 Active 2020 BRIDGER Moore [address] [facility], [address], [place], [address], [employer] [facility] 10:50:00 Fasciotom y upper arm Completed 202007/09/2021 BRIDGER Moore [address] [facility], [address], [place], [address], [employer] [facility] 11:22:08 Type 2 diabetes mellitus without complicat ion 372650598 Active 2020 BRIDGER Moore [address] [facility], [address], [place], [address], [employer] [facility] 11:06:26 Compartme nt syndrome 838840922 Active 2020 BRIDGER Moore [address] [facility], [address], [place], [address], [employer] [facility] 11:22:17 Acute respirato ry infection s 030941855 Active 2020 BRIDGER Moore [address] [facility], [address], [place], [address], [employer] [facility] 11:30:23 Problem Notes None recorded. Medical Equipment None Reported. Allergies Allergen ID Allergen Name Allergen Category Reaction Reaction Severity Criticality Documentation Date Start Date Code Code System Note Provider Name and Address Organization Details Recorded Time 30101 shellfish derived food,medi cation Not available Not available Not available 07/09/2021 [id number] UNK BRIDGER Moore [address] [facility], [address], [place], [address], [employer] 11:04:43 Medications Not known to be on any medication Vitals Date Recorded Systolic And Diastolic Provider Name and Address Organization Details Last Updated DateTime 08/04/2021 118/70 mm[Hg] Lorin Mariscales AR [employer] 08/04/2021 13:22:57 Date Recorded Heart rate Respiratory rate Body temperature Oxygen saturation Oxygen saturation in Arterial blood by Pulse oximetry Systolic And Diastolic Provider Name and Address Organization Details Last Updated DateTime 1 68 /min 18 /min 97.5 [degF] 95 % 95 % 118/70 mm[Hg] BRIDGER Moore [address] [facility], [address], [place], [address], [employer] [facility] 11:20:36 Date Recorded Heart rate Respiratory rate Body temperature Oxygen saturation Oxygen saturation in Arterial blood by Pulse oximetry Provider Name and Address Organization Details Last Updated DateTime 70 /min 18 /min 97.2 [degF] 100 % 100 % BRIDGER Moore [address] [facility], [address], [place], [address], [employer] 14:31:28 Date Recorded Respiratory rate Body temperature Heart rate Oxygen saturation Oxygen saturation in Arterial blood by Pulse oximetry Body height Systolic And Diastolic Provider Name and Address Organization Details Last Updated DateTime 1 18 /min 97.2 [degF] 68 /min 97 % 97 % 177.8 cm 118/70 mm[Hg] DENILSON ARIAS PA-C [address] [facility], [address], [place], [address], [employer] 13:07:41 Date Recorded Body height Heart rate Respiratory rate Body temperature Oxygen saturation Oxygen saturation in Arterial blood by Pulse oximetry Systolic And Diastolic Provider Name and Address Organization Details Last Updated DateTime 1 177.8 cm 68 /min 18 /min 97.3 [degF] 95 % 95 % 118/70 mm[Hg] DENILSON ARIAS PA-C [address] [facility] [facility] [address], [place], [address], [employer] [facility] 14:17:18 Social History Question Answer Notes LastModified by Organizat ion Details LastModified Time Tobacco Smoking Status Current Every Day Smoker Jennifer Babcock, [employer]ER[employer] TECHNICIAN [address] [facility] [address], [place], [address], [facility] [employer] 07/09/2021 10:47:36 Do You Have An Advance Directive? No [email or web address] Information not available 07/09/2021 Legal Guardian? No [email or web address] Information not available 07/09/2021 How Much Tobacco Do You Smoke? 0.25 PPD [email or web address] Information not available 07/09/2021 Has Tobacco Cessation Counseling Been Provided? Yes Pt Refuses Cessation, Says He Wants To Continue To Smoke [email or web address] Information not available 07/09/2021 On What Date Was Tobacco Cessation Counseling Provided? 07/09/2021 [email or web address] Information not available 07/09/2021 Sex: Unknown Functional Status Question Answer Note LastModified by Organization D etails LastModified Time Do you or have you ever used any other forms of tobacco or nicotine? No [email or web address] Information not available 07/09/2021 What is your level of alcohol consumption? None [email or web address] Information not available 07/09/2021 Mental Status None recorded. Family History Nothing Reported Notes:n/c Medical History No medical history recorded. Immunizations Vaccine Type Date Status Note Provider Nam e and Address Organization Details Recorded Time COVID-19, mRNA, LNP-S, PF, 30 mcg/0.3 mL dose 12/18/2020 completed DENILSON ARIAS PA-C [address] [facility], [facility] [address], [place], [address], [employer] [facility] 08/17/2021 13:09:09 COVID-19, mRNA, LNP-S, PF, 30 mcg/0.3 mL dose 01/15/2021 completed DENILSON ARIAS PA-C [address] [facility], [address], [place], [address], [facility] 08/17/2021 13:09:16 Past Encounters Encounter ID Performer Location Encounter Start Date Encounter Closed Date Diagnosis/Indication Diagnosis SNOMED-CT Code Diagnosis ICD10 Code Diagnosis Note [id number] BRIDGER Moore [facility] on [address] [place] [address] 07/09/2021 10:38:05 07/16/2021 13:30:34 Diabetic ketoacidosis 507615984 E13.10 see hpiresolve dlantus 40 units sq qdhumalog sliding scalemonit or accuchecks and adjust insulin prn Type 2 jimmie betes mellitus without complication 460388834 E11.9 meds as abovemonit or and adjust insulin 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 847175206 F19.10 pt has already been found to [...] 20 mg qd Human immunodeficiency virus infection 48003241 B20 triumeq 1 qdf/u with pcp on discharge Acute nont raumatic kidney injury 3925370716 10121 N17.9 resolved with IV fluidsavoi d nephrotoxi c meds as ablemonito r renal function weekly Compartment syndrome 111 440851 T79.A11D see hpimonitor right arm fasciotomy site, dressing as ordered Acute resp iratory infections 272366524 J22 finish augmentin 875/125 mg 1 bid till 07/11monito r resp status [id number] BRIDGER Moore [facility] on [address] [place] [address] 07/12/2021 14:08:42 07/16/2021 13:31:43 Type 2 diabetes mellitus without complication 705471343 E11.9 add lantus 10 units sq qhscontinu e lantus 40 units sq q ammonitor and adjust insulin [id number] Rebeca Marcano MD [facility] on [address] [place] [address] 07/14/2021 06:00:10 07/16/2021 13:46:34 Compartment syndrome 772821354 T79.A11D s/p right arm abscess; s/p fasciotomy for compartmen t syndromeAP AP 650 mg q6h prngabapen tin 300 mg bidwill monitorPT/ OTfu surgery, I.D. 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 also told staff that he won't increase his methadone more than likely due to the fact that he is still using and increasing the dose could be fatal.kimberly ch closelyon methadone 20 mg qd Human immunodeficiency virus infection 42682842 B20 triumeq 1 qdf/u with pcp on discharge Acute nont raumatic kidney injury 4843774699 60905 N17.9 labs ordered for tomorrow cbc. cmp and a1c on 07/27resolv ed with IV fluidsavoi d nephrotoxi c meds as ablemonito r renal function weekly Compartment syndrome 111 302818 T79.A11D monitor right arm fasciotomy site, dressing as ordered Acute resp iratory infections 929929711 J22 finished augmentin 875/125 mg 1 bid on 07/11monito r resp status [id number] Lorin Nj [facility] on [address] [place] [phone] 08/04/2021 12:59:01 08/06/2021 13:59:36 Type 2 diabetes mellitus without complication 743891795 E11.9 Blood sugars improved however remain >200 oftenLantu s 40 units QAM, 15 units QHShumalog sliding scale-incr ease sliding scale coveragemo nitor and adjust insulin 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 680357617 F19.10 on methadone 20 mg qd Human immunodeficiency virus infection 91478702 B20 triumeq 1 qdf/u with pcp on discharge Acute nont raumatic kidney injury 7901298017 39265 N17.9 resolved with IV fluidsavoi d nephrotoxi c meds as ablemonito r renal function weekly Compartment syndrome 111 773494 T79.A11D monitor right arm fasciotomy site, dressing as ordered [id number] Jennifer Babcock [facility] on [address] [place] [phone] 08/09/2021 11:19:37 08/11/2021 11:54:34 Type 2 diabetes mellitus without complication 363244487 E11.9 will change sliding scale to start at 200continu e Lantus 40 units QAM, 15 units QHShumalog sliding scalemonit or and adjust insulin 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 536900344 F19.10 continue methadone 20 mg qdf/u with clinic Human immunodeficiency virus infection 37781049 B20 triumeq 1 qdf/u with pcp on discharge Acute nont raumatic kidney injury 5693239672 55297 N17.9 resolved with IV fluidsavoi d nephrotoxi c meds as ablemonito r renal function weekly Compartment syndrome 111 038227 T79.A11D monitor right arm fasciotomy site, dressing as orderedmon itor site [id number] Jennifer Sadiq, AMMONIA REFRIGERATION TECHNICIAN [facility] on [address] [place] [phone] 08/10/2021 14:28:18 08/12/2021 12:08:30 Type 2 diabetes mellitus without complication 934132846 E11.9 will change sliding scale to start at 200 for breakfast only, will use sliding scale to start at 150 for lunch and dinnercont inue Lantus 40 units QAM, 15 units QHShumalog sliding scalemonit or and adjust insulin based on BSf/u later this week to reassess [id number] DENILSON ARIAS PA-C [facility] on [address] [place] [phone] 08/17/2021 13:06:51 08/18/2021 14:24:56 Infection of tooth 087502703 K04.7 Amox 1 g po x 1 then 500 mg po tiid x 3 daysProbio tic bid x 6 daysDental consultCon tinue prn OrjelMonit or and f/u prn Uncontroll ed type 1 diabetes mellitus 001377656 E10.65 Hx DKAadd hs fingerstic k but do not cover with correction al Humalogtra nscription error in correction al insulin resolved-s hould be 9 ux for 351-400d/c order to repeat sugar in 90 minutes if >400On ARB for renal protection Monitor sugars and adjust meds prn [id number] DENILSON ARIAS PA-C [facility] on [address] [place] [phone] 08/23/2021 14:16:07 08/25/2021 10:02:21 Infection of tooth 990755982 K04.7 Improved with AmoxDental f/u tomorrow as scheduledf /u prn Uncontroll ed type 1 diabetes mellitus 728027519 E10.65 Consider fingerstic k blood sugar at [...] or hs-adjust correction al insulin back to for lunch and dinnerRefe r [facility] ([facility]) for considerat ion of insulin pumpOn ARB for renal protection Monitor sugars and adjust meds prn Health Concerns Section Related Observation LastModified by Organization Detai ls LastModified Time None Recorded Concern Status LastModified by Organization Details LastModified Time None Recorded Advance Directives Directive N: Payers Insurance Date Sequence Insurance Name Policy Number Policy Gonzales Covered Member ID Gonzales Member ID Guarantor Name 08/23/2021 1 [place]: [facility] Kelechi Rodriguez [id number] Kelechi Rodriguez Notes Date Note Type Note Provider Name and Address Organization Details Recorded Time 08/04/2021 text/html 46 yo male seen for 30 day routine rounding visit. Patient with hx IV drug use, DM, recent right arm abscess, compartment syndrome, s/p fasciotomy. Patient admitted to this facility following hospitalization for fever and increased pain and swelling at fasciotomy site. Patient had been at [facility] for abscess of right arm in May [...] with good response. Lorin jimenez [place] - [facility] 08/04/2021 13:45:52 08/09/2021 text/html pt seen today fo r acute rounding visit. Patient with hx IV drug use, DM, recent right arm abscess, compartment syndrome, s/p fasciotomy. Patient admitted to this facility following hospitalization for fever and increased pain and swelling at fasciotomy site. Patient had been at [facility] for abscess of right arm in May [...] no concerns per nursing. BRIDGER Moore [address] [facility], [place], [address], [facility] 08/09/2021 11:25:33 08/10/2021 text/html pt seen today fo r acute rounding visit. Patient with hx IV drug use, DM, recent right arm abscess, compartment syndrome, s/p fasciotomy. Patient admitted to this facility following hospitalization for fever and increased pain and swelling at fasciotomy site. Patient had been at [facility] for abscess of right arm in May [...] titration at this point. BRIDGER Moore [address] [facility], [place], [address], [facility] 08/10/2021 14:35:09 08/17/2021 text/html Pt seen for [...] prnHouse bowel protocolNarcan prn DENILSON ARIAS PA-C [address] [place] [address], [address], [place], [address], [facility] [employer] 08/17/2021 20:45:43 08/23/2021 text/html Pt seen today [...] ux qhs added; 40 ux q am backyudpz16/13/21: HS Lantus increased to 15 ux; 40 ux am fqxfdgwqo16/22/21: Sliding scale tbwnpuqc25/27/21: Order given to start coverage at 201 rather than 9655608/10/21: Order given for 2 ux coverage if sugar 150-200 at lunch and dinner only and to continue starting coverage at 201 for meioalkpe41/29/21: Scale adjusted to 11/15///07/24 ux from 12/17///08/24 ux; Morning Lantus decreased from 40 to 30 ux and hs dose increased 15 to 20 ux No polyuria/poydipsia. DENILSON ARIAS PA-C [address] [facility], [address], [place], [address], [facility] 08/23/2021 14:48:00
== END 2025-05-27 10:43 | disposition home or self-care (01) ==
LOC: HO.HOSX 10:42
PROVIDERS: Visit Provider Physician Assistant
DX: Z13.89 Encounter for screening for other disorder (principal)

== ENCOUNTER 2025-06-10 11:57 | Emergency (ER) | payer MEDICAID, SELFPAY ==
[2025-06-10 12:06] VITALS: BP 120/74; PULSE 105; RESP 18; O2SAT 99
[2025-06-10 12:07] VITALS: BP 120/74; BP 151/83; PULSE 106; PULSE 110; RESP 18; O2SAT 95; O2SAT 99; BMI 23.0
[2025-06-10 12:08] LABS: Glucose, Whole Blood 409 mg/dL (60-115)
--- NOTE | 2025-06-10 12:23 | ED_ITS ---
HPI - Overdose General Chief Complaint: Overdose Stated Complaint: OD-NARCAN Time Seen by Provider: 06/10/25 12:13 Source: patient, EMS, RN notes reviewed and old records reviewed Mode of arrival: EMS Limitations: no limitations History of Present Illness ED Provider: Jorge Sharp PA-C HPI Narrative: 50-year-old male with a history of DM on insulin, opiate use disorder on methadone, active IV drug use, hepatitis-C, HIV on HAART (CD4 660 and undetectable viral load in December) who presents to the ER via EMS for evaluation of a drug overdose. Patient was found unresponsive in a [facility] bathroom after using intravenous drugs. He received 1 mg of IV Narcan with improvement in his respiratory status and mental status. IV fluids started by EMS, his point of care was reading ?high.? On arrival to the ER patient is awake and alert, oriented and calm. He states he just got out of detox and was supposed to get dose with 70 mg of methadone today. When he went to the methadone clinic he did not have a last dose letter, it was mostly get faxed to the clinic and he did not get his dose. He states he used 2 bags of heroin because he was starting to withdraw. He was feeling na useous. He states his sugars were in the 370s this morning, he took a lower dose of his usual Lantus last night. He denies any associated abdominal pain, vomiting or diarrhea. No fever or chills. No suicidal ideation or attempt. MD complaint: accidental overdose Context: Accidental Overdose: wanted to get high Treatments Prior to Arrival: narcan and IV fluids Related Data Home Medications ?Medication ?Instructions ?Recorded ?Confirmed abacavir 600 mg-dolutegravir 50 1 tab PO DAILY 5 02/09/25 mg-lamivudine 300 mg tablet (Triumeq) acetaminophen 500 mg tablet 500 mg PO Q6H PRN mild julieta n 02/09/25 02/09/25 albuterol sulfate 90 mcg/actuation 2 puff inhalation Q 6H PRN wheezing 02/09/25 02/09/25 aerosol inhaler (Ventolin HFA) clonidine HCl 0.1 mg tablet 0.1 mg PO BID 02/09/25 ferrous gluconate 324 mg (38 mg 324 mg PO QAM 02/09/25 02/09/25 iron) tablet fluticasone propionate 50 1 spray intranasal DAILY 02/09/25 mcg/actuation nasal spray,suspension gabapentin 300 mg capsule 300 mg PO TID 02/09/2502/09 hydroxyzine pamoate 25 mg capsule 25 mg PO Q12H PRN it ch 02/09/25 02/09/25 insulin glargine 100 unit/mL (3 30 unit subcut QAM 02/09/25 mL) subcutaneous pen (Lantus Solostar U-100 Insulin) insulin lispro 100 unit/mL 4 - 20 sliding scale dose s ubcut 02/09/25 02/09/25 subcutaneous pen (Humalog KwikPen QIDACHS (U-100) Insulin) methadone 10 mg/mL oral concentrate 50 mg PO DAILY 02/10/25 omeprazole 20 mg capsule,delayed 20 mg PO BID 02/09/25 02/09/25 release quetiapine 100 mg tablet 100 mg PO BEDTIME 02/09/25 0 02/09/25 Previous Rx's ?Medication ?Instructions ?Recorded cefuroxime axetil 500 mg tablet 500 mg PO Q12H #14 tab s 02/15/25 doxycycline hyclate 100 mg tablet 100 mg PO BID #14 ta bs 02/15/25 fluconazole 100 mg tablet 100 mg PO DAILY #7 tabs 04/06 Allergies Allergy/AdvReac Type Severity Reaction Status Date / Time fish Allergy Unknown Anaphylaxis Uncoded 06/10/25 12:09 shellfish Allergy Unknown Anaphylaxis Uncoded 06/10/25 12:09 Review of Systems Review of Systems: Yes all other systems are reviewed and are negative [facility] Past Medical History Medical History Protein calorie malnutrition Opioid use disorder Hep C w/o coma, chronic HIV (human immunodeficiency virus infection) HIV (human immunodeficiency virus infection) Compartment syndrome Active substance abuse Substance abuse Diabetes Diabetes Surgical History History of fasciotomy H/O fasciotomy Social History Social History Household Members: None Household Members Other:: self Housing: Apartment Do you presently have visiting nurse or other home services: No Unable to assess alcohol history related to: Unknown Alcohol intake: current Alcohol intake frequency: a few times a week Comment: bed/chair fast due to HFNC use Patient Tobacco Use Status: Never used Tobacco Tobacco use type: Cigarette Cigarette Packs Per Day: 1 Cigarettes Per Day: 10 Years Smoked: 20 Smoked in Last 30 Days: Yes e-Cigarette/Vaping Use: Never Used Second Hand Smoke Exposure: No Use of substances other than those prescribed or required for medical reasons: Yes Substance Use Type: Heroin Last Used Substance: Just Prior to Admission Advance Directives: Yes Advance Directives on File: Yes Advance Directives Date on File: 07/09/21 Do you have a plan to hurt others: No Plan service: No Current occupational status: unemployed Physical Exam Exam: Exam: Appearance: Alert. Oriented X3. No acute distress. Head: normocephalic, atraumatic. Eyes: Pupils equal, round and reactive to light. ENT: Pharynx normal. No tonsillar swelling or exudate. Dry mucous membranes Neck: Normal inspection. Neck supple. CVS: Normal heart rate and rhythm. Pulses normal. Respiratory: No respiratory distress. Breath sounds normal. Abdomen: Soft and nontender. +BS x4 Skin: Skin warm and dry. Normal skin color. Normal skin turgor. No rashes. Extremities: No lower extremity edema. No joint swelling. Right upper extremity with well-healed surgical scars of the upper arm and lower arm. Injection site in the distal right lower arm without any associated cellulitis. Neuro/psych: Oriented X 3. No motor deficit. No sensory deficit. CN II-XII intact. Normal speech and cognition. Vital Signs: Vital Signs: Last Vital Signs Pulse 106 H 06/10/25 12:07 Resp 18 06/10/25 12:07 BP 120/74 06/10/25 12:07 Pulse Ox 99 06/10/25 12:07 O2 Del Method Room Air 06/10/25 12:07 BMI result Body Mass Index 23.0 Medications Administered Generic Name Dose Route Start Last Admin Trade Name Freq PRN Reason Stop Dose Admin Sodium Chloride 1,000 mls @ 999 mls/hr 06/10/25 15:15 06/10/25 15:41 Ns IVCONT 06/10/25 16:15 999 mls/hr .Q1H1M NIA Administration Discontinued Medications Generic Name Dose Route Start Last Admin Trade Name Marifer PRN Reason Stop Dose Admin Lactated Ringer's 1,000 mls @ 999 mls/hr 06/10/25 12:15 06/10/25 13:30 Lr IV 06/10/25 13:15 Infused .Q1H1M NIA Infusion Insulin Glargine 20 unit 06/10/25 12:45 06/10/25 13:08 Insulin Glargine,Hum.Rec.Anlog 100 Unit/Ml 10 Ml Vial SUBCUT 06/10/25 12:46 20 unit ONCE ONE Administration Insulin Human Lispro 10 unit 06/10/25 12:45 06/10/25 13:09 Insulin Lispro 100 Unit/Ml 3 Ml Vial SUBCUT 06/10/25 12:46 10 unit ONCE ONE Administration Naloxone HCl 8 mg 06/10/25 13:04 06/10/25 13:09 Naloxone Hcl Nasal Take Home 4 Mg [place] NOSTRILALT 06/10/25 13:05 8 mg ONCE ONE Administration Medical Decision Making Medical Decision Making [facility] Narrative: 50-year-old male with a history of substance use disorder on methadone, ongoing active IV drug use, HIV, hepatitis-C, anemia, diabetes on insulin who presents to the ER for evaluation after he was found unresponsive in a [facility] bathroom. He required IV Narcan and was found to be hyperglycemic. He is not tachypneic and appears well on arrival. Low suspicion for acidotic state. His glucose is in the 400s. Labs are pending. IV fluids ordered. 13:20 - patient refusing labs. He is amenable to IV fluids and insulin. Asking for food. Clinically he appears well which is not consistent with DKA. He remains awake, alert, oriented. He does not want to stay. We discussed the importance of observation after administration of Narcan and he expressed understanding. 16:00 - patient ended up falling back asleep, hours back awake and wanting to be discharged. His glucose has improved to 200. Again declining labs. He is declining need for detox, recovery. Will discharge with Narcan. He has plenty of insulin at home. Comfortable discharge Differential Diagnosis Differential Diagnoses: The differential diagnosis associated with the presentation includes Opiate overdose, symptomatic hyperglycemia, DKA Admission/Observation Consideration of admission/observation: Escalation of care including admission/observation considered Lab Data MDM Lab Attestation statement: I reviewed the patient's lab results. Labs: Lab Results 06/10/25 Range/Units 12:05 POC Glucose 409 H* (60-115) mg/dL Independent Historian Clinical information obtained from an independent historian. History obtained from or confirmed by: EMS External Record Review External record reviewed: Inpatient record, Outpatient record and Prior outpatient labs Prescription Management I considered prescription management with: Other (Insulin) Chronic Conditions Patient?s care impacted by: Diabetes and Other (Substance use disorder) Social Determinants Patient?s care significantly limited by Social Determinants of Health including: Problems related to primary support group and Other Social Determinant of Health Discharge Plan Discharge Clinical Impression: Hyperglycemia due to diabetes mellitus Drug overdose Qualifiers: Encounter type: initial encounter Injury intent: accidental or unintentional Qualified Code(s): T50.901A - Poisoning by unspecified drugs, medicaments and biological substances, accidental (unintentional), initial encounter Patient Disposition: Home, Self-Care Instructions: Diabetic Hyperglycemia (ED), Adult Overdose (ED) Additional Instructions: Overdose You were seen in our Emergency Department for an overdose today. You received narcan in order to reverse the effects of overdose. Narcan only lasts about 45 min to 1 hour in the system. You may have been given narcan to take home with you today, please keep it near you if you are going to use again, so others can use it if needed.? The number one risk for fatal overdose is using alone? [employer] is a / hotline where you can be on the phone with someone while you use, and they can call for help if they suspect an overdose: [phone] Things to look out for when you leave include severe vomiting or diarrhea, headaches, muscle cramps, fever, coughing, chest pain, or if you feel so short of breath you cannot walk to the bathroom. Please seek care and return any time for worsening symptoms.? You may have been provided with safer injection?items, please take time to take care of YOU and your health. Use new supplies whenever possible to lessen the chances of infections and other illnesses.? If you need more supplies, please go [facility],? [address] [place], [place] you can call or text to coordinate delivery of safer supplies. If you decide you want to stop or cut down on how much you?re using, please call the numbers on the list provided to you or you can come to our outpatient Addiction Treatment office [facility] (M-F 9am-5p) [address], [address] [place], [place]. [phone] Prescriptions: No Action clonidine HCl 0.1 mg tablet 0.1 mg PO BID quetiapine 100 mg tablet 100 mg PO BEDTIME acetaminophen 500 mg tablet 500 mg PO Q6H PRN (Reason: mild pain) gabapentin 300 mg capsule 300 mg PO TID omeprazole 20 mg capsule,delayed release(DR/EC) 20 mg PO BID albuterol sulfate [Ventolin HFA] 90 mcg/actuation HFA aerosol inhaler 2 puff inhalation Q6H PRN (Reason: wheezing) fluticasone propionate 50 mcg/actuation spray,suspension 1 spray intranasal DAILY hydroxyzine pamoate 25 mg capsule 25 mg PO Q12H PRN (Reason: itch) ferrous gluconate 324 mg (38 mg iron) tablet 324 mg PO QAM Triumeq 600-50-300 mg tablet 1 tab PO DAILY insulin lispro [Humalog KwikPen Insulin] 100 unit/mL insulin pen 4 - 20 sliding scale dose SUBCUT QIDACHS Rx Instructions: Blood Sugar: <150 - 0 units 151-200 - 2 units 201-250 - 4 units 251-300 - 6 units 301-350 - 8 units >350 - 10 units insulin glargine [Lantus Solostar U-100 Insulin] 100 unit/mL (3 mL) insulin pen 30 unit SUBCUT QAM methadone 10 mg/mL Concentrate 50 mg PO DAILY doxycycline hyclate 100 mg tablet 100 mg PO BID Qty: 14 0RF fluconazole 100 mg Tablet 100 mg PO DAILY Qty: 7 0RF cefuroxime axetil 500 mg Tablet 500 mg PO Q12H Qty: 14 0RF Print Language: Nigerien
[2025-06-10] MEDS: Lactated Ringers 1,000 ML 999 ML IV (12:27)
--- NOTE | 2025-06-10 12:39 | MHC.EDTECH ---
pt refusing blood work & care, RN and PA aware, security at bedside for safety search
[2025-06-10] MEDS: Insulin Glargine,Hum.rec.anlog 100 UNIT/ML 10 ML VIAL 20 UNIT SUBCUT (13:08)
[2025-06-10] MEDS: Naloxone HCl Nasal TAKE HOME 4 MG SPRAY 8 MG NOSTRILALT (13:09)
--- OUTSIDE RECORDS SUMMARY | 2025-06-10 13:52 | XMS_ITS | Data Portability ---
Author Organization [facility], Main Office Address [address] [place] [address] Care Team Providers Care System Programmer Name Role Phone [facility] ([facility]) OTHER Assessment Encounter Date Assessment Date Assessment LastModified by Organization Details LastModified Time 08/04/2021 08/04/202107/27 bun 15, creat 1.0, na 139, k 4.7, wbc 6.37, hgb 9.8, hct 29.9 [email or web address] Not available 08/04/2021 13:44:49 08/09/2021 08/09/202107/27 bun 15, creat 1.0, na 139, k 4.7, wbc 6.37, hgb 9.8, hct 29.9 [email or web address] Not available 08/09/2021 11:23:56 08/10/2021 08/10/202107/27 bun [...] By Organization Details Last Modified Time 08/17/2021 [id number] Immunizations reconciled [email or web address] Not available 08/17/2021 20:44:21 08/23/2021 [id number] Total time spent with pt 45 minutes, >50% in uqon-ie-gzii counseling and coordination of care [email or web address] Not available 08/23/2021 14:43:12 Reason for Referral None Reported. 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 915007124 Active 2020 BRIDGER Moore [address] , [address], [place], [address], [facility] 10:49:37 Human immunodef iciency virus infection 33280728 Active 2020 BRIDGER Moore [address] [facility], [address], [place], [address], [facility] 10:49:45 Diabetic ketoacido sis 805559288 Active 2020 BRIDGER Moore [address] [facility], [address], [place], [address], [facility] 10:49:51 Acute nontrauma tic kidney injury 979232668796 103 Active 2020 BRIDGER Moore [address] [facility], [address], [place], [address], [facility] 10:50:00 Fasciotom y upper arm Completed 202007/09/2021 BRIDGER Moore [address] [facility], [address], [place], [address], [facility] 11:22:08 Type 2 diabetes mellitus without complicat ion 003879115 Active 2020 BRIDGER Moore [address] [facility], [address], [place], [address], [facility] 11:06:26 Compartme nt syndrome 991841559 Active 2020 BRIDGER Moore [address] [facility] [facility], [address], [place], [address], [facility] 11:22:17 Acute respirato ry infection s 179183236 Active 2020 BRIDGER Moore [address] [facility] [facility], [address], [place], [address], [facility] 11:30:23 Problem Notes None recorded. Medical Equipment None Reported. Allergies Allergen ID Allergen Name Allergen Category Reaction Reaction Severity Criticality Documentation Date Start Date Code Code System Note Provider Name and Address Organization Details Recorded Time 30903 shellfish derived food,medi cation Not available Not available Not available 07/09/2021 14107 UNK BRIDGER Moore [address] [facility], [address], [place], [address], [facility] 11:04:43 Medications Not known to be on any medication Vitals Date Recorded Systolic And Diastolic Provider Name and Address Organization Details Last Updated DateTime 08/04/2021 118/70 mm[Hg] Lorin Mariscales [place] [facility] [employer] 08/04/2021 13:22:57 Date Recorded Heart rate Respiratory rate Body temperature Oxygen saturation Oxygen saturation in Arterial blood by Pulse oximetry Systolic And Diastolic Provider Name and Address Organization Details Last Updated DateTime 1 68 /min 18 /min 97.5 [degF] 95 % 95 % 118/70 mm[Hg] BRIDGER Moore [address] [facility], [address], [place], [address], [facility] 11:20:36 Date Recorded Heart rate Respiratory rate Body temperature Oxygen saturation Oxygen saturation in Arterial blood by Pulse oximetry Provider Name and Address Organization Details Last Updated DateTime 70 /min 18 /min 97.2 [degF] 100 % 100 % BRIDGER Moore [address] [facility], [address], [place], [address], [facility] 14:31:28 Date Recorded Respiratory rate Body temperature Heart rate Oxygen saturation Oxygen saturation in Arterial blood by Pulse oximetry Body height Systolic And Diastolic Provider Name and Address Organization Details Last Updated DateTime 1 18 /min 97.2 [degF] 68 /min 97 % 97 % 177.8 cm 118/70 mm[Hg] DENILSON ARIAS PA-C [address] [facility], [address], [place], [address], [facility] 13:07:41 Date Recorded Body height Heart rate Respiratory rate Body temperature Oxygen saturation Oxygen saturation in Arterial blood by Pulse oximetry Systolic And Diastolic Provider Name and Address Organization Details Last Updated DateTime 1 177.8 cm 68 /min 18 /min 97.3 [degF] 95 % 95 % 118/70 mm[Hg] DENILSON ARIAS PA-C [address] [facility], [facility] [address], [place], [address], [employer] [employer] [facility] 14:17:18 Social History Question Answer Notes LastModified by Organizat ion Details LastModified Time Tobacco Smoking Status Current Every Day Smoker Jennifer Babcock, TOBACCO DIPPER [address] [facility] [address], [place], [address], [facility] [employer] 07/09/2021 10:47:36 Do You Have An Advance Directive? No Information not available 07/09/2021 Legal Guardian? No [email or web address] Information not available 07/09/2021 How Much Tobacco Do You Smoke? 0.25 PPD Information not available 07/09/2021 Has Tobacco Cessation Counseling Been Provided? Yes Pt Refuses Cessation, Says He Wants To Continue To Smoke [email or web address] Information not available 07/09/2021 On What Date Was Tobacco Cessation Counseling Provided? 07/09/2021 [email or web address] Information not available 07/09/2021 Sex: Unknown Functional Status Question Answer Note LastModified by Organization D etails LastModified Time Do you or have you ever used any other forms of tobacco or nicotine? No [email or web address] Information not available 07/09/2021 What is your level of alcohol consumption? None [email or web address] Information not available 07/09/2021 Mental Status None recorded. Family History Nothing Reported Notes:n/c Medical History No medical history recorded. Immunizations Vaccine Type Date Status Note Provider Nam e and Address Organization Details Recorded Time COVID-19, mRNA, LNP-S, PF, 30 mcg/0.3 mL dose 12/18/2020 completed DENILSON ARIAS PA-C [address] [facility], [facility] [address], [place], [address], [employer] [employer] [facility] 08/17/2021 13:09:09 COVID-19, mRNA, LNP-S, PF, 30 mcg/0.3 mL dose 01/15/2021 completed DENILSON ARIAS PA-C [address] [facility], [address], [place], [address], [facility] 08/17/2021 13:09:16 Past Encounters Encounter ID Performer Location Encounter Start Date Encounter Closed Date Diagnosis/Indication Diagnosis SNOMED-CT Code Diagnosis ICD10 Code Diagnosis Note [id number] BRIDGER Moore [facility] on [address] [place] [address] 07/09/2021 10:38:05 07/16/2021 13:30:34 Diabetic ketoacidosis 806838779 E13.10 see hpiresolve dlantus 40 units sq qdhumalog sliding scalemonit or accuchecks and adjust insulin prn Type 2 jimmie betes mellitus without complication 434916381 E11.9 meds as abovemonit or and adjust insulin 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 271566447 F19.10 pt has already been found to [...] 20 mg qd Human immunodeficiency virus infection 04021471 B20 triumeq 1 qdf/u with pcp on discharge Acute nont raumatic kidney injury 2065624302 96907 N17.9 resolved with IV fluidsavoi d nephrotoxi c meds as ablemonito r renal function weekly Compartment syndrome 111 315242 T79.A11D see hpimonitor right arm fasciotomy site, dressing as ordered Acute resp iratory infections 498094281 J22 finish augmentin 875/125 mg 1 bid till 07/11monito r resp status [id number] BRIDGER Moore [facility] on [address] [place] [address] 07/12/2021 14:08:42 07/16/2021 13:31:43 Type 2 diabetes mellitus without complication 798131490 E11.9 add lantus 10 units sq qhscontinu e lantus 40 units sq q ammonitor and adjust insulin [id number] Rebeca Marcano MD [facility] on [address] [place] [address] 07/14/2021 06:00:10 07/16/2021 13:46:34 Compartment syndrome 609348385 T79.A11D s/p right arm abscess; s/p fasciotomy for compartmen t syndromeAP AP 650 mg q6h prngabapen tin 300 mg bidwill monitorPT/ OTfu surgery, I.D. Human immunodeficiency virus infection 34443781 B20 Triumeq 600-50-300 : one tablet dailyfu I.D.Carlo fenton has been seen at [facility] in past and requests fu appointnevaeh fenton to be madewill monitor 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 635127493 F19.10 methadone 20 mg dailyfu methadone clinic Mixed anxi ety and depressive disorder 025208689 F41.8 quetiapine 50 mg at hsgabapent in 300 mg bidwill monitor Chronic hepatitis C 1283 65642 B18.2 fu I.D. 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 2535407470 51758 E11.65 Lantus 40U daily in morning and 10U in eveningHum alog per sliding scalewill monitor [id number] BRIDGER Moore [facility] on [address] [place] [address] 07/26/2021 10:56:31 07/28/2021 11:36:26 Type 2 diabetes mellitus without complication 847339813 E11.9 increase HS lantus to 15 units, continue am lantus 40 unitshumal og sliding scalemonit or and adjust insulin 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 556635876 F19.10 pt was found to have 2 [...] 20 mg qd Human immunodeficiency virus infection 55695792 B20 triumeq 1 qdf/u with pcp on discharge Acute nont raumatic kidney injury 4837807864 87749 N17.9 labs ordered for tomorrow cbc. cmp and a1c on 07/27resolv ed with IV fluidsavoi d nephrotoxi c meds as ablemonito r renal function weekly Compartment syndrome 111 685524 T79.A11D monitor right arm fasciotomy site, dressing as ordered Acute resp iratory infections 028613997 J22 finished augmentin 875/125 mg 1 bid on 07/11monito r resp status [id number] Lorin Nj [facility] on [address] [place] [phone] 08/04/2021 12:59:01 08/06/2021 13:59:36 Type 2 diabetes mellitus without complication 150961942 E11.9 Blood sugars improved however remain >200 oftenLantu s 40 units QAM, 15 units QHShumalog sliding scale-incr ease sliding scale coveragemo nitor and adjust insulin 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 741202318 F19.10 on methadone 20 mg qd Human immunodeficiency virus infection 44530294 B20 triumeq 1 qdf/u with pcp on discharge Acute nont raumatic kidney injury 8666989100 30940 N17.9 resolved with IV fluidsavoi d nephrotoxi c meds as ablemonito r renal function weekly Compartment syndrome 111 604300 T79.A11D monitor right arm fasciotomy site, dressing as ordered [id number] Jennifer Babcock [facility] on [address] [place] [id number] 08/09/2021 11:19:37 08/11/2021 11:54:34 Type 2 diabetes mellitus without complication 917425972 E11.9 will change sliding scale to start at 200continu e Lantus 40 units QAM, 15 units QHShumalog sliding scalemonit or and adjust insulin 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 005387714 F19.10 continue methadone 20 mg qdf/u with clinic Human immunodeficiency virus infection 84790739 B20 triumeq 1 qdf/u with pcp on discharge Acute nont raumatic kidney injury 1762156015 81169 N17.9 resolved with IV fluidsavoi d nephrotoxi c meds as ablemonito r renal function weekly Compartment syndrome 111 269954 T79.A11D monitor right arm fasciotomy site, dressing as orderedmon itor site [id number] Jennifer Sadiq, TOBACCO DIPPER [facility] on [address] [place] [phone] 08/10/2021 14:28:18 08/12/2021 12:08:30 Type 2 diabetes mellitus without complication 263145083 E11.9 will change sliding scale to start at 200 for breakfast only, will use sliding scale to start at 150 for lunch and dinnercont inue Lantus 40 units QAM, 15 units QHShumalog sliding scalemonit or and adjust insulin based on BSf/u later this week to reassess [id number] DENILSON ARIAS PA-C [facility] on [address] [place] [id number] 08/17/2021 13:06:51 08/18/2021 14:24:56 Infection of tooth 052700292 K04.7 Amox 1 g po x 1 then 500 mg po tiid x 3 daysProbio tic bid x 6 daysDental consultCon tinue prn OrjelMonit or and f/u prn Uncontroll ed type 1 diabetes mellitus 638723704 E10.65 Hx DKAadd hs fingerstic k but do not cover with correction al Humalogtra nscription error in correction al insulin resolved-s hould be 9 ux for 351-400d/c order to repeat sugar in 90 minutes if >400On ARB for renal protection Monitor sugars and adjust meds prn [id number] DENILSON ARIAS PA-C [facility] on [address] [place] [id number] 08/23/2021 14:16:07 08/25/2021 10:02:21 Infection of tooth 141805495 K04.7 Improved with AmoxDental f/u tomorrow as scheduledf /u prn Uncontroll ed type 1 diabetes mellitus 953398362 E10.65 Consider fingerstic k blood sugar at [...] for lunch and dinnerRefe r back to [facility] (has been [facility] before) for considerat ion of insulin pumpOn ARB for renal protection Monitor sugars and adjust meds prn Health Concerns Section Related Observation LastModified by Organization Cristopher lo LastModified Time None Recorded Concern Status LastModified by Organization Details LastModified Time None Recorded Advance Directives Directive N: Payers Insurance Date Sequence Insurance Name Policy Number Policy Gonzales Covered Member ID Gonzales Member ID Guarantor Name 08/23/2021 1 [place] [facility] Kelechi Rodriguez [id number] Kelechi Rodriguez
[2025-06-10 16:05] VITALS: BP 00/00; PULSE 0; RESP 0; TEMP -17.7; TEMP 0
--- NOTE | 2025-06-10 16:07 | PC.NURSE ---
Pt wishes to be d/c'd at this time as he needs to catch the bus for transportation. IVF stopped. Pt refuses VS at time of d/c Pt is A&Ox3 Steady gait noted. Skin is warm and dry Breaths and speech are slow, even, and unlabored.
== END 2025-06-10 16:10 | disposition home or self-care (01) ==
PROVIDERS: Emergency Provider Emergency Medicine; PCP General Practice
DX: T50.901A Poisoning by unspecified drugs, medicaments and biological substances, accidental (unintentional), initial encounter (principal); R40.4 Transient alteration of awareness; F19.10 Other psychoactive substance abuse, uncomplicated; Y92.511 Restaurant or cafe as the place of occurrence of the external cause; E11.65 Type 2 diabetes mellitus with hyperglycemia; F11.20 Opioid dependence, uncomplicated; Z79.899 Other long term (current) drug therapy; Z79.4 Long term (current) use of insulin
CPT/HCPCS: 82947; 96360; 99284; 99285; J7120

== ENCOUNTER 2025-07-11 10:01 | Outpatient (REF) | payer MEDICAID, SELFPAY | END 2025-07-11 10:02 | disposition home or self-care (01) | LOC: HO.HOSX 10:01 | PROVIDERS: Visit Provider Physician Assistant | DX: Z13.89 Encounter for screening for other disorder (principal) ==

== ENCOUNTER 2025-07-24 11:12 | Outpatient (AMB) | payer MEDICAID, SELFPAY ==
--- NOTE | 2025-07-24 11:13 | MHC.OFFVIS ---
Vital Signs 07/24/25 11:16 Height 5 ft 7 in Weight 141 lb 1.533 oz BMI 22.1 BP 82/46 L Blood Pressure Location Rt brachial Position Sitting Pulse 58 Pulse Source Pulse Oximeter Pulse Oximetry (%) 96 Oxygen Delivery Method Room Air Intake Visit Reasons: T1DM Intake Note: NEW Patient presents today to establish treatment for Type 1 Diabetes Mellitus: Last Diabetic eye exam was on: DUE, Patient needs a new referral Last Podiatry exam was on: Patient does not see a Paper Ruler Most recent HbA1c: 9.8%, 07/24/2025 Random Glucose: 285 mg/dL Polysomnography Technologist Required: No Accompanied by: Self / Same As Patient Allergies fish Allergy (Unknown, Uncoded 07/24/25 11:14) Anaphylaxis shellfish Allergy (Unknown, Uncoded 07/24/25 11:14) Anaphylaxis Medication List - Last Reconciled 07/24/25 by Irvin Perez MD [id number]-[id number]-vndnddw 600-50-300 mg (Triumeq) 1 tab PO DAILY acetaminophen 500 mg PO Q6H PRN albuterol sulfate 90 mcg/actuation (Ventolin HFA) 2 puffs inhalation Q6H PRN blood-glucose sensor (FreeStyle Kelly 3 Plus Sensor device) As directed for monitoring BG 6-10 x/day blood-glucose sensor (FreeStyle Kelly 3 Plus Sensor device) As directed to measure bg 6-10 times per day cefuroxime axetil 500 mg PO Q12H clonidine HCl 0.1 mg PO BID doxycycline hyclate 100 mg PO BID ferrous gluconate 324 mg PO QAM fluconazole 100 mg PO DAILY fluticasone propionate 50 mcg/actuation 1 spray intranasal DAILY gabapentin 300 mg PO TID glucagon 3 mg/actuation (Baqsimi) 3 mg intranasal ONCE hydroxyzine pamoate 25 mg PO Q12H PRN insulin glargine (Lantus Solostar U-100 Insulin) 30 units subcut QAM insulin lispro (Humalog KwikPen (U-100) Insulin) 4 - 20 sliding scale doses subcut QIDACHS methadone 50 mg PO DAILY omeprazole 20 mg PO BID quetiapine 100 mg PO BEDTIME HPI Comments Details: PMH of: diagnised with T1DM 2013, does not recall when, but he recalls being adnitted to the hospital with ketoacidosis and told that he had T1DM, he has initially placed on metformin, but has being on insulin for a while [id number]. Patient speech is slow and he looks older than his staged age During intake he is reported ti have low BG 80/60s on multiple readings, he said he took 2 clonidine tablets this am, and he has not eaten anything. current regiment 4 units with meals and 1 unit for every 50 points of glucose that is above 250, and Lantus 20 units at noon. He forgets to give himself insulin a lot and almost never misses it. He has multiple social issues and is frequently in facilities, admitted to hospitals or home. He also is dealing with drug use (cocaine/heroine) Admitted to [facility] 1 month ago for DKA WITH bg 1000. reports a lot of bg variability, given his irregular eating patter and also the sensor he uses. He is using kelly 2 and he is getting losts of alarms. He is interested in having insulin pump to help with his DM control. 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 Has not had an eye doctor visit for a while He reports decreased sensation in lower extremities, sometimes unaware of blisters and other lesions in the feet [facility] Medical History Protein calorie malnutrition Opioid use disorder Hep C w/o coma, chronic HIV (human immunodeficiency virus infection) HIV (human immunodeficiency virus infection) Compartment syndrome Active substance abuse Substance abuse Diabetes Diabetes Surgical History History of fasciotomy H/O fasciotomy Social History Household Members: None Household Members Other:: self Housing: Apartment Do you presently have visiting nurse or other home services: No Unable to assess alcohol history related to: Unknown Alcohol intake: current Alcohol intake frequency: a few times a week Comment: bed/chair fast due to HFNC use Patient Tobacco Use Status: Never used Tobacco Tobacco use type: Cigarette Cigarette Packs Per Day: 1 Cigarettes Per Day: 10 Years Smoked: 20 e-Cigarette/Vaping Use: Never Used Second Hand Smoke Exposure: No Substance Use Type: Heroin Advance Directives Date on File: 07/09/21 service: No Current occupational status: unemployed Physical Exam Exam Exam: General: Disheveled, no acute distress Neck: supple, no thyromegaly CV: RRR, no murmur Extremities: peripheral pulses 1+ Neuro: monofilament: absent sensation bilaterally Vital Signs: Last Vital Signs Pulse 58 07/24/25 11:16 BP 82/46 L 07/24/25 11:16 Pulse Ox 96 07/24/25 11:16 Oxygen Delivery Method Room Air 07/24/25 11:16 BMI result Body Mass Index 22.1 Results AMB Hemoglobin A1c AMB Hemoglobin A1c 9.8 % Last Edit by LAVON Narvaez on 07/24/25 11:36 Results Reviewed Results Reviewed: Laboratory Last Values Glucose (Clinic) 289 mg/dL (60-115) H 07/24/25 11:24 Hgb A1c (Clinic) 9.8 % (4.0-6.0) H 07/24/25 11:34 Assessment & Plan Assessment & Plan (1) Diabetes: Code(s): E11.9 - Type 2 diabetes mellitus without complications Category: Medical Qualifiers: Diabetes mellitus complication status: without complication Diabetes mellitus vice president of communications insulin use: with vice president of communications use Diabetes mellitus type: type 2 Qualified Code(s): E11.9 - Type 2 diabetes mellitus without complications; 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 Plan Assessment - Poorly controlled Type 1 Diabetes Mellitus - Diabetic neuropathy - Substance use disorder - Social instability/homelessness We had an extensive conversion about complications from diabetes and the influence of substance use on his general health and his DM control Recommendations - Referral to a cosmetology educator for insulin pump evaluation - Consideration for social work job titles support to address homelessness - Close monitoring of blood glucose levels, will provide Kelly 3 sensor - Foot care management, including antifungal treatment if necessary - Follow-up appointment to monitor diabetes management progress - Will order celiac disease, TSH microalbuminuria Orders: Orders AMB Hemoglobin A1c Today E10.9 - Type 1 diabetes mellitus without complications Referrals Diabetes Education Referral E11.9 - Type 2 diabetes mellitus without complications, 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 Podiatry Referral E11.9 - Type 2 diabetes mellitus without complications, 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 Ophthalmology Referral E11.9 - Type 2 diabetes mellitus without complications, 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 Medications: New blood-glucose sensor (FreeStyle Kelly 3 Plus Sensor device) As directed for monitoring BG 6-10 x/day 2 ea 1RF blood-glucose sensor (FreeStyle Kelly 3 Plus Sensor device) As directed to measure bg 6-10 times per day 2 ea 1RF E11.9 - Type 2 diabetes mellitus without complications, Z79.4 - [facility] (current) use of insulin glucagon 3 mg/actuation (Baqsimi) 3 mg intranasal ONCE 2 ea 1RF E11.9 - Type 2 diabetes mellitus without complications, 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
[2025-07-24 11:16] VITALS: BP 82/46; PULSE 58; O2SAT 96; BMI 22.1
[2025-07-24 11:28] LABS: Glucose, Whole Blood 289 mg/dL (60-115)
== END 2025-07-24 12:18 | disposition home or self-care (01) ==
LOC: HO.ENCR 11:12
PROVIDERS: Visit Provider Student in an Organized Health Care Education/Training Program
DX: E11.9 Type 2 diabetes mellitus without complications (principal); Z79.4 Long term (current) use of insulin; E10.9 Type 1 diabetes mellitus without complications
CPT/HCPCS: 99205

== ENCOUNTER → 2025-07-24 11:12 | Outpatient (BNVA) | payer MEDICAID, SELFPAY | PROVIDERS: Visit Provider Student in an Organized Health Care Education/Training Program | DX: E11.9 Type 2 diabetes mellitus without complications (principal); Z79.4 Long term (current) use of insulin | CPT/HCPCS: 82947; 83036; 99202 ==

== ENCOUNTER 2025-10-16 14:26 | Outpatient (REF) | payer MEDICAID, SELFPAY ==
[2025-10-16 16:22] LABS: Hematocrit 26.3 % (42.0-52.0); Hemoglobin 8.6 g/dl (14.0-18.0); Imm Gran Abs Auto 0.01 X10*3/uL (0.00-0.03); Imm Gran Pct Auto 0.2 % (0.0-0.4); Lymphocytes Absolute Auto 1.8 X10*3/uL (1.2-4.9); Mean Corpuscular HGB Conc 32.7 g/dl (31.0-36.0); Mean Corpuscular Hemoglobin 30.3 pg (27.0-33.0); Mean Corpuscular Volume 92.6 fL (80.0-98.0); NRBC Abs Auto 0.000 X10*3/uL (0.0-0.012); NRBC Pct Auto 0.0 /100WBC (0.0-0.2); Red Blood Count 2.84 X10*6/uL (4.60-5.80); White Blood Count 5.9 X10*3/uL (4.8-10.8)
[2025-10-16 16:35] LABS: Alanine Aminotransferase 16 U/L (0-40); Albumin Level 3.9 g/dL (3.5-5.0); Alkaline Phosphatase 125 U/L (39-117); Anion Gap 14 (12-20); Aspartate Amino Transferase 28 U/L (5-37); Blood Urea Nitrogen 29 mg/dL (9-16); Calcium 8.9 mg/dL (8.4-10.2); Carbon Dioxide 23 mmol/L (22-29); Chloride 100 mmol/L (96-108); Estimated Glomerular Filt Rate 56; Potassium 5.0 mmol/L (3.3-5.1); Sodium 132 mmol/L (135-145); Total Protein 7.4 g/dL (6.5-8.0)
[2025-10-16 17:10] LABS: MANUAL DIFF FLAG NO; Platelet Count 94 X10*3/uL (160-400)
--- OUTSIDE RECORDS SUMMARY | 2025-10-16 20:08 | XMS_ITS | Data Portability ---
Author Organization [facility], Main Office Address [address] [address] [facility] [facility] [address], [address] [place] [address] Care Team Providers Care Food Management Aide Name Role Phone [facility] ([facility] OTHER Assessment Encounter Date Assessment Date Assessment LastModified by Organization Details LastModified Time 08/04/2021 08/04/202107/27 bun 15, creat 1.0, na 139, k 4.7, wbc 6.37, hgb 9.8, hct 29.9 [email or web address] Not available 08/04/2021 13:44:49 08/09/2021 08/09/202107/27 bun 15, creat 1.0, na 139, k 4.7, wbc 6.37, hgb 9.8, hct 29.9 [email or web address] Not available 08/09/2021 11:23:56 08/10/2021 08/10/202107/27 bun [...] By Organization Details Last Modified Time 08/17/2021 [id number] Immunizations reconciled [email or web address] Not available 08/17/2021 20:44:21 08/23/2021 [id number] Total time spent with pt 45 minutes, >50% in [id number] counseling and coordination of care Not available 08/23/2021 14:43:12 Reason for Referral None Reported. 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 165261888 Active 2020 BRIDGER Moore [address] , [address], [place], [address], [facility] 10:49:37 Human immunodef iciency virus infection 62710028 Active 2020 BRIDGER Moore [address] [facility], [address], [place], [address], [facility] 10:49:45 Diabetic ketoacido sis 395830345 Active 2020 BRIDGER Moore [address] [facility], [address], [place], [address], [facility] 10:49:51 Acute nontrauma tic kidney injury 902754950418 103 Active 2020 BRIDGER Moore [address] [facility], [address], [place], [address], [facility] 10:50:00 Fasciotom y upper arm Completed 202007/09/2021 BRIDGER Moore [address] [facility], [address], [place], [address], [facility] 11:22:08 Type 2 diabetes mellitus without complicat ion 256881577 Active 2020 BRIDGER Moore [address] [facility], [address], [place], [address], [facility] 11:06:26 Compartme nt syndrome 574336369 Active 2020 BRIDGER Moore [address] [facility], [address], [place], [address], [facility] 11:22:17 Acute respirato ry infection s 986869134 Active 2020 BRIDGER Moore [address] [facility], [address], [place], [address], [facility] 11:30:23 Problem Notes None recorded. Medical Equipment None Reported. Allergies Allergen ID Allergen Name Allergen Category Reaction Reaction Severity Criticality Documentation Date Start Date Code Code System Note Provider Name and Address Organization Details Recorded Time 57647 shellfish derived food,medi cation Not available Not available Not available 07/09/2021 BRIDGER Moore [address] [facility], [address], [place], [address], [facility] 11:04:43 Medications Not known to be on any medication Vitals Date Recorded Systolic And Diastolic Provider Name and Address Organization Details Last Updated DateTime 08/04/2021 118/70 mm[Hg] Lorin Nj [facility] [employer] 08/04/2021 13:22:57 Date Recorded Heart rate Respiratory rate Body temperature Oxygen saturation Systolic And Diastolic Provider Name and Address Organization Details Last Updated DateTime 68 /min 18 /min 97.5 [degF] 95 % 118/70 mm[Hg] BRIDGER Moore [address] [facility], [address], [place], [address], [employer] 11:20:36 Date Recorded Heart rate Respiratory rate Body temperature Oxygen saturation Provider Name and Address Organization Details Last Updated DateTime 08/10/2021 70 /min 18 /min 97.2 [degF] 100 % BRIDGER Rowland [address] [facility], [address], [place], [address], [employer] 14:31:28 Date Recorded Respiratory rate Body temperature Heart rate Oxygen saturation Body height Systolic And Diastolic Provider Name and Address Organization Details Last Updated DateTime 1 18 /min 97.2 [degF] 68 /min 97 % 177.8 cm 118/70 mm[Hg] DENILSON ARIAS PA-C [address] [facility], [address], [place], [address], [employer] 13:07:41 Date Recorded Body height Heart rate Respiratory rate Body temperature Oxygen saturation Systolic And Diastolic Provider Name and Address Organization Details Last Updated DateTime 177.8 cm 68 /min 18 /min 97.3 [degF] 95 % 118/70 mm[Hg] DENILSON ARIAS PA-C [address] [facility], [address], [place], [address], [employer] 14:17:18 Social History Question Answer Notes LastModified by Organizat ion Details LastModified Time Tobacco Smoking Status Current Every Day Smoker Jenniferkevin Babcock, E COMMERCE DEVELOPER [address] [facility], [address], [place], [address], [employer] 07/09/2021 10:47:36 Do You Have An Advance Directive? No [email or web address] Information not available 07/09/2021 Legal Guardian? No [email or web address] Information not available 07/09/2021 How Much Tobacco Do You Smoke? 0.25 PPD [email or web address] Information not available 07/09/2021 Has Tobacco Cessation Counseling Been Provided? Yes Pt Refuses Cessation, Says He Wants To Continue To Smoke [email or web address] Information not available 07/09/2021 On What Date Was Tobacco Cessation Counseling Provided? 07/09/2021 [email or web address] Information not available 07/09/2021 Sex: Unknown Functional Status Question Answer Note LastModified by Organization D etails LastModified Time Do you or have you ever used any other forms of tobacco or nicotine? No [email or web address] Information not available 07/09/2021 What is your level of alcohol consumption? None [email or web address] Information not available 07/09/2021 Mental Status None recorded. Family History Nothing Reported Notes:n/c Medical History No medical history recorded. Immunizations Vaccine Type Date Status Note Provider Nam e and Address Organization Details Recorded Time COVID-19, mRNA, LNP-S, PF, 30 mcg/0.3 mL dose 12/18/2020 completed DENILSON ARIAS PA-C [address] [facility], [address], [place], [address], [employer] 08/17/2021 13:09:09 COVID-19, mRNA, LNP-S, PF, 30 mcg/0.3 mL dose 01/15/2021 completed DENILSON ARIAS PA-C [address] [facility], [address], [place], [address], [employer] 08/17/2021 13:09:16 Past Encounters Encounter ID Performer Location Encounter Start Date Encounter Closed Date Diagnosis/Indication Diagnosis SNOMED-CT Code Diagnosis ICD10 Code Diagnosis IMO Codes Diagnosis Note [id number] BRIDGER Moore [facility] on [address] [place] [address] 07/09/2021 10:38:05 07/16/2021 13:30:34 Diabetic ketoacidosis 732016357 E13.10 see hpiresolve dlantus 40 units sq qdhumalog sliding scalemonit or accuchecks and adjust insulin prn Type 2 jimmie betes mellitus without complication 056741740 E11.9 meds as abovemonit or and adjust insulin 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 496268148 F19.10 pt has already been found to [...] 20 mg qd Human immunodeficiency virus infection 28907195 B20 triumeq 1 qdf/u with pcp on discharge Acute nont raumatic kidney injury 3345370718 41707 N17.9 resolved with IV fluidsavoi d nephrotoxi c meds as ablemonito r renal function weekly Compartment syndrome 111 445218 T79.A11D see hpimonitor right arm fasciotomy site, dressing as ordered Acute resp iratory infections 594287691 J22 finish augmentin 875/125 mg 1 bid till 07/11monito r resp status [id number] BRIDGER Moore [facility] on [address] [place] [address] 07/12/2021 14:08:42 07/16/2021 13:31:43 Type 2 diabetes mellitus without complication 299678637 E11.9 add lantus 10 units sq qhscontinu e lantus 40 units sq q ammonitor and adjust insulin [id number] Rebeca Marcano MD [facility] on [address] [place] [address] 07/14/2021 06:00:10 07/16/2021 13:46:34 Compartment syndrome 156671076 T79.A11D s/p right arm abscess; s/p fasciotomy for compartmen t syndromeAP AP 650 mg q6h prngabapen tin 300 mg bidwill monitorPT/ OTfu surgery, I.D. Human immunodeficiency virus infection 17189957 B20 Triumeq 600-50-300 : one tablet dailyfu I.D.Carlo fenton has been seen at [facility] in past and requests fu appointmen t to be madewill monitor 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 144107715 F19.10 methadone 20 mg dailyfu methadone clinic Mixed anxi ety and depressive disorder 508771251 F41.8 quetiapine 50 mg at hsgabapent in 300 mg bidwill monitor Chronic hepatitis C 1283 30310 B18.2 fu I.D. 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 5299914019 25443 E11.65 Lantus 40U daily in morning and 10U in eveningHum alog per sliding scalewill monitor [id number] BRIDGER Moore [facility] on [address] [place] [address] 07/26/2021 10:56:31 07/28/2021 11:36:26 Type 2 diabetes mellitus without complication 771655001 E11.9 increase HS lantus to 15 units, continue am lantus 40 unitshumal og sliding scalemonit or and adjust insulin 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 584733545 F19.10 pt was found to have 2 [...] 20 mg qd Human immunodeficiency virus infection 53389269 B20 triumeq 1 qdf/u with pcp on discharge Acute nont raumatic kidney injury 3791735089 99742 N17.9 labs ordered for tomorrow cbc. cmp and a1c on 07/27resolv ed with IV fluidsavoi d nephrotoxi c meds as ablemonito r renal function weekly Compartment syndrome 111 962287 T79.A11D monitor right arm fasciotomy site, dressing as ordered Acute resp iratory infections 278834654 J22 finished augmentin 875/125 mg 1 bid on 07/11monito r resp status [id number] BRIDGER Ricardo [facility] [address] [place] [address] 08/04/2021 12:59:01 08/06/2021 13:59:36 Type 2 diabetes mellitus without complication 037614552 E11.9 Blood sugars improved however remain >200 oftenLantu s 40 units QAM, 15 units QHShumalog sliding scale-incr ease sliding scale coveragemo nitor and adjust insulin 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 675284506 F19.10 on methadone 20 mg qd Human immunodeficiency virus infection 77977324 B20 triumeq 1 qdf/u with pcp on discharge Acute nont raumatic kidney injury 1336325224 34015 N17.9 resolved with IV fluidsavoi d nephrotoxi c meds as ablemonito r renal function weekly Compartment syndrome 111 744253 T79.A11D monitor right arm fasciotomy site, dressing as ordered [id number] BRIDGER Moore [facility] on [address] [place] [address] 08/09/2021 11:19:37 08/11/2021 11:54:34 Type 2 diabetes mellitus without complication 477841887 E11.9 will change sliding scale to start at 200continu e Lantus 40 units QAM, 15 units QHShumalog sliding scalemonit or and adjust insulin 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 088931400 F19.10 continue methadone 20 mg qdf/u with clinic Human immunodeficiency virus infection 49131839 B20 triumeq 1 qdf/u with pcp on discharge Acute nont raumatic kidney injury 8923570317 93591 N17.9 resolved with IV fluidsavoi d nephrotoxi c meds as ablemonito r renal function weekly Compartment syndrome 111 413104 T79.A11D monitor right arm fasciotomy site, dressing as orderedmon itor site [id number] BRIDGER Moore [facility] on [address] [place] [address] 08/10/2021 14:28:18 08/12/2021 12:08:30 Type 2 diabetes mellitus without complication 217194660 E11.9 will change sliding scale to start at 200 for breakfast only, will use sliding scale to start at 150 for lunch and dinnercont inue Lantus 40 units QAM, 15 units QHShumalog sliding scalemonit or and adjust insulin based on BSf/u later this week to reassess [id number] DENILSON ARIAS PA-C [facility] on [address] [place] [phone] 08/17/2021 13:06:51 08/18/2021 14:24:56 Infection of tooth 211105326 K04.7 Amox 1 g po x 1 then 500 mg po tiid x 3 daysProbio tic bid x 6 daysDental consultCon tinue prn OrjelMonit or and f/u prn Uncontroll ed type 1 diabetes mellitus 326306198 E10.65 Hx DKAadd hs fingerstic k but do not cover with correction al Humalogtra nscription error in correction al insulin resolved-s hould be 9 ux for 351-400d/c order to repeat sugar in 90 minutes if >400On ARB for renal protection Monitor sugars and adjust meds prn [id number] DENILSON ARIAS PA-C [facility] on [address] [place] [address] 08/23/2021 14:16:07 08/25/2021 10:02:21 Infection of tooth 348133725 K04.7 Improved with AmoxDental f/u tomorrow as scheduledf /u prn Uncontroll ed type 1 diabetes mellitus 817100121 E10.65 Consider fingerstic k blood sugar at [...] or hs-adjust correction al insulin back to 2/4/6/8 for lunch and dinnerRefe r back to [facility] (has been there before) for considerat ion [...] Gonzales Member ID Guarantor Name 08/23/2021 1 [place]: [facility] Kelechi Rodriguez [id number] Kelechi Rodriguez Notes Date Note Type Note Provider Name and Address Organization Details Recorded Time 08/04/2021 text/html 46 yo male seen for 30 day routine rounding visit. Patient with hx IV drug use, DM, recent right arm abscess, compartment syndrome, s/p fasciotomy. Patient admitted to this facility following hospitalization for fever and increased pain and swelling at fasciotomy site. Patient had been at [facility] for abscess of right arm in May [...] IV insulin with good response. Lorin jimenez [place] - [facility] 08/04/2021 13:45:52 08/09/2021 text/html pt seen today for acute rounding visit. Patient with hx IV drug use, DM, recent right arm abscess, compartment syndrome, s/p fasciotomy. Patient admitted to this facility following hospitalization for fever and increased pain and swelling at fasciotomy site. Patient had been at [facility] for abscess of right arm in May [...] 100s or 300s. no concerns per nursing. Jennifer Babcock, E COMMERCE DEVELOPER [address] [facility], [address], [place], [address], [facility] 08/09/2021 11:25:33 08/10/2021 text/html pt seen today for acute rounding visit. Patient with hx IV drug use, DM, recent right arm abscess, compartment syndrome, s/p fasciotomy. Patient admitted to this facility following hospitalization for fever and increased pain and swelling at fasciotomy site. Patient had been at [facility] for abscess of right arm in May [...] are requiring close titration at this point. Jennifer Babcock, E COMMERCE DEVELOPER [address] [facility], [address], [place], [address], [facility] 08/10/2021 14:35:09 08/17/2021 text/html ROS as noted in the HPI Pt seen for acute rounding visit today for dental pain and [...] bowel protocolNarcan prn DENILSON ARIAS PA-C [address] [facility], [address], [place], [address], [facility] 08/17/2021 20:45:43 08/23/2021 text/html ROS as noted in the HPI Pt seen today for acute rounding visit for DM and dental [...] ux qhs added; 40 ux q am /13/21: HS Lantus increased to 15 ux; 40 ux am jbtfvmrzo77/22/21: Sliding scale lynrcsod00/27/21: Order given to start coverage at 201 rather than 1759408/10/21: Order given for 2 ux coverage if sugar 150-200 at lunch and dinner only and to continue starting coverage at 201 for fwedxudel89/29/21: Scale adjusted to 11/15//05/21/11 ux from /06/22/12 ux; Morning Lantus decreased from 40 to 30 ux and hs dose increased 15 to 20 ux No polyuria/poydipsia. DENILSON ARIAS PA-C [address] [place] [address], [address], [place], [address], [facility] 08/23/2021 14:48:00
[2025-10-21 20:19] LABS: HIV RNA PCR Qn Copies NOT DETECTED copies/mL (NOT DETECTED); HIV RNA PCR Qn Log Copies NOT DETECTED (NOT DETECTED)
[2025-10-21 22:32] LABS: Absolute CD3 Count 1414 cells/uL (840-3060); Absolute CD8 Count 673 cells/uL (180-1170); Percent CD3 Cells 87 % (57-85); Percent CD8 Cells 41 % (12-42)
== END 2025-10-16 14:27 | disposition home or self-care (01) ==
LOC: HO.HHCL 14:26
PROVIDERS: PCP General Practice; Referring Provider General Practice; Visit Provider Internal Medicine
DX: Z21 Asymptomatic human immunodeficiency virus [HIV] infection status (principal); N17.9 Acute kidney failure, unspecified
CPT/HCPCS: 36415; 80053; 85025; 86359; 86360; 87536

== ENCOUNTER 2025-10-21 11:00 | Outpatient (AMB) | payer MEDICAID, SELFPAY ==
--- NOTE | 2025-10-21 11:02 | A.OFFVIS_ITS ---
Vital Signs 3 10/21/25 11:03 Height 5 ft 7 in Weight 156 lb 8.451 oz BMI 24.5 BP 86/52 L Blood Pressure Location Rt brachial Position Sitting Pulse 74 Pulse Source Pulse Oximeter Pulse Oximetry (%) 98 Oxygen Delivery Method Room Air Intake Visit Reasons: T1DM Intake Note: Patient presents today for a follow-up on for Type 1 Diabetes Mellitus: Last Diabetic eye exam was on: DUE, Patient needs a new referral Last Podiatry exam was on: Patient does not see a Associate Professor Of Kinesiology Most recent HbA1c: 8.8%, 10/21/2025 Random Glucose: 324 mg/dL L Plant Chief Required: No Accompanied by: Self / Same As Patient Allergies fish Allergy (Unknown, Uncoded 10/21/25 11:09) Anaphylaxis shellfish Allergy (Unknown, Uncoded 10/21/25 11:09) Anaphylaxis HPI Comments Details: 50 years old male with PMH of type 1 diabetes, opiate use disorder, HIV, chronic hepatitis C, seen in the office for evaluation of type 1 diabetes. Diagnosed with T1DM 2013, does not recall when, but he recalls being admitted to the hospital with ketoacidosis and told that he had T1DM, he has initially placed on metformin, but has being on insulin for a while now-paossible 2014. Patient speech is slow and he looks older than his staged age During intake he is reported ti have low BG 80/60s on multiple readings, he said he took 2 clonidine tablets this am, and he has not eaten anything. current regiment 4 units with meals and 1 unit for every 50 points of glucose that is above 250, and Lantus 20 units at noon. He forgets to give himself insulin a lot and almost never misses it. He has multiple social issues and is frequently in facilities, admitted to hospitals or home. He also is dealing with drug use (cocaine/heroine) Admitted to [facility] 1 month ago for DKA WITH bg 1000. reports a lot of bg variability, given his irregular eating patter and also the sensor he uses. He is using kelly 2 and he is getting losts of alarms. He is interested in having insulin pump to help with his DM control. 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 Around Jul-Sep 2025, has diabetic retinopathy, not requiring injections or laser surgery He reports decreased sensation in lower extremities, sometimes unaware of blisters and other lesions in the feet Interval history His BG was 657 on Oct 16, 2025; he does not recall being admitted Patient noted to be using the CGM only 23% of the time as he was not able to picked edge sewing machine operator the sensors Using Lantus 20 units at night and 10 in the AM; and Lispro 6 units per meals Has not seeing diabetes education for pump discussion He ocassionally he misses the mealtime insulin Reports 2-3 episodes of lows, night time usually He reports not using drugs for the last 3 months Physical exam: General: Well appearing. NAD. Neck/Thyroid: Thyroid not palpable, no nodules. CV: RRR, no murmur. No edema. Resp:Lungs clear to auscultation bilaterally Abdomen: Soft, nontender. nondistended Extremities/Neuro: No weakness or tremor of outstretched hands Laboratory Tests 10/21/25 10/21/25 11:08 11:10 Glucose (Clinic) 324 H Hgb A1c (Clinic) 8.8 H Laboratory Tests 07/24/25 10/16/25 11:34 14:32 Sodium 132 L BUN 29 H Creatinine 1.35 Estimated GFR 56 Random Glucose 657 H* Hgb A1c (Clinic) 9.8 H CGM data: Interpretation: scarce data, mostly heperglycemia due to medication non- compliance. [facility] Medical History Protein calorie malnutrition Opioid use disorder Hep C w/o coma, chronic HIV (human immunodeficiency virus infection) HIV (human immunodeficiency virus infection) Compartment syndrome Active substance abuse Substance abuse Diabetes Diabetes Surgical History History of fasciotomy H/O fasciotomy Social History Household Members: None Household Members Other:: self Housing: Apartment Do you presently have visiting nurse or other home services: No Unable to assess alcohol history related to: Unknown Alcohol intake: current Alcohol intake frequency: a few times a week Comment: bed/chair fast due to HFNC use Patient Tobacco Use Status: Never used Tobacco Tobacco use type: Cigarette Cigarette Packs Per Day: 1 Cigarettes Per Day: 10 Years Smoked: 20 e-Cigarette/Vaping Use: Never Used Second Hand Smoke Exposure: No Substance Use Type: Heroin Advance Directives Date on File: 07/09/21 service: No Current occupational status: unemployed Physical Exam Exam Exam: General: Disheveled, no acute distress Neck: supple, no thyromegaly CV: RRR, no murmur Extremities: peripheral pulses 1+ Neuro: monofilament: absent sensation bilaterally Vital Signs: Last Vital Signs Temp 75 F L 10/21/25 11:03 BP 86/52 L 10/21/25 11:03 Results AMB Hemoglobin A1c 2 AMB Hemoglobin A1c 8.8 % Last Edit by LAVON Narvaez on 10/21/25 11:17 Results Reviewed Results Reviewed: Laboratory Last Values Glucose (Clinic) 324 mg/dL (60-115) H 10/21/25 11:08 Hgb A1c (Clinic) 8.8 % (4.0-6.0) H 10/21/25 11:10 Assessment & Plan Assessment & Plan (1) Diabetes: Code(s): E11.9 - Type 2 diabetes mellitus without complications Category: Medical Qualifiers: Diabetes mellitus complication status: without complication Diabetes mellitus wire weaver helper insulin use: with senior care use Diabetes mellitus type: type 2 Qualified Code(s): E11.9 - Type 2 diabetes mellitus without complications; Z79.4 - MCC (current) use of insulin Plan Assessment - Poorly controlled Type 1 Diabetes Mellitus due to noncompliance with medications/instructions - Diabetic neuropathy - Substance use disorder - Social instability/homelessness Poor control related to medication non-compliance. We discussed again the risks and complications of persistently uncontrolled DM. Recommendations - Reinforced the importance to see a unit educator for insulin pump evaluation - Decrease Lantus to 20 units daily. - Continue Lispro 4-6 units with meals - Advised to use Kelly 3 + sensor for better monitoring of BG - Follow-up appointment 1 month - reinforced need for labs: celiac disease, TSH microalbuminuria Orders: Orders 2 AMB Glucose Monitoring Today E10.9 - Type 1 diabetes mellitus without complications AMB Hemoglobin A1c Today E10.9 - Type 1 diabetes mellitus without complications Coding Level of Care Code Complex visit Add On G2211 Diagnoses Diabetes E11.9; Z79.4 Diabetes mellitus complication status: without complication Diabetes mellitus wire weaver helper insulin use: with wire weaver helper use Diabetes mellitus type: type 2
[2025-10-21 11:03] VITALS: BP 86/52; PULSE 74; O2SAT 98; BMI 24.5
[2025-10-21 11:11] LABS: Glucose, Whole Blood 324 mg/dL (60-115)
== END 2025-10-22 10:38 | disposition home or self-care (01) ==
LOC: HO.ENCR 11:00
PROVIDERS: PCP General Practice; Visit Provider Student in an Organized Health Care Education/Training Program
DX: E11.9 Type 2 diabetes mellitus without complications (principal); Z79.4 Long term (current) use of insulin; E10.9 Type 1 diabetes mellitus without complications
CPT/HCPCS: 99214

== ENCOUNTER 2025-10-21 11:00 | Outpatient (REF) | payer MEDICAID, SELFPAY ==
[2025-10-21 13:51] LABS: Alanine Aminotransferase 17 U/L (0-40); Albumin Level 3.5 g/dL (3.5-5.0); Alkaline Phosphatase 114 U/L (39-117); Anion Gap 9 (12-20); Aspartate Amino Transferase 29 U/L (5-37); Blood Urea Nitrogen 29 mg/dL (9-16); Calcium 8.7 mg/dL (8.4-10.2); Carbon Dioxide 26 mmol/L (22-29); Chloride 107 mmol/L (96-108); Estimated Glomerular Filt Rate > 60; Potassium 5.5 mmol/L (3.3-5.1); Sodium 136 mmol/L (135-145); Total Protein 6.9 g/dL (6.5-8.0)
== END 2025-10-21 11:01 | disposition home or self-care (01) ==
LOC: HO.LAB 11:00
PROVIDERS: Absent Provider Internal Medicine; PCP General Practice; Visit Provider Student in an Organized Health Care Education/Training Program
DX: E10.9 Type 1 diabetes mellitus without complications (principal); Z79.4 Long term (current) use of insulin
CPT/HCPCS: 36415; 80053; 82947; 83036; 95250; 99212